=== PATIENT | female | born 1935 | race Caucasian/White ===

== ENCOUNTER 2016-09-14 10:39 | Emergency (ER) | payer MEDICARE ==
[~2016-09-14] VITALS: Ht 157.5 cm; Wt 66.6 kg
[~2016-09-14 10:39] MED LIST: BENZ1CAP90 PO; NITR0.4D5 TOP
[2016-09-14 10:53] VITALS: TEMP 36.5; Ht 157.5 cm; Wt 66.6 kg
[2016-09-14] MEDS ORDERED: VNTHFA/IN INH (11:32)
[2016-09-14] MEDS ORDERED: SYMIN160 INH (11:34)
[2016-09-14] MEDS ORDERED: ALBUT/IPRATROP 3MG/0.5MG NEB 3 ML VIAL INH STA (12:18)
[2016-09-14 12:27] LABS: BASO % 0.4 %; BASO ABS # 0.02 K/uL (0-0.2); COMPLETE YES; EOS % 5.9 %; IG% 0.2 %; LYMPH % 29.7 %; LYMPH ABS # 1.51 K/uL (1.2-3.4); MEAN CELL VOLUME 94.1 fL (80-100); MEAN CORPUSCULAR HEMOGLOBIN 31.5 pg (25-34); MEAN CORPUSCULAR HGB CONC 33.4 g/dl (32-36); MEAN PLATELET VOLUME 11.2 fL (7.4-10.4); MONO % 7.1 %; NEUT % 56.7 %; PLATELET COUNT 133 K/uL (130-400); RED BLOOD COUNT 3.72 M/uL (4.2-5.4); WHITE BLOOD COUNT 5.09 K/uL (4.8-10.8)
[2016-09-14 12:37] LABS: ALT/SGPT 31 U/L (12-78); AST/SGOT 37 U/L (15-37); BLOOD UREA NITROGEN 15 mg/dl (7-18); BUN/CREATININE RATIO 13.6 (10-20); CALCIUM 9.2 mg/dl (8.5-10.1); CARBON DIOXIDE 26 mmol/L (21-32); CHLORIDE 108 mmol/L (98-107); GLUCOSE 149 mg/dl (70-99); POTASSIUM 4.4 mmol/L (3.5-5.1); SODIUM 142 mmol/L (136-145)
[2016-09-14 12:42] LABS: ALB/GLOB RATIO 1.2 (0.9-2); ALKALINE PHOSPHATASE 83 U/L (45-117)
[2016-09-14 12:47] LABS: INR 1.1 (0.9-1.1); PARTIAL THROMBOPLASTIN RATIO 1.1; PROTHROMBIN TIME (PATIENT) 11.4 SECONDS (9.0-12.0)
[2016-09-14 12:49] VITALS: O2SAT 98
[2016-09-14] MEDS ORDERED: LOSA1TAB PO (13:16)
[2016-09-14] MEDS ORDERED: COLE1TAB PO (13:16)
[2016-09-14] MEDS ORDERED: NITR0.4S UT (13:21)
[2016-09-14] MEDS ORDERED: LORA-741 PO (13:21)
[2016-09-14] MEDS ORDERED: INSDGIPEN SC (13:21)
[2016-09-14] MEDS ORDERED: NIFE1TAB53 PO (13:21)
[2016-09-14] MEDS ORDERED: DICY20TA35 PO (13:21)
[2016-09-14] MEDS ORDERED: POTA1CAP2 PO (13:21)
[2016-09-14] MEDS ORDERED: TRAM37.52 PO (13:21)
[2016-09-14] MEDS ORDERED: FENO145T26 PO (13:21)
[2016-09-14] MEDS ORDERED: MAGNTAB17 PO (13:21)
[2016-09-14] MEDS ORDERED: PROBCAP PO (13:21)
[2016-09-14] MEDS ORDERED: LACT3000 PO (13:21)
[2016-09-14] MEDS ORDERED: NXM/40 PO (13:21)
--- NOTE | 2016-09-14 13:29 | DIAGNOSTIC IMAGING REPORT ---
CHEST 2 VIEWS ROUTINE CLINICAL HISTORY: Respiratory distress. Dyspnea. Shortness of breath. Cough. COMPARISON STUDY: Chest CT July 28, 2016 and chest radiograph August 13, 2016 per FINDINGS: Lung volumes are normal. There is no pneumothorax or pleural effusion. There is no consolidation to suggest pulmonary edema. Mild left basilar opacity suggests atelectasis. This is unchanged. Cardiomediastinal silhouette is stable. There is no evidence of pulmonary edema. Several right lung nodules are unchanged since prior CT. IMPRESSION: No acute cardiopulmonary findings. Electronically signed by: Jaydon Swanson M.D. 09/14/2016 1:27 PM Dictated Date/Time: 09/14/2016 1:24 PM
--- NOTE | 2016-09-14 13:37 | DIAGNOSTIC IMAGING REPORT ---
LIMITED ABDOMINAL ULTRASOUND FOR ASCITES EVALUATION CLINICAL HISTORY: Abdominal distention. Possible ascites COMPARISON STUDY: 10/16/2014 FINDINGS: A four-quadrant ultrasound survey was performed. No ascites was visualized. There is mild splenomegaly [(12.5 cm). IMPRESSION: 1. No evidence of ascites 2. Mild splenomegaly Electronically signed by: Miller Guillory M.D. 09/14/2016 1:35 PM Dictated Date/Time: 09/14/2016 1:34 PM
--- NOTE | 2016-09-14 14:08 | EMERGENCY ROOM VISIT NOTE ---
History Report prepared by Janes: Jayson Casey Under the Supervision of: Dr. Fabian Robert D.O. First contact with patient: 12:08 Chief Complaint: REFERRED BY DOCTOR Stated Complaint: REFERRED FOR POSSIBLE CONGESTIVE HEART FAILURE History of Present Illness The patient is an 81 year old female who presents to the Emergency Room with complaints of persistent swelling in her abdomen that started 3 days ago. The patient feels like there is water in her abdomen and describes it as a fluid buildup feeling like a "balloon." The patient also says that she can feel it moving when she changes position. She also notes that she weighed herself 3 days ago and was 142 lbs .Then when she weighed herself again yesterday her weight was 150 lbs gaining 8 lbs in 2 days. The patient notes she has been consuming her normal diet. She called Dr. Garza - PCP earlier today who recommended that she present to the ED for further evaluation since she has a history of gastroparesis. The patient notes that she has been having normal daily bowel movements. However, she does complain of cramping. She also complains of worsening shortness of breath, wheezing, and cold-like symptoms including productive cough and clear mucus. The patient has had the cold-like symptoms for the past month and cannot get them to go away even though she has been taking her medications regularly. The patient has been on antibiotics and prednisone in the past month neither of which have relieved her symptoms. She denies ankle swelling. Source of History: patient Onset: 3 days ago Position: abdomen Quality: other (fluid buildup) Timing: other (persistent) Associated Symptoms: + SOB, + cough (productive) Note: Other associated symptoms: weight gain, cramping, wheezing, cold-like symptoms, clear mucus production Denies: ankle swelling Review of Systems See HPI for pertinent positives & negatives. A total of 10 systems reviewed and were otherwise negative. 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 (14) Vertigo Surgical Problems: (1) H/O: hysterectomy (2) S/P cholecystectomy Family History FH: heart disease Hypertension Kidney disease or stones Social History Smoking Status: Never Smoker Alcohol Use: none Marital Status: Housing Status: lives with family Occupation Status: retired Current/Historical Medications Scheduled Albuterol Hfa (Ventolin Hfa), 2-4 PUFFS INH Q6H Budesonide/Formoterol Fumarate (Symbicort 160/4.5 Inhaler ), 2 PUFFS INH BID Colestipol Hcl (Colestid), 3 GM PO HS Dicyclomine Hcl (Bentyl), 20 MG PO BID Docusate Sodium (Colace), 100 MG PO DAILY Esomeprazole Magnesium (Nexium), 40 MG PO DAILY Fenofibrate (Tricor), 145 MG PO QPM Insulin Glargine (Lantus Solostar), 13 UNITS SC QPM Insulin Lispro (Human) (Humalog Kwikpen), SQ UD Lactase (Lactaid), 3,000 UNITS PO DAILY Levothyroxine Sodium (Synthroid), 125 MCG PO DAILY Losartan Potassium (Cozaar), 25 MG PO DAILY Magnesium Chloride-Calcium Car (Slow-Mag), 1 TABLET PO QID Nifedipine (Nifedipine Er), 30 MG PO DAILY Nitroglycerin (Minitran), 1 PATCH TOP UD Potassium Chloride (Potassium Chloride Er), 10 MEQ PO DAILY Probiotic Product ([employer]), 1 TAB PO DAILY Scheduled PRN Benzonatate (Tessalon Perles), 200 MG PO Q4H PRN for Cough Guaif/Pse/Codeine (Cheratussin DAC 30-10-100 mg/5Ml), 5 ML PO Q6 PRN for Cough Ipratropium-Albuterol (Duoneb), 1 TREATMENT INH Q4H PRN for SOB/Wheezing Lorazepam (Ativan), 0.5 MG PO HS PRN for Sleep Nitroglycerin (Nitrostat), 0.4 MG UT UD PRN for Chest Pain Tramadol-Acetaminophen (Ultracet), 1 TABLET PO DAILY PRN for Pain Allergies Coded Allergies: Statins (Unverified Allergy, Severe, ELEVATED HEPATIC ENZYMES, 09/14/16) Iodinated Contrast Media (Verified Allergy, Intermediate, RASH, 09/14/16) PT REPORTS ALLERGIC REACTION: 'MUSCLE SPASMS OF HEART' Erythromycin (Unverified Allergy, Unknown, unknown, 09/14/16) ONLY FOR THE EYES Penicillins (Verified Allergy, Unknown, 09/14/16) Repaglinide (Verified Allergy, Unknown, UNKN, 09/14/16) Sulfa Drugs (Verified Allergy, Unknown, 09/14/16) Timolol (Verified Allergy, Unknown, UNKN, 09/14/16) Enalapril (Verified Adverse Reaction, Intermediate, COUGH, 09/14/16) Physical Exam Vital Signs Date Time Temp Pulse Resp B/P Pulse Ox O2 Delivery O2 Flow Rate FiO2 09/14/16 14:50 73 20 139/57 92 Room Air 09/14/16 12:50 61 18 134/62 97 Room Air 09/14/16 12:49 98 Room Air 09/14/16 10:53 36.5 72 18 148/65 95 Room Air Physical Exam CONSTITUTIONAL/VITAL SIGNS: Reviewed / noted above. GENERAL: Non-toxic in appearance. INTEGUMENTARY: Warm, dry, and [place]. HEAD: Normocephalic. EYES: without scleral icterus or trauma. ENT/OROPHARYNX: clear and moist. LYMPHADENOPATHY/NECK: Is supple without lymphadenopathy or meningismus. RESPIRATORY: Mild and expiratory wheezing. CARDIOVASCULAR: Regular rate and rhythm. GI/ABDOMEN: Soft and nontender. No organomegaly or pulsatile mass. No rebound or guarding. Normal bowel sounds. EXTREMITIES: Warm and well perfused. BACK: No CVA tenderness. NEUROLOGICAL: Intact without focal deficits. PSYCHIATRIC: normal affect. MUSCULOSKELETAL: Normally developed with good muscle tone. Medical Decision & Procedures ER Provider Diagnostic Interpretation: X ray results and stated below per my interpretation and radiologist interpretation. Other radiology results and stated below per my review and radiologist interpretation: CHEST 2 VIEWS ROUTINE CLINICAL HISTORY: Respiratory distress. Dyspnea. Shortness of breath. Cough. COMPARISON STUDY: Chest CT July 28, 2016 and chest radiograph August 13, 2016 per FINDINGS: Lung volumes are normal. There is no pneumothorax or pleural effusion. There is no consolidation to suggest pulmonary edema. Mild left basilar opacity suggests atelectasis. This is unchanged. Cardiomediastinal silhouette is stable. There is no evidence of pulmonary edema. Several right lung nodules are unchanged since prior CT. IMPRESSION: No acute cardiopulmonary findings. Electronically signed by: Jaydon Swanson M.D. 09/14/2016 1:27 PM Dictated Date/Time: 09/14/2016 1:24 PM LIMITED ABDOMINAL ULTRASOUND FOR ASCITES EVALUATION CLINICAL HISTORY: Abdominal distention. Possible ascites COMPARISON STUDY: 10/16/2014 FINDINGS: A four-quadrant ultrasound survey was performed. No ascites was visualized. There is mild splenomegaly [(12.5 cm). IMPRESSION: 1. No evidence of ascites 2. Mild splenomegaly Electronically signed by: Miller Guillory M.D. 09/14/2016 1:35 PM Dictated Date/Time: 09/14/2016 1:34 PM Laboratory Results 09/14/16 11:20 Red Blood Count 3.72, Mean Corpuscular Volume 94.1, Mean Corpuscular Hemoglobin 31.5, Mean Corpuscular Hemoglobin Concent 33.4, Mean Platelet Volume 11.2, Neutrophils (%) (Auto) 56.7, Lymphocytes (%) (Auto) 29.7, Monocytes (%) (Auto) 7.1, Eosinophils (%) (Auto) 5.9, Basophils (%) (Auto) 0.4, Neutrophils # (Auto) 2.89, Lymphocytes # (Auto) 1.51, Monocytes # (Auto) 0.36, Eosinophils # (Auto) 0.30, Basophils # (Auto) 0.02 09/14/16 11:20 Test 09/14/16 11:20 White Blood Count 5.09 K/uL (4.8-10.8) Red Blood Count 3.72 M/uL (4.2-5.4) Hemoglobin 11.7 g/dL (12.0-16.0) Hematocrit 35.0 % (37-47) Mean Corpuscular Volume 94.1 fL (80-100) Mean Corpuscular Hemoglobin 31.5 pg (25-34) Mean Corpuscular Hemoglobin Concent 33.4 g/dl (32-36) Platelet Count 133 K/uL (130-400) Mean Platelet Volume 11.2 fL (7.4-10.4) Neutrophils (%) (Auto) 56.7 % Lymphocytes (%) (Auto) 29.7 % Monocytes (%) (Auto) 7.1 % Eosinophils (%) (Auto) 5.9 % Basophils (%) (Auto) 0.4 % Neutrophils # (Auto) 2.89 K/uL (1.4-6.5) Lymphocytes # (Auto) 1.51 K/uL (1.2-3.4) Monocytes # (Auto) 0.36 K/uL (0.11-0.59) Eosinophils # (Auto) 0.30 K/uL (0-0.5) Basophils # (Auto) 0.02 K/uL (0-0.2) RDW Standard Deviation 46.5 fL (36.4-46.3) RDW Coefficient of Variation 13.5 % (11.5-14.5) Immature Granulocyte % (Auto) 0.2 % Immature Granulocyte # (Auto) 0.01 K/uL (0.00-0.02) Prothrombin Time 11.4 SECONDS (9.0-12.0) Prothromb Time International Ratio 1.1 (0.9-1.1) Activated Partial Thromboplast Time 28.8 SECONDS (21.0-31.0) Partial Thromboplastin Ratio 1.1 Anion Gap 8.0 mmol/L (3-11) Est Creatinine Clear Calc Drug Dose 35.9 ml/min Estimated GFR () 54.5 Estimated GFR (Non- 47.0 BUN/Creatinine Ratio 13.6 (10-20) Calcium Level 9.2 mg/dl (8.5-10.1) Magnesium Level 1.9 mg/dl (1.8-2.4) Total Bilirubin 0.4 mg/dl (0.2-1) Aspartate Amino Transf (AST/SGOT) 37 U/L (15-37) Alanine Aminotransferase (ALT/SGPT) 31 U/L (12-78) Alkaline Phosphatase 83 U/L (45-117) Total Creatine Kinase 58 U/L (26-192) Creatine Kinase MB 0.6 ng/ml (0.5-3.6) Creatine Kinase MB Ratio 1.0 (0-3.0) Troponin I < 0.015 ng/ml (0-0.045) Pro-B-Type Natriuretic Peptide 460 pg/ml (0-1800) Total Protein 6.7 gm/dl (6.4-8.2) Albumin 3.6 gm/dl (3.4-5.0) Globulin 3.1 gm/dl (2.5-4.0) Albumin/Globulin Ratio 1.2 (0.9-2) Laboratory results as stated above per my review. Medications Administered Medications (Trade) Dose Ordered Sig/Massiel Route Start Time Stop Time Status Last Admin Dose Admin Albuterol/ Ipratropium (Duoneb) 3 ml NOW STAT INH 09/14/16 12:18 09/14/16 12:22 DC 09/14/16 12:52 3 ML ECG Indication: other Rate (beats per minute): 68 Rhythm: normal sinus Findings: no acute ischemic change, no ectopy ED Course 1210: Previous medical records were reviewed. The patient was evaluated in room B12. A complete history and physical examination was performed. 1218: Ordered Duoneb 3 ml INH. 1412: On reevaluation, the patient is resting comfortably. I discussed the results and findings with the patient. She verbalized agreement of the treatment plan. She was discharged home. Medical Decision the differential was considered includes acute myocardial infarction, acute coronary syndrome, myocarditis, pericarditis, pericardial effusions /tamponad, esophageal perforation, pulmonary embolism, pneumonia, pneumothorax, cardiomyopathy, congestive heart, anemia , COPD/asthma exacerbation. This is an 81-year-old female who presents to the ED with a chief complaint of increased weight gain and continued cough. The patient has had an upper respiratory infection associated with cough since June. She was seen here in late July. She has been on a couple of courses of antibiotics as well as steroids. She is also been prescribed Tessalon Perles and Hycodan and has seen her hepatology physician, Dr. Coleman. She has an appointment to see him this Wednesday in 4 days. The patient was concerned about some swelling around her abdomen. She felt like she was accumulating fluid. Her PCP was worried about ascites. The patient was concerned about congestive heart failure. The patient 's cough is mostly nonproductive but occasionally she produces some clear sputum. She has not had fevers. She denies any other significant symptoms such as chest pains or back pains. No swelling in her legs. Vital signs are stable. Physical exam was essentially normal aside from a cough and some mild expiratory wheezing. CBC was unremarkable. CMP was unremarkable. Troponin and BNP are normal. Chest x-ray did not show acute disease. Abdominal ultrasound did not show ascites. Reviewing the charts, the patient gained 1.1 kg between August 13 and today, September 14. She claims that she gained 7 pounds over the weekend but this does not appear accurate based on her weight and July and now, one month later. The patient was told the results of the test per she was given a DuoNeb treatment. She is felt to be stable for discharge and outpatient follow-up with her hepatology physician this Wednesday. She does have albuterol inhaler as well as steroid inhaler at home. She was given a prescription for Cheratussin. Impression Primary Impression: Bronchitis Scribe Attestation The scribe's documentation has been prepared under my direction and personally reviewed by me in its entirety. I confirm that the note above accurately reflects all work, treatment, procedures, and medical decision making performed by me. Departure Information Dispostion Home / Self-Care Prescriptions Guaif/Pse/Codeine (Cheratussin DAC 30-10-100 mg/5Ml) 5 Ml/Cup Soln 5 ML PO Q6 Y for Cough, #100 ML Prov: Fabian Robert D.O. 09/14/16 Referrals RV. Sanderson MD (PCP) Forms HOME CARE DOCUMENTATION FORM, IMPORTANT VISIT INFORMATION, WORK / SCHOOL INSTRUCTIONS Patient Instructions Bronchitis Acute, My [facility] [address] Additional Instructions Follow-up with your doctor for further care and evaluation in 1-4 days. Return to the emergency department for worsening or new symptoms or any concerns. You have been examined and treated today on an emergency basis only. This is not a substitute for, or an effort to provide, complete comprehensive medical care. It is impossible to recognize and treat all injuries or illnesses in a single emergency department visit. It is therefore important that you follow up closely with your doctor. Call as soon as possible for an appointment.
[2016-09-14 14:50] VITALS: BP 139/57; PULSE 73; O2SAT 92
[2016-09-14] MEDS ORDERED: IPRASOL4 INH (15:01)
[2016-09-14] MEDS ORDERED: RBTDAC5 PO (15:16)
--- NOTE | 2016-09-14 15:48 | Pharmacy Progress Note ---
ED Pharmacist Progress Note Date of Service: Sep 14, 2016. Pharmacist, Ileana, called from [facility] asking if Rx could be changed to Cheratussin AC (rather than DAC) because that is what was last filled for this patient. Dr Robert permits change to AC as this is what patient had been using and had actually requested refill of the same.
[2016-09-14] MEDS ORDERED: INSU100I2 SQ (20:32)
[2016-09-14] MEDS ORDERED: LEVO125T72 PO (20:39)
[2016-09-14] MEDS ORDERED: DOCU-94 PO (20:58)
== END 2016-09-14 15:05 | disposition home or self-care (01) ==
LOC: C.EDB 10:39
DX: J40 Bronchitis, not specified as acute or chronic (principal); E11.9 Type 2 diabetes mellitus without complications; K21.9 Gastro-esophageal reflux disease without esophagitis; K31.84 Gastroparesis; I51.9 Heart disease, unspecified; E78.5 Hyperlipidemia, unspecified; I10 Essential (primary) hypertension; E03.9 Hypothyroidism, unspecified; K58.9 Irritable bowel syndrome, unspecified; Z82.49 Family history of ischemic heart disease and other diseases of the circulatory system; Z79.4 Long term (current) use of insulin; Z79.899 Other long term (current) drug therapy

== ENCOUNTER → 2016-10-22 | Outpatient (CLI) | payer MEDICARE ==
[~2016-10-22] MED LIST changes: +COLE1TAB PO; +DICY20TA35 PO; +DOCU-94 PO; +FENO145T26 PO; +INSDGIPEN SC; +INSU100I2 SQ; +IPRASOL4 INH; +LACT3000 PO; +LEVO125T72 PO; +LORA-741 PO; +LOSA1TAB PO; +MAGNTAB17 PO; +NIFE1TAB53 PO; +NITR0.4S UT; +NXM/40 PO; +POTA1CAP2 PO; +PROBCAP PO; +RBTDAC5 PO; +SYMIN160 INH; +TRAM37.52 PO; +VNTHFA/IN INH
[2016-10-22 17:47] LABS: ALT/SGPT 36 U/L (12-78); AST/SGOT 42 U/L (15-37); BLOOD UREA NITROGEN 14 mg/dl (7-18); BUN/CREATININE RATIO 12.3 (10-20); CALCIUM 9.6 mg/dl (8.5-10.1); CARBON DIOXIDE 25 mmol/L (21-32); CHLORIDE 110 mmol/L (98-107); GLUCOSE 126 mg/dl (70-99); MAGNESIUM 1.7 mg/dl (1.8-2.4); POTASSIUM 4.4 mmol/L (3.5-5.1); SODIUM 144 mmol/L (136-145)
[2016-10-22 17:55] LABS: CHOLESTEROL/HDL RATIO 4.7
[2016-10-22 17:58] LABS: ALB/GLOB RATIO 1.1 (0.9-2); ALKALINE PHOSPHATASE 81 U/L (45-117)
[2016-10-22 18:06] LABS: RATIO 69.4 mcg/mg (0-30.0)
[2016-10-23 05:55] LABS: ESTIMATED AVERAGE GLUCOSE 157 mg/dl; HA1C FLAG Normal (Normal)
== END | disposition home or self-care (01) ==
LOC: C.LABBFT 12:31
PROVIDERS: ATTEND Internal Medicine Cardiovascular Disease
DX: E11.9 Type 2 diabetes mellitus without complications (principal); E78.5 Hyperlipidemia, unspecified; E03.9 Hypothyroidism, unspecified; E83.42 Hypomagnesemia; E87.6 Hypokalemia

== ENCOUNTER → 2017-01-06 | Outpatient (CLI) | payer MEDICARE ==
--- NOTE | 2017-01-07 13:07 | MAMMOGRAPHY REPORT ---
BILATERAL DIGITAL SCREENING MAMMOGRAM TOMOSYNTHESIS WITH CAD: 01/06/2017 CLINICAL HISTORY: Routine screening. Patient has no complaints. TECHNIQUE: Breast tomosynthesis in addition to standard 2D mammography was performed. Current study was also evaluated with a Computer Aided Detection (CAD) system. COMPARISON: Comparison is made to exams dated: 01/08/2016 ultrasound biopsy, 01/08/2016 mammogram, 12/26/2015 mammogram, 12/26/2015 ultrasound, 12/17/2015 mammogram, and 06/06/2015 ultrasound - [facility]. BREAST COMPOSITION: The tissue of both breasts is heterogeneously dense, which may obscure small ma sses. FINDINGS: No suspicious masses, calcifications, or areas of architectural distortion are noted in e ither breast. There has been no significant interval change compared to prior exams. Scattered bilat eral benign-appearing calcifications are not significantly changed. Lobulated circumscribed mass in the left 11 to 12:00 breast is stable compared to multiple prior exams. IMPRESSION: ACR BI-RADS CATEGORY 2: BENIGN There is no mammographic evidence of malignancy. A 1 year screening mammogram is recommended. The p atient will receive written notification of the results. Approximately 10% of breast cancers are not detected with mammography. A negative mammographic repor t should not delay biopsy if a clinically suggestive mass is present. Nohemi Rodriguez M.D. /:01/06/2017 16:31:36 Silk Screen Operator: Viviana Osorio, [facility] letter sent: Normal 1/2 BI-RADS Code: ACR BI-RADS Category 2: Benign
== END | disposition home or self-care (01) ==
LOC: C.MAMM 14:14
PROVIDERS: ATTEND Internal Medicine
DX: Z12.31 Encounter for screening mammogram for malignant neoplasm of breast (principal)

== ENCOUNTER → 2017-01-26 | Outpatient (CLI) | payer MEDICARE ==
[2017-01-26 12:46] LABS: RATIO 5.1 mcg/mg (0-30.0)
[2017-01-26 13:12] LABS: ESTIMATED AVERAGE GLUCOSE 157 mg/dl; HA1C FLAG Normal (Normal)
== END | disposition home or self-care (01) ==
LOC: C.LABBFT 10:11
PROVIDERS: ATTEND Nurse Practitioner Adult Health
DX: E11.9 Type 2 diabetes mellitus without complications (principal)

== ENCOUNTER → 2017-02-11 | Outpatient (CLI) | payer MEDICARE ==
[2017-02-11 18:15] LABS: BLOOD UREA NITROGEN 14 mg/dl (7-18); BUN/CREATININE RATIO 12.4 (10-20); CALCIUM 10.1 mg/dl (8.5-10.1); CARBON DIOXIDE 27 mmol/L (21-32); CHLORIDE 107 mmol/L (98-107); GLUCOSE 136 mg/dl (70-99); POTASSIUM 4.1 mmol/L (3.5-5.1); SODIUM 143 mmol/L (136-145)
== END | disposition home or self-care (01) ==
LOC: C.LABBFT 11:43
PROVIDERS: ATTEND Internal Medicine
DX: E11.9 Type 2 diabetes mellitus without complications (principal)

== ENCOUNTER → 2017-03-26 | Outpatient (CLI) | payer MEDICARE ==
[~2017-03-26] MED LIST changes: -BENZ1CAP90 PO
[2017-03-26 17:18] LABS: ALT/SGPT 30 U/L (12-78); BLOOD UREA NITROGEN 21 mg/dl (7-18); BUN/CREATININE RATIO 17.6 (10-20); CALCIUM 10.3 mg/dl (8.5-10.1); CARBON DIOXIDE 26 mmol/L (21-32); CHLORIDE 107 mmol/L (98-107); GLUCOSE 117 mg/dl (70-99); MAGNESIUM 1.9 mg/dl (1.8-2.4); POTASSIUM 4.5 mmol/L (3.5-5.1); SODIUM 139 mmol/L (136-145)
[2017-03-26 17:21] LABS: ALB/GLOB RATIO 1.1 (0.9-2); ALKALINE PHOSPHATASE 77 U/L (45-117); AST/SGOT 28 U/L (15-37)
== END | disposition home or self-care (01) ==
LOC: C.LAB1850 14:57
PROVIDERS: ATTEND Internal Medicine
DX: R07.89 Other chest pain (principal)

== ENCOUNTER → 2017-06-01 | Outpatient (CLI) | payer MEDICARE ==
[2017-06-01 17:59] LABS: BLOOD UREA NITROGEN 21 mg/dl (7-18); BUN/CREATININE RATIO 17.4 (10-20); CARBON DIOXIDE 26 mmol/L (21-32); CHLORIDE 107 mmol/L (98-107); GLUCOSE 148 mg/dl (70-99); POTASSIUM 4.1 mmol/L (3.5-5.1); SODIUM 140 mmol/L (136-145)
[2017-06-02 07:35] LABS: ESTIMATED AVERAGE GLUCOSE 169 mg/dl; HA1C FLAG Normal (Normal)
== END | disposition home or self-care (01) ==
LOC: C.LABBFT 13:59
PROVIDERS: ATTEND Nurse Practitioner Adult Health
DX: E11.9 Type 2 diabetes mellitus without complications (principal); E83.52 Hypercalcemia

== ENCOUNTER → 2017-08-24 | Outpatient (CLI) | payer MEDICARE ==
[~2017-08-24] MED LIST changes: +IPRA-64 INH; -IPRASOL4 INH; -NIFE1TAB53 PO; +NIFE30TA86 PO
--- NOTE | 2017-08-24 15:36 | DIAGNOSTIC IMAGING REPORT ---
CHEST 2 VIEWS ROUTINE CLINICAL HISTORY: Acute asthmatic bronchitis. COMPARISON STUDY: Chest CT July 28, 2016 and chest radiograph September 14, 2016. FINDINGS: A chondroid lesion projecting over the left humeral head is unchanged. No pneumothorax or pleural effusion is present. There is no consolidation to suggest pneumonia. Cardiomediastinal silhouette is stable. Patient is mildly rotated. IMPRESSION: No acute cardiopulmonary findings. Electronically signed by: Jaydon Swanson M.D. 08/24/2017 3:34 PM Dictated Date/Time: 08/24/2017 3:32 PM
== END | disposition home or self-care (01) ==
LOC: C.RAD1850 15:23
PROVIDERS: ATTEND Internal Medicine Pulmonary Disease
DX: J45.909 Unspecified asthma, uncomplicated (principal)

== ENCOUNTER → 2017-09-16 | Outpatient (CLI) | payer MEDICARE ==
[~2017-09-16] MED LIST changes: -IPRA-64 INH; +IPRASOL4 INH; +NIFE1TAB53 PO; -NIFE30TA86 PO
[2017-09-16 17:36] LABS: BLOOD UREA NITROGEN 16 mg/dl (7-18); CALCIUM 9.7 mg/dl (8.5-10.1); CARBON DIOXIDE 27 mmol/L (21-32); CREATININE 1.16 mg/dl (0.60-1.20); GLUCOSE 151 mg/dl (70-99); SODIUM 138 mmol/L (136-145)
== END | disposition home or self-care (01) ==
LOC: C.LABBFT 11:34
PROVIDERS: ATTEND Internal Medicine
DX: E87.6 Hypokalemia (principal); E83.42 Hypomagnesemia

== ENCOUNTER → 2017-09-30 | Outpatient (CLI) | payer MEDICARE ==
[2017-09-30 16:41] LABS: BASO % 0.4 %; BASO ABS # 0.03 K/uL (0-0.2); EOS % 5.5 %; HEMATOCRIT 38.4 % (37-47); HEMOGLOBIN 13.4 g/dL (12.0-16.0); IG# 0.03 K/uL (0.00-0.02); LYMPH % 14.9 %; LYMPH ABS # 1.08 K/uL (1.2-3.4); MEAN CELL VOLUME 91.6 fL (80-100); MEAN CORPUSCULAR HGB CONC 34.9 g/dl (32-36); MEAN PLATELET VOLUME 10.2 fL (7.4-10.4); MONO ABS # 0.65 K/uL (0.11-0.59); NEUT % 69.8 %; NEUT ABS # 5.07 K/uL (1.4-6.5); PLATELET COUNT 255 K/uL (130-400); RED CELL DISTRIBUTION WIDTH CV 12.8 % (11.5-14.5); RED CELL DISTRIBUTION WIDTH SD 42.9 fL (36.4-46.3); WHITE BLOOD COUNT 7.26 K/uL (4.8-10.8)
== END | disposition home or self-care (01) ==
LOC: C.LAB1850 15:29
PROVIDERS: ATTEND Internal Medicine
DX: R61 Generalized hyperhidrosis (principal)

== ENCOUNTER → 2017-10-07 | Outpatient (CLI) | payer MEDICARE | END | disposition home or self-care (01) | LOC: C.LABBFT 15:40 | PROVIDERS: ATTEND Internal Medicine | DX: N39.0 Urinary tract infection, site not specified (principal) ==

== ENCOUNTER → 2017-10-29 | Outpatient (CLI) | payer MEDICARE ==
[~2017-10-29] MED LIST changes: -NIFE1TAB53 PO; +NIFE30TA86 PO
--- NOTE | 2017-10-29 11:31 | DIAGNOSTIC IMAGING REPORT ---
HEAD WITHOUT CONTRAST (CT) CT DOSE: 638.56 mGycm HISTORY: Mental status change DIZZINESS,HEADACHES,EAR PAIN, NIGHT SWEATS TECHNIQUE: Multiaxial CT images of the head were performed without the use of intravenous contrast. A dose lowering technique was utilized adhering to the principles of ALARA. Comparison: 07/13/2016 Findings: The paranasal sinuses and mastoid air cells are clear. The calvarium and skull base are intact. The ventricles and sulci are within normal limits. There is no mass, hematoma, midline shift, or acute infarct. Impression: No acute intracranial abnormality. No change from the prior exam. The above report was generated using voice recognition software. It may contain grammatical, syntax or spelling errors. Electronically signed by: Khoa Perez M.D. 10/29/2017 11:30 AM Dictated Date/Time: 10/29/2017 11:28 AM
== END | disposition home or self-care (01) ==
LOC: C.CTS 11:10
PROVIDERS: ATTEND Internal Medicine
DX: H92.09 Otalgia, unspecified ear (principal); I10 Essential (primary) hypertension; J34.89 Other specified disorders of nose and nasal sinuses; R42 Dizziness and giddiness; R61 Generalized hyperhidrosis; R51 Headache

== ENCOUNTER → 2017-11-26 | Outpatient (CLI) | payer MEDICARE ==
[2017-11-26 17:39] LABS: BLOOD UREA NITROGEN 25 mg/dl (7-18); CALCIUM 9.3 mg/dl (8.5-10.1); CARBON DIOXIDE 21 mmol/L (21-32); CREATININE 1.24 mg/dl (0.60-1.20); GLUCOSE 268 mg/dl (70-99); POTASSIUM 4.5 mmol/L (3.5-5.1); SODIUM 136 mmol/L (136-145)
== END | disposition home or self-care (01) ==
LOC: C.LABBFT 14:37
PROVIDERS: ATTEND Physician Assistant
DX: E87.6 Hypokalemia (principal)

== ENCOUNTER → 2017-12-01 | Outpatient (CLI) | payer MEDICARE ==
[2017-12-01 16:59] LABS: BLOOD UREA NITROGEN 15 mg/dl (7-18); CALCIUM 9.4 mg/dl (8.5-10.1); CARBON DIOXIDE 26 mmol/L (21-32); CREATININE 1.28 mg/dl (0.60-1.20); GLUCOSE 231 mg/dl (70-99); POTASSIUM 4.9 mmol/L (3.5-5.1); SODIUM 137 mmol/L (136-145)
== END | disposition home or self-care (01) ==
LOC: C.LAB1850 14:59
PROVIDERS: ATTEND Physician Assistant
DX: I50.32 Chronic diastolic (congestive) heart failure (principal)

== ENCOUNTER → 2017-12-08 | Outpatient (CLI) | payer MEDICARE ==
[2017-12-08 16:44] LABS: ALBUMIN 3.7 gm/dl (3.4-5.0); ALT/SGPT 27 U/L (12-78); AST/SGOT 24 U/L (15-37); BLOOD UREA NITROGEN 17 mg/dl (7-18); CARBON DIOXIDE 29 mmol/L (21-32); CREATININE 1.28 mg/dl (0.60-1.20); GLUCOSE 149 mg/dl (70-99); POTASSIUM 4.2 mmol/L (3.5-5.1); SODIUM 137 mmol/L (136-145)
[2017-12-08 16:53] LABS: ALKALINE PHOSPHATASE 72 U/L (45-117); CHOLESTEROL 134 mg/dl (0-200); LDL CHOLESTEROL CALCULATED 66 mg/dl; TOTAL PROTEIN 7.2 gm/dl (6.4-8.2)
[2017-12-09 07:33] LABS: HEMOGLOBIN A1C 7.8 % (4.5-5.6)
== END | disposition home or self-care (01) ==
LOC: C.LABBFT 11:13
PROVIDERS: ATTEND Physician Assistant
DX: E11.65 Type 2 diabetes mellitus with hyperglycemia (principal); E03.9 Hypothyroidism, unspecified; E83.42 Hypomagnesemia; I50.32 Chronic diastolic (congestive) heart failure; I11.0 Hypertensive heart disease with heart failure

== ENCOUNTER → 2018-01-10 | Outpatient (CLI) | payer MEDICARE ==
--- NOTE | 2018-01-11 13:18 | MAMMOGRAPHY REPORT ---
BILATERAL DIGITAL SCREENING MAMMOGRAM TOMOSYNTHESIS WITH CAD: 01/10/2018 CLINICAL HISTORY: Routine screening. Patient has no complaints. TECHNIQUE: Breast tomosynthesis in addition to standard 2D mammography was performed. Current study was also evaluated with a Computer Aided Detection (CAD) system. COMPARISON: Comparison is made to exams dated: 01/06/2017 mammogram, 12/17/2015 mammogram, 12/05/2014 m ammogram, 12/04/2013 mammogram, 11/28/2012 mammogram, and 11/26/2011 mammogram - [facility]. BREAST COMPOSITION: The tissue of both breasts is heterogeneously dense, which may obscure small mas ses. FINDINGS: There is a stable ribbon-shaped biopsy marker clip in the upper outer quadrant of the left breast. Mild vascular calcification bilaterally. Scattered benign rim calcifications in each breast . A lobulated 2 cm mass in the 11:00 to 12:00 left breast is unchanged in size and appearance dating back to at least 2008, therefore considered benign. No new suspicious mass, architectural distortion or cluster of microcalcifications is seen. IMPRESSION: ACR BI-RADS CATEGORY 1: NEGATIVE There is no mammographic evidence of malignancy. A 1 year screening mammogram is recommended. The pa tient will receive written notification of the results. Approximately 10% of breast cancers are not detected with mammography. A negative mammographic report should not delay biopsy if a clinically suggestive mass is present. Tessa Mcgrath M.D. ay/:01/10/2018 16:36:51 Speech Language Pathologist: Dee BRYANT)(Lucita), [facility] letter sent: Normal 1/2 BI-RADS Code: ACR BI-RADS Category 1: Negative
== END | disposition home or self-care (01) ==
LOC: C.MAMM 11:24
PROVIDERS: ATTEND Internal Medicine
DX: Z12.31 Encounter for screening mammogram for malignant neoplasm of breast (principal)

== ENCOUNTER → 2018-03-24 | Outpatient (CLI) | payer MEDICARE ==
[~2018-03-24] MED LIST changes: +IPRA-64 INH; -IPRASOL4 INH
[2018-03-25 06:03] LABS: HEMOGLOBIN A1C 7.6 % (4.5-5.6)
== END | disposition home or self-care (01) ==
LOC: C.LABBFT 11:47
PROVIDERS: ATTEND Nurse Practitioner Adult Health
DX: E11.65 Type 2 diabetes mellitus with hyperglycemia (principal); E03.9 Hypothyroidism, unspecified

== ENCOUNTER 2020-11-28 18:04 | Inpatient (IN) ==
[2020-11-28 19:48] LABS: Basophils # (auto) 0.01 K/uL (0-0.2); Basophils % (auto) 0.2 %; Eosinophils # (auto) 0.19 K/uL (0-0.5); Eosinophils % (auto) 3.3 %; Hematocrit (blood only) 37.5 % (37-47); Hemoglobin 12.8 g/dL (12.0-16.0); Immature Granulocytes # (auto) 0.01 K/uL (0.00-0.02); Immature Granulocytes % (auto) 0.2 %; Lymphocytes # (auto) 0.67 K/uL (1.2-3.4); Lymphocytes % (auto) 11.6 %; Mean Corpuscular Hemoglobin 31.8 pg (25-34); Mean Corpuscular Hgb Conc 34.1 g/dL (32-36); Mean Corpuscular Volume 93.3 fL (80-100); Mean Platelet Volume 11.2 fL (7.4-10.4); Monocytes # (auto) 0.35 K/uL (0.11-0.59); Monocytes % (auto) 6.1 %; Neutrophils # (auto) 4.54 K/uL (1.4-6.5); Neutrophils % (auto) 78.6 %; Platelet Count 124 K/uL (130-400); RDW Coefficient of Variation 14.3 % (11.5-14.5); RDW Standard Deviation 48.6 fL (36.4-46.3); Red Blood Count 4.02 M/uL (4.2-5.4); White Blood Count 5.77 K/uL (4.8-10.8)
[2020-11-28 19:48] LABS: Appearance Urine Clear (Clear); Bilirubin Urine Negative (Negative); Blood Urine Negative (Negative); Color Urine Yellow; Glucose Urine UA Negative (Negative); Ketones Urine Negative (Negative); Leukocyte Esterase Urine Negative (Negative); Nitrite Urine Negative (Negative); Protein Urine Negative (Negative); Specific Gravity Urine 1.012 (1.000-1.030); Urobilinogen Urine Negative (Negative)
[2020-11-28 20:08] LABS: Alanine Aminotransferase 23 U/L (12-78); Albumin Globulin Ratio 0.8 (0.9-2); Albumin Level 3.8 gm/dl (3.4-5.0); Alkaline Phosphatase 142 U/L (45-117); Aspartate Aminotransferase 35 U/L (15-37); BUN Creatinine Ratio 18.7 (10-20); Bilirubin,Total 0.5 mg/dl (0.2-1); Blood Urea Nitrogen 25 mg/dl (7-18); Calcium 9.4 mg/dl (8.5-10.1); Carbon Dioxide 24 mmol/L (21-32); Chloride 106 mmol/L (98-107); Est GFR (African American) 42.5; Est GFR (Non-African American) 36.7; Globulin 4.6 gm/dl (2.5-4.0); Glucose 199 mg/dl (70-99); Lipase 349 U/L (73-393); Sodium 137 mmol/L (136-145); Total Protein 8.4 gm/dl (6.4-8.2)
--- NOTE | 2020-11-28 20:18 | XRay Report ---
XR chest 1V portable CLINICAL HISTORY: Pain radiating to the abdomen COMPARISON STUDY: March 03, 2021 FINDINGS: The cardiac and mediastinal contours remain stable. There is no free intraperitoneal air. T here is stable mild interstitial thickening with a basilar predominance. Is a 5 mm left midlung zone opacity, likely postinflammatory or representing a vascular summation[. There is a left proximal leydi ral calcification likely chondroid in etiology. IMPRESSION: 1. Stable interstitial thickening with a basilar predominance 2. No significant change from the prior study ACT 112: Negative or not required by law. Electronically signed by: Miller Guillory M.D. 11/28/2020 8:16 PM
--- NOTE | 2020-11-28 20:33 | Emergency Department Note ---
Impression & Plan Ascites, Abdominal pain, Acute GI bleeding ED Provider Note NAME: FELI GREEN AGE: 85 SEX: F : 1935 ARRIVES VIA: Walk-In INFORMANT: Patient, ED PROVIDER(S): Reza Han DO CHIEF COMPLAINT: Abdominal pain HPI: The patient is an 85-year-old female who presented to the emergency department for an evaluation of abdominal pain and rectal bleeding. The patient has a history of nonalcoholic cirrhosis. She called her family doctor and was seen initially but then sent to the emergency department for further evaluation because of her rectal bleeding and her past medical history. She is noticed very significant distention in her abdomen. She denies having any chest pain or difficulty breathing but does have some exertional dyspnea because of the abdominal distention. The patient denies having any lower extremity swelling. She denies any dizziness or recent trauma. She states her symptoms are moderate at this time. She is never had rectal bleeding similar to this in the past. ROS: See above HPI for pertinent positives & negatives. A total of 10 systems reviewed and were otherwise negative. PAST MEDICAL HISTORY: See Below PAST SURGICAL HISTORY: See Below FAMILY HISTORY: See Below SOCIAL HISTORY: See Below HOME MEDICATIONS: See Below ALLERGIES: See Below VITALS: See Below PHYSICAL EXAMINATION: GENERAL: Patient is awake alert in no acute distress patient is resting comfo rtably and showing no signs of anxiety EYES: The conjunctivae are pale. The pupils are round and reactive. EARS, NOSE, MOUTH AND THROAT: The nose is without any evidence of any deformity. Mucous membranes are moist. Tongue is midline. NECK: The neck is nontender and supple. RESPIRATORY: Normal respiratory effort is noted there is no evidence of wheezing rhonchi or rales CARDIOVASCULAR: Regular rate and rhythm noted there no murmurs rubs or gallops normal S1 normal S2. GASTROINTESTINAL: The abdomen is soft and moderately distended. There is diffuse tenderness to palpation but no guarding rigidity. Rectal exam revealed grossly bloody stool. MUSCULOSKELETAL/EXTREMITIES: There is no evidence of gross deformity full range of motion is noted in the hips and shoulders. SKIN: Skin is cool and dry. There is trace pedal edema bilaterally. NEUROLOGIC: Patient is awake alert and oriented x3. MEDICAL DECISION MAKING: The patient is an 85-year-old female who presented to the emergency department for an evaluation of abdominal pain. The patient has a history of nonalcoholic cirrhosis. She was seen by her primary care physician today and sent to the emergency department for further evaluation. The patient was found to have gross blood per rectum. I discussed the patient's laboratory and radiographic studies with her. Because of her symptoms I also discussed her case with the on-call [facility] group. They have agreed to evaluate the patient in the emergency department for further management and disposition. Triage Nursing notes reviewed. Prior medical records reviewed Vital Signs: reviewed and remarkable for no significant abnormalities Differential diagnosis: Etiologies such as appendicitis, diverticulitis, obstruction, inflammatory bowel disease, renal colic, PUD, biliary pathology, pancreatitis, mesenteric ischemia, aortic pathology, infections, genitourinary, UTI, perforated viscus, as well as others were entertained. ER treatment provided: See below Diagnostics interpreted by me: Laboratory studies: As stated above and show below. Imaging studies: See below Consultation(s): I discussed this case with Dr. Ramos who is on-call for the [facility] group. She will evaluate the patient in the emergency department. Past Med/Surg History Medical History Bronchitis Chronic bronchitis Coronary artery spasm reason for Nitro Patch q12h follows with Dr. Samson Depression hx Diabetes mellitus, type 2 iddm Encounter for drug screening Gastroparesis GERD (gastroesophageal reflux disease) Grief reaction Heart disease History of melanoma Hyperlipidemia Hypertension Hypothyroidism Interstitial lung disease Multiple lung nodules on CT Nonalcoholic fatty liver disease Obstructive sleep apnea syndrome Pneumonia hx Sleep apnea CPAP Vertigo Vertigo Surgical History History of appendectomy History of cardiac catheterization X3 (1994, 1999, 2006) History of cataract surgery bilateral History of colonoscopy History of dacryocystorhinostomy done monthly History of dilatation and curettage History of ERCP with stone removal History of laparoscopic cholecystectomy History of repair of rotator cuff right History of tonsillectomy S/P cholecystectomy S/P STEVE-BSO Status post biopsy of skin removal of melanoma Family History Mother Cardiac disorder Hypertension Heart disease Myocardial infarction Father Cardiac disorder Hypertension Heart disease Other Diabetes Ischemic heart disease Prostate cancer Denies family history of Ovarian cancer Breast cancer Colorectal cancer Social History Smoking Status: Never smoker Second Hand Exposure: No (); Hx Alcohol Use: No Hx Substance Use: No Preferred Language: Tajik Communication Ability: Effective Visual Impairment: No Limitations Hearing Ability: Normal Phototypesetting Equipment Monitor Required: No Beliefs That Will Affect Care: None marital status: / Current Living Situation: Alone current occupational status: retired Feels Safe at Home: Yes Childhood Exposure to Second-Hand Smoke: No Dental Care, Regularly: Yes Physical Activity Frequency: Daily Seatbelt Use: always Sunscreen Use: No Assistive Devices: CPAP and Glasses Allergies Allergies Allergy/AdvReac Type Severity Reaction Status Date / Time erythromycin base Allergy Severe eye Verified 11/28/20 17:09 ointment only - red and infected Iodinated Contrast Media Allergy Severe heart Verified 11/28/20 17:09 muscles tightened/heart spasms Penicillins Allergy Intermediate "wore out Verified 11/28/20 17:09 on me" and hives repaglinide Allergy Intermediate Hives Verified 11/28/20 17:09 Sulfa (Sulfonamide Allergy Unknown Hives Verified 11/28/20 17:09 Antibiotics) timolol Allergy Unknown eye drops Verified 11/28/20 17:09 - eye redness clonazepam AdvReac Severe increased Verified 11/28/20 17:09 anxiety Quxvemy-Uuh-Xlf Reductase AdvReac Severe ELEVATED Verified 11/28/20 17:09 Inhibitor HEPATIC ENZYMES enalapril AdvReac Intermediate COUGH Verified 11/28/20 17:09 Home Meds Home Medications Medication Instructions Recorded Confirmed Lactobacillus 1 cap PO 1200 cap 03/16/19 11/28/20 acidophilus-Bifidobac.animalis 31 billion cell capsule blood-glucose meter #1 ea 03/16/19 11/28/20 cholecalciferol (vitamin D3) 50 2,000 units PO DAILY cap 03/16/19 11/28/20 mcg (2,000 unit) capsule colestipol 1 gram tablet 2 gm PO HS tab 03/16/19 11/28/20 docusate sodium 100 mg capsule 100 mg PO HS cap 03/16/19 11/28/20 esomeprazole magnesium 20 mg 20 mg PO 1200 cap 03/16/19 11/28/20 capsule,delayed release magnesium chloride 71.5 mg 71.5 mg PO TID tab 03/16/19 11/28/20 (magnesium chloride) tablet,delayed release meclizine 25 mg tablet 25 mg PO DAILY PRN #21 tab 03/16/19 11/28/20 ketotifen fumarate [Alaway] 1 drp OPHTHALMIC (EYE) Q12H 05/16/19 11/28/20 sodium chloride [Saline Nasal] 1 spray INTRANASAL BID PRN 05/16/19 11/28/20 Previous Rx's Medication Instructions Recorded famotidine 20 mg tablet 20 mg PO DAILY #90 tab 07/28/19 Humalog KwikPen Insulin 100 See Rx Instructions SQ UD #15 ml NS 11/30/19 unit/mL subcutaneous nitroglycerin 0.4 mg/hr 1 patch TD DAILY #90 ea 01/22/20 transdermal 24 hour patch insulin glargine 100 unit/mL (3 23 units SQ HS #30 ml 03/13/20 mL) subcutaneous pen nifedipine 30 mg tablet,extended 30 mg PO QAM #90 tab 04/09/20 release nitroglycerin 0.4 mg sublingual 0.4 mg SL Q5M PRN #25 tab 07/23/20 tablet CPAP Machine #1 ea 08/29/20 albuterol sulfate 90 mcg/actuation 2 puff INHALATION Q4H PRN #18 gm 08/29/20 aerosol inhaler budesonide-formoterol HFA 160 2 puff INHALATION BID #10.2 g 08/29/20 mcg-4.5 mcg/actuation aerosol inhaler ipratropium 0.5 mg-albuterol 3 mg 3 ml INH Q8H PRN #180 ml 08/29/20 (2.5 mg base)/3 mL nebulization soln lorazepam 0.5 mg tablet 0.5 mg PO HS PRN #45 tab 08/29/20 miscellaneous medical supply #1 ea 08/29/20 tramadol 37.5 mg-acetaminophen 325 1 tab PO DAILY PRN #30 tab 08/29/20 mg tablet bumetanide 2 mg tablet 2 mg PO DAILY #30 tab 10/02/20 spironolactone 25 mg tablet 25 mg PO DAILY #30 tab 10/02/20 valsartan 40 mg tablet 40 mg PO DAILY #90 tab 10/10/20 potassium chloride 10 mEq 20 meq PO DAILY #180 tab 10/21/20 tablet,extended release levothyroxine 150 mcg tablet 150 mcg PO DAILY #30 tab 11/07/20 pen needle, diabetic 32 gauge x #400 ea 11/07/20" Results & Data (ED) Vital Signs Vital Signs - 24 hr 11/28/20 18:09 11/28/20 19:33 11/28/20 20:42 Temperature 36.4 C L 36.7 C Temperature Source Temporal Artery Scan Temporal Artery Scan Pulse Rate 80 Pulse Rate [Right Finger] 112 H Pulse Rate from SpO2 Sensor Pulse Rhythm Regular Pulse Rhythm [Right Finger] Respiratory Rate 18 16 Respiratory Effort / Characteristics Non-Labored Spontaneous Respiratory Depth Normal Respiratory Pattern Blood Pressure 144/64 H Blood Pressure [Right Arm] 155/74 H Blood Pressure Mean 90 Blood Pressure Mean [Right Arm] 101 Blood Pressure Position [Right Arm] Pulse Oximetry 96 98 98 Oxygen Delivery Method Room Air Room Air Room Air Sepsis Recent Fever Within 48 Hours No Sepsis New/Unexplained Change in Mental Status No Sepsis Action Taken by Nursing No Action Required 11/28/20 20:56 11/28/20 21:00 11/28/20 21:30 Temperature Temperature Source Pulse Rate 86 83 Pulse Rate [Right Finger] 78 Pulse Rate from SpO2 Sensor 86 83 Pulse Rhythm Pulse Rhythm [Right Finger] Regular Respiratory Rate 24 27 H 21 Respiratory Effort / Characteristics Spontaneous Labored Respiratory Depth Normal Respiratory Pattern Regular Blood Pressure 131/59 L 134/56 L Blood Pressure [Right Arm] 148/82 H Blood Pressure Mean 83 82 Blood Pressure Mean [Right Arm] 104 Blood Pressure Position [Right Arm] Lying Pulse Oximetry 94 99 97 Oxygen Delivery Method Room Air Sepsis Recent Fever Within 48 Hours Sepsis New/Unexplained Change in Mental Status Sepsis Action Taken by Nursing 11/28/20 22:30 11/28/20 23:00 Temperature Temperature Source Pulse Rate 81 83 Pulse Rate [Right Finger] Pulse Rate from SpO2 Sensor 81 82 Pulse Rhythm Pulse Rhythm [Right Finger] Respiratory Rate 26 H 24 Respiratory Effort / Characteristics Respiratory Depth Respiratory Pattern Blood Pressure 147/69 H 128/60 Blood Pressure [Right Arm] Blood Pressure Mean 95 82 Blood Pressure Mean [Right Arm] Blood Pressure Position [Right Arm] Pulse Oximetry 96 97 Oxygen Delivery Method Sepsis Recent Fever Within 48 Hours Sepsis New/Unexplained Change in Mental Status Sepsis Action Taken by [facility] Medications Current Medication List: was personally reviewed by me Laboratory Data Attestation: I reviewed the patient's lab results. Result diagrams: 11/28/20 19:36 11/28/20 19:36 Lab Results 11/28/20 11/28/20 11/28/20 Range/Units 19:36 19:36 19:36 WBC 5.77 (4.8-10.8) K/uL RBC 4.02 L (4.2-5.4) M/uL Hgb 12.8 (12.0-16.0) g/dL Hct 37.5 (37-47) % MCV 93.3 (80-100) fL MCH 31.8 (25-34) pg MCHC 34.1 (32-36) g/dL RDW Std Deviation 48.6 H (36.4-46.3) fL RDW Coeff of [place] 14.3 (11.5-14.5) % Plt Count 124 L (130-400) K/uL MPV 11.2 H (7.4-10.4) fL Immature Gran % (Auto) 0.2 % Neut % (Auto) 78.6 % Lymph % (Auto) 11.6 % [place] % (Auto) 6.1 % Eos % (Auto) 3.3 % Baso % (Auto) 0.2 % Neut # (Auto) 4.54 (1.4-6.5) K/uL Lymph # (Auto) 0.67 L (1.2-3.4) K/uL [place] # (Auto) 0.35 (0.11-0.59) K/uL Eos # (Auto) 0.19 (0-0.5) K/uL Baso # (Auto) 0.01 (0-0.2) K/uL Immature Gran # (Auto) 0.01 (0.00-0.02) K/uL PT (9.0-12.0) Seconds INR (0.9-1.1) APTT (21.0-31.0) Seconds PTT Ratio Sodium 137 (136-145) mmol/L Potassium 4.0 (3.5-5.1) mmol/L Chloride 106 (98-107) mmol/L Carbon Dioxide 24 (21-32) mmol/L Anion Gap 7.0 (3-11) BUN 25 H (7-18) mg/dl Creatinine 1.32 H (0.6-1.2) mg/dl Est Cr Clr Drug Dosing Not Reportable Est GFR ( Amer) 42.5 Est GFR (Non-Af Amer) 36.7 BUN/Creatinine Ratio 18.7 (10-20) Glucose 199 H (70-99) mg/dl Calcium 9.4 (8.5-10.1) mg/dl Total Bilirubin 0.5 (0.2-1) mg/dl Direct Bilirubin (0-0.2) mg/dl AST 35 (15-37) U/L ALT 23 (12-78) U/L Alkaline Phosphatase 142 H (45-117) U/L Troponin I < 0.015 Cancelled (0-0.045) ng/ml Total Protein 8.4 H (6.4-8.2) gm/dl Albumin 3.8 (3.4-5.0) gm/dl Globulin 4.6 H (2.5-4.0) gm/dl Albumin/Globulin Ratio 0.8 L (0.9-2) Lipase 349 (73-393) U/L Specimen Hemolysis Urine Color Urine Appearance (Clear) Urine pH (4.5-7.5) Ur Specific [place] (1.000-1.030) Urine Protein (Negative) Urine Glucose (UA) (Negative) Urine Ketones (Negative) Urine Blood (Negative) Urine Nitrite (Negative) Urine Bilirubin (Negative) Urine Urobilinogen (Negative) Ur Leukocyte Esterase (Negative) COVID-19 Eval Order SARS-CoV-2 (PCR) (Negative) Influenza Type A (PCR) (Neg) Influenza Type B (PCR) (Neg) RSV (RT-PCR) (Neg) 11/28/20 11/28/20 11/28/20 Range/Units 19:43 20:15 20:18 WBC (4.8-10.8) K/uL RBC (4.2-5.4) M/uL Hgb (12.0-16.0) g/dL Hct (37-47) % MCV (80-100) fL MCH (25-34) pg MCHC (32-36) g/dL RDW Std Deviation (36.4-46.3) fL RDW Coeff of [place] (11.5-14.5) % Plt Count (130-400) K/uL MPV (7.4-10.4) fL Immature Gran % (Auto) % Neut % (Auto) % Lymph % (Auto) % [place] % (Auto) % Eos % (Auto) % Baso % (Auto) % Neut # (Auto) (1.4-6.5) K/uL Lymph # (Auto) (1.2-3.4) K/uL [place] # (Auto) (0.11-0.59) K/uL Eos # (Auto) (0-0.5) K/uL Baso # (Auto) (0-0.2) K/uL Immature Gran # (Auto) (0.00-0.02) K/uL PT 11.9 (9.0-12.0) Seconds INR 1.2 H (0.9-1.1) APTT 31.9 H (21.0-31.0) Seconds PTT Ratio 1.2 Sodium (136-145) mmol/L Potassium (3.5-5.1) mmol/L Chloride (98-107) mmol/L Carbon Dioxide (21-32) mmol/L Anion Gap (3-11) BUN (7-18) mg/dl Creatinine (0.6-1.2) mg/dl Est Cr Clr Drug Dosing Est GFR ( Amer) Est GFR (Non-Af Amer) BUN/Creatinine Ratio (10-20) Glucose (70-99) mg/dl Calcium (8.5-10.1) mg/dl Total Bilirubin (0.2-1) mg/dl Direct Bilirubin 0.2 (0-0.2) mg/dl AST (15-37) U/L ALT (12-78) U/L Alkaline Phosphatase (45-117) U/L Troponin I (0-0.045) ng/ml Total Protein (6.4-8.2) gm/dl Albumin (3.4-5.0) gm/dl Globulin (2.5-4.0) gm/dl Albumin/Globulin Ratio (0.9-2) Lipase (73-393) U/L Specimen Hemolysis Urine Color Yellow Urine Appearance Clear (Clear) Urine pH 5.0 (4.5-7.5) Ur Specific [place] 1.012 (1.000-1.030) Urine Protein Negative (Negative) Urine Glucose (UA) Negative (Negative) Urine Ketones Negative (Negative) Urine Blood Negative (Negative) Urine Nitrite Negative (Negative) Urine Bilirubin Negative (Negative) Urine Urobilinogen Negative (Negative) Ur Leukocyte Esterase Negative (Negative) COVID-19 Eval Order SARS-CoV-2 (PCR) (Negative) Influenza Type A (PCR) (Neg) Influenza Type B (PCR) (Neg) RSV (RT-PCR) (Neg) 11/28/20 11/28/20 Range/Units 22:07 22:07 WBC (4.8-10.8) K/uL RBC (4.2-5.4) M/uL Hgb (12.0-16.0) g/dL Hct (37-47) % MCV (80-100) fL MCH (25-34) pg MCHC (32-36) g/dL RDW Std Deviation (36.4-46.3) fL RDW Coeff of [place] (11.5-14.5) % Plt Count (130-400) K/uL MPV (7.4-10.4) fL Immature Gran % (Auto) % Neut % (Auto) % Lymph % (Auto) % [place] % (Auto) % Eos % (Auto) % Baso % (Auto) % Neut # (Auto) (1.4-6.5) K/uL Lymph # (Auto) (1.2-3.4) K/uL [place] # (Auto) (0.11-0.59) K/uL Eos # (Auto) (0-0.5) K/uL Baso # (Auto) (0-0.2) K/uL Immature Gran # (Auto) (0.00-0.02) K/uL PT (9.0-12.0) Seconds INR (0.9-1.1) APTT (21.0-31.0) Seconds PTT Ratio Sodium (136-145) mmol/L Potassium (3.5-5.1) mmol/L Chloride (98-107) mmol/L Carbon Dioxide (21-32) mmol/L Anion Gap (3-11) BUN (7-18) mg/dl Creatinine (0.6-1.2) mg/dl Est Cr Clr Drug Dosing Est GFR ( Amer) Est GFR (Non-Af Amer) BUN/Creatinine Ratio (10-20) Glucose (70-99) mg/dl Calcium (8.5-10.1) mg/dl Total Bilirubin (0.2-1) mg/dl Direct Bilirubin (0-0.2) mg/dl AST (15-37) U/L ALT (12-78) U/L Alkaline Phosphatase (45-117) U/L Troponin I (0-0.045) ng/ml Total Protein (6.4-8.2) gm/dl Albumin (3.4-5.0) gm/dl Globulin (2.5-4.0) gm/dl Albumin/Globulin Ratio (0.9-2) Lipase (73-393) U/L Specimen Hemolysis Urine Color Urine Appearance (Clear) Urine pH (4.5-7.5) Ur Specific [place] (1.000-1.030) Urine Protein (Negative) Urine Glucose (UA) (Negative) Urine Ketones (Negative) Urine Blood (Negative) Urine Nitrite (Negative) Urine Bilirubin (Negative) Urine Urobilinogen (Negative) Ur Leukocyte Esterase (Negative) COVID-19 Eval Order CovFluRsv at [facility] SARS-CoV-2 (PCR) NEGATIVE (Negative) Influenza Type A (PCR) Negative (Neg) Influenza Type B (PCR) Negative (Neg) RSV (RT-PCR) Negative (Neg) Imaging Data Radiologist's Impression: Abdomen/Pelvis CT 11/28/20 19:50 CT SCAN OF THE ABDOMEN AND PELVIS WITHOUT CONTRAST CLINICAL HISTORY: Abdominal pain and distention COMPARISON STUDY: CT scan performed April 2016, ultrasound performed September 2020 TECHNIQUE: CT scan of the abdomen and pelvis was performed from the lung bases to the proximal femurs. Images are reviewed in the axial, sagittal, and coronal planes. IV contrast was not administered for this examination. A dose lowering technique was utilized adhering to the principles of ALARA. CT DOSE: 690.59 mGy.cm FINDINGS: Lower chest: There are bibasilar atelectatic changes. There is a partially solid and cystic 1 cm right middle lobe nodule. 3 month follow-up CT scan recommended. Liver: The liver has a cirrhotic morphology. There is pneumobilia. No hepatic masses are visualized on this noncontrast study. Gallbladder: Surgically absent Spleen: The spleen is enlarged measuring 15 cm Pancreas: Unremarkable. Adrenal glands: Unremarkable. Kidneys: No renal, ureteral, or bladder calculi are visualized. Bowel: There are no transition zones indicate bowel obstruction. There is no quan dence of acute diverticulitis. The appendix appears normal. Peritoneum: There is low volume ascites. Vasculature: The abdominal aorta is normal in course and caliber. Adenopathy: None. Pelvic viscera: The uterus appears surgically absent Skeletal structures: No destructive osseous lesions are seen. IMPRESSION: 1. Hepatic cirrhosis and splenomegaly 2. Low volume ascites 3. No evidence of bowel obstruction. No evidence of free air 4. No renal, ureteral, or bladder calculi identified 5. Partially solid and cystic 1 cm right middle lobe pulmonary nodule. A 3 month follow-up CT scan is recommended 6. 16mm left breast nodule. This has been described on prior mammography and is felt to be benign ACT 112: Negative or not required by law. Electronically signed by: Milelr Guillory M.D. 11/28/2020 8:38 PM Chest X-Ray 11/28/20 19:51 XR chest 1V portable CLINICAL HISTORY: Pain radiating to the abdomen COMPARISON STUDY: March 03, 2021 FINDINGS: The cardiac and mediastinal contours remain stable. There is no free intraperitoneal air. There is stable mild interstitial thickening with a basilar predominance. Is a 5 mm left midlung zone opacity, likely postinflammatory or representing a vascular summation[. There is a left proximal humeral calcification likely chondroid in etiology. IMPRESSION: 1. Stable interstitial thickening with a basilar predominance 2. No significant change from the prior study ACT 112: Negative or not required by law. Electronically signed by: Miller Guillory M.D. 11/28/2020 8:16 PM Discharge Plan Visit Data Chief Complaint: Abdominal Pain Stated Complaint: ABD SWELLING/PAIN ED Provider: Reza Han Discharge Problem: Ascites, Abdominal pain, Acute GI bleeding Patient Disposition: Being Evaluated by Hospitalist Condition: Good Forms Stand Alone Forms: My [employer] Prescriptions Prescriptions: No Action famotidine 20 mg tablet 20 mg PO DAILY Qty: 90 RF: 3 insulin lispro [Humalog KwikPen Insulin] 100 unit/mL insulin pen See Rx Instructions SQ UD Qty: 15 RF: 5 Lantus Solostar U-100 Insulin 100 unit/mL (3 mL) insulin pen 23 units SQ HS Qty: 30 RF: 3 nifedipine 30 mg tablet extended release 30 mg PO QAM Qty: 90 RF: 3 budesonide-formoterol [Symbicort] 160-4.5 mcg/actuation HFA aerosol inhaler 2 puff inhalation BID Qty: 10.2 RF: 5 lorazepam 0.5 mg tablet 0.5 mg PO HS PRN (Reason: sleep) Qty: 45 RF: 1 valsartan 40 mg tablet 40 mg PO DAILY Qty: 90 RF: 3 levothyroxine 150 mcg tablet 150 mcg PO DAILY Qty: 30 RF: 1 (DME) pen needle, diabetic [BD Martha 2nd Gen Pen Needle] 32 gauge x 5/32" needle See Rx Instructions .ROUTE .MEDSUPPLY Qty: 400 RF: 3 nitroglycerin 0.4 mg/hr patch 24 hour 1 patch TD DAILY Qty: 90 RF: 3 spironolactone 25 mg tablet 25 mg PO DAILY Qty: 30 RF: 2 bumetanide 2 mg tablet 2 mg PO DAILY Qty: 30 RF: 2 potassium chloride 10 mEq tablet extended release 20 meq PO DAILY Qty: 180 RF: 3 tramadol-acetaminophen 37.5-325 mg tablet 1 tab PO DAILY PRN (Reason: pain) Qty: 30 RF: 0 Lacto.acidophilus-Bif.animalis 31 billion cell capsule 1 cap PO 1200 RF: 0 colestipol 1 gram tablet 2 gm PO HS RF: 0 (DME) blood-glucose meter [ReliOn All-In-One Meter] kit See Dose Instructions .ROUTE .MEDSUPPLY Qty: 1 RF: 0 Slow-Mag 71.5 mg tablet,delayed release (DR/EC) 71.5 mg PO TID RF: 0 cholecalciferol (vitamin D3) 2,000 unit capsule 2,000 units PO DAILY RF: 0 docusate sodium 100 mg capsule 100 mg PO HS RF: 0 esomeprazole magnesium 20 mg capsule,delayed release(DR/EC) 20 mg PO 1200 RF: 0 meclizine 25 mg tablet 25 mg PO DAILY PRN (Reason: Vertigo) Qty: 21 RF: 0 nitroglycerin 0.4 mg tablet, sublingual 0.4 mg SL Q5M PRN (Reason: Chest Pain) Qty: 25 RF: 2 (DME) CPAP Machine Misc See Rx Instructions .MEDSUPPLY Qty: 1 RF: 0 (DME) CPAP Supplies Misc See Rx Instructions .MEDSUPPLY Qty: 1 RF: 0 albuterol sulfate 90 mcg/actuation HFA aerosol inhaler 2 puff inhalation Q4H PRN (Reason: sob) Qty: 18 RF: 5 ipratropium-albuterol 0.5 mg-3 mg(2.5 mg base)/3 mL solution for nebulization 3 ml INH Q8H PRN (Reason: SOB) Qty: 180 RF: 5 ketotifen fumarate [Alaway] 0.025 % (0.035 %) Drops 1 drp OPHTHALMIC (EYE) Q12H RF: 0 sodium chloride [Saline Nasal] 0.65 % Aerosol,[place] 1 spray INTRANASAL BID PRN (Reason: Congestion) RF: 0 Referrals Referrals: Lana Bender MD [Primary Care Provider] -
[2020-11-28 20:39] LABS: Troponin I < 0.015 ng/ml (0-0.045)
--- NOTE | 2020-11-28 20:40 | CT Scan Report ---
CT SCAN OF THE ABDOMEN AND PELVIS WITHOUT CONTRAST CLINICAL HISTORY: Abdominal pain and distention COMPARISON STUDY: CT scan performed April 2016, ultrasound performed September 2020 TECHNIQUE: CT scan of the abdomen and pelvis was performed from the lung bases to the proximal femurs . Images are reviewed in the axial, sagittal, and coronal planes. IV contrast was not administered fo r this examination. A dose lowering technique was utilized adhering to the principles of ALARA. CT DOSE: 690.59 mGy.cm FINDINGS: Lower chest: There are bibasilar atelectatic changes. There is a partially solid and cystic 1 cm righ t middle lobe nodule. 3 month follow-up CT scan recommended. Liver: The liver has a cirrhotic morphology. There is pneumobilia. No hepatic masses are visualized o n this noncontrast study. Gallbladder: Surgically absent Spleen: The spleen is enlarged measuring 15 cm Pancreas: Unremarkable. Adrenal glands: Unremarkable. Kidneys: No renal, ureteral, or bladder calculi are visualized. Bowel: There are no transition zones indicate bowel obstruction. There is no evidence of acute divert iculitis. The appendix appears normal. Peritoneum: There is low volume ascites. Vasculature: The abdominal aorta is normal in course and caliber. Adenopathy: None. Pelvic viscera: The uterus appears surgically absent Skeletal structures: No destructive osseous lesions are seen. IMPRESSION: 1. Hepatic cirrhosis and splenomegaly 2. Low volume ascites 3. No evidence of bowel obstruction. No evidence of free air 4. No renal, ureteral, or bladder calculi identified 5. Partially solid and cystic 1 cm right middle lobe pulmonary nodule. A 3 month follow-up CT scan is recommended 6. 16mm left breast nodule. This has been described on prior mammography and is felt to be benign ACT 112: Negative or not required by law. Electronically signed by: Miller Guillory M.D. 11/28/2020 8:38 PM
[2020-11-28 20:44] LABS: INR 1.2 (0.9-1.1); Partial Thromboplastin Ratio 1.2; Partial Thromboplastin Time 31.9 Seconds (21.0-31.0); Prothrombin Time 11.9 Seconds (9.0-12.0)
[2020-11-28 23:00] LABS: Influenza A virus by PCR Negative (Neg); Influenza B virus by PCR Negative (Neg); RSV by PCR Negative (Neg); SARS CoV2 RNA(COVID-19) InHosp NEGATIVE (Negative)
[2020-11-28] MEDS ORDERED: MAGNESIUM CHLORIDE 64MG DELAYED REL TAB PO STA (23:24)
[2020-11-28] MEDS ORDERED: LORazepam 0.5 MG TAB PO STA (23:24)
[2020-11-28] MEDS ORDERED: DOCUSATE SODIUM 100 MG CAP PO ONE (23:24)
--- NOTE | 2020-11-28 23:24 | History & Physical Report ---
Date of Service November 28, 2020 Assessment & Plan (1) Acute GI bleeding: Uncertain etiology - patient reports passage of bright red blood with clots. ?Hemorrhoidal vs diverticular bleed. No nausea/hematemesis or upper abdominal pain at present -GI consultation appreciated -Trend CBC - transfuse for ongoing blood loss, symptomatic anemia or Hgb < 7 Present on Admission?: Yes (2) Chronic diastolic congestive heart failure: Patient with history of stress-induced cardiomyopathy, "broken heart syndrome". She follows with Dr. Samson of Cardiology. Last echocardiogram performed on 10/17/20 with normal LV size, EF of 60-65%, no regional WMA. SHe had mild LA dilation, sclerotic aortic valve, mild MR. [facility] with [facility]. Last seen 10/21/20. Patient with complaint of ongoing abdominal bloating -Bumex 1mg IV BID -Continue Spironolactone -Continue Valsartan -Check BNP Present on Admission?: Yes (3) Restrictive lung disease: Patient with interstitial lung disease. She has been seen by Pulmonary in the past PFTs 01/09/2020: Mild restrictive lung disease with mild decrease in DLCO which corrects for VA, no obstructive lung dysfunction, insignificant bronchodilator response FVC 1.69 L, 72%, FEV1 1.4 L, 84%, FEV1/FVC 83%, RV 75%, TLC 73%, RV/TLC 104%, DLCO 62%, DLCO/VA 97% -Albuterol PRN -Symbicort -Pulmonary followup as instructed Present on Admission?: Yes (4) Multiple lung nodules on CT: Incidentally discovered on imaging May 2014. She has been seen by Pulmonary. -Patient should have 3 month followup imaging -Pulmonary followup as arranged Present on Admission?: Yes (5) Dyslipidemia: Chronic. Patient not on statin therapy - lipid panel acceptable, concern for medication side effects and liver effects -Routine followup Present on Admission?: Yes (6) Obstructive sleep apnea syndrome: Chronic. Patient is very compliant -per report 11/27/20 - 94.4% -Continue CPAP at 7cm H2O qHS and with naps Present on Admission?: Yes (7) Hepatic cirrhosis: History of NAFLD. She follows with Dr. Arroyo. Mention of chronic abdominal distention upon review of prior notes. Low volume ascites noted on imaging today as well as prior imaging. Patient does not appear to be having acute decompensation of cirrhosis. No encephalopathy. KV=109, INR=1.2, Iiz=088 -Continue Bumex and Spironolactone -Low Na diet -GI Consultation appreciated Present on Admission?: Yes (8) Controlled type 2 diabetes mellitus, with long-term current use of insulin: Elevated blood sugar today at 199. Last [id number] on 08/29/20. Patient has seen Diabetes education in the past -Lantus 23u qHS, ISS -Goal blood sugar 100 - 140 -CC diet as tolerated Present on Admission?: Yes (9) GERD without esophagitis: Chronic -Continue Pepcid Present on Admission?: Yes (10) Hypertension: Blood pressure stable, currently 130/56. Patient developed a cough with AMINA-inhibitors -Continue Valsartan 40mg daily -Continue Nifedine 30mg daily Present on Admission?: Yes (11) Hypothyroidism: Chronic. Patient with elevated TSH on 10/30/20 at 6.18 -Continue Synthroid 150mcg F/E/N - Bumex 1mg IV BID, monitor electrolytes and replete as needed, NPO for now Ppx - SCDs Code - Full per discussion with patient Dispo - Admit to medical with telemetry Present on Admission?: Yes History of Present Illness Chief Complaint: rectal bleeding Primary Care Provider: Lana Bender MD Ilana Mackay is a pleasant 85yo female with history of cirrhosis secondary to NAFLD, DM, HTN, HLP presenting with rectal bleeding. Patient reports that she had had thyroid medication changed on 11/21/20 from 100mcg to 150mcg after which she developed diarrhea - bloody with clots. She saw her PCP regarding this issue - no workup pursued at that time, however, she was instructed to return to care if she had any further bleeding. On 11/26/20 PM patient had a bowel movement and passed a very large amount of bright red blood. She reports passage of large clots as well. She reports some dizziness and lightheadedness as well as JOSHI, fatigue and weakness. She denies abdominal pain, rectal pain, tenesmus, nausea or recent vomiting. She denies fever, chills, CP, SOB. She does have some upper abdominal pain and some abdominal spasms around her navel. She has history of CHF - recently gained quite a bit of weight. Patient has a dry weight of 146# and a trigger weight of 149#. She was recently taken off Lasix and started on Bumex and Spironolactone. Reports weighing 145# yesterday. Does report significant abdominal bloating. Allergies Allergy/AdvReac Type Severity Reaction Status Date / Time erythromycin base Allergy Severe eye Verified 11/28/20 17:09 ointment only - red and infected Iodinated Contrast Media Allergy Severe heart Verified 11/28/20 17:09 muscles tightened/heart spasms Penicillins Allergy Intermediate "wore out Verified 11/28/20 17:09 on me" and hives repaglinide Allergy Intermediate Hives Verified 11/28/20 17:09 Sulfa (Sulfonamide Allergy Unknown Hives Verified 11/28/20 17:09 Antibiotics) timolol Allergy Unknown eye drops Verified 11/28/20 17:09 - eye redness clonazepam AdvReac Severe increased Verified 11/28/20 17:09 anxiety Mckhseh-Nki-Iaw Reductase AdvReac Severe ELEVATED Verified 11/28/20 17:09 Inhibitor HEPATIC ENZYMES enalapril AdvReac Intermediate COUGH Verified 11/28/20 17:09 Home Medications Medication Instructions Recorded Confirmed Type Lactobacillus 1 cap PO 1200 cap 03/16/19 11/28/20 History acidophilus-Bifidobac.animalis 31 billion cell capsule blood-glucose meter #1 ea 03/16/19 11/28/20 History cholecalciferol (vitamin D3) 50 2,000 units PO DAILY cap 03/16/19 11/28/20 History mcg (2,000 unit) capsule colestipol 1 gram tablet 2 gm PO HS tab 03/16/19 11/28/20 History docusate sodium 100 mg capsule 100 mg PO HS cap 03/16/19 11/28/20 History esomeprazole magnesium 20 mg 20 mg PO 1200 cap 03/16/19 11/28/20 History capsule,delayed release magnesium chloride 71.5 mg 71.5 mg PO TID tab 03/16/19 11/28/20 History (magnesium chloride) tablet,delayed release meclizine 25 mg tablet 25 mg PO DAILY PRN #21 tab 03/16/19 11/28/20 History ketotifen fumarate [[place]] 1 drp OPHTHALMIC (EYE) Q12H 05/16/19 11/28/20 History sodium chloride [Saline Nasal] 1 spray INTRANASAL BID PRN 05/16/19 11/28/20 History famotidine 20 mg tablet 20 mg PO DAILY #90 tab 07/28/19 11/28/20 Rx Humalog KwikPen Insulin 100 See Rx Instructions SQ UD #15 ml NS 11/30/19 11/28/20 Rx unit/mL subcutaneous nitroglycerin 0.4 mg/hr 1 patch TD DAILY #90 ea 01/22/20 11/28/20 Rx transdermal 24 hour patch insulin glargine 100 unit/mL (3 23 units SQ HS #30 ml 03/13/20 11/28/20 Rx mL) subcutaneous pen nifedipine 30 mg tablet,extended 30 mg PO QAM #90 tab 04/09/20 11/28/20 Rx release nitroglycerin 0.4 mg sublingual 0.4 mg SL Q5M PRN #25 tab 07/23/20 11/28/20 Rx tablet CPAP Machine #1 ea 08/29/20 11/28/20 Rx albuterol sulfate 90 mcg/actuation 2 puff INHALATION Q4H PRN #18 gm 08/29/20 11/28/20 Rx aerosol inhaler budesonide-formoterol HFA 160 2 puff INHALATION BID #10.2 g 08/29/20 11/28/20 Rx mcg-4.5 mcg/actuation aerosol inhaler ipratropium 0.5 mg-albuterol 3 mg 3 ml INH Q8H PRN #180 ml 08/29/20 11/28/20 Rx (2.5 mg base)/3 mL nebulization soln lorazepam 0.5 mg tablet 0.5 mg PO HS PRN #45 tab 08/29/20 11/28/20 Rx miscellaneous medical supply #1 ea 08/29/20 11/28/20 Rx tramadol 37.5 mg-acetaminophen 325 1 tab PO DAILY PRN #30 tab 08/29/20 11/28/20 Rx mg tablet bumetanide 2 mg tablet 2 mg PO DAILY #30 tab 10/02/20 11/28/20 Rx spironolactone 25 mg tablet 25 mg PO DAILY #30 tab 10/02/20 11/28/20 Rx valsartan 40 mg tablet 40 mg PO DAILY #90 tab 10/10/20 11/28/20 Rx potassium chloride 10 mEq 20 meq PO DAILY #180 tab 10/21/20 11/28/20 Rx tablet,extended release levothyroxine 150 mcg tablet 150 mcg PO DAILY #30 tab 11/07/20 11/28/20 Rx pen needle, diabetic 32 gauge x #400 ea 11/07/20 11/28/20 Rx 5/32" Past Med/Surg History Medical History Bronchitis Chronic bronchitis Coronary artery spasm reason for Nitro Patch q12h follows with Dr. Samson Depression hx Diabetes mellitus, type 2 iddm Encounter for drug screening Gastroparesis GERD (gastroesophageal reflux disease) Grief reaction Heart disease History of melanoma Hyperlipidemia Hypertension Hypothyroidism Interstitial lung disease Multiple lung nodules on CT Nonalcoholic fatty liver disease Obstructive sleep apnea syndrome Pneumonia hx Sleep apnea CPAP Vertigo Vertigo Surgical History History of appendectomy History of cardiac catheterization X3 (1994, 1999, 2006) History of cataract surgery bilateral History of colonoscopy History of dacryocystorhinostomy done monthly History of dilatation and curettage History of ERCP with stone removal History of laparoscopic cholecystectomy History of repair of rotator cuff right History of tonsillectomy S/P cholecystectomy S/P STEVE-BSO Status post biopsy of skin removal of melanoma Family History Mother Cardiac disorder Hypertension Heart disease Myocardial infarction Father Cardiac disorder Hypertension Heart disease Other Diabetes Ischemic heart disease Prostate cancer Denies family history of Ovarian cancer Breast cancer Colorectal cancer Social History Smoking Status: Never smoker Second Hand Exposure: No (); Hx Alcohol Use: No Hx Substance Use: No Preferred Language: Bruneian Communication Ability: Effective Visual Impairment: No Limitations Hearing Ability: Normal Sports Management Professor Required: No Beliefs That Will Affect Care: None marital status: / Current Living Situation: Alone current occupational status: retired Feels Safe at Home: Yes Childhood Exposure to Second-Hand Smoke: No Dental Care, Regularly: Yes Physical Activity Frequency: Daily Seatbelt Use: always Sunscreen Use: No Assistive Devices: CPAP and Glasses Review of Systems Review of Systems: All systems reviewed & are unremarkable except as noted in HPI & below Physical Exam Physical Exam: General: patient resting comfortably, NAD, non-toxic in appearance, AA&O x 4 Skin: warm, dry, intact, no rashes or lesions HEENT: NC/AT, PERRL, EOMI, anicteric sclera, conjunctiva without injection, external ear normal to inspection and nontender, nares patent, moist mucus membranes, dentition intact, no oropharyngeal lesions, neck supple, trachea midline, no LAD, no thyromegaly, no JVD Heart: +S1/S2, regular, no m/r/g Lungs: equal air entry bilaterally, no rales/rhonchi/wheezes Abd: +BS, soft, distended, tympanic, tenderness in lower abdomen with palpation, voluntary guarding, no masses/organomegaly, minimal ascites appreciated Ext: warm, 2+ pulses in UE/LE bilaterally, no clubbing/cyanosis or edema Neuro: nonfocal, patient AA&O x 4, speech intact, no facial droop, moving all extremities on command with equal strength 5/5 Results & Data Results & Data ([facility]) Vital Signs (Past 12 Hours) Vital Signs Temp Pulse Pulse Resp BP BP Pulse Ox 11/28/20 23:00 83 24 128/60 97 11/28/20 22:30 81 26 H 147/69 H 96 11/28/20 21:30 83 21 134/56 L 97 11/28/20 21:00 86 27 H 131/59 L 99 11/28/20 20:56 78 24 148/82 H 94 11/28/20 20:42 98 11/28/20 19:33 36.7 C 112 H 16 155/74 H 98 11/28/20 18:09 36.4 C L 80 18 144/64 H 96 Laboratory Results Lab Results 11/28/20 11/28/20 11/28/20 Range/Units 19:36 19:36 19:36 WBC 5.77 (4.8-10.8) K/uL RBC 4.02 L (4.2-5.4) M/uL Hgb 12.8 (12.0-16.0) g/dL Hct 37.5 (37-47) % MCV 93.3 (80-100) fL MCH 31.8 (25-34) pg MCHC 34.1 (32-36) g/dL RDW Std Deviation 48.6 H (36.4-46.3) fL RDW Coeff of [place] 14.3 (11.5-14.5) % Plt Count 124 L (130-400) K/uL MPV 11.2 H (7.4-10.4) fL Immature Gran % (Auto) 0.2 % Neut % (Auto) 78.6 % Lymph % (Auto) 11.6 % [place] % (Auto) 6.1 % Eos % (Auto) 3.3 % Baso % (Auto) 0.2 % Neut # (Auto) 4.54 (1.4-6.5) K/uL Lymph # (Auto) 0.67 L (1.2-3.4) K/uL [place] # (Auto) 0.35 (0.11-0.59) K/uL Eos # (Auto) 0.19 (0-0.5) K/uL Baso # (Auto) 0.01 (0-0.2) K/uL Immature Gran # (Auto) 0.01 (0.00-0.02) K/uL PT (9.0-12.0) Seconds INR (0.9-1.1) APTT (21.0-31.0) Seconds PTT Ratio Sodium 137 (136-145) mmol/L Potassium 4.0 (3.5-5.1) mmol/L Chloride 106 (98-107) mmol/L Carbon Dioxide 24 (21-32) mmol/L Anion Gap 7.0 (3-11) BUN 25 H (7-18) mg/dl Creatinine 1.32 H (0.6-1.2) mg/dl Est Cr Clr Drug Dosing Not Reportable Est GFR ( Amer) 42.5 Est GFR (Non-Af Amer) 36.7 BUN/Creatinine Ratio 18.7 (10-20) Glucose 199 H (70-99) mg/dl Calcium 9.4 (8.5-10.1) mg/dl Total Bilirubin 0.5 (0.2-1) mg/dl Direct Bilirubin (0-0.2) mg/dl AST 35 (15-37) U/L ALT 23 (12-78) U/L Alkaline Phosphatase 142 H (45-117) U/L Troponin I < 0.015 Cancelled (0-0.045) ng/ml Total Protein 8.4 H (6.4-8.2) gm/dl Albumin 3.8 (3.4-5.0) gm/dl Globulin 4.6 H (2.5-4.0) gm/dl Albumin/Globulin Ratio 0.8 L (0.9-2) Lipase 349 (73-393) U/L Specimen Hemolysis Urine Color Urine Appearance (Clear) Urine pH (4.5-7.5) Ur Specific [place] (1.000-1.030) Urine Protein (Negative) Urine Glucose (UA) (Negative) Urine Ketones (Negative) Urine Blood (Negative) Urine Nitrite (Negative) Urine Bilirubin (Negative) Urine Urobilinogen (Negative) Ur Leukocyte Esterase (Negative) COVID-19 Eval Order SARS-CoV-2 (PCR) (Negative) Influenza Type A (PCR) (Neg) Influenza Type B (PCR) (Neg) RSV (RT-PCR) (Neg) 11/28/20 11/28/20 11/28/20 Range/Units 19:43 20:15 20:18 WBC (4.8-10.8) K/uL RBC (4.2-5.4) M/uL Hgb (12.0-16.0) g/dL Hct (37-47) % MCV (80-100) fL MCH (25-34) pg MCHC (32-36) g/dL RDW Std Deviation (36.4-46.3) fL RDW Coeff of [place] (11.5-14.5) % Plt Count (130-400) K/uL MPV (7.4-10.4) fL Immature Gran % (Auto) % Neut % (Auto) % Lymph % (Auto) % [place] % (Auto) % Eos % (Auto) % Baso % (Auto) % Neut # (Auto) (1.4-6.5) K/uL Lymph # (Auto) (1.2-3.4) K/uL [place] # (Auto) (0.11-0.59) K/uL Eos # (Auto) (0-0.5) K/uL Baso # (Auto) (0-0.2) K/uL Immature Gran # (Auto) (0.00-0.02) K/uL PT 11.9 (9.0-12.0) Seconds INR 1.2 H (0.9-1.1) APTT 31.9 H (21.0-31.0) Seconds PTT Ratio 1.2 Sodium (136-145) mmol/L Potassium (3.5-5.1) mmol/L Chloride (98-107) mmol/L Carbon Dioxide (21-32) mmol/L Anion Gap (3-11) BUN (7-18) mg/dl Creatinine (0.6-1.2) mg/dl Est Cr Clr Drug Dosing Est GFR ( Amer) Est GFR (Non-Af Amer) BUN/Creatinine Ratio (10-20) Glucose (70-99) mg/dl Calcium (8.5-10.1) mg/dl Total Bilirubin (0.2-1) mg/dl Direct Bilirubin 0.2 (0-0.2) mg/dl AST (15-37) U/L ALT (12-78) U/L Alkaline Phosphatase (45-117) U/L Troponin I (0-0.045) ng/ml Total Protein (6.4-8.2) gm/dl Albumin (3.4-5.0) gm/dl Globulin (2.5-4.0) gm/dl Albumin/Globulin Ratio (0.9-2) Lipase (73-393) U/L Specimen Hemolysis Urine Color Yellow Urine Appearance Clear (Clear) Urine pH 5.0 (4.5-7.5) Ur Specific [place] 1.012 (1.000-1.030) Urine Protein Negative (Negative) Urine Glucose (UA) Negative (Negative) Urine Ketones Negative (Negative) Urine Blood Negative (Negative) Urine Nitrite Negative (Negative) Urine Bilirubin Negative (Negative) Urine Urobilinogen Negative (Negative) Ur Leukocyte Esterase Negative (Negative) COVID-19 Eval Order SARS-CoV-2 (PCR) (Negative) Influenza Type A (PCR) (Neg) Influenza Type B (PCR) (Neg) RSV (RT-PCR) (Neg) 11/28/20 11/28/20 Range/Units 22:07 22:07 WBC (4.8-10.8) K/uL RBC (4.2-5.4) M/uL Hgb (12.0-16.0) g/dL Hct (37-47) % MCV (80-100) fL MCH (25-34) pg MCHC (32-36) g/dL RDW Std Deviation (36.4-46.3) fL RDW Coeff of [place] (11.5-14.5) % Plt Count (130-400) K/uL MPV (7.4-10.4) fL Immature Gran % (Auto) % Neut % (Auto) % Lymph % (Auto) % [place] % (Auto) % Eos % (Auto) % Baso % (Auto) % Neut # (Auto) (1.4-6.5) K/uL Lymph # (Auto) (1.2-3.4) K/uL [place] # (Auto) (0.11-0.59) K/uL Eos # (Auto) (0-0.5) K/uL Baso # (Auto) (0-0.2) K/uL Immature Gran # (Auto) (0.00-0.02) K/uL PT (9.0-12.0) Seconds INR (0.9-1.1) APTT (21.0-31.0) Seconds PTT Ratio Sodium (136-145) mmol/L Potassium (3.5-5.1) mmol/L Chloride (98-107) mmol/L Carbon Dioxide (21-32) mmol/L Anion Gap (3-11) BUN (7-18) mg/dl Creatinine (0.6-1.2) mg/dl Est Cr Clr Drug Dosing Est GFR ( Amer) Est GFR (Non-Af Amer) BUN/Creatinine Ratio (10-20) Glucose (70-99) mg/dl Calcium (8.5-10.1) mg/dl Total Bilirubin (0.2-1) mg/dl Direct Bilirubin (0-0.2) mg/dl AST (15-37) U/L ALT (12-78) U/L Alkaline Phosphatase (45-117) U/L Troponin I (0-0.045) ng/ml Total Protein (6.4-8.2) gm/dl Albumin (3.4-5.0) gm/dl Globulin (2.5-4.0) gm/dl Albumin/Globulin Ratio (0.9-2) Lipase (73-393) U/L Specimen Hemolysis Urine Color Urine Appearance (Clear) Urine pH (4.5-7.5) Ur Specific [place] (1.000-1.030) Urine Protein (Negative) Urine Glucose (UA) (Negative) Urine Ketones (Negative) Urine Blood (Negative) Urine Nitrite (Negative) Urine Bilirubin (Negative) Urine Urobilinogen (Negative) Ur Leukocyte Esterase (Negative) COVID-19 Eval Order [facility]Rsv at [facility] SARS-CoV-2 (PCR) NEGATIVE (Negative) Influenza Type A (PCR) Negative (Neg) Influenza Type B (PCR) Negative (Neg) RSV (RT-PCR) Negative (Neg) Diagnostic Findings XR chest 1V portable CLINICAL HISTORY: Pain radiating to the abdomen COMPARISON STUDY: March 03, 2021 FINDINGS: The cardiac and mediastinal contours remain stable. There is no free intraperitoneal air. There is stable mild interstitial thickening with a basilar predominance. Is a 5 mm left midlung zone opacity, likely postinflammatory or representing a vascular summation[. There is a left proximal humeral calcification likely chondroid in etiology. IMPRESSION: 1. Stable interstitial thickening with a basilar predominance 2. No significant change from the prior study ACT 112: Negative or not required by law. Electronically signed by: Miller Guillory M.D. 11/28/2020 8:16 PM Dictated: 11/28/202014Transcribed: 11/28/202014 CT SCAN OF THE ABDOMEN AND PELVIS WITHOUT CONTRAST CLINICAL HISTORY: Abdominal pain and distention COMPARISON STUDY: CT scan performed April 2016, ultrasound performed September 2020 TECHNIQUE: CT scan of the abdomen and pelvis was performed from the lung bases to the proximal femurs. Images are reviewed in the axial, sagittal, and coronal planes. IV contrast was not administered for this examination. A dose lowering technique was utilized adhering to the principles of ALARA. CT DOSE: 690.59 mGy.cm FINDINGS: Lower chest: There are bibasilar atelectatic changes. There is a partially solid and cystic 1 cm right middle lobe nodule. 3 month follow-up CT scan recommended. Liver: The liver has a cirrhotic morphology. There is pneumobilia. No hepatic masses are visualized on this noncontrast study. Gallbladder: Surgically absent Spleen: The spleen is enlarged measuring 15 cm Pancreas: Unremarkable. Adrenal glands: Unremarkable. Kidneys: No renal, ureteral, or bladder calculi are visualized. Bowel: There are no transition zones indicate bowel obstruction. There is no evidence of acute diverticulitis. The appendix appears normal. Peritoneum: There is low volume ascites. Vasculature: The abdominal aorta is normal in course and caliber. Adenopathy: None. Pelvic viscera: The uterus appears surgically absent Skeletal structures: No destructive osseous lesions are seen. IMPRESSION: 1. Hepatic cirrhosis and splenomegaly 2. Low volume ascites 3. No evidence of bowel obstruction. No evidence of free air 4. No renal, ureteral, or bladder calculi identified 5. Partially solid and cystic 1 cm right middle lobe pulmonary nodule. A 3 month follow-up CT scan is recommended 6. 16mm left breast nodule. This has been described on prior mammography and is felt to be benign ACT 112: Negative or not required by law. Electronically signed by: Miller Guillory M.D. 11/28/2020 8:38 PM Dictated: 11/28/202030Transcribed: 11/28/202030 Code Status & VTE Plan Code Status Full code VTE Prophylaxis Plan VTE Prophylaxis will be ordered: Yes PG Care Time/CCT Total # of Minutes Spent Total Time Spent with Patient: Total time spent is greater than 50% in coordination of care (as documented) at patient's floor/unit and/or counseling patient: Coding Level of Care Code 28923 Initial Inpt Care Lvl 3 Diagnoses Acute GI bleeding K92.2 Chronic diastolic congestive heart failure I50.32 Restrictive lung disease J98.[address] nodules on CT R91.8 Dyslipidemia E78.5 Obstructive sleep apnea syndrome G47.33 Hepatic cirrhosis K74.60; R18.8 Hepatic cirrhosis type: unspecified hepatic cirrhosis Ascites presence: with ascites Controlled type 2 diabetes mellitus, with long-term current use of insulin E11.9; Z79.4 Diabetes mellitus complication status: without complication GERD without esophagitis K21.9 Hypertension I10 Hypertension type: essential hypertension Hypothyroidism E03.9 Hypothyroidism type: unspecified (1) Hypothyroidism Hypothyroidism type: unspecified Qualified Code(s): E03.9 - Hypothyroidism, unspecified (2) Hepatic cirrhosis Hepatic cirrhosis type: unspecified hepatic cirrhosis Ascites presence: with ascites Qualified Code(s): K74.60 - Unspecified cirrhosis of liver; R18.8 - Other ascites (3) Controlled type 2 diabetes mellitus, with long-term current use of insulin Diabetes mellitus complication status: without complication Qualified Code(s): E11.9 - Type 2 diabetes mellitus without complications; Z79.4 - technician terminal and repeater (current) use of insulin (4) Hypertension Hypertension type: essential hypertension Qualified Code(s): I10 - Essential (primary) hypertension
[2020-11-29] MEDS ORDERED: FAMOTIDINE 20 MG TAB PO ONE (00:22)
[2020-11-29] MEDS ORDERED: FAMOTIDINE 20 MG TAB ONE (00:23)
[2020-11-29] MEDS ORDERED: LORazepam 0.5 MG TAB PO PRN (05:09)
[2020-11-29] MEDS ORDERED: GLUCOSE 40% GEL 15 GM TUBE PO PRN (05:09)
[2020-11-29] MEDS ORDERED: ONDANSETRON INJ 2 MG/ML 2 ML VIAL IV PRN (05:09)
[2020-11-29] MEDS ORDERED: GLUCAGON FOR INJ 1 MG VIAL SQ PRN (05:09)
[2020-11-29] MEDS ORDERED: ALBUT/IPRATROP 3MG/0.5MG NEB 3 ML VIAL INH PRN (05:09)
[2020-11-29] MEDS ORDERED: CARBOHYDRATES FOR HYPOGLYCEMIA PO PRN (05:09)
[2020-11-29] MEDS ORDERED: ALBUTEROL HFA 8 GM INHALER INH PRN (05:09)
[2020-11-29] MEDS ORDERED: GLUCOSE 10 TABS/TUBE PO PRN (05:09)
[2020-11-29] MEDS ORDERED: DEXTROSE 50% 50 ML SYRINGE IV PRN (05:09)
[2020-11-29] MEDS ORDERED: ACETAMINOPHEN 325 MG TAB PO PRN ×2 (05:09→05:39)
[2020-11-29] MEDS ORDERED: traMADol HCL 50 MG TABLET PO PRN (05:35)
[2020-11-29 06:01] LABS: Hematocrit (blood only) 30.6 % (37-47); Hemoglobin 10.5 g/dL (12.0-16.0); Mean Corpuscular Hemoglobin 31.6 pg (25-34); Mean Corpuscular Hgb Conc 34.3 g/dL (32-36); Mean Corpuscular Volume 92.2 fL (80-100); RDW Coefficient of Variation 14.2 % (11.5-14.5); RDW Standard Deviation 48.1 fL (36.4-46.3); Red Blood Count 3.32 M/uL (4.2-5.4); White Blood Count 3.26 K/uL (4.8-10.8)
[2020-11-29] MEDS: LEVOTHYROXINE SODIUM 150 MCG TABLET PO SCH (06:06)
[2020-11-29 06:35] LABS: Magnesium 1.7 mg/dl (1.8-2.4); Phosphorus 3.4 mg/dl (2.5-4.9)
[2020-11-29 06:37] LABS: Basophils # (auto) 0.01 K/uL (0-0.2); Basophils % (auto) 0.3 %; Eosinophils # (auto) 0.17 K/uL (0-0.5); Eosinophils % (auto) 5.2 %; Lymphocytes # (auto) 0.77 K/uL (1.2-3.4); Lymphocytes % (auto) 23.6 %; Mean Platelet Volume 10.9 fL (7.4-10.4); Monocytes % (auto) 9.2 %; Neutrophils # (auto) 2.01 K/uL (1.4-6.5); Neutrophils % (auto) 61.7 %; Platelet Count 87 K/uL (130-400); Platelet Estimate Decreased (Normal)
[2020-11-29] MEDS ORDERED: INSULIN ASPART 100 UNITS/ML 3 ML PEN SC SCH ×2 (07:30→12:00)
[2020-11-29] MEDS: BUMETANIDE 1 MG in SYRINGE 0 ML IV SCH ×2 (08:06→20:14)
[2020-11-29] MEDS: FLUTICASONE/VILANTEROL 100/25MCG 14 PUFFS/INHALER INH SCH (08:06)
[2020-11-29] MEDS: NITROGLYCERIN 0.4 MG/HR PATCH TD SCH (08:07)
[2020-11-29] MEDS: SPIRONOLACTONE 25 MG TAB PO SCH (08:19)
[2020-11-29] MEDS: VALSARTAN 80 MG TAB PO SCH (08:19)
[2020-11-29] MEDS: POTASSIUM CHLORIDE CRTAB 20 MEQ TABCR PO SCH (08:19)
[2020-11-29] MEDS: NIFEdipine EXTENDED REL 30 MG TABCR PO SCH (08:20)
[2020-11-29] MEDS: MAGNESIUM CHLORIDE 64MG DELAYED REL TAB PO SCH ×3 (08:20→20:20)
[2020-11-29] MEDS ORDERED: FAMOTIDINE 20 MG TAB PO SCH (09:00)
[2020-11-29] MEDS ORDERED: Nursing to Pharmacy Communication SCH ×2 (09:15→14:45)
--- NOTE | 2020-11-29 12:07 | Gastrointestinal Consultation ---
Date of Consultation November 29, 2020 Assessment & Plan (1) Cirrhosis: (2) NAFLD (nonalcoholic fatty liver disease): (3) Abdominal pain: (4) Acute GI bleeding: (5) Ascites: Pt is a 85 y/o female w hx of NAFLD cirrhosis, MELD 11, seen for rectal bleeding. She started having diarrhea 10 days ago upon increase of Levothyroxine dose, then had 2 episodes of painless BRPBR w clots (last episode 3 days ago). Blood ct did drop 2 points from baseline. Stool normal consistency and color now, on exam today abd distended w ascites but no signs of rectal bleeding. Suspect possible hemorrhoidal vs diverticular bleeding. - Discussed endoscopic eval, at least EGD while she is admitted to r/o UGI bleeding such as from GAVE, PUD, varice (cirrhotic). However pt refused to have this done - Monitor blood ct and transfuse prn - Monitor for s/s of GI bleeding - US paracentesis w cell ct and fluid analysis - Continue current diuretics - 2g Na - If diarrhea returns, recommend stools studies to r/o infections and if no infections, may consider increasing Colestipol dose for possible bile acid diarrhea s/p cholecystectomy - Continue f/u w Dr. Arroyo (usual GI provider) upon DC for continued cirrhosis management Supervising Physician Co-Signing Physician Notes I performed a history and physical examination of the patient today, including specifically on physical exam - soft abdomen. I have discussed the patient's management with the advanced practitioner. Please refer to the nurse practitioner's note for the documented findings and plan of care. Declined endoscopic work up. No clear SBP on her tap. Recall Gi if needed., Follow up as OP. History of Present Illness Reason for Consultation: Rectal bleeding Requesting Physician: Dr. Sourav Swan Attending Physician: Sourav Swan History of Present Illness Pt is a 85 y/o female w hx of NAFLD cirrhosis w portal HTN and ascites who presented w c/o diarrhea and rectal bleeding. She noticed diarrhea started after increased of her Levothyroid dose 10 days ago. When diarrhea started she had large amt of BRBPR w/o pain. She again had BRBPR w clots 3 days ago and none since. Last BM this AM w brown stools. She denies fever, chills, abd pain, n/v. She does have abdominal distension w CT scan showing signs of low volume ascites w/o other acute findings such as bowel obstruction or inflammatory processes. Hgb is decreased from baseline 12 ->10. Plt 87, INR 1.2. She denies taking NSAIDs, nor on blood thinners. No ETOH, tobacco products. Last EGD in 2006 - erythematous gastric area Last Colonoscopy 2013 - diverticulosis, colon polyp, hemorrhoids Allergies Allergy/AdvReac Type Severity Reaction Status Date / Time erythromycin base Allergy Severe eye Verified 11/28/20 17:09 ointment only - red and infected Iodinated Contrast Media Allergy Severe heart Verified 11/28/20 17:09 muscles tightened/heart spasms Penicillins Allergy Intermediate "wore out Verified 11/28/20 17:09 on me" and hives repaglinide Allergy Intermediate Hives Verified 11/28/20 17:09 Sulfa (Sulfonamide Allergy Unknown Hives Verified 11/28/20 17:09 Antibiotics) timolol Allergy Unknown eye drops Verified 11/28/20 17:09 - eye redness clonazepam AdvReac Severe increased Verified 11/28/20 17:09 anxiety Przyfhz-Aws-Lzi Reductase AdvReac Severe ELEVATED Verified 11/28/20 17:09 Inhibitor HEPATIC ENZYMES enalapril AdvReac Intermediate COUGH Verified 11/28/20 17:09 Home Medications Medication Instructions Recorded Confirmed Type Lactobacillus 1 cap PO 1200 cap 03/16/19 11/28/20 History acidophilus-Bifidobac.animalis 31 billion cell capsule blood-glucose meter #1 ea 03/16/19 11/28/20 History cholecalciferol (vitamin D3) 50 2,000 units PO DAILY cap 03/16/19 11/28/20 History mcg (2,000 unit) capsule colestipol 1 gram tablet 2 gm PO HS tab 03/16/19 11/28/20 History docusate sodium 100 mg capsule 100 mg PO HS cap 03/16/19 11/28/20 History esomeprazole magnesium 20 mg 20 mg PO 1200 cap 03/16/19 11/28/20 History capsule,delayed release magnesium chloride 71.5 mg 71.5 mg PO TID tab 03/16/19 11/28/20 History (magnesium chloride) tablet,delayed release meclizine 25 mg tablet 25 mg PO DAILY PRN #21 tab 03/16/19 11/28/20 History ketotifen fumarate [Alaway] 1 drp OPHTHALMIC (EYE) Q12H 05/16/19 11/28/20 History sodium chloride [Saline Nasal] 1 spray INTRANASAL BID PRN 05/16/19 11/28/20 History famotidine 20 mg tablet 20 mg PO DAILY #90 tab 07/28/19 11/28/20 Rx Humalog KwikPen Insulin 100 See Rx Instructions SQ UD #15 ml NS 11/30/19 11/28/20 Rx unit/mL subcutaneous nitroglycerin 0.4 mg/hr 1 patch TD DAILY #90 ea 01/22/20 11/28/20 Rx transdermal 24 hour patch insulin glargine 100 unit/mL (3 23 units SQ HS #30 ml 03/13/20 11/28/20 Rx mL) subcutaneous pen nifedipine 30 mg tablet,extended 30 mg PO QAM #90 tab 04/09/20 11/28/20 Rx release nitroglycerin 0.4 mg sublingual 0.4 mg SL Q5M PRN #25 tab 07/23/20 11/28/20 Rx tablet CPAP Machine #1 ea 08/29/20 11/28/20 Rx albuterol sulfate 90 mcg/actuation 2 puff INHALATION Q4H PRN #18 gm 08/29/20 11/28/20 Rx aerosol inhaler budesonide-formoterol HFA 160 2 puff INHALATION BID #10.2 g 08/29/20 11/28/20 Rx mcg-4.5 mcg/actuation aerosol inhaler ipratropium 0.5 mg-albuterol 3 mg 3 ml INH Q8H PRN #180 ml 08/29/20 11/28/20 Rx (2.5 mg base)/3 mL nebulization soln lorazepam 0.5 mg tablet 0.5 mg PO HS PRN #45 tab 08/29/20 11/28/20 Rx miscellaneous medical supply #1 ea 08/29/20 11/28/20 Rx tramadol 37.5 mg-acetaminophen 325 1 tab PO DAILY PRN #30 tab 08/29/20 11/28/20 Rx mg tablet bumetanide 2 mg tablet 2 mg PO DAILY #30 tab 10/02/20 11/28/20 Rx spironolactone 25 mg tablet 25 mg PO DAILY #30 tab 10/02/20 11/28/20 Rx valsartan 40 mg tablet 40 mg PO DAILY #90 tab 10/10/20 11/28/20 Rx potassium chloride 10 mEq 20 meq PO DAILY #180 tab 10/21/20 11/28/20 Rx tablet,extended release levothyroxine 150 mcg tablet 150 mcg PO DAILY #30 tab 11/07/20 11/28/20 Rx pen needle, diabetic 32 gauge x #400 ea 11/07/20 11/28/20 Rx 5/32" Patient History Medical History Bronchitis Chronic bronchitis Coronary artery spasm reason for Nitro Patch q12h follows with Dr. Samson Depression hx Diabetes mellitus, type 2 iddm Encounter for drug screening Gastroparesis GERD (gastroesophageal reflux disease) Grief reaction Heart disease History of melanoma Hyperlipidemia Hypertension Hypothyroidism Interstitial lung disease Multiple lung nodules on CT Nonalcoholic fatty liver disease Obstructive sleep apnea syndrome Pneumonia hx Sleep apnea CPAP Vertigo Vertigo Surgical History History of appendectomy History of cardiac catheterization X3 (1994, 1999, 2006) History of cataract surgery bilateral History of colonoscopy History of dacryocystorhinostomy done monthly History of dilatation and curettage History of ERCP with stone removal History of laparoscopic cholecystectomy History of repair of rotator cuff right History of tonsillectomy S/P cholecystectomy S/P STEVE-BSO Status post biopsy of skin removal of melanoma Family History Mother Cardiac disorder Hypertension Heart disease Myocardial infarction Father Cardiac disorder Hypertension Heart disease Other Diabetes Ischemic heart disease Prostate cancer Denies family history of Ovarian cancer Breast cancer Colorectal cancer Social History Smoking Status: Never smoker Second Hand Exposure: No (); Hx Alcohol Use: No Hx Substance Use: No Preferred Language: Nigerian Communication Ability: Effective Visual Impairment: No Limitations Hearing Ability: Normal Nurse Midwife/Clinical Instructor Required: No Beliefs That Will Affect Care: None marital status: / Current Living Situation: Alone Current Living Situation Comment: lives in [facility] current occupational status: retired Feels Safe at Home: Yes Childhood Exposure to Second-Hand Smoke: No Dental Care, Regularly: Yes Physical Activity Frequency: Daily Seatbelt Use: always Sunscreen Use: No Assistive Devices: Oxygen - at Night Review of Systems Review of Systems: All systems reviewed & are unremarkable except as noted in HPI & below Physical Exam Constitutional: WD/WN, vitals as above well groomed, cooperative and comfortable Eyes: PERRL, conjunctivae normal, anicteric sclerae ENMT: external ear and nose normal, oropharynx normal Respiratory: normal respiratory effort, lungs clear to auscultation Cardiovascular: RRR, no murmur, no edema Gastrointestinal (Abdomen): Inspection/Auscultation: + abdomen distended and + hypoactive bowel sounds Percussion/Palpation: abdomen nontender Rectal exam: external hemorrhoids and internal hemorrhoids felt. Brown stool on rectal vault, no blood noted. No fissure. Skin: no rashes, warm and dry no jaundice Neurologic: Motor/Sensory: no asterixis Psychiatric: A+Ox3, euthymic affect Lymphatic: no lymphedema Results & Data ([facility]) Vital Signs (Past 12 Hours) Vital Signs Temp Pulse Pulse Resp BP Pulse Ox 11/29/20 11:37 36.6 C 73 18 123/63 98 11/29/20 08:03 36.8 C 90 18 132/63 98 11/29/20 08:00 68 11/29/20 05:28 70 11/29/20 05:13 37.1 C 72 18 117/57 L 100 11/29/20 03:30 72 23 98 11/29/20 03:00 81 24 99 11/29/20 02:30 71 22 98 11/29/20 02:00 89 25 H 100 11/29/20 01:30 69 21 98 11/29/20 01:00 84 25 H 98 (1) Ascites Ascites type: other type Qualified Code(s): R18.8 - Other ascites (2) Abdominal pain Abdominal location: generalized Qualified Code(s): R10.84 - Generalized abdominal pain
[2020-11-29 13:36] LABS: Hematocrit (blood only) 31.9 % (37-47); Hemoglobin 10.9 g/dL (12.0-16.0); Mean Corpuscular Hemoglobin 31.6 pg (25-34); Mean Corpuscular Hgb Conc 34.2 g/dL (32-36); Mean Corpuscular Volume 92.5 fL (80-100); RDW Coefficient of Variation 14.1 % (11.5-14.5); RDW Standard Deviation 47.8 fL (36.4-46.3); Red Blood Count 3.45 M/uL (4.2-5.4); White Blood Count 3.27 K/uL (4.8-10.8)
[2020-11-29 13:42] LABS: Mean Platelet Volume 11.4 fL (7.4-10.4); Platelet Count 89 K/uL (130-400)
[2020-11-29 14:07] LABS: Basophils # (auto) 0.01 K/uL (0-0.2); Basophils % (auto) 0.3 %; Eosinophils # (auto) 0.16 K/uL (0-0.5); Eosinophils % (auto) 4.9 %; Lymphocytes # (auto) 0.81 K/uL (1.2-3.4); Lymphocytes % (auto) 24.8 %; Monocytes # (auto) 0.32 K/uL (0.11-0.59); Monocytes % (auto) 9.8 %; Neutrophils # (auto) 1.97 K/uL (1.4-6.5); Neutrophils % (auto) 60.2 %
--- NOTE | 2020-11-29 16:05 | Ultrasound Report ---
PARACENTESIS UNDER ULTRASOUND GUIDANCE CLINICAL HISTORY: Abdominal ascites. COMPARISON STUDY: Abdominal CT dated 11/28/2020. PROCEDURE: The risks, benefits, and alternatives to the procedure were discussed with the patient who voiced understanding. Written informed consent was obtained. Following real-time ultrasound localiza tion of a suitable pocket of fluid in the right lower quadrant, the abdomen was prepped and draped in the usual sterile fashion. The skin and soft tissues were anesthetized with 1% lidocaine. The sheath ed paracentesis needle was inserted and approximately 1.5 liters of dark ascitic fluid was removed by vacuum suction. A sample was sent for laboratory analysis. The procedure was well tolerated and with out immediate complication. The patient left the department in satisfactory condition. IMPRESSION: Successful ultrasound-guided paracentesis with removal of approximately 1.5 liters of asc itic fluid. ACT 112: Negative or not required by law. Electronically signed by: Parag Adrian M.D. 11/29/2020 4:03 PM
[2020-11-29 16:33] LABS: Appearance Peritoneal Fluid CLEAR; Color Peritoneal Fluid YELLOW; RBC Peritoneal Fluid (A) < 3000 /uL; WBC Peritoneal Fluid (A) 906 /ul (0-300)
[2020-11-29 16:44] LABS: Basophils, Fluid 0 %; Eosinophils, Fluid 0 %; Lymphocytes, Fluid 44 %; Mono,Macrophage,Mesothelial 47 %; Neutrophils, Fluid 9 %
[2020-11-29] MEDS: INSULIN ASPART 100 UNITS/ML 3 ML PEN SC SCH ×2 (17:41→20:19)
[2020-11-29 19:49] LABS: Hematocrit (blood only) 31.5 % (37-47); Hemoglobin 10.6 g/dL (12.0-16.0); Mean Corpuscular Hemoglobin 31.5 pg (25-34); Mean Corpuscular Hgb Conc 33.7 g/dL (32-36); Mean Corpuscular Volume 93.5 fL (80-100); RDW Coefficient of Variation 14.1 % (11.5-14.5); RDW Standard Deviation 48.6 fL (36.4-46.3); Red Blood Count 3.37 M/uL (4.2-5.4)
[2020-11-29 19:57] LABS: Mean Platelet Volume 11.2 fL (7.4-10.4); Platelet Count 88 K/uL (130-400)
[2020-11-29] MEDS: DOCUSATE SODIUM 100 MG CAP PO SCH (20:17)
[2020-11-29 20:18] LABS: Basophils # (auto) 0.01 K/uL (0-0.2); Basophils % (auto) 0.3 %; Eosinophils # (auto) 0.16 K/uL (0-0.5); Eosinophils % (auto) 5.3 %; Giant Platelets 1+; Lymphocytes # (auto) 0.68 K/uL (1.2-3.4); Lymphocytes % (auto) 22.7 %; Monocytes # (auto) 0.29 K/uL (0.11-0.59); Monocytes % (auto) 9.7 %; Neutrophils # (auto) 1.86 K/uL (1.4-6.5)
[2020-11-29] MEDS: COLESTIPOL HCL 1 GM TAB PO SCH (20:18)
[2020-11-29] MEDS: INSULIN GLARGINE SOLOSTAR 100 UNITS/ML 3 ML PEN SQ SCH (20:19)
[2020-11-29] MEDS: FAMOTIDINE 20 MG TAB PO SCH (20:20)
--- NOTE | 2020-11-29 22:07 | Hospitalist Progress Note ---
Date of Service November 29, 2020 Assessment & Plan (1) Acute GI bleeding: Uncertain etiology - patient reports passage of bright red blood with clots. ?Hemorrhoidal vs diverticular bleed. No nausea/hematemesis or upper abdominal pain at present -GI consultation appreciated -Trend CBC - transfuse for ongoing blood loss, symptomatic anemia or Hgb < 7 hemoglobin is stable. will likely discharge in AM if continues to do well (2) Chronic diastolic congestive heart failure: Patient with history of stress-induced cardiomyopathy, "broken heart syndrome". She follows with Dr. Samson of Cardiology. Last echocardiogram performed on 10/17/20 with normal LV size, EF of 60-65%, no regional WMA. SHe had mild LA dilation, sclerotic aortic valve, mild MR. She [facility] with [facility]. Last seen 10/21/20. Patient with complaint of ongoing abdominal bloating -Bumex 1mg IV BID -Continue Spironolactone -Continue Valsartan -Check BNP (3) Restrictive lung disease: Patient with interstitial lung disease. She has been seen by Pulmonary in the past PFTs 01/09/2020: Mild restrictive lung disease with mild decrease in DLCO which corrects for VA, no obstructive lung dysfunction, insignificant bronchodilator response FVC 1.69 L, 72%, FEV1 1.4 L, 84%, FEV1/FVC 83%, RV 75%, TLC 73%, RV/TLC 104%, DLCO 62%, DLCO/VA 97% -Albuterol PRN -Symbicort -Pulmonary followup as instructed (4) Multiple lung nodules on CT: Incidentally discovered on imaging May 2014. She has been seen by Pulmonary. -Patient should have 3 month followup imaging -Pulmonary followup as arranged (5) Dyslipidemia: Chronic. Patient not on statin therapy - lipid panel acceptable, concern for medication side effects and liver effects -Routine followup (6) Obstructive sleep apnea syndrome: Chronic. Patient is very compliant -per report 11/27/20 - 94.4% -Continue CPAP at 7cm H2O qHS and with naps (7) Hepatic cirrhosis: History of NAFLD. She follows with Dr. Arroyo. Mention of chronic abdominal distention upon review of prior notes. Low volume ascites noted on imaging today as well as prior imaging. Patient does not appear to be having acute decompensation of cirrhosis. No encephalopathy. LZ=986, INR=1.2, Oef=059 -Continue Bumex and Spironolactone -Low Na diet -GI Consultation appreciated (8) Controlled type 2 diabetes mellitus, with long-term current use of insulin: Elevated blood sugar today at 199. Last [id number] on 08/29/20. Patient has seen Diabetes education in the past -Lantus 23u qHS, ISS -Goal blood sugar 100 - 140 -CC diet as tolerated (9) GERD without esophagitis: Chronic -Continue Pepcid (10) Hypertension: Blood pressure stable, currently 130/56. Patient developed a cough with AMINA-inhibitors -Continue Valsartan 40mg daily -Continue Nifedine 30mg daily (11) Hypothyroidism: Chronic. Patient with elevated TSH on 10/30/20 at 6.18 -Continue Synthroid 150mcg F/E/N - Bumex 1mg IV BID, monitor electrolytes and replete as needed, NPO for now Ppx - SCDs Code - Full per discussion with patient Admission and Anticipated Discharge Date Admission Date: November 28, 2020 Subjective 85 yo female reports feeling well. She has no new complaints at this time. Review of Systems Review of Systems: All systems reviewed & are unremarkable except as noted in HPI & below Physical Exam Physical Exam: General: patient resting comfortably, NAD, non-toxic in appearance, AA&O x 4 Skin: warm, dry, intact, no rashes or lesions HEENT: NC/AT, PERRL, EOMI, anicteric sclera, conjunctiva without injection, external ear normal to inspection and nontender, nares patent, moist mucus membranes, dentition intact, no oropharyngeal lesions, neck supple, trachea midline, no LAD, no thyromegaly, no JVD Heart: +S1/S2, regular, no m/r/g Lungs: equal air entry bilaterally, no rales/rhonchi/wheezes Abd: +BS, soft, distended, tympanic, tenderness in lower abdomen with palpation, voluntary guarding, no masses/organomegaly, minimal ascites appreciated Ext: warm, 2+ pulses in UE/LE bilaterally, no clubbing/cyanosis or edema Neuro: nonfocal, patient AA&O x 4, speech intact, no facial droop, moving all extremities on command with equal strength 5/5 Results & Data Results & Data ([facility]) Vital Signs (Past 12 Hours) Vital Signs Temp Pulse Resp BP Pulse Ox 11/29/20 19:38 37.1 C 57 L 18 134/57 L 94 11/29/20 11:37 36.6 C 73 18 123/63 98 PG Care Time/CCT Total # of Minutes Spent Total Time Spent with Patient: Total time spent is greater than 50% in coordination of care (as documented) at patient's floor/unit and/or counseling patient: Coding Level of Care Code 16519 Subseq Hosp Care Lvl 3 Diagnoses Acute GI bleeding K92.2 Chronic diastolic congestive heart failure I50.32 Restrictive lung disease J98.[address] on [address] R91.8 Dyslipidemia E78.5 Obstructive sleep apnea syndrome G47.33 Hepatic cirrhosis K74.60; R18.8 Ascites presence: with ascites Hepatic cirrhosis type: unspecified hepatic cirrhosis Controlled type 2 diabetes mellitus, with long-term current use of insulin E11.9; Z79.4 Diabetes mellitus complication status: without complication GERD without esophagitis K21.9 Hypertension I10 Hypertension type: essential hypertension Hypothyroidism E03.9 Hypothyroidism type: unspecified Time Spent (min) 35 (1) Hypothyroidism Hypothyroidism type: unspecified Qualified Code(s): E03.9 - Hypothyroidism, unspecified (2) Hepatic cirrhosis Ascites presence: with ascites Hepatic cirrhosis type: unspecified hepatic cirrhosis Qualified Code(s): K74.60 - Unspecified cirrhosis of liver; R18.8 - Other ascites (3) Controlled type 2 diabetes mellitus, with long-term current use of insulin Diabetes mellitus complication status: without complication Qualified Code(s): E11.9 - Type 2 diabetes mellitus without complications; Z79.4 - superintendent container terminal (current) use of insulin (4) Hypertension Hypertension type: essential hypertension Qualified Code(s): I10 - Essential (primary) hypertension
[2020-11-30 05:36] LABS: Hematocrit (blood only) 32.7 % (37-47); Mean Corpuscular Hemoglobin 31.2 pg (25-34); Mean Corpuscular Hgb Conc 33.6 g/dL (32-36); Mean Corpuscular Volume 92.6 fL (80-100); RDW Coefficient of Variation 14.1 % (11.5-14.5); RDW Standard Deviation 47.6 fL (36.4-46.3); Red Blood Count 3.53 M/uL (4.2-5.4); White Blood Count 2.99 K/uL (4.8-10.8)
[2020-11-30] MEDS: LEVOTHYROXINE SODIUM 150 MCG TABLET PO SCH (05:37)
[2020-11-30 05:43] LABS: Mean Platelet Volume 11.3 fL (7.4-10.4); Platelet Count 84 K/uL (130-400)
[2020-11-30 06:10] LABS: Albumin Globulin Ratio 0.8 (0.9-2); BUN Creatinine Ratio 20.5 (10-20); Bilirubin,Total 0.7 mg/dl (0.2-1); Calcium 8.7 mg/dl (8.5-10.1); Creatinine Clr Calc Pharmacy 34.4 ml/min; Est GFR (African American) 55.4; Est GFR (Non-African American) 47.8; Globulin 3.7 gm/dl (2.5-4.0); Potassium 3.4 mmol/L (3.5-5.1); Total Protein 6.7 gm/dl (6.4-8.2)
[2020-11-30] MEDS: VALSARTAN 80 MG TAB PO SCH (08:06)
[2020-11-30] MEDS: INSULIN ASPART 100 UNITS/ML 3 ML PEN SC SCH ×4 (08:06→20:36)
[2020-11-30] MEDS: SPIRONOLACTONE 25 MG TAB PO SCH (08:06)
[2020-11-30] MEDS: NIFEdipine EXTENDED REL 30 MG TABCR PO SCH (08:06)
[2020-11-30] MEDS: MAGNESIUM CHLORIDE 64MG DELAYED REL TAB PO SCH ×3 (08:07→20:38)
[2020-11-30] MEDS: POTASSIUM CHLORIDE CRTAB 20 MEQ TABCR PO SCH ×4 (08:07→20:36)
[2020-11-30] MEDS: BUMETANIDE 1 MG in SYRINGE 0 ML IV SCH (08:07)
[2020-11-30] MEDS: FLUTICASONE/VILANTEROL 100/25MCG 14 PUFFS/INHALER INH SCH (08:07)
[2020-11-30] MEDS: NITROGLYCERIN 0.4 MG/HR PATCH TD SCH (08:08)
--- NOTE | 2020-11-30 10:31 | Electrocardiogram Report ---
Test Reason : Blood Pressure : / mmHG Vent. Rate : 075 BPM Atrial Rate : 075 BPM P-R Int : 174 ms QRS Dur : 078 ms QT Int : 420 ms P-R-T Axes : 050 001 112 degrees QTc Int : 469 ms Sinus rhythm with frequent Premature ventricular complexes Low voltage QRS Nonspecific T wave abnormality Abnormal ECG When compared with ECG of 14-SEP-2016 12:37, Premature ventricular complexes are now Present Nonspecific T wave abnormality now evident in Anterolateral leads QT has lengthened Confirmed by Shukri Walsh ([id number]) on 11/30/2020 10:31:33 AM Referred By: Lana Magana Confirmed By:Shukri Walsh
[2020-11-30] MEDS ORDERED: SPIRONOLACTONE 25 MG TAB PO ONE (16:57)
[2020-11-30] MEDS: DOCUSATE SODIUM 100 MG CAP PO SCH (20:34)
[2020-11-30] MEDS: COLESTIPOL HCL 1 GM TAB PO SCH (20:35)
[2020-11-30] MEDS: INSULIN GLARGINE SOLOSTAR 100 UNITS/ML 3 ML PEN SQ SCH (20:37)
[2020-11-30] MEDS: FAMOTIDINE 20 MG TAB PO SCH (20:37)
--- NOTE | 2020-11-30 22:27 | Hospitalist Progress Note ---
Date of Service November 30, 2020 Assessment & Plan (1) Acute GI bleeding: Uncertain etiology - patient reports passage of bright red blood with clots. ?Hemorrhoidal vs diverticular bleed. No nausea/hematemesis or upper abdominal pain at present -GI consultation appreciated -Trend CBC - transfuse for ongoing blood loss, symptomatic anemia or Hgb < 7 hemoglobin is stable. will continue to monitor (2) Chronic diastolic congestive heart failure: Acute on chronic diastolic (congestive) heart failure Patient with history of stress-induced cardiomyopathy, "broken heart syndrome". She follows with Dr. Samson of Cardiology. Last echocardiogram performed on 10/17/20 with normal LV size, EF of 60-65%, no regional WMA. SHe had mild LA dilation, sclerotic aortic valve, mild MR. She follows with [facility]. Last seen 10/21/20. Patient with complaint of ongoing abdominal bloating -Bumex 1mg IV BID -Continue Spironolactone: increase to 50 mg -Continue Valsartan -Check BNP (3) Restrictive lung disease: Patient with interstitial lung disease. She has been seen by Pulmonary in the past PFTs 01/09/2020: Mild restrictive lung disease with mild decrease in DLCO which corrects for VA, no obstructive lung dysfunction, insignificant bronchodilator response FVC 1.69 L, 72%, FEV1 1.4 L, 84%, FEV1/FVC 83%, RV 75%, TLC 73%, RV/TLC 104%, DLCO 62%, DLCO/VA 97% -Albuterol PRN -Symbicort -Pulmonary followup as instructed (4) Multiple lung nodules on CT: Incidentally discovered on imaging May 2014. She has been seen by Pulmonary. -Patient should have 3 month followup imaging -Pulmonary followup as arranged (5) Dyslipidemia: Chronic. Patient not on statin therapy - lipid panel acceptable, concern for medication side effects and liver effects -Routine followup (6) Obstructive sleep apnea syndrome: Chronic. Patient is very compliant -per report 11/27/20 - 94.4% -Continue CPAP at 7cm H2O qHS and with naps (7) Hepatic cirrhosis: History of NAFLD. She follows with Dr. Arroyo. Mention of chronic abdominal distention upon review of prior notes. Low volume ascites noted on imaging today as well as prior imaging. Patient does not appear to be having acute decompensation of cirrhosis. No encephalopathy. TD=817, INR=1.2, Vzk=832 -Continue Bumex and Spironolactone -Low Na diet -GI Consultation appreciated (8) Controlled type 2 diabetes mellitus, with long-term current use of insulin: Elevated blood sugar today at 199. Last [id number] on 08/29/20. Patient has seen Diabetes education in the past -Lantus 23u qHS, ISS -Goal blood sugar 100 - 140 -CC diet as tolerated (9) GERD without esophagitis: Chronic -Continue Pepcid (10) Hypertension: Blood pressure stable, currently 130/56. Patient developed a cough with AMINA-inhibitors -Continue Valsartan 40mg daily -Continue Nifedine 30mg daily (11) Hypothyroidism: Chronic. Patient with elevated TSH on 10/30/20 at 6.18 -Continue Synthroid 150mcg F/E/N - Bumex 1mg IV BID, monitor electrolytes and replete as needed, NPO for now Ppx - SCDs Admission and Anticipated Discharge Date Admission Date: November 28, 2020 Subjective Patient feels weak, and not ready for discharge. Review of Systems Review of Systems: All systems reviewed & are unremarkable except as noted in HPI & below Physical Exam Physical Exam: General: patient resting comfortably, NAD, non-toxic in appearance, AA&O x 4 Skin: warm, dry, intact, no rashes or lesions HEENT: NC/AT, PERRL, EOMI, anicteric sclera, conjunctiva without injection, external ear normal to inspection and nontender, nares patent, moist mucus membranes, dentition intact, no oropharyngeal lesions, neck supple, trachea midline, no LAD, no thyromegaly, no JVD Heart: +S1/S2, regular, no m/r/g Lungs: equal air entry bilaterally, no rales/rhonchi/wheezes Abd: +BS, soft, distended, tympanic, tenderness in lower abdomen with palpation, voluntary guarding, no masses/organomegaly, minimal ascites appreciated Ext: warm, 2+ pulses in UE/LE bilaterally, no clubbing/cyanosis or edema Neuro: nonfocal, patient AA&O x 4, speech intact, no facial droop, moving all extremities on command with equal strength 5/5 Results & Data Results & Data ([place]) Vital Signs (Past 12 Hours) Vital Signs Temp Pulse Pulse Resp BP Pulse Ox 11/30/20 18:15 36.6 C 71 20 104/55 L 99 11/30/20 15:47 74 11/30/20 15:22 36.7 C 66 18 128/68 94 11/30/20 11:13 36.7 C 65 18 102/43 L 92 PG Care Time/CCT Total # of Minutes Spent Total Time Spent with Patient: Total time spent is greater than 50% in coordination of care (as documented) at patient's floor/unit and/or counseling patient: Coding Level of Care Code 54137 Subseq Hosp Care Lvl 2 Diagnoses Acute GI bleeding K92.2 Chronic diastolic congestive heart failure I50.32 Restrictive lung disease J98.[address] R91.8 Dyslipidemia E78.5 Obstructive sleep apnea syndrome G47.33 Hepatic cirrhosis K74.60; R18.8 Ascites presence: with ascites Hepatic cirrhosis type: unspecified hepatic cirrhosis Controlled type 2 diabetes mellitus, with long-term current use of insulin E11.9; Z79.4 Diabetes mellitus complication status: without complication GERD without esophagitis K21.9 Hypertension I10 Hypertension type: essential hypertension Hypothyroidism E03.9 Hypothyroidism type: unspecified Time Spent (min) 25 (1) Hypothyroidism Hypothyroidism type: unspecified Qualified Code(s): E03.9 - Hypothyroidism, unspecified (2) Hepatic cirrhosis Ascites presence: with ascites Hepatic cirrhosis type: unspecified hepatic cirrhosis Qualified Code(s): K74.60 - Unspecified cirrhosis of liver; R18.8 - Other ascites (3) Controlled type 2 diabetes mellitus, with long-term current use of insulin Diabetes mellitus complication status: without complication Qualified Code(s): E11.9 - Type 2 diabetes mellitus without complications; Z79.4 - ad terminal makeup operator (current) use of insulin (4) Hypertension Hypertension type: essential hypertension Qualified Code(s): I10 - Essential (primary) hypertension
[2020-12-01] MEDS: LEVOTHYROXINE SODIUM 150 MCG TABLET PO SCH (05:41)
[2020-12-01] MEDS: INSULIN ASPART 100 UNITS/ML 3 ML PEN SC SCH ×3 (08:15→17:09)
[2020-12-01] MEDS: NITROGLYCERIN 0.4 MG/HR PATCH TD SCH (08:16)
[2020-12-01] MEDS: VALSARTAN 80 MG TAB PO SCH (08:16)
[2020-12-01] MEDS: MAGNESIUM CHLORIDE 64MG DELAYED REL TAB PO SCH ×2 (08:16→14:19)
[2020-12-01] MEDS: POTASSIUM CHLORIDE CRTAB 20 MEQ TABCR PO SCH ×3 (08:17→14:19)
[2020-12-01] MEDS: FLUTICASONE/VILANTEROL 100/25MCG 14 PUFFS/INHALER INH SCH (08:17)
[2020-12-01] MEDS: NIFEdipine EXTENDED REL 30 MG TABCR PO SCH (08:17)
[2020-12-01] MEDS ORDERED: SPIRONOLACTONE 25 MG TAB PO SCH (09:00)
[2020-12-01 14:55] LABS: Hematocrit (blood only) 33.8 % (37-47); Hemoglobin 11.3 g/dL (12.0-16.0); Mean Corpuscular Hemoglobin 31.5 pg (25-34); Mean Corpuscular Hgb Conc 33.4 g/dL (32-36); Mean Corpuscular Volume 94.2 fL (80-100); RDW Coefficient of Variation 14.5 % (11.5-14.5); RDW Standard Deviation 49.9 fL (36.4-46.3); Red Blood Count 3.59 M/uL (4.2-5.4); White Blood Count 3.71 K/uL (4.8-10.8)
[2020-12-01 15:06] LABS: Mean Platelet Volume 11.3 fL (7.4-10.4); Platelet Count 96 K/uL (130-400)
[2020-12-01 15:28] LABS: BUN Creatinine Ratio 19.3 (10-20); Calcium 9.1 mg/dl (8.5-10.1); Creatinine Clr Calc Pharmacy 33.5 ml/min; Est GFR (African American) 53.6; Est GFR (Non-African American) 46.3
--- NOTE | 2020-12-01 17:43 | CT Scan Report ---
CT OF THE CHEST WITHOUT IV CONTRAST CLINICAL HISTORY: NODULE: 1 YEAR FOLLOWUP/ CHF COMPARISON STUDY: Chest radiograph November 28, 2020. Chest CT January 08, 2020 and May 18, 2014. CT DOSE: 284.90 mGy.cm TECHNIQUE: Axial images of the chest were obtained without IV contrast. Images were reviewed in the axial, sagittal, and coronal planes. IV contrast was not administered for this examination. Automat ed exposure control was utilized for the study. A dose lowering technique was utilized adhering to t he principles of ALARA. FINDINGS: No enlarged axillary, mediastinal or hilar lymph nodes are present. Mild cardiomegaly is n oted. No pericardial effusion. A 1.8 cm nodule within the upper inner quadrant of the left breast is unchanged from earlier exams. This is benign given stability. There is no pneumothorax or pleural eff usion. Subpleural reticulation within the lungs is noted. This is similar to CT of January 08, 2020. Ther e is no consolidation to suggest superimposed pneumonia. An 8 mm lobulated solid right lower lobe nod ule on image 107 of [address] of January 08, 2020. This has slightly increased in size si nce CT of May 18, 2014. A 1.1 cm solid and cystic right middle lobe nodule is also similar to C T of January 08, 2020. This contains calcifications. There are no new nodules. Visualized portions of the upper abdomen demonstrate cirrhosis with pneumobilia. Splenomegaly is noted with ascites. IMPRESSION: 1. No acute process within the chest. 2. 8 mm right lower lobe solid pulmonary nodule which is similar to CT of January 08, 2020. This has slig htly increased in size since CT of May 18, 2014. This remains indeterminate and a follow-up [facility] CT in 6 months is recommended. 3. No significant change in the indeterminate 1.1 cm solid and cystic right middle lobe nodule which should be assessed on follow-up CT. 4. Cirrhosis with splenomegaly and ascites within the upper abdomen. ACT 112: Negative or not required by law. Electronically signed by: Jaydon Swanson M.D. 12/01/2020 5:41 PM
--- NOTE | 2020-12-06 10:45 | Discharge Summary ---
Date of Service December 01, 2020 Admission HPI Per Admitting Provider Ilana Mackay is a pleasant 85yo female with history of cirrhosis secondary to NAFLD, DM, HTN, HLP presenting with rectal bleeding. Patient reports that she had had thyroid medication changed on 11/21/20 from 100mcg to 150mcg after which she developed diarrhea - bloody with clots. She saw her PCP regarding this issue - no workup pursued at that time, however, she was instructed to return to care if she had any further bleeding. On 11/26/20 PM patient had a bowel movement and passed a very large amount of bright red blood. She reports passage of large clots as well. She reports some dizziness and lightheadedness as well as JOSHI, fatigue and weakness. She denies abdominal pain, rectal pain, tenesmus, nausea or recent vomiting. She denies fever, chills, CP, SOB. She does have some upper abdominal pain and some abdominal spasms around her navel. She has history of CHF - recently gained quite a bit of weight. Patient has a dry weight of 146# and a trigger weight of 149#. She was recently taken off [place] six and started on Bumex and Spironolactone. Reports weighing 145# yesterday. Does report significant abdominal bloating. Principal Diagnosis acute GI bleeding Discharge Exam General: patient resting comfortably, NAD, non-toxic in appearance, AA&O x 4 Skin: warm, dry, intact, no rashes or lesions HEENT: NC/AT, PERRL, EOMI, anicteric sclera, conjunctiva without injection, external ear normal to inspection and nontender, nares patent, moist mucus membranes, dentition intact, no oropharyngeal lesions, neck supple, trachea midline, no LAD, no thyromegaly, no JVD Heart: +S1/S2, regular, no m/r/g Lungs: equal air entry bilaterally, no rales/rhonchi/wheezes Abd: +BS, soft, distended, tympanic, tenderness in lower abdomen with palpation, voluntary guarding, no masses/organomegaly, minimal ascites appreciated Ext: warm, 2+ pulses in UE/LE bilaterally, no clubbing/cyanosis or edema Neuro: nonfocal, patient AA&O x 4, speech intact, no facial droop, moving all extremities on command with equal strength 5/5 Discharge Data Allergies Allergy/AdvReac Type Severity Reaction Status Date / Time erythromycin base Allergy Severe eye Verified 11/28/20 17:09 ointment only - red and infected Iodinated Contrast Media Allergy Severe heart Verified 11/28/20 17:09 muscles tightened/heart spasms Penicillins Allergy Intermediate "wore out Verified 11/28/20 17:09 on me" and hives repaglinide Allergy Intermediate Hives Verified 11/28/20 17:09 Sulfa (Sulfonamide Allergy Unknown Hives Verified 11/28/20 17:09 Antibiotics) timolol Allergy Unknown eye drops Verified 11/28/20 17:09 - eye redness clonazepam AdvReac Severe increased Verified 11/28/20 17:09 anxiety Fvvjofw-Ins-Vtt Reductase AdvReac Severe ELEVATED Verified 11/28/20 17:09 Inhibitor HEPATIC ENZYMES enalapril AdvReac Intermediate COUGH Verified 11/28/20 17:09 Consultations 11/28/20 22:33 ED Decision to Admit Stat 11/29/20 05:09 Consult Gastroenterology Routine Ordered Studies 11/28/20 19:50 CT abd pelvis wo con Stat 11/29/20 15:00 US paracentesis abd w/image Routine 12/01/20 16:37 CT chest diagnostic wo con Urgent Hospital Course (1) Acute GI bleeding: Uncertain etiology - patient reports passage of bright red blood with clots. ?Hemorrhoidal vs diverticular bleed. No nausea/hematemesis or upper abdominal pain at present -GI consultation appreciated -Trend CBC - transfuse for ongoing blood loss, symptomatic anemia or Hgb < 7 hemoglobin is stable. will discharge (2) Chronic diastolic congestive heart failure: Acute on chronic diastolic (congestive) heart failure Patient with history of stress-induced cardiomyopathy, "broken heart syndrome". She follows with Dr. Samson of Cardiology. Last echocardiogram performed on 10/17/20 with normal LV size, EF of 60-65%, no regional WMA. SHe had mild LA dilation, sclerotic aortic valve, mild MR. She [facility] with [facility]. Last seen 10/21/20. Patient with complaint of ongoing abdominal bloating -Bumex 1mg IV BID -Continue Spironolactone: increased to 50 mg -Continue Valsartan -Patient is doing well, will likely need spirinolactone titrated further as an outpatient. (3) Restrictive lung disease: Patient with interstitial lung disease. She has been seen by Pulmonary in the past PFTs 01/09/2020: Mild restrictive lung disease with mild decrease in DLCO which corrects for VA, no obstructive lung dysfunction, insignificant bronchodilator response FVC 1.69 L, 72%, FEV1 1.4 L, 84%, FEV1/FVC 83%, RV 75%, TLC 73%, RV/TLC 104%, DLCO 62%, DLCO/VA 97% -Albuterol PRN -Symbicort -Pulmonary followup as instructed (4) Multiple lung nodules on CT: Incidentally discovered on imaging May 2014. She has been seen by Pulmonary. -Patient should have 3 month followup imaging -Pulmonary followup as arranged (5) Dyslipidemia: Chronic. Patient not on statin therapy - lipid panel acceptable, concern for medication side effects and liver effects -Routine followup (6) Obstructive sleep apnea syndrome: Chronic. Patient is very compliant -per report 11/27/20 - 94.4% -Continue CPAP at 7cm H2O qHS and with naps (7) Hepatic cirrhosis: History of NAFLD. She follows with Dr. Arroyo. Mention of chronic abdominal distention upon review of prior notes. Low volume ascites noted on imaging today as well as prior imaging. Patient does not appear to be having acute decompensation of cirrhosis. No encephalopathy. QG=080, INR=1.2, Tux=177 -Continue Bumex and Spironolactone -Low Na diet -GI Consultation appreciated -Patient refused upper endoscopy. (8) Controlled type 2 diabetes mellitus, with long-term current use of insulin: Elevated blood sugar today at 199. Last [id number] on 08/29/20. Patient has seen Diabetes education in the past -Lantus 23u qHS, ISS -Goal blood sugar 100 - 140 -CC diet as tolerated (9) GERD without esophagitis: Chronic -Continue Pepcid (10) Hypertension: Blood pressure stable, currently 130/56. Patient developed a cough with AMINA-inhibitors -Continue Valsartan 40mg daily -Continue Nifedine 30mg daily (11) Hypothyroidism: Chronic. Patient with elevated TSH on 10/30/20 at 6.18 -Continue Synthroid 150mcg F/E/N - Bumex 1mg IV BID, monitor electrolytes and replete as needed, NPO for now Ppx - SCDs Total Time Total Time Spent Total Time Spent (In Minutes): 32 Total Time Includes: Examination of the Patient, Discharge Planning and Medication Reconciliation Discharge Plan Discharge Items Patient Disposition: Home - Self-Care Reason For Visit: RECTAL BLEEDING Discharge Diagnosis: rectal bleeding Condition on Discharge: Good Activity: Resume your previous activity Non-emergency contact: Primary Care Provider Call non-emergency contact if: you have any medication questions Follow-up/Referrals: Lana Bender MD [Primary Care Provider] - Diet: Heart Healthy Addtl Attending Provider Instructions: Call 911 and go to the Emergency Room if: * You have tightness or pain in your chest that does not go away with rest or Nitroglycerin * You are very short of breath even with rest Call your doctor if any of the following symptoms or problems start or get worse: * Shortness of breath or difficulty breathing * Wake up at night short of breath * Chest pain * Cough * Swelling of your hands, fee, or legs * More fatigued or tired with your normal activity * Palpitations - sudden fast heart beats WEIGHT * Weigh yourself every morning after using the bathroom. * Use the same scale. * Wear the same amount of clothing. * Write your weight down on your chart. * Call your doctor if you gain more than 2-3 pounds in 1-2 days. MEDICATIONS * Use this discharge instruction sheet for instructions. * Take your medications at the time your doctor ordered. * Do not skip a dose of your medicines. * If you miss a dose of medicine, take as soon as possible, but DO NOT DOUBLE A DOSE. * Read your medicine information when you get home. * Know all of the side effects of your medicine. * Call your doctor's office if you have any side effects. * Be sure all of your doctors know what medicine and herbs you take (including cold, flu, and herbal medicine). * Pain Medicine: If you do not get relief from your pain, please call your doctor for help. Take the following with you to your follow-up doctor appointments: * Weight Chart * Medication List * List of questions Do not drink excessive alcohol, beer or wine. Pending Studies at Discharge: No Stand-Alone Forms: My [employer], Smoking Cessation Medications and DC Order Prescriptions: New spironolactone 25 mg Tablet 50 mg PO QAM Qty: 60 RF: 0 Continued famotidine 20 mg tablet 20 mg PO DAILY Qty: 90 RF: 3 insulin lispro [Humalog KwikPen Insulin] 100 unit/mL insulin pen See Rx Instructions SQ UD Qty: 15 RF: 5 Lantus Solostar U-100 Insulin 100 unit/mL (3 mL) insulin pen 23 units SQ HS Qty: 30 RF: 3 nifedipine 30 mg tablet extended release 30 mg PO QAM Qty: 90 RF: 3 budesonide-formoterol [Symbicort] 160-4.5 mcg/actuation HFA aerosol inhaler 2 puff inhalation BID Qty: 10.2 RF: 5 lorazepam 0.5 mg tablet 0.5 mg PO HS PRN (Reason: sleep) Qty: 45 RF: 1 valsartan 40 mg tablet 40 mg PO DAILY Qty: 90 RF: 3 levothyroxine 150 mcg tablet 150 mcg PO DAILY Qty: 30 RF: 1 (DME) pen needle, diabetic [BD Martha 2nd Gen Pen Needle] 32 gauge x 5/32" needle See Rx Instructions .ROUTE .MEDSUPPLY Qty: 400 RF: 3 nitroglycerin 0.4 mg/hr patch 24 hour 1 patch TD DAILY Qty: 90 RF: 3 bumetanide 2 mg tablet 2 mg PO DAILY Qty: 30 RF: 2 tramadol-acetaminophen 37.5-325 mg tablet 1 tab PO DAILY PRN (Reason: pain) Qty: 30 RF: 0 Lacto.acidophilus-Bif.animalis 31 billion cell capsule 1 cap PO 1200 RF: 0 colestipol 1 gram tablet 2 gm PO HS RF: 0 (DME) blood-glucose meter [ReliOn All-In-One Meter] kit See Dose Instructions .ROUTE .MEDSUPPLY Qty: 1 RF: 0 Slow-Mag 71.5 mg tablet,delayed release (DR/EC) 71.5 mg PO TID RF: 0 cholecalciferol (vitamin D3) 2,000 unit capsule 2,000 units PO DAILY RF: 0 docusate sodium 100 mg capsule 100 mg PO HS RF: 0 esomeprazole magnesium 20 mg capsule,delayed release(DR/EC) 20 mg PO 1200 RF: 0 meclizine 25 mg tablet 25 mg PO DAILY PRN (Reason: Vertigo) Qty: 21 RF: 0 nitroglycerin 0.4 mg tablet, sublingual 0.4 mg SL Q5M PRN (Reason: Chest Pain) Qty: 25 RF: 2 (DME) CPAP Machine Misc See Rx Instructions .MEDSUPPLY Qty: 1 RF: 0 (DME) CPAP Supplies Misc See Rx Instructions .MEDSUPPLY Qty: 1 RF: 0 albuterol sulfate 90 mcg/actuation HFA aerosol inhaler 2 puff inhalation Q4H PRN (Reason: sob) Qty: 18 RF: 5 ipratropium-albuterol 0.5 mg-3 mg(2.5 mg base)/3 mL solution for nebulization 3 ml INH Q8H PRN (Reason: SOB) Qty: 180 RF: 5 ketotifen fumarate [[place]] 0.025 % (0.035 %) Drops 1 drp OPHTHALMIC (EYE) Q12H RF: 0 sodium chloride [Saline Nasal] 0.65 % Aerosol,[place] 1 spray INTRANASAL BID PRN (Reason: Congestion) RF: 0 Discontinued spironolactone 25 mg tablet 25 mg PO DAILY Qty: 30 RF: 2 No Action potassium chloride 10 mEq tablet extended release 20 meq PO DAILY Qty: 180 RF: 3 Discharge Orders: Discharge Order (Routine); Ordered 12/01/20 Ordered By: Sourav Swan Admission Data Admit Date/Time: 11/28/20 23:23 Attending Provider: Sourav Swan Admit Provider: Elizabeth Ramos Primary Care Provider: Lana Bender V. Other Providers: Elizabeth Ramos ; Chris Arroyo Other Interventions: Discharge Summary Assessment (RN) Last Done: 12/01/20 17:16 Coding Level of Care Code D/C Day Management >30 mins Diagnoses Acute GI bleeding K92.2 Chronic diastolic congestive heart failure I50.32 Restrictive lung disease J98.[address] nodules on CT R91.8 Dyslipidemia E78.5 Obstructive sleep apnea syndrome G47.33 Hepatic cirrhosis K74.60; R18.8 Hepatic cirrhosis type: unspecified hepatic cirrhosis Ascites presence: with ascites Controlled type 2 diabetes mellitus, with long-term current use of insulin E11.9; Z79.4 Diabetes mellitus complication status: without complication GERD without esophagitis K21.9 Hypertension I10 Hypertension type: essential hypertension Hypothyroidism E03.9 Hypothyroidism type: unspecified
--- NOTE | 2020-12-15 15:08 | Coding Query ---
PRESENT ON ADMISSION QUERY To promote full compliance with coding requirements relating to pateint care, physician participation is requested in all cases of evp operations uncertainty. Please assist us with the question(s) below: Please place an X within the parenthesis (x). The following diagnosis listed in this patient's medical record require physician assistance to determine if they were present on admission (POA) or not. Please advise for each diagnosis whether it was present on admission, not present on admission, or if it was clinically undetermined. 1. ACUTE DIASTOLIC CONGESTIVE HEART FAILURE (documentation of the Acute Diastolic CHF begins on the 11/30/20 Progress Note) (x ) Present On Admission ( ) Not Present On Admission ( ) Clinically Undetermined Thank you Shala Cohen *Definition of the present on admission (POA)-Present on admission is defined as present at the time the order for inpatient admission occurs. Conditions that develop during an outpatient encounter prior to a written order for inpatient admission (including emergency department, observation, or outpatient surgery) are considered present on admission. MTDD
== END 2020-12-01 18:20 | disposition home or self-care (01) | DRG 377 ==
LOC: ED 18:04 → 2N 23:23 → SUATTDRO 23:23 → 2N 11-29 04:18

== ENCOUNTER 2021-04-16 17:14 | Inpatient (IN) ==
[2021-04-16 18:18] LABS: Basophils # (auto) 0.02 K/uL (0-0.2); Basophils % (auto) 0.3 %; Eosinophils # (auto) 0.31 K/uL (0-0.5); Hematocrit (blood only) 36.6 % (37-47); Hemoglobin 12.5 g/dL (12.0-16.0); Immature Granulocytes # (auto) 0.01 K/uL (0.00-0.02); Immature Granulocytes % (auto) 0.1 %; Lymphocytes % (auto) 16.7 %; Mean Corpuscular Hemoglobin 32.1 pg (25-34); Mean Corpuscular Hgb Conc 34.2 g/dL (32-36); Mean Corpuscular Volume 93.8 fL (80-100); Mean Platelet Volume 11.7 fL (7.4-10.4); Monocytes # (auto) 0.93 K/uL (0.11-0.59); Monocytes % (auto) 11.9 %; Neutrophils # (auto) 5.22 K/uL (1.4-6.5); Platelet Count 124 K/uL (130-400); RDW Coefficient of Variation 13.5 % (11.5-14.5); RDW Standard Deviation 46.1 fL (36.4-46.3); White Blood Count 7.79 K/uL (4.8-10.8)
[2021-04-16 19:04] LABS: INR 1.1 (0.9-1.1); Partial Thromboplastin Ratio 1.2; Partial Thromboplastin Time 31.3 Seconds (21.0-31.0); Prothrombin Time 11.3 Seconds (9.0-12.0)
[2021-04-16 19:05] LABS: Troponin I < 0.015 ng/ml (0-0.045)
[2021-04-16 19:08] LABS: Alanine Aminotransferase 40 U/L (12-78); Albumin Globulin Ratio 0.8 (0.9-2); Albumin Level 3.8 gm/dl (3.4-5.0); Alkaline Phosphatase 145 U/L (45-117); BUN Creatinine Ratio 26.1 (10-20); Bilirubin,Total 0.6 mg/dl (0.2-1); Blood Urea Nitrogen 40 mg/dl (7-18); Calcium 9.8 mg/dl (8.5-10.1); Carbon Dioxide 25 mmol/L (21-32); Chloride 103 mmol/L (98-107); Est GFR (African American) 35.3 ml/min; Est GFR (Non-African American) 30.5 ml/min; Globulin 4.5 gm/dl (2.5-4.0); Glucose 103 mg/dl (70-99); NT Pro B Type Natriuretic Pept 645 pg/ml (0-1800); Sodium 138 mmol/L (136-145); Total Protein 8.3 gm/dl (6.4-8.2)
[2021-04-16 19:12] LABS: D Dimer 630 ug/L FEU (0-500)
--- NOTE | 2021-04-16 19:12 | XRay Report ---
XR chest 1V portable HISTORY: 86 years-old Female SOB acute shortness of breath COMPARISON: Chest radiograph 01/22/2021, chest CT 12/01/2020. TECHNIQUE: Portable AP view of the chest FINDINGS: Cardiomediastinal and hilar silhouettes are unchanged. Calcified plaque the thoracic aorta. No pneumo thorax, pleural effusion, airspace consolidation or overt pulmonary edema. Mild chronic interstitial coarsening of the lung bases. The previously noted nodule of the right lung base is not identified. D egenerative changes of the shoulders and spine. Unchanged benign-appearing sclerotic focus of the lef t proximal humerus. IMPRESSION: No acute process. ACT 112: Negative or not required by law. The above report was generated using voice recognition software. It may contain grammatical, syntax o r spelling errors. Electronically signed by: Sigifredo Garcia M.D. 04/16/2021 7:10 PM
[2021-04-16 19:41] LABS: Lipase 364 U/L (73-393)
[2021-04-16 19:51] LABS: Magnesium 2.1 mg/dl (1.8-2.4)
[2021-04-16] MEDS ORDERED: METOPROLOL TARTRATE 1 MG/ML VIAL IV STA ×2 (19:55→20:41)
[2021-04-16 21:03] LABS: Appearance Urine Clear (Clear); Bilirubin Urine Negative (Negative); Blood Urine Negative (Negative); Color Urine Yellow; Glucose Urine UA Negative (Negative); Ketones Urine Negative (Negative); Leukocyte Esterase Urine Negative (Negative); Nitrite Urine Negative (Negative); Protein Urine Negative (Negative); Specific Gravity Urine 1.006 (1.000-1.030); Urobilinogen Urine Negative (Negative); pH Urine 6.5 (4.5-7.5)
--- NOTE | 2021-04-16 22:03 | History & Physical Report ---
Date of Service April 16, 2021 Assessment & Plan (1) Idioventricular rhythm: Plan: 86-year-old female with multiple medical problems presenting with dyspnea on exertion and orthopnea. Patient found to be in new idioventricular rhythm possibly contributing to her symptoms. She was given metoprolol 2.5 mg IV in the ER x1. Admit to medical with telemetry Check 2D echo Cardiology consultation appreciated -Patient presently doing well after receiving metoprolol. If needed, will administer amiodarone (2) JOSHI (dyspnea on exertion): Plan: Possibly secondary to #1 as well as worsening ascites. Patient took 2 additional spironolactone tablets as well as 1 additional Bumex prior to arrival and reports good response with increased urine output. Symptoms of dyspnea and orthopnea somewhat improved during my interview in the ER. Continue diuresis Supplemental oxygen as needed (3) NAFLD (nonalcoholic fatty liver disease): Plan: With cirrhosis. Patient with ascites. Had large volume paracentesis performed in November. She reports reaccumulation of fluid with some abdominal discomfort. She did take additional diuretic today. Monitor renal function closely after increased diuretic use Repeat chemistry in the morning Consider paracentesis if patient's symptoms persist or worsen Continue Bumex 2 mg p.o. daily Continue spironolactone 50 mg p.o. every morning (4) Interstitial lung disease: Plan: Chronic. Stable. No wheeze on exam Continue Breo Continue DuoNeb every 8 hours as needed Continue albuterol as needed (5) Dyslipidemia: Plan: Chronic. Continue Col[place] ball 2 g p.o. nightly (6) Obstructive sleep apnea syndrome: Plan: Chronic. Patient reports compliance with CPAP CPAP 7 cm H2O nightly (7) GERD without esophagitis: Plan: Chronic. Stable. Continue Pepcid 20 mg p.o. nightly Protonix 40 mg p.o. daily while inpatient (as well as omeprazole at home) (8) Hypertension: Plan: Blood pressure stable. Continue valsartan 40 mg p.o. daily Continue nifedipine Continue to monitor (9) Controlled type 2 diabetes mellitus, with long-term current use of insulin: Plan: Patient fairly well controlled. Last hemoglobin A1c on 08/29/2020 = 7 Continue Lantus 21 units nightly Insulin sliding scale Plan: FENdiuresis with oral Bumex and spironolactone as above, monitor electrolytes and replete as needed, consistent carb/heart healthy diet as tolerated ProphylaxisSCDs to bilateral lower extremities Codefull Dispositionadmit to medical with telemetry History of Present Illness Chief Complaint: SOB Primary Care Provider: Lana Bender MD Ilana Mackay is a pleasant 86-year-old female with history of diabetes, GERD, hypertension, hyperlipidemia, hypothyroidism, nonalcoholic fatty liver disease presenting at the request of Dr. Arroyo for shortness of breath and tachypnea. Patient reports dyspnea on exertion, orthopnea, palpitations and i ncreased abdominal swelling ongoing for the last several days. She also states that she has been feeling more anxious than usual. She was instructed by GI to take additional diuretic today for medical management of ascites. She took 2 spironolactone and 1 Bumex prior to arrival and has had significant urine output since then. She reports that her shortness of breath is also slowly improving. EKG in the ER demonstrated idioventricular rhythm. Case was discussed with Dr. Aquino again and the patient was administered IV metoprolol. Patient with no additional complaints at this time. She specifically denies fevers, chills, nausea, vomiting, diarrhea, dysuria. She does admit to increased abdominal distention and ascites as well as some discomfort. ER course: Metoprolol 2.5 mg IV x1 Allergies Allergy/AdvReac Type Severity Reaction Status Date / Time erythromycin base Allergy Severe eye Verified 04/16/21 22:44 ointment only - red and infected Iodinated Contrast Media Allergy Severe heart Verified 04/16/21 22:44 muscles tightened/heart spasms Penicillins Allergy Intermediate "wore out Verified 04/16/21 22:44 on me" and hives repaglinide Allergy Intermediate Hives Verified 04/16/21 22:44 Sulfa (Sulfonamide Allergy Unknown Hives Verified 04/16/21 22:44 Antibiotics) timolol Allergy Unknown eye drops Verified 04/16/21 22:44 - eye redness clonazepam AdvReac Severe increased Verified 04/16/21 22:44 anxiety Jdxdoth-Ejn-Xed Reductase AdvReac Severe ELEVATED Verified 04/16/21 22:44 Inhibitor HEPATIC ENZYMES enalapril AdvReac Intermediate COUGH Verified 04/16/21 22:44 Home Medications Medication Instructions Recorded Confirmed Type cholecalciferol (vitamin D3) 50 2,000 units PO DAILY cap 03/16/19 04/16/21 History mcg (2,000 unit) capsule colestipol 1 gram tablet 2 gm PO HS tab 03/16/19 04/16/21 History docusate sodium 100 mg capsule 100 mg PO HS cap 03/16/19 04/16/21 History esomeprazole magnesium 20 mg 20 mg PO QAM cap 03/16/19 04/16/21 History capsule,delayed release magnesium chloride 71.5 mg 71.5 mg PO TID tab 03/16/19 04/16/21 History (magnesium chloride) tablet,delayed release (Slow-Mag) meclizine 25 mg tablet 25 mg PO DAILY PRN #21 tab 03/16/19 04/16/21 History ketotifen fumarate 0.025 % (0.035 1 drp OPB Q12H PRN 05/16/19 04/16/21 History %) eye drops ([place]) sodium chloride 0.65 % nasal spray 1 spray INTRANASAL BID PRN 05/16/19 04/16/21 History aerosol (Saline Nasal) ipratropium 0.5 mg-albuterol 3 mg 3 ml INH Q8H PRN #180 ml 08/29/20 04/16/21 Rx (2.5 mg base)/3 mL nebulization soln albuterol sulfate 90 mcg/actuation 2 puff INHALATION Q4H PRN #18 gm 12/24/20 04/16/21 Rx aerosol inhaler fluticasone furoate 100 1 inh INHALATION DAILY #60 ea 12/24/20 04/16/21 Rx mcg-vilanterol 25 mcg/dose inhalation powder (Breo Ellipta) bumetanide 2 mg tablet 2 mg PO DAILY #90 tab 01/03/21 04/16/21 Rx insulin lispro 100 unit/mL 0 - 35 unit SQ BID ml MDD 35UNITS 01/22/21 04/16/21 History subcutaneous pen (Humalog KwikPen (U-100) Insulin) spironolactone 25 mg tablet 50 mg PO QAM tab 01/22/21 04/16/21 History levothyroxine 150 mcg tablet 150 mcg PO DAILY #90 tab 01/31/21 04/16/21 Rx lorazepam 0.5 mg tablet 0.5 mg PO HS PRN #45 tab 04/02/21 04/16/21 Rx nifedipine 30 mg tablet,extended 30 mg PO QAM #90 tab 04/02/21 04/16/21 Rx release nitroglycerin 0.4 mg sublingual 0.4 mg SL Q5M PRN #25 tab 04/02/21 04/16/21 Rx tablet tramadol 37.5 mg-acetaminophen 325 1 tab PO DAILY PRN #30 tab 04/02/21 04/16/21 Rx mg tablet valsartan 40 mg tablet 40 mg PO DAILY #90 tab 04/02/21 04/16/21 Rx nitroglycerin 0.4 mg/hr 1 patch TD DAILY #90 ea 04/11/21 04/16/21 Rx transdermal 24 hour patch Lactobacills gasseri-Bifidobac 1 cap PO DAILY 04/16/21 04/16/21 History bifidum,longum 1.5 billion cell capsule (Traffio) famotidine 20 mg tablet 20 mg PO HS 04/16/21 04/16/21 History insulin glargine 100 unit/mL (3 21 unit SQ HS 04/16/21 04/16/21 History mL) subcutaneous pen (Lantus Solostar U-100 Insulin) Past Med/Surg History Medical History Bronchitis Chronic bronchitis Coronary artery spasm reason for Nitro Patch q12h follows with Dr. Samson Depression hx Diabetes mellitus, type 2 iddm Encounter for drug screening Gastroparesis GERD (gastroesophageal reflux disease) Grief reaction Heart disease History of melanoma Hyperlipidemia Hypertension Hypothyroidism Interstitial lung disease Multiple lung nodules on CT Nonalcoholic fatty liver disease Obstructive sleep apnea syndrome Pneumonia hx Sleep apnea CPAP Vertigo Vertigo Surgical History History of appendectomy History of cardiac catheterization X3 (1994, 1999, 2006) History of cataract surgery bilateral History of colonoscopy History of dacryocystorhinostomy done monthly History of dilatation and curettage History of ERCP with stone removal History of laparoscopic cholecystectomy History of repair of rotator cuff right History of tonsillectomy S/P cholecystectomy S/P STEVE-BSO Status post biopsy of skin removal of melanoma Family History Mother Cardiac disorder Hypertension Heart disease Myocardial infarction Father Cardiac disorder Hypertension Heart disease Other Diabetes Ischemic heart disease Prostate cancer Denies family history of Ovarian cancer Breast cancer Colorectal cancer Social History Smoking Status: Never smoker Second Hand Exposure: No (); Hx Alcohol Use: No Hx Substance Use: No Preferred Language: Hebrew Communication Ability: Effective Visual Impairment: No Limitations Hearing Ability: Normal Powder Loader Required: No Beliefs That Will Affect Care: None marital status: / Current Living Situation: Alone Current Living Situation Comment: lives in [facility] current occupational status: retired Other Information That Helps Us Care for You: No Feels Safe at Home: Yes Safety Concerns: Feels Safe At This Time Childhood Exposure to Second-Hand Smoke: No Dental Care, Regularly: Yes Physical Activity Frequency: Daily Seatbelt Use: always Sunscreen Use: No Assistive Devices: Cane Review of Systems Review of Systems: All systems reviewed & are unremarkable except as noted in HPI & below Physical Exam Physical Exam: General: patient resting comfortably, NAD, non-toxic in appearance, AA&O x 4, patient is dyspneic after ambulation back to her bed Skin: warm, dry, intact, scattered ecchymotic lesions noticed on forearms HEENT: NC/AT, PERRL, EOMI, anicteric sclera, conjunctiva without injection, external ear normal to inspection and nontender, nares patent, moist mucus membranes, dentition intact, no oropharyngeal lesions, neck supple, trachea midline, no LAD, no thyromegaly, no JVD Heart: +S1/S2, regular, no m/r/g Lungs: equal air entry bilaterally, + crackles in bilateral bases Abd: +BS, soft, NT/ND, no masses/organomegaly, lower abdominal fullness with bulging flanks, abdomen mildly tender to palpation without rebound/guarding/peritoneal signs Ext: warm, 2+ pulses in UE/LE bilaterally, no clubbing/cyanosis, 2+ pitting edema bilateral lower extremities to knees Neuro: nonfocal, patient AA&O x 4, speech intact, no facial droop, moving all extremities on command with equal strength 5/5 Results & Data Results & Data ([facility]) Vital Signs (Past 12 Hours) Vital Signs Temp Pulse Resp BP Pulse Ox 04/16/21 21:00 84 21 128/83 99 04/16/21 20:32 76 43 H 125/62 100 04/16/21 20:20 91 H 27 H 150/61 H 97 04/16/21 19:08 98 04/16/21 19:02 84 22 134/87 96 04/16/21 17:25 36.7 C 94 H 18 125/54 L 95 Laboratory Results Laboratory Results WBC 7.79 K/uL (4.8-10.8) 04/16/21 18:09 RBC 3.90 M/uL (4.2-5.4) L 04/16/21 18:09 Hgb 12.5 g/dL (12.0-16.0) 04/16/21 18:09 Hct 36.6 % (37-47) L 04/16/21 18:09 MCV 93.8 fL (80-100) 04/16/21 18:09 MCH 32.1 pg (25-34) 04/16/21 18:09 MCHC 34.2 g/dL (32-36) 04/16/21 18:09 RDW Std Deviation 46.1 fL (36.4-46.3) 04/16/21 18:09 RDW Coeff of [place] 13.5 % (11.5-14.5) 04/16/21 18:09 Plt Count 124 K/uL (130-400) L 04/16/21 18:09 MPV 11.7 fL (7.4-10.4) H 04/16/21 18:09 Immature Gran % (Auto) 0.1 % 04/16/21 18:09 Neut % (Auto) 67.0 % 04/16/21 18:09 Lymph % (Auto) 16.7 % 04/16/21 18:09 [place] % (Auto) 11.9 % 04/16/21 18:09 Eos % (Auto) 4.0 % 04/16/21 18:09 Baso % (Auto) 0.3 % 04/16/21 18:09 Neut # (Auto) 5.22 K/uL (1.4-6.5) 04/16/21 18:09 Lymph # (Auto) 1.30 K/uL (1.2-3.4) 04/16/21 18:09 [place] # (Auto) 0.93 K/uL (0.11-0.59) H 04/16/21 18:09 Eos # (Auto) 0.31 K/uL (0-0.5) 04/16/21 18:09 Baso # (Auto) 0.02 K/uL (0-0.2) 04/16/21 18:09 Immature Gran # (Auto) 0.01 K/uL (0.00-0.02) 04/16/21 18:09 PT 11.3 Seconds (9.0-12.0) 04/16/21 18:40 INR 1.1 (0.9-1.1) 04/16/21 18:40 APTT 31.3 Seconds (21.0-31.0) H 04/16/21 18:40 PTT Ratio 1.2 04/16/21 18:40 D-Dimer 630 ug/L FEU (0-500) H* 04/16/21 18:40 Sodium 138 mmol/L (136-145) 04/16/21 18:09 Potassium 4.0 mmol/L (3.5-5.1) 04/16/21 19:23 Chloride 103 mmol/L (98-107) 04/16/21 18:09 Carbon Dioxide 25 mmol/L (21-32) 04/16/21 18:09 Anion Gap 10.0 (3-11) 04/16/21 18:09 BUN 40 mg/dl (7-18) H 04/16/21 18:09 Creatinine 1.53 mg/dl (0.6-1.2) H 04/16/21 18:09 Est Cr Clr Drug Dosing Not Reportable 04/16/21 18:09 Est GFR ( Amer) 35.3 ml/min 04/16/21 18:09 Est GFR (Non-Af Amer) 30.5 ml/min 04/16/21 18:09 BUN/Creatinine Ratio 26.1 (10-20) H 04/16/21 18:09 Glucose 103 mg/dl (70-99) H 04/16/21 18:09 Calcium 9.8 mg/dl (8.5-10.1) 04/16/21 18:09 Magnesium 2.1 mg/dl (1.8-2.4) 04/16/21 19:23 Total Bilirubin 0.6 mg/dl (0.2-1) 04/16/21 18:09 AST 39 U/L (15-37) H 04/16/21 19:23 ALT 40 U/L (12-78) 04/16/21 18:09 Alkaline Phosphatase 145 U/L (45-117) H 04/16/21 18:09 Troponin I < 0.015 ng/ml (0-0.045) 04/16/21 18:09 NT-Pro-B Natriuret Pep 645 pg/ml (0-1800) 04/16/21 18:09 Total Protein 8.3 gm/dl (6.4-8.2) H 04/16/21 18:09 Albumin 3.8 gm/dl (3.4-5.0) 04/16/21 18:09 Globulin 4.5 gm/dl (2.5-4.0) H 04/16/21 18:09 Albumin/Globulin Ratio 0.8 (0.9-2) L 04/16/21 18:09 Lipase 364 U/L (73-393) 04/16/21 18:09 TSH 0.287 uIu/ml (0.300-4.500) L 04/16/21 19:23 Free T4 1.84 ng/dl (0.8-1.6) H 04/16/21 19:23 Specimen Hemolysis 04/16/21 19:23 Urine Color Yellow 04/16/21 17:27 Urine Appearance Clear (Clear) 04/16/21 17:27 Urine pH 6.5 (4.5-7.5) 04/16/21 17:27 Ur Specific [place] 1.006 (1.000-1.030) 04/16/21 17:27 Urine Protein Negative (Negative) 04/16/21 17:27 Urine Glucose (UA) Negative (Negative) 04/16/21 17: Urine Ketones Negative (Negative) 04/16/21 17: Urine Blood Negative (Negative) 04/16/21 17: Urine Nitrite Negative (Negative) 04/16/21 17:27 Urine Bilirubin Negative (Negative) 04/16/21 17:27 Urine Urobilinogen Negative (Negative) 04/16/21 17:27 Ur Leukocyte Esterase Negative (Negative) 04/16/21 17:27 COVID-19 Eval Order Covid19 at [facility] 04/16/21 20:56 SARS-CoV-2 (PCR) NEGATIVE (Negative) 04/16/21 20:56 Impressions Chest X-Ray 04/16/21 17:30 XR chest 1V portable HISTORY: 86 years-old Female SOB acute shortness of breath COMPARISON: Chest radiograph 01/22/2021, chest CT 12/01/2020. TECHNIQUE: Portable AP view of the chest FINDINGS: Cardiomediastinal and hilar silhouettes are unchanged. Calcified plaque the thoracic aorta. No pneumothorax, pleural effusion, airspace consolidation or overt pulmonary edema. Mild chronic interstitial coarsening of the lung bases. The previously noted nodule of the right lung base is not identified. Degenerative changes of the shoulders and spine. Unchanged benign-appearing sclerotic focus of the left proximal humerus. IMPRESSION: No acute process. ACT 112: Negative or not required by law. The above report was generated using voice recognition software. It may contain grammatical, syntax or spelling errors. Electronically signed by: Sigifredo Garcia M.D. 04/16/2021 7:10 PM ECG Additional Comments: EKG with wide-complex rhythm at 80 bpm, regular, no PE wave appreciated, QRS = 146, QTc = 500, right bundle branch block morphology Code Status & VTE Plan VTE Prophylaxis Plan VTE Prophylaxis will be ordered: Yes PG Care Time/CCT Total # of Minutes Spent Total Time Spent with Patient: Total time spent is greater than 50% in coordination of care (as documented) at patient's floor/unit and/or counseling patient: Coding Level of Care Code 87247 Initial Inpt Care Lvl 3 Diagnoses Idioventricular rhythm I44.2 JOSHI (dyspnea on exertion) R06.00 NAFLD (nonalcoholic fatty liver disease) K76.0 Interstitial lung disease J84.9 Dyslipidemia E78.5 Obstructive sleep apnea syndrome G47.33 GERD without esophagitis K21.9 Hypertension I10 Hypertension type: essential hypertension Controlled type 2 diabetes mellitus, with long-term current use of insulin E11.9; Z79.4 Diabetes mellitus complication status: without complication (1) Hypertension Hypertension type: essential hypertension Qualified Code(s): I10 - Essential (primary) hypertension (2) Controlled type 2 diabetes mellitus, with long-term current use of insulin Diabetes mellitus complication status: without complication Qualified Code(s): E11.9 - Type 2 diabetes mellitus without complications; Z79.4 - FDC (current) use of insulin
--- NOTE | 2021-04-16 22:53 | Emergency Department Note ---
Impression & Plan Idioventricular rhythm, Ascites, NAFLD (nonalcoholic fatty liver disease), JOHSI (dyspnea on exertion) ED Provider Note INFORMANT: Patient ED PROVIDER(S): Bar Grant MD CHIEF COMPLAINT: Shortness of breath PLAN: Disposition: Admitted Condition: Good Outpatient prescription management: none Referral: None MEDICAL DECISION MAKING: Patient presented to the emergency department because of shortness of breath and she was directed here by her GI specialist, Dr. Arroyo. I did discuss the patient's history with him. She was evaluated. Vital signs were stable however her ECG was concerning for an idioventricular rhythm. The patient prior ECG did reveal frequent PVCs in the same morphology but unfortunately today she is not exhibiting any sinus component. She is dyspneic with slight exertion. The patient also has some moderate ascites on physical examination. She is afebrile. A work-up was initiated. Her CBC and chemistry panel were unremarkable. Patient's magnesium and potassium were within normal limits. Troponin is negative. The patient was given dose of IV metoprolol after consultation with . He recommended admission and monitoring. If the p atient's heart rate becomes an issue IV amiodarone was recommended. Consultation was placed with Dr. Ramos of the hospitalist service. Patient was evaluated in the ER and admitted for further management. Triage Nursing notes reviewed and agree them. Vital Signs: reviewed and remarkable for no significant abnormalities Differential diagnosis: Dysrhythmia, reactive airway disease, pneumonia, pneumothorax, COPD, CHF, infections, cardiac ischemia, pulmonary embolism, musculoskeletal, gastrointestinal, as well as other pathologies. Diagnostics interpreted by me: ECG: Twelve-lead ECG reveals a wide QRS rhythm. There is T wave inversions inferiorly. Right bundle branch block present. Compared to prior the wide QRS rhythm has replaced sinus rhythm. Cardiac Monitoring: Cardiac monitoring ordered by me: The patient was placed on continuous cardiac monitoring and observed. It revealed since wide QRS rhythm without evidence of tachycardia. Imaging studies: Imaging studies: Chest x-ray. Findings: A chest x-ray was performed and revealed no pneumothorax, effusion, infiltrate, pulmonary edema, free air under the diaphragm, or wide mediastinum. Mild chronic interstitial appearance. I refer you to the EMR for further details. HPI: The patient is a 86 year old female who presents to the Emergency Room with complaints of shortness of breath. This started over the last week or so and is increasing. The patient also notes the following associated symptoms, increased swelling in her abdomen, generalized weakness. The patient has a history of nonalcoholic cirrhosis. She has had a paracentesis done about 4 months ago. She notes her abdomen is getting to that point again. She was seen today by her GI specialist, Dr. Arroyo and was noted to be dyspneic with minimal exertion and her heart rate would increase with the slightest ambulation. She was not hypoxic. She was not hypotensive. He directed her to the ER for further management. The patient has found no relieving factors. Current pain is rated as 0/10. Pt denies LOC, headache, fevers, chills, diaphoresis, visual changes, neck pain, chest pain, nausea, vomiting, abdominal pain, back pain, melena, hematochezia, urinary symptoms, numbness, lymphadenopathy, rash, or other complaints. ROS: See above HPI for pertinent positives & negatives. A total of 10 systems reviewed and were otherwise negative. PAST MEDICAL HISTORY:See Below , hypertension, ascites PAST SURGICAL HISTORY:See Below, paracentesis FAMILY HISTORY:See Below SOCIAL HISTORY:See Below, no alcohol HOME MEDICATIONS:See Below ALLERGIES:See Below VITALS:See Below PHYSICAL EXAMINATION: GENERAL: Awake, alert, dyspneic-appearing, in no distress HENT: Normocephalic, atraumatic. Oropharynx unremarkable. EYES: Normal conjunctiva. Sclera non-icteric. NECK: Inspection normal. Non-tender. Supple. No nuchal rigidity. FROM. No masses. RESPIRATORY: Clear to auscultation. No wheezes. No rales. Normal respiratory effort. CARDIAC: Normal rate. Normal rhythm. No murmurs. No rubs. Extremities warm and well perfused. Pulses equal. No JVD. GI: Soft, +fluid wave, +distended. No tenderness to palpation. No rebound or guarding. No masses. RECTAL: Deferred. MUSCULOSKELETAL: Atraumatic. Chest examination reveals no tenderness. The back is symmetrical on inspection without obvious abnormality. There is no CVA tenderness to palpation. No joint edema. LOWER EXTREMITIES: Calves are equal size bilaterally and non-tender. No edema. No discoloration. NEURO: Normal sensorium. No sensory or motor deficits noted. SKIN: No rash or jaundice noted. Bar Grant MD Past Med/Surg History Medical History Bronchitis Chronic bronchitis Coronary artery spasm reason for Nitro Patch q12h follows with Dr. Samson Depression hx Diabetes mellitus, type 2 iddm Encounter for drug screening Gastroparesis GERD (gastroesophageal reflux disease) Grief reaction Heart disease History of melanoma Hyperlipidemia Hypertension Hypothyroidism Interstitial lung disease Multiple lung nodules on CT Nonalcoholic fatty liver disease Obstructive sleep apnea syndrome Pneumonia hx Sleep apnea CPAP Vertigo Vertigo Surgical History History of appendectomy History of cardiac catheterization X3 (1994, 1999, 2006) History of cataract surgery bilateral History of colonoscopy History of dacryocystorhinostomy done monthly History of dilatation and curettage History of ERCP with stone removal History of laparoscopic cholecystectomy History of repair of rotator cuff right History of tonsillectomy S/P cholecystectomy S/P STEVE-BSO Status post biopsy of skin removal of melanoma Family History Mother Cardiac disorder Hypertension Heart disease Myocardial infarction Father Cardiac disorder Hypertension Heart disease Other Diabetes Ischemic heart disease Prostate cancer Denies family history of Ovarian cancer Breast cancer Colorectal cancer Social History Smoking Status: Never smoker Second Hand Exposure: No (); Hx Alcohol Use: No Hx Substance Use: No Preferred Language: Maori Communication Ability: Effective Visual Impairment: No Limitations Hearing Ability: Normal Hand Coremaker Required: No Beliefs That Will Affect Care: None marital status: / Current Living Situation: Alone Current Living Situation Comment: lives in [facility] current occupational status: retired Feels Safe at Home: Yes Childhood Exposure to Second-Hand Smoke: No Dental Care, Regularly: Yes Physical Activity Frequency: Daily Seatbelt Use: always Sunscreen Use: No Assistive Devices: None Allergies Allergies Allergy/AdvReac Type Severity Reaction Status Date / Time erythromycin base Allergy Severe eye Verified 04/16/21 22:44 ointment only - red and infected Iodinated Contrast Media Allergy Severe heart Verified 04/16/21 22:44 muscles tightened/heart spasms Penicillins Allergy Intermediate "wore out Verified 04/16/21 22:44 on me" and hives repaglinide Allergy Intermediate Hives Verified 04/16/21 22:44 Sulfa (Sulfonamide Allergy Unknown Hives Verified 04/16/21 22:44 Antibiotics) timolol Allergy Unknown eye drops Verified 04/16/21 22:44 - eye redness clonazepam AdvReac Severe increased Verified 04/16/21 22:44 anxiety Zsnxvir-Fxx-Lyg Reductase AdvReac Severe ELEVATED Verified 04/16/21 22:44 Inhibitor HEPATIC ENZYMES enalapril AdvReac Intermediate COUGH Verified 04/16/21 22:44 Home Meds Home Medications Medication Instructions Recorded Confirmed cholecalciferol (vitamin D3) 50 2,000 units PO DAILY cap 03/16/19 04/16/21 mcg (2,000 unit) capsule colestipol 1 gram tablet 2 gm PO HS tab 03/16/19 04/16/21 docusate sodium 100 mg capsule 100 mg PO HS cap 03/16/19 04/16/21 esomeprazole magnesium 20 mg 20 mg PO QAM cap 03/16/19 04/16/21 capsule,delayed release magnesium chloride 71.5 mg 71.5 mg PO TID tab 03/16/19 04/16/21 (magnesium chloride) tablet,delayed release (Slow-Mag) meclizine 25 mg tablet 25 mg PO DAILY PRN #21 tab 03/16/19 04/16/21 ketotifen fumarate 0.025 % (0.035 1 drp OPB Q12H PRN 05/16/19 04/16/21 %) eye drops (Alaway) sodium chloride 0.65 % nasal spray 1 spray INTRANASAL BID PRN 05/16/19 04/16/21 aerosol (Saline Nasal) insulin lispro 100 unit/mL 0 - 35 unit SQ BID ml MDD 35UNITS 01/22/21 04/16/21 subcutaneous pen (Humalog KwikPen (U-100) Insulin) spironolactone 25 mg tablet 50 mg PO QAM tab 01/22/21 04/16/21 Lactobacills gasseri-Bifidobac 1 cap PO DAILY 04/16/21 04/16/21 bifidum,longum 1.5 billion cell capsule ([employer]) famotidine 20 mg tablet 20 mg PO HS 04/16/21 04/16/21 insulin glargine 100 unit/mL (3 21 unit SQ HS 04/16/21 04/16/21 mL) subcutaneous pen (Lantus Solostar U-100 Insulin) Previous Rx's Medication Instructions Recorded ipratropium 0.5 mg-albuterol 3 mg 3 ml INH Q8H PRN #180 ml 08/29/20 (2.5 mg base)/3 mL nebulization soln albuterol sulfate 90 mcg/actuation 2 puff INHALATION Q4H PRN #18 gm 12/24/20 aerosol inhaler fluticasone furoate 100 1 inh INHALATION DAILY #60 ea 12/24/20 mcg-vilanterol 25 mcg/dose inhalation powder (Breo Ellipta) bumetanide 2 mg tablet 2 mg PO DAILY #90 tab 01/03/21 levothyroxine 150 mcg tablet 150 mcg PO DAILY #90 tab 01/31/21 lorazepam 0.5 mg tablet 0.5 mg PO HS PRN #45 tab 04/02/21 nifedipine 30 mg tablet,extended 30 mg PO QAM #90 tab 04/02/21 release nitroglycerin 0.4 mg sublingual 0.4 mg SL Q5M PRN #25 tab 04/02/21 tablet tramadol 37.5 mg-acetaminophen 325 1 tab PO DAILY PRN #30 tab 04/02/21 mg tablet valsartan 40 mg tablet 40 mg PO DAILY #90 tab 04/02/21 nitroglycerin 0.4 mg/hr 1 patch TD DAILY #90 ea 04/11/21 transdermal 24 hour patch Results & Data (ED) Vital Signs Vital Signs - 24 hr 04/16/21 17:25 04/16/21 19:02 04/16/21 19:08 Temperature 36.7 C Temperature Source Temporal Artery Scan Pulse Rate 94 H 84 Pulse Rate from SpO2 Sensor 85 Respiratory Rate 18 22 Respiratory Effort / Characteristics Non-Labored Respiratory Depth Normal Blood Pressure 125/54 L 134/87 Blood Pressure Mean 77 102 Pulse Oximetry 95 96 98 Oxygen Delivery Method Room Air Room Air Oxygen Flow Rate 0 Sepsis Recent Fever Within 48 Hours No Sepsis New/Unexplained Change in Mental Status No Sepsis Action Taken by Nursing No Action Required 04/16/21 20:20 04/16/21 20:32 04/16/21 21:00 Temperature Temperature Source Pulse Rate 91 H 76 84 Pulse Rate from SpO2 Sensor 92 H 77 84 Respiratory Rate 27 H 43 H 21 Respiratory Effort / Characteristics Respiratory Depth Blood Pressure 150/61 H 125/62 128/83 Blood Pressure Mean 90 83 98 Pulse Oximetry 97 100 99 Oxygen Delivery Method Oxygen Flow Rate Sepsis Recent Fever Within 48 Hours Sepsis New/Unexplained Change in Mental Status Sepsis Action Taken by Nursing 04/16/21 21:30 04/16/21 22:01 04/16/21 22:30 Temperature Temperature Source Pulse Rate 80 85 84 Pulse Rate from SpO2 Sensor 81 87 Respiratory Rate 31 H 15 20 Respiratory Effort / Characteristics Respiratory Depth Blood Pressure 120/74 141/84 H 108/69 Blood Pressure Mean 89 103 82 Pulse Oximetry 100 99 96 Oxygen Delivery Method Oxygen Flow Rate Sepsis Recent Fever Within 48 Hours Sepsis New/Unexplained Change in Mental Status Sepsis Action Taken by Nursing Laboratory Data Result diagrams: 04/16/21 18:09 04/16/21 19:23 Lab Results 04/16/21 04/16/21 04/16/21 Range/Units 17:27 18:09 18:09 WBC 7.79 (4.8-10.8) K/uL RBC 3.90 L (4.2-5.4) M/uL Hgb 12.5 (12.0-16.0) g/dL Hct 36.6 L (37-47) % MCV 93.8 (80-100) fL MCH 32.1 (25-34) pg MCHC 34.2 (32-36) g/dL RDW Std Deviation 46.1 (36.4-46.3) fL RDW Coeff of [place] 13.5 (11.5-14.5) % Plt Count 124 L (130-400) K/uL MPV 11.7 H (7.4-10.4) fL Immature Gran % (Auto) 0.1 % Neut % (Auto) 67.0 % Lymph % (Auto) 16.7 % Tift % (Auto) 11.9 % Eos % (Auto) 4.0 % Baso % (Auto) 0.3 % Neut # (Auto) 5.22 (1.4-6.5) K/uL Lymph # (Auto) 1.30 (1.2-3.4) K/uL Tift # (Auto) 0.93 H (0.11-0.59) K/uL Eos # (Auto) 0.31 (0-0.5) K/uL Baso # (Auto) 0.02 (0-0.2) K/uL Immature Gran # (Auto) 0.01 (0.00-0.02) K/uL PT (9.0-12.0) Seconds INR (0.9-1.1) APTT (21.0-31.0) Seconds PTT Ratio D-Dimer (0-500) ug/L FEU Sodium 138 (136-145) mmol/L Potassium (3.5-5.1) mmol/L Chloride 103 (98-107) mmol/L Carbon Dioxide 25 (21-32) mmol/L Anion Gap 10.0 (3-11) BUN 40 H (7-18) mg/dl Creatinine 1.53 H (0.6-1.2) mg/dl Est Cr Clr Drug Dosing Not Reportable Est GFR ( Amer) 35.3 ml/min Est GFR (Non-Af Amer) 30.5 ml/min BUN/Creatinine Ratio 26.1 H (10-20) Glucose 103 H (70-99) mg/dl Calcium 9.8 (8.5-10.1) mg/dl Magnesium (1.8-2.4) mg/dl Total Bilirubin 0.6 (0.2-1) mg/dl AST (15-37) U/L ALT 40 (12-78) U/L Alkaline Phosphatase 145 H (45-117) U/L Troponin I < 0.015 (0-0.045) ng/ml NT-Pro-B Natriuret Pep 645 (0-1800) pg/ml Total Protein 8.3 H (6.4-8.2) gm/dl Albumin 3.8 (3.4-5.0) gm/dl Globulin 4.5 H (2.5-4.0) gm/dl Albumin/Globulin Ratio 0.8 L (0.9-2) Lipase 364 (73-393) U/L Specimen Hemolysis Urine Color Yellow Urine Appearance Clear (Clear) Urine pH 6.5 (4.5-7.5) Ur Specific [place] 1.006 (1.000-1.030) Urine Protein Negative (Negative) Urine Glucose (UA) Negative (Negative) Urine Ketones Negative (Negative) Urine Blood Negative (Negative) Urine Nitrite Negative (Negative) Urine Bilirubin Negative (Negative) Urine Urobilinogen Negative (Negative) Ur Leukocyte Esterase Negative (Negative) COVID-19 Eval Order SARS-CoV-2 (PCR) (Negative) 04/16/21 04/16/21 04/16/21 Range/Units 18:40 19:23 20:56 WBC (4.8-10.8) K/uL RBC (4.2-5.4) M/uL Hgb (12.0-16.0) g/dL Hct (37-47) % MCV (80-100) fL MCH (25-34) pg MCHC (32-36) g/dL RDW Std Deviation (36.4-46.3) fL RDW Coeff of Aurora (11.5-14.5) % Plt Count (130-400) K/uL MPV (7.4-10.4) fL Immature Gran % (Auto) % Neut % (Auto) % Lymph % (Auto) % Tift % (Auto) % Eos % (Auto) % Baso % (Auto) % Neut # (Auto) (1.4-6.5) K/uL Lymph # (Auto) (1.2-3.4) K/uL Tift # (Auto) (0.11-0.59) K/uL Eos # (Auto) (0-0.5) K/uL Baso # (Auto) (0-0.2) K/uL Immature Gran # (Auto) (0.00-0.02) K/uL PT 11.3 (9.0-12.0) Seconds INR 1.1 (0.9-1.1) APTT 31.3 H (21.0-31.0) Seconds PTT Ratio 1.2 D-Dimer 630 H* (0-500) ug/L FEU Sodium (136-145) mmol/L Potassium 4.0 (3.5-5.1) mmol/L Chloride (98-107) mmol/L Carbon Dioxide (21-32) mmol/L Anion Gap (3-11) BUN (7-18) mg/dl Creatinine (0.6-1.2) mg/dl Est Cr Clr Drug Dosing Est GFR ( Amer) ml/min Est GFR (Non-Af Amer) ml/min BUN/Creatinine Ratio (10-20) Glucose (70-99) mg/dl Calcium (8.5-10.1) mg/dl Magnesium 2.1 (1.8-2.4) mg/dl Total Bilirubin (0.2-1) mg/dl AST 39 H (15-37) U/L ALT (12-78) U/L Alkaline Phosphatase (45-117) U/L Troponin I (0-0.045) ng/ml NT-Pro-B Natriuret Pep (0-1800) pg/ml Total Protein (6.4-8.2) gm/dl Albumin (3.4-5.0) gm/dl Globulin (2.5-4.0) gm/dl Albumin/Globulin Ratio (0.9-2) Lipase (73-393) U/L Specimen Hemolysis Urine Color Urine Appearance (Clear) Urine pH (4.5-7.5) Ur Specific Novi (1.000-1.030) Urine Protein (Negative) Urine Glucose (UA) (Negative) Urine Ketones (Negative) Urine Blood (Negative) Urine Nitrite (Negative) Urine Bilirubin (Negative) Urine Urobilinogen (Negative) Ur Leukocyte Esterase (Negative) COVID-19 Eval Order Covid19 at [facility] SARS-CoV-2 (PCR) (Negative) 04/16/21 Range/Units 20:56 WBC (4.8-10.8) K/uL RBC (4.2-5.4) M/uL Hgb (12.0-16.0) g/dL Hct (37-47) % MCV (80-100) fL MCH (25-34) pg MCHC (32-36) g/dL RDW Std Deviation (36.4-46.3) fL RDW Coeff of [place] (11.5-14.5) % Plt Count (130-400) K/uL MPV (7.4-10.4) fL Immature Gran % (Auto) % Neut % (Auto) % Lymph % (Auto) % Tift % (Auto) % Eos % (Auto) % Baso % (Auto) % Neut # (Auto) (1.4-6.5) K/uL Lymph # (Auto) (1.2-3.4) K/uL Tift # (Auto) (0.11-0.59) K/uL Eos # (Auto) (0-0.5) K/uL Baso # (Auto) (0-0.2) K/uL Immature Gran # (Auto) (0.00-0.02) K/uL PT (9.0-12.0) Seconds INR (0.9-1.1) APTT (21.0-31.0) Seconds PTT Ratio D-Dimer (0-500) ug/L FEU Sodium (136-145) mmol/L Potassium (3.5-5.1) mmol/L Chloride (98-107) mmol/L Carbon Dioxide (21-32) mmol/L Anion Gap (3-11) BUN (7-18) mg/dl Creatinine (0.6-1.2) mg/dl Est Cr Clr Drug Dosing Est GFR ( Amer) ml/min Est GFR (Non-Af Amer) ml/min BUN/Creatinine Ratio (10-20) Glucose (70-99) mg/dl Calcium (8.5-10.1) mg/dl Magnesium (1.8-2.4) mg/dl Total Bilirubin (0.2-1) mg/dl AST (15-37) U/L ALT (12-78) U/L Alkaline Phosphatase (45-117) U/L Troponin I (0-0.045) ng/ml NT-Pro-B Natriuret Pep (0-1800) pg/ml Total Protein (6.4-8.2) gm/dl Albumin (3.4-5.0) gm/dl Globulin (2.5-4.0) gm/dl Albumin/Globulin Ratio (0.9-2) Lipase (73-393) U/L Specimen Hemolysis Urine Color Urine Appearance (Clear) Urine pH (4.5-7.5) Ur Specific [place] (1.000-1.030) Urine Protein (Negative) Urine Glucose (UA) (Negative) Urine Ketones (Negative) Urine Blood (Negative) Urine Nitrite (Negative) Urine Bilirubin (Negative) Urine Urobilinogen (Negative) Ur Leukocyte Esterase (Negative) COVID-19 Eval Order SARS-CoV-2 (PCR) NEGATIVE (Negative) Administered Medications Discontinued Medications Metoprolol Tartrate (Metoprolol Tartrate 1 Mg/Ml Vial) 2.5 mg IV NOW STA Stop: 04/16/21 19:56 Last Admin: 04/16/21 20:20 Dose: 2.5 mg Documented by: [id number] Imaging Data Radiologist's Impression: Chest X-Ray 04/16/21 17:30 XR chest 1V portable HISTORY: 86 years-old Female SOB acute shortness of breath COMPARISON: Chest radiograph 01/22/2021, chest CT 12/01/2020. TECHNIQUE: Portable AP view of the chest FINDINGS: Cardiomediastinal and hilar silhouettes are unchanged. Calcified plaque the thoracic aorta. No pneumothorax, pleural effusion, airspace consolidation or overt pulmonary edema. Mild chronic interstitial coarsening of the lung bases. The previously noted nodule of the right lung base is not identified. Degenerative changes of the shoulders and spine. Unchanged benign-appearing sclerotic focus of the left proximal humerus. IMPRESSION: No acute process. ACT 112: Negative or not required by law. The above report was generated using voice recognition software. It may contain grammatical, syntax or spelling errors. Electronically signed by: Sigifredo Garcia M.D. 04/16/2021 7:10 PM Discharge Plan Visit Data Chief Complaint: Shortness of Breath/Dyspnea Stated Complaint: SHORTNESS OF BREATH ED Provider: Bar Grant Discharge Problem: Idioventricular rhythm, Ascites, NAFLD (nonalcoholic fatty liver disease), JOSHI (dyspnea on exertion) Patient Disposition: Admitted As Inpatient Discharge Instructions Interventions: ED Discharge Assessment Last Done: 04/16/21 22:58 Forms Stand Alone Forms: [employer] Prescriptions Prescriptions: No Action bumetanide 2 mg tablet 2 mg PO DAILY Qty: 90 RF: 3 levothyroxine 150 mcg tablet 150 mcg PO DAILY Qty: 90 RF: 1 nitroglycerin 0.4 mg/hr patch 24 hour 1 patch TD DAILY Qty: 90 RF: 3 Breo Ellipta 100-25 mcg/dose blister with device 1 inh inhalation DAILY Qty: 60 RF: 5 albuterol sulfate 90 mcg/actuation HFA aerosol inhaler 2 puff inhalation Q4H PRN (Reason: sob) Qty: 18 RF: 3 valsartan 40 mg tablet 40 mg PO DAILY Qty: 90 RF: 3 nitroglycerin 0.4 mg tablet, sublingual 0.4 mg SL Q5M PRN (Reason: Chest Pain) Qty: 25 RF: 2 nifedipine 30 mg tablet extended release 30 mg PO QAM Qty: 90 RF: 3 lorazepam 0.5 mg tablet 0.5 mg PO HS PRN (Reason: sleep) Qty: 45 RF: 1 tramadol-acetaminophen 37.5-325 mg tablet 1 tab PO DAILY PRN (Reason: pain) Qty: 30 RF: 0 colestipol 1 gram tablet 2 gm PO HS RF: 0 Slow-Mag 71.5 mg tablet,delayed release (DR/EC) 71.5 mg PO TID RF: 0 cholecalciferol (vitamin D3) 2,000 unit capsule 2,000 units PO DAILY RF: 0 docusate sodium 100 mg capsule 100 mg PO HS RF: 0 esomeprazole magnesium 20 mg capsule,delayed release(DR/EC) 20 mg PO QAM RF: 0 meclizine 25 mg tablet 25 mg PO DAILY PRN (Reason: Vertigo) Qty: 21 RF: 0 ipratropium-albuterol 0.5 mg-3 mg(2.5 mg base)/3 mL solution for nebulization 3 ml INH Q8H PRN (Reason: SOB) Qty: 180 RF: 5 spironolactone 25 mg tablet 50 mg PO QAM RF: 0 ketotifen fumarate [Alaway] 0.025 % (0.035 %) Drops 1 drp OPB Q12H PRN (Reason: Eye Irritation) RF: 0 sodium chloride [Saline Nasal] 0.65 % Aerosol,Marana 1 spray INTRANASAL BID PRN (Reason: Congestion) RF: 0 insulin lispro [Humalog KwikPen Insulin] 100 unit/mL insulin pen 0 - 35 unit SQ BID MDD 35UNITS RF: 0 famotidine 20 mg tablet 20 mg PO HS RF: 0 Lantus Solostar U-100 Insulin 100 unit/mL (3 mL) insulin pen 21 unit SQ HS RF: 0 [employer] 1.5 billion cell Capsule 1 cap PO DAILY RF: 0 Referrals Referrals: Lana Bender MD [Primary Care Provider] -
[2021-04-17] MEDS ORDERED: ALBUTEROL HFA 8 GM INHALER INH PRN (00:16)
[2021-04-17] MEDS ORDERED: ACETAMINOPHEN 325 MG TAB PO PRN (00:16)
[2021-04-17] MEDS ORDERED: GLUCOSE 40% GEL 15 GM TUBE PO PRN (00:16)
[2021-04-17] MEDS ORDERED: DEXTROSE 50% 50 ML SYRINGE IV PRN (00:16)
[2021-04-17] MEDS ORDERED: GLUCAGON FOR INJ 1 MG VIAL SQ PRN (00:16)
[2021-04-17] MEDS ORDERED: CARBOHYDRATES FOR HYPOGLYCEMIA PO PRN (00:16)
[2021-04-17] MEDS ORDERED: GLUCOSE 10 TABS/TUBE PO PRN (00:16)
[2021-04-17] MEDS ORDERED: ALBUT/IPRATROP 3MG/0.5MG NEB 3 ML VIAL INH PRN (00:16)
[2021-04-17 00:42] LABS: Thyroid Stimulating Hormone 0.287 uIu/ml (0.300-4.500)
[2021-04-17] MEDS ORDERED: traMADol HCL 50 MG TABLET PO PRN (00:54)
[2021-04-17 01:02] LABS: T4 Free Thyroxine 1.84 ng/dl (0.8-1.6)
[2021-04-17] MEDS: LEVOTHYROXINE SODIUM 150 MCG TABLET PO SCH (06:14)
[2021-04-17 08:31] LABS: Hematocrit (blood only) 36.7 % (37-47); Hemoglobin 12.3 g/dL (12.0-16.0); Mean Corpuscular Hgb Conc 33.5 g/dL (32-36); Mean Corpuscular Volume 95.6 fL (80-100); RDW Coefficient of Variation 13.7 % (11.5-14.5); RDW Standard Deviation 47.6 fL (36.4-46.3); Red Blood Count 3.84 M/uL (4.2-5.4); White Blood Count 4.41 K/uL (4.8-10.8)
[2021-04-17] MEDS: FLUTICASONE/VILANTEROL 100/25MCG 14 PUFFS/INHALER INH SCH (08:59)
[2021-04-17] MEDS: NIFEdipine EXTENDED REL 30 MG TABCR PO SCH (09:00)
[2021-04-17] MEDS: MAGNESIUM CHLORIDE 64MG DELAYED REL TAB PO SCH ×3 (09:01→20:11)
[2021-04-17] MEDS: VALSARTAN 80 MG TAB PO SCH ×3 (09:01→12:28)
[2021-04-17] MEDS: BUMETANIDE 1 MG TAB PO SCH (09:02)
[2021-04-17] MEDS: SPIRONOLACTONE 25 MG TAB PO SCH (09:02)
[2021-04-17] MEDS: PANTOprazole 40 MG TAB PO SCH (09:02)
[2021-04-17] MEDS: INSULIN ASPART 100 UNITS/ML 3 ML PEN SC SCH ×4 (09:03→20:25)
[2021-04-17 09:08] LABS: Albumin Level 3.3 gm/dl (3.4-5.0); Bilirubin Direct 0.2 mg/dl (0-0.2); Calcium 9.6 mg/dl (8.5-10.1); Creatinine Clr Calc Pharmacy 23.1 ml/min; Est GFR (Non-African American) 34.5 ml/min; Potassium 4.3 mmol/L (3.5-5.1)
[2021-04-17 09:10] LABS: Bilirubin,Total 0.7 mg/dl (0.2-1); Total Protein 7.5 gm/dl (6.4-8.2)
[2021-04-17 10:27] LABS: Basophils # (auto) 0.01 K/uL (0-0.2); Basophils % (auto) 0.2 %; Eosinophils # (auto) 0.14 K/uL (0-0.5); Eosinophils % (auto) 3.2 %; Lymphocytes # (auto) 1.09 K/uL (1.2-3.4); Lymphocytes % (auto) 24.7 %; Mean Platelet Volume 11.3 fL (7.4-10.4); Monocytes # (auto) 0.46 K/uL (0.11-0.59); Monocytes % (auto) 10.4 %; Neutrophils # (auto) 2.71 K/uL (1.4-6.5); Neutrophils % (auto) 61.5 %; Platelet Count 98 K/uL (130-400); Platelet Estimate Decreased (Normal)
--- NOTE | 2021-04-17 15:07 | Ultrasound Report ---
US abdomen ltd ascites CLINICAL HISTORY: ascites COMPARISON STUDY: Abdomen and pelvis CT 11/28/2020. FINDINGS: Transabdominal scanning of the abdomen and pelvis shows no significant ascites. Therefore, the paracentesis was not performed. IMPRESSION: No ascites identified. ACT 112: Negative or not required by law. Electronically signed by: Aaron Clark M.D. 04/17/2021 3:06 PM
--- NOTE | 2021-04-17 15:48 | XCELERA ---
[id number]
--- NOTE | 2021-04-17 16:11 | Cardiology Consultation ---
Date of Consultation April 17, 2021 Assessment & Plan (1) Idioventricular rhythm: 1. Idioventricular rhythm: This appears to be an accelerated fascicular rhythm, it appears that there is retrograde atrial activity so it is probably somewhat hemodynamically compromising even though the rate is not fast. It does seem to be associated with her symptoms on presentation to the emergency room and later in the afternoon today. It probably would be a good idea to suppress it if we can even though it is not dangerous. I am going to try beta-blockade. We could also try antiarrhythmic therapy. History of Present Illness Reason for Consultation: Shortness of breath, wide-complex rhythm Attending Physician: Sourav Swan History of Present Illness This is a 86-year-old woman who has a history of chronic diastolic congestive heart failure which is in part due to fluid retention from cirrhosis, she also has a history of hypertension and a stress-induced cardiomyopathy which resolved. On echocardiography October 17, 2020 her left ventricle was normal in size with an ejection fraction of 65%. She presented on April 16, 2021 with shortness of breath, especially with exertion, increased abdominal swelling and was noted to have a wide QRS rhythm at a rate of 88 bpm. Atrial activity appeared to be present following the QRS complex. A repeat echocardiogram today shows normal left ventricular systolic function. Potassium, magnesium and troponins were all normal. Allergies Allergy/AdvReac Type Severity Reaction Status Date / Time erythromycin base Allergy Severe eye Verified 04/16/21 22:44 ointment only - red and infected Iodinated Contrast Media Allergy Severe heart Verified 04/16/21 22:44 muscles tightened/heart spasms Penicillins Allergy Intermediate "wore out Verified 04/16/21 22:44 on me" and hives repaglinide Allergy Intermediate Hives Verified 04/16/21 22:44 Sulfa (Sulfonamide Allergy Unknown Hives Verified 04/16/21 22:44 Antibiotics) timolol Allergy Unknown eye drops Verified 04/16/21 22:44 - eye redness clonazepam AdvReac Severe increased Verified 04/16/21 22:44 anxiety Ahpnnkb-Cwf-Ldl Reductase AdvReac Severe ELEVATED Verified 04/16/21 22:44 Inhibitor HEPATIC ENZYMES enalapril AdvReac Intermediate COUGH Verified 04/16/21 22:44 Home Medications Medication Instructions Recorded Confirmed Type cholecalciferol (vitamin D3) 50 2,000 units PO DAILY cap 03/16/19 04/16/21 History mcg (2,000 unit) capsule colestipol 1 gram tablet 2 gm PO HS tab 03/16/19 04/16/21 History docusate sodium 100 mg capsule 100 mg PO HS cap 03/16/19 04/16/21 History esomeprazole magnesium 20 mg 20 mg PO QAM cap 03/16/19 04/16/21 History capsule,delayed release magnesium chloride 71.5 mg 71.5 mg PO TID tab 03/16/19 04/16/21 History (magnesium chloride) tablet,delayed release (Slow-Mag) meclizine 25 mg tablet 25 mg PO DAILY PRN #21 tab 03/16/19 04/16/21 History ketotifen fumarate 0.025 % (0.035 1 drp OPB Q12H PRN 05/16/19 04/16/21 History %) eye drops ([place]) sodium chloride 0.65 % nasal spray 1 spray INTRANASAL BID PRN 05/16/19 04/16/21 History aerosol (Saline Nasal) ipratropium 0.5 mg-albuterol 3 mg 3 ml INH Q8H PRN #180 ml 08/29/20 04/16/21 Rx (2.5 mg base)/3 mL nebulization soln albuterol sulfate 90 mcg/actuation 2 puff INHALATION Q4H PRN #18 gm 12/24/20 04/16/21 Rx aerosol inhaler fluticasone furoate 100 1 inh INHALATION DAILY #60 ea 12/24/20 04/16/21 Rx mcg-vilanterol 25 mcg/dose inhalation powder (Breo Ellipta) bumetanide 2 mg tablet 2 mg PO DAILY #90 tab 01/03/21 04/16/21 Rx insulin lispro 100 unit/mL 0 - 35 unit SQ BID ml MDD 35UNITS 01/22/21 04/16/21 History subcutaneous pen (Humalog KwikPen (U-100) Insulin) spironolactone 25 mg tablet 50 mg PO QAM tab 01/22/21 04/16/21 History levothyroxine 150 mcg tablet 150 mcg PO DAILY #90 tab 01/31/21 04/16/21 Rx lorazepam 0.5 mg tablet 0.5 mg PO HS PRN #45 tab 04/02/21 04/16/21 Rx nifedipine 30 mg tablet,extended 30 mg PO QAM #90 tab 04/02/21 04/16/21 Rx release nitroglycerin 0.4 mg sublingual 0.4 mg SL Q5M PRN #25 tab 04/02/21 04/16/21 Rx tablet tramadol 37.5 mg-acetaminophen 325 1 tab PO DAILY PRN #30 tab 04/02/21 04/16/21 Rx mg tablet valsartan 40 mg tablet 40 mg PO DAILY #90 tab 04/02/21 04/16/21 Rx nitroglycerin 0.4 mg/hr 1 patch TD DAILY #90 ea 04/11/21 04/16/21 Rx transdermal 24 hour patch Lactobacills gasseri-Bifidobac 1 cap PO DAILY 04/16/21 04/16/21 History bifidum,longum 1.5 billion cell capsule ([employer]) famotidine 20 mg tablet 20 mg PO HS 04/16/21 04/16/21 History insulin glargine 100 unit/mL (3 21 unit SQ HS 04/16/21 04/16/21 History mL) subcutaneous pen (Lantus Solostar U-100 Insulin) Patient History Medical History Bronchitis Chronic bronchitis Coronary artery spasm reason for Nitro Patch q12h follows with Dr. Samson Depression hx Diabetes mellitus, type 2 iddm Encounter for drug screening Gastroparesis GERD (gastroesophageal reflux disease) Grief reaction Heart disease History of melanoma Hyperlipidemia Hypertension Hypothyroidism Interstitial lung disease Multiple lung nodules on CT Nonalcoholic fatty liver disease Obstructive sleep apnea syndrome Pneumonia hx Sleep apnea CPAP Vertigo Vertigo Surgical History History of appendectomy History of cardiac catheterization X3 (1994, 1999, 2006) History of cataract surgery bilateral History of colonoscopy History of dacryocystorhinostomy done monthly History of dilatation and curettage History of ERCP with stone removal History of laparoscopic cholecystectomy History of repair of rotator cuff right History of tonsillectomy S/P cholecystectomy S/P STEVE-BSO Status post biopsy of skin removal of melanoma Family History Mother Cardiac disorder Hypertension Heart disease Myocardial infarction Father Cardiac disorder Hypertension Heart disease Other Diabetes Ischemic heart disease Prostate cancer Denies family history of Ovarian cancer Breast cancer Colorectal cancer Social History Smoking Status: Never smoker Second Hand Exposure: No (); Hx Alcohol Use: No Hx Substance Use: No Preferred Language: Irish Communication Ability: Effective Visual Impairment: No Limitations Hearing Ability: Normal Associate Veterinarian Required: No Beliefs That Will Affect Care: None marital status: / Current Living Situation: Alone Current Living Situation Comment: lives in [facility] current occupational status: retired Other Information That Helps Us Care for You: No Feels Safe at Home: Yes Safety Concerns: Feels Safe At This Time Childhood Exposure to Second-Hand Smoke: No Dental Care, Regularly: Yes Physical Activity Frequency: Daily Seatbelt Use: always Sunscreen Use: No Assistive Devices: Cane Results & Data ([facility]) Vital Signs (Past 12 Hours) Vital Signs Temp Pulse Pulse Pulse Resp BP BP 04/17/21 14:54 36.5 C 65 20 125/85 04/17/21 12:12 36.5 C 70 20 139/45 L 04/17/21 09:02 104/55 L 04/17/21 08:00 61 04/17/21 07:27 36.6 C 64 16 98/40 L Pulse Ox 04/17/21 14:54 100 04/17/21 12:12 97 04/17/21 09:02 04/17/21 08:00 04/17/21 07:27 100 PG Care Time/CCT Total # of Minutes Spent Total Time Spent with Patient: Total time spent is greater than 50% in coordination of care (as documented) at patient's floor/unit and/or counseling patient: Coding Diagnoses Idioventricular rhythm I44.2
[2021-04-17] MEDS: METOPROLOL TARTRATE 50 MG TAB PO SCH (18:12)
[2021-04-17] MEDS: DOCUSATE SODIUM 100 MG CAP PO SCH (20:10)
[2021-04-17] MEDS: FAMOTIDINE 20 MG TAB PO SCH (20:10)
[2021-04-17] MEDS: COLESTIPOL HCL 1 GM TAB PO SCH (20:11)
[2021-04-17] MEDS: INSULIN GLARGINE SOLOSTAR 100 UNITS/ML 3 ML PEN SQ SCH (20:25)
[2021-04-17] MEDS: SUCRALFATE 1 GM/10 ML UDC PO SCH (20:26)
--- NOTE | 2021-04-17 22:05 | Hospitalist Progress Note ---
Date of Service April 17, 2021 Assessment & Plan (1) Idioventricular rhythm: Plan: 86-year-old female with multiple medical problems presenting with dyspnea on exertion and orthopnea. Patient found to be in new idioventricular rhythm possibly contributing to her symptoms. She was given metoprolol 2.5 mg IV in the ER x1. Admit to medical with telemetry Check 2D echo Cardiology consultation appreciated -Patient presently doing well after receiving metoprolol. If needed, will administer amiodarone (2) JOSHI (dyspnea on exertion): Plan: Possibly secondary to #1 as well as worsening ascites. Patient took 2 additional spironolactone tablets as well as 1 additional Bumex prior to arrival and reports good response with increased urine output. Symptoms of dyspnea and orthopnea somewhat improved during my interview in the ER. Continue diuresis Supplemental oxygen as needed Patient feels that her abdominal distention is causing her to be SOB. will order CT scan of abd pelvis with PO contrast. Patient cannot take iV contrast due to previous reaction. Patient had a negative ultrasound for ascities. (3) NAFLD (nonalcoholic fatty liver disease): Plan: With cirrhosis. Patient with ascites. Had large volume paracentesis performed in November. She reports reaccumulation of fluid with some abdominal discomfort. She did take additional diuretic today. Monitor renal function closely after increased diuretic use Repeat chemistry in the morning Consider paracentesis if patient's symptoms persist or worsen Continue Bumex 2 mg p.o. daily Continue spironolactone 50 mg p.o. every morning (4) Interstitial lung disease: Plan: Chronic. Stable. No wheeze on exam Continue Breo Continue DuoNeb every 8 hours as needed Continue albuterol as needed (5) Dyslipidemia: Plan: Chronic. Continue Colestid ball 2 g p.o. nightly (6) Obstructive sleep apnea syndrome: Plan: Chronic. Patient reports compliance with CPAP CPAP 7 cm H2O nightly (7) GERD without esophagitis: Plan: Chronic. Stable. Continue Pepcid 20 mg p.o. nightly Protonix 40 mg p.o. daily while inpatient (as well as omeprazole at home) added sucralfate. (8) Hypertension: Plan: Blood pressure stable. Continue valsartan 40 mg p.o. daily Continue nifedipine Continue to monitor (9) Controlled type 2 diabetes mellitus, with long-term current use of insulin: Plan: Patient fairly well controlled. Last hemoglobin A1c on 08/29/2020 = 7 Continue Lantus 21 units nightly Insulin sliding scale Plan: FENdiuresis with oral Bumex and spironolactone as above, monitor electrolytes and replete as needed, consistent carb/heart healthy diet as tolerated ProphylaxisSCDs to bilateral lower extremities Codefull Dispositionadmit to medical with telemetry Admission and Anticipated Discharge Date Admission Date: April 16, 2021 Subjective Patient reports feeling nausea, and abdominal distention. Review of Systems Review of Systems: All systems reviewed & are unremarkable except as noted in HPI & below Physical Exam Physical Exam: General: patient resting comfortably, NAD, non-toxic in appearance, AA&O x 4, patient is dyspneic after ambulation back to her bed Skin: warm, dry, intact, scattered ecchymotic lesions noticed on forearms HEENT: NC/AT, PERRL, EOMI, anicteric sclera, conjunctiva without injection, external ear normal to inspection and nontender, nares patent, moist mucus membranes, dentition intact, no oropharyngeal lesions, neck supple, trachea midline, no LAD, no thyromegaly, no JVD Heart: +S1/S2, regular, no m/r/g Lungs: equal air entry bilaterally, + crackles in bilateral bases Abd: +BS, soft, NT/ND, no masses/organomegaly, lower abdominal fullness with bulging flanks, abdomen mildly tender to palpation without rebound/guarding/peritoneal signs Ext: warm, 2+ pulses in UE/LE bilaterally, no clubbing/cyanosis, 2+ pitting edema bilateral lower extremities to knees Neuro: nonfocal, patient AA&O x 4, speech intact, no facial droop, moving all extremities on command with equal strength 5/5 Results & Data Results & Data ([facility]) Vital Signs (Past 12 Hours) Vital Signs Temp Pulse Resp BP BP Pulse Ox 04/17/21 19:00 36.5 C 73 20 126/55 L 99 04/17/21 14:54 36.5 C 65 20 125/85 100 04/17/21 12:12 36.5 C 70 20 139/45 L 97 PG Care Time/CCT Total # of Minutes Spent Total Time Spent with Patient: Total time spent is greater than 50% in coordination of care (as documented) at patient's floor/unit and/or counseling patient: Coding Level of Care Code 35770 Subseq Hosp Care Lvl 3 Diagnoses Idioventricular rhythm I44.2 JOSHI (dyspnea on exertion) R06.00 NAFLD (nonalcoholic fatty liver disease) K76.0 Interstitial lung disease J84.9 Dyslipidemia E78.5 Obstructive sleep apnea syndrome G47.33 GERD without esophagitis K21.9 Hypertension I10 Hypertension type: essential hypertension Controlled type 2 diabetes mellitus, with long-term current use of insulin E11.9; Z79.4 Diabetes mellitus complication status: without complication Time Spent (min) 35 (1) Controlled type 2 diabetes mellitus, with long-term current use of insulin Diabetes mellitus complication status: without complication Qualified Code(s): E11.9 - Type 2 diabetes mellitus without complications; Z79.4 - long-term (current) use of insulin (2) Hypertension Hypertension type: essential hypertension Qualified Code(s): I10 - Essential (primary) hypertension
[2021-04-17] MEDS: LORazepam 0.5 MG TAB PO PRN (23:39)
[2021-04-18] MEDS ORDERED: FLUTICASONE PROPIONATE NA SPR 16 GM BTL PRN (01:05)
[2021-04-18] MEDS ORDERED: diphenhydrAMINE 50 MG/ML VIAL IV ONE (01:06)
[2021-04-18] MEDS: LEVOTHYROXINE SODIUM 150 MCG TABLET PO SCH (06:21)
--- NOTE | 2021-04-18 07:34 | CT Scan Report ---
CT abd pelvis oral con only CLINICAL HISTORY: Abdominal distention. COMPARISON STUDY: CT of the abdomen and pelvis November 28, 2020. TECHNIQUE: Axial images of the abdomen and pelvis were obtained without IV contrast. Oral contrast wa s administered. Automated exposure control was utilized for the study. A dose lowering technique was utilized adhering to the principles of ALARA. FINDINGS: The previously described mixed solid and cystic partially calcified focus within the right middle lobe measures approximately 1.1 cm. This is similar to CT of November 28, 2020. This has slightly increased since CT of May 22, 2016. A left breast nodule is unchanged from earlier mammograms. This is likely benign. Evaluation of the abdomen and pelvis is suboptimal on this unenhanced examinat ion. No pneumatosis, free air or portal venous gas is noted. Pneumobilia is again noted. There is kurtis pected reflux of contrast into the distal common bile duct. Mild biliary ductal dilatation is unchang ed status post cholecystectomy. The liver is cirrhotic. Sensitivity for detection of hepatic lesions is diminished on this unenhanced exam but none are identified. Splenomegaly is again noted. There is no significant ascites. Multiple duodenal diverticula are noted. No peripancreatic infiltration is no gisella. Subtle mesenteric infiltration may be related to portal hypertension. There is no evidence for a bowel obstruction. Stomach is mildly distended. Colonic diverticulosis without evidence for acute diverticulitis. The appendix is normal. No lymphade nopathy is present. There is no fluid collection to suggest an abscess. There is no hydronephrosis. N o acute fracture or suspicious lesion is identified within visualized skeletal structures. IMPRESSION: 1. Cirrhosis. Splenomegaly indicative of portal hypertension. 2. Mildly distended stomach. No bowel obstruction. 3. No significant change in a 1.1 cm mixed solid and cystic partially calcified focus within the righ t middle lobe since prior CT. This is probably benign. A follow-up chest CT in one year is recommende d to ensure stability. ACT 112: Negative or not required by law. Electronically signed by: Jaydon Swanson M.D. 04/18/2021 7:33 AM
[2021-04-18] MEDS: BUMETANIDE 1 MG TAB PO SCH (09:19)
[2021-04-18] MEDS: PANTOprazole 40 MG TAB PO SCH (09:19)
[2021-04-18] MEDS: NIFEdipine EXTENDED REL 30 MG TABCR PO SCH (09:19)
[2021-04-18] MEDS: SPIRONOLACTONE 25 MG TAB PO SCH (09:20)
[2021-04-18] MEDS: METOPROLOL TARTRATE 50 MG TAB PO SCH (09:20)
[2021-04-18] MEDS: FLUTICASONE/VILANTEROL 100/25MCG 14 PUFFS/INHALER INH SCH (09:21)
[2021-04-18] MEDS: INSULIN ASPART 100 UNITS/ML 3 ML PEN SC SCH ×4 (09:21→21:55)
[2021-04-18] MEDS: SUCRALFATE 1 GM/10 ML UDC PO SCH ×4 (09:21→21:56)
[2021-04-18] MEDS: MAGNESIUM CHLORIDE 64MG DELAYED REL TAB PO SCH ×3 (09:59→21:54)
[2021-04-18] MEDS: VALSARTAN 80 MG TAB PO SCH (12:53)
[2021-04-18] MEDS ORDERED: METOPROLOL TARTRATE 25 MG TAB PO STA (15:37)
--- NOTE | 2021-04-18 16:55 | Electrocardiogram Report ---
Test Reason : Blood Pressure : / mmHG Vent. Rate : 088 BPM Atrial Rate : 088 BPM P-R Int : 000 ms QRS Dur : 146 ms QT Int : 414 ms P-R-T Axes : 000 150 -13 degrees QTc Int : 500 ms Poor data quality, interpretation may be adversely affected Wide QRS rhythm Right bundle branch block Probably accelerated ventricular rhythm Abnormal ECG When compared with ECG of 10-JAN-2021 10:47, Wide QRS rhythm has replaced Sinus rhythm Confirmed by Andrae Chen ([id number]) on 04/18/2021 4:54:51 PM Referred By: Chris Arroyo Confirmed By:Andrae Chen
[2021-04-18] MEDS ORDERED: COUGH DROP (SUGAR FREE) LOZ 24 LOZ/1 BOX BUCCAL ONE (18:20)
[2021-04-18] MEDS: LORazepam 0.5 MG TAB PO PRN (21:12)
[2021-04-18] MEDS: FAMOTIDINE 20 MG TAB PO SCH (21:54)
[2021-04-18] MEDS: guaiFENesin 600 MG TABCR PO SCH (21:54)
[2021-04-18] MEDS: COLESTIPOL HCL 1 GM TAB PO SCH (21:55)
[2021-04-18] MEDS: INSULIN GLARGINE SOLOSTAR 100 UNITS/ML 3 ML PEN SQ SCH (21:56)
[2021-04-18] MEDS: DOCUSATE SODIUM 100 MG CAP PO SCH (22:07)
[2021-04-18] MEDS: METOPROLOL TARTRATE 25 MG TAB PO SCH (22:10)
--- NOTE | 2021-04-18 23:13 | Hospitalist Progress Note ---
Date of Service April 18, 2021 Assessment & Plan (1) Idioventricular rhythm: Plan: 86-year-old female with multiple medical problems presenting with dyspnea on exertion and orthopnea. Patient found to be in new idioventricular rhythm possibly contributing to her symptoms. She was given metoprolol 2.5 mg IV in the ER x1. Admit to medical with telemetry Check 2D echo Cardiology consultation appreciated -Patient presently doing well after receiving metoprolol. Increased metoprolol to 75 mg PO BID. If needed, will administer amiodarone (2) JOSHI (dyspnea on exertion): Plan: Possibly secondary to #1 as well as worsening ascites. Patient took 2 additional spironolactone tablets as well as 1 additional Bumex prior to arrival and reports good response with increased urine output. Symptoms of dyspnea and orthopnea somewhat improved during my interview in the ER. Continue diuresis Supplemental oxygen as needed Patient feels that her abdominal distention is causing her to be SOB. will order CT scan of abd pelvis with PO contrast: NEGATIVE FOR ASCITIES. Patient does have organomegaly. Patient cannot take iV contrast due to previous reaction. Patient had a negative ultrasound for ascities. (3) NAFLD (nonalcoholic fatty liver disease): Plan: With cirrhosis. Patient with ascites. Had large volume paracentesis performed in November. She reports reaccumulation of fluid with some abdominal discomfort. She did take additional diuretic today. Monitor renal function closely after increased diuretic use Repeat chemistry in the morning Consider paracentesis if patient's symptoms persist or worsen Continue Bumex 2 mg p.o. daily Continue spironolactone 50 mg p.o. every morning (4) Interstitial lung disease: Plan: Chronic. Stable. No wheeze on exam Continue Breo Continue DuoNeb every 8 hours as needed Continue albuterol as needed (5) Dyslipidemia: Plan: Chronic. Continue Colestid ball 2 g p.o. nightly (6) Obstructive sleep apnea syndrome: Plan: Chronic. Patient reports compliance with CPAP CPAP 7 cm H2O nightly (7) GERD without esophagitis: Plan: Chronic. Stable. Continue Pepcid 20 mg p.o. nightly Protonix 40 mg p.o. daily while inpatient (as well as omeprazole at home) added sucralfate. (8) Hypertension: Plan: Blood pressure stable. Continue valsartan 40 mg p.o. daily Continue nifedipine Continue to monitor (9) Controlled type 2 diabetes mellitus, with long-term current use of insulin: Plan: Patient fairly well controlled. Last hemoglobin A1c on 08/29/2020 = 7 Continue Lantus 21 units nightly Insulin sliding scale Plan: FENdiuresis with oral Bumex and spironolactone as above, monitor electrolytes and replete as needed, consistent carb/heart healthy diet as tolerated ProphylaxisSCDs to bilateral lower extremities Codefull Dispositionadmit to medical with telemetry Admission and Anticipated Discharge Date Admission Date: April 16, 2021 Subjective Patient reports feeling better today. No new symptoms. Her chest pain has improved. She was concerned about receiving more ativan. Discussed side effects at home. Review of Systems Review of Systems: All systems reviewed & are unremarkable except as noted in HPI & below Physical Exam Physical Exam: General: patient resting comfortably, NAD, non-toxic in appearance, AA&O x 4, patient is dyspneic after ambulation back to her bed Skin: warm, dry, intact, scattered ecchymotic lesions noticed on forearms HEENT: NC/AT, PERRL, EOMI, anicteric sclera, conjunctiva without injection, external ear normal to inspection and nontender, nares patent, moist mucus membranes, dentition intact, no oropharyngeal lesions, neck supple, trachea midline, no LAD, no thyromegaly, no JVD Heart: +S1/S2, regular, no m/r/g Lungs: equal air entry bilaterally, + crackles in bilateral bases Abd: +BS, soft, NT/ND, no masses/organomegaly, lower abdominal fullness with bulging flanks, abdomen mildly tender to palpation without rebound/guarding/peritoneal signs Ext: warm, 2+ pulses in UE/LE bilaterally, no clubbing/cyanosis, 2+ pitting edema bilateral lower extremities to knees Neuro: nonfocal, patient AA&O x 4, speech intact, no facial droop, moving all extremities on command with equal strength 5/5 Results & Data Results & Data ([facility]) Vital Signs (Past 12 Hours) Vital Signs Temp Pulse Pulse Resp BP BP Pulse Ox 04/18/21 22:00 53 L 112/65 04/18/21 19:42 36.5 C 53 L 20 96/49 L 98 04/18/21 16:00 36.7 C 68 68 18 117/57 L 98 04/18/21 11:51 36.7 C 53 L 18 94/53 L 98 PG Care Time/CCT Total # of Minutes Spent Total Time Spent with Patient: Total time spent is greater than 50% in coordination of care (as documented) at patient's floor/unit and/or counseling patient: Coding Level of Care Code 79854 Subseq Hosp Care Lvl 2 Diagnoses Idioventricular rhythm I44.2 JOSHI (dyspnea on exertion) R06.00 NAFLD (nonalcoholic fatty liver disease) K76.0 Interstitial lung disease J84.9 Dyslipidemia E78.5 Obstructive sleep apnea syndrome G47.33 GERD without esophagitis K21.9 Hypertension I10 Hypertension type: essential hypertension Controlled type 2 diabetes mellitus, with long-term current use of insulin E11.9; Z79.4 Diabetes mellitus complication status: without complication Time Spent (min) 25 (1) Controlled type 2 diabetes mellitus, with long-term current use of insulin Diabetes mellitus complication status: without complication Qualified Code(s): E11.9 - Type 2 diabetes mellitus without complications; Z79.4 - assisted (current) use of insulin (2) Hypertension Hypertension type: essential hypertension Qualified Code(s): I10 - Essential (primary) hypertension
[2021-04-19] MEDS ORDERED: LORazepam 1 MG TAB PO STA (01:32)
[2021-04-19] MEDS: LEVOTHYROXINE SODIUM 150 MCG TABLET PO SCH (05:43)
--- NOTE | 2021-04-19 07:44 | Electrocardiogram Report ---
Test Reason : Blood Pressure : / mmHG Vent. Rate : 072 BPM Atrial Rate : 062 BPM P-R Int : 000 ms QRS Dur : 154 ms QT Int : 462 ms P-R-T Axes : 000 176 006 degrees QTc Int : 505 ms Sinus rhythm with periods of accelerated ventricular rhythm Right bundle branch block Abnormal ECG When compared with ECG of 16-APR-2021 17:52, (unconfirmed) No significant change Confirmed by Andrae Chen ([id number]) on 04/19/2021 7:44:43 AM Referred By: Chris Arroyo Confirmed By:Andrae Chen
[2021-04-19] MEDS: PANTOprazole 40 MG TAB PO SCH (08:37)
[2021-04-19] MEDS: VALSARTAN 80 MG TAB PO SCH (08:37)
[2021-04-19] MEDS: guaiFENesin 600 MG TABCR PO SCH (08:39)
[2021-04-19] MEDS: MAGNESIUM CHLORIDE 64MG DELAYED REL TAB PO SCH ×2 (08:39→13:42)
[2021-04-19] MEDS: NIFEdipine EXTENDED REL 30 MG TABCR PO SCH (08:39)
[2021-04-19] MEDS: BUMETANIDE 1 MG TAB PO SCH (08:39)
[2021-04-19] MEDS: SPIRONOLACTONE 25 MG TAB PO SCH (08:40)
[2021-04-19] MEDS: METOPROLOL TARTRATE 25 MG TAB PO SCH (08:40)
[2021-04-19] MEDS: INSULIN ASPART 100 UNITS/ML 3 ML PEN SC SCH ×3 (08:40→17:41)
[2021-04-19] MEDS: SUCRALFATE 1 GM/10 ML UDC PO SCH ×3 (08:40→16:42)
[2021-04-19] MEDS: FLUTICASONE/VILANTEROL 100/25MCG 14 PUFFS/INHALER INH SCH (08:40)
[2021-04-19 08:48] VITALS: O2SAT 99
[2021-04-19] MEDS ORDERED: COUGH DROP (SUGAR FREE) LOZ 24 LOZ/1 BOX BUCCAL ONE (09:00)
[2021-04-19 16:11] VITALS: TEMP 97.9
[2021-04-19] MEDS ORDERED: MICONAZOLE NITRATE POWDER 43 GM EXT PRN (16:43)
[2021-04-19 18:01] VITALS: BP 111/63; PULSE 64
--- NOTE | 2021-04-20 07:47 | Discharge Summary ---
Date of Service April 19, 2021 Admission HPI Per Admitting Provider Ilana Mackay is a pleasant 86-year-old female with history of diabetes, GERD, hypertension, hyperlipidemia, hypothyroidism, nonalcoholic fatty liver disease presenting at the request of Dr. Arroyo for shortness of breath and tachypnea. Patient reports dyspnea on exertion, orthopnea, palpitations and increased abdominal swelling ongoing for the last several days. She also states that she has been feeling more anxious than usual. She was instructed by GI to take additional diuretic today for medical management of ascites. She took 2 spironolactone and 1 Bumex prior to arrival and has had significant urine output since then. She reports that her shortness of breath is also slowly improving. EKG in the ER demonstrated idioventricular rhythm. Case was discussed with Dr. Aquino again and the patient was administered IV metoprolol. Patient with no additional complaints at this time. She specifically denies fevers, chills, nausea, vomiting, diarrhea, dysuria. She does admit to increased abdominal distention and ascites as well as some discomfort. ER course: Metoprolol 2.5 mg IV x1 Principal Diagnosis dypsnea on exertion Discharge Exam General: patient resting comfortably, NAD, non-toxic in appearance, AA&O x 4 Skin: warm, dry, intact, scattered ecchymotic lesions noticed on forearms HEENT: NC/AT, PERRL, EOMI, anicteric sclera, conjunctiva without injection, external ear normal to inspection and nontender, nares patent, moist mucus membranes, dentition intact, no oropharyngeal lesions, neck supple, trachea midline, no LAD, no thyromegaly, no JVD Heart: +S1/S2, regular, no m/r/g Lungs: equal air entry bilaterally, + crackles in bilateral bases Abd: +BS, soft, NT/ND, no masses/organomegaly, lower abdominal fullness with bulging flanks, abdomen mildly tender to palpation without rebound/guarding/peritoneal signs Ext: warm, 2+ pulses in UE/LE bilaterally, no clubbing/cyanosis, 2+ pitting edema bilateral lower extremities to knees Neuro: nonfocal, patient AA&O x 4, speech intact, no facial droop, moving all extremities on command with equal strength 5/5 Discharge Data Allergies Allergy/AdvReac Type Severity Reaction Status Date / Time erythromycin base Allergy Severe eye Verified 04/16/21 22:44 ointment only - red and infected Iodinated Contrast Media Allergy Severe heart Verified 04/16/21 22:44 muscles tightened/heart spasms Penicillins Allergy Intermediate "wore out Verified 04/16/21 22:44 on me" and hives repaglinide Allergy Intermediate Hives Verified 04/16/21 22:44 Sulfa (Sulfonamide Allergy Unknown Hives Verified 04/16/21 22:44 Antibiotics) timolol Allergy Unknown eye drops Verified 04/16/21 22:44 - eye redness clonazepam AdvReac Severe increased Verified 04/16/21 22:44 anxiety Hqeidty-Dgl-Ymh Reductase AdvReac Severe ELEVATED Verified 04/16/21 22:44 Inhibitor HEPATIC ENZYMES enalapril AdvReac Intermediate COUGH Verified 04/16/21 22:44 Consultations 04/16/21 20:42 ED Decision to Admit Stat 04/17/21 00:16 Consult Cardiology Routine Ordered Studies 04/17/21 14:00 US abdomen ltd ascites Routine 04/17/21 18:00 CT abd pelvis oral con only Routine Hospital Course (1) Idioventricular rhythm: 86-year-old female with multiple medical problems presenting with dyspnea on exertion and orthopnea. Patient found to be in new idioventricular rhythm possibly contributing to her symptoms. She was given metoprolol 2.5 mg IV in the ER x1. Admit to medical with telemetry Check 2D echo Cardiology consultation appreciated -Patient presently doing well after receiving metoprolol. will discharge on metoprolol 50 mg PO BID. Will discontinue nifedipine, due to low BP. (2) JOSHI (dyspnea on exertion): Possibly secondary to #1 as well as worsening ascites. Patient took 2 additional spironolactone tablets as well as 1 additional Bumex prior to arrival and reports good response with increased urine output. Symptoms of dyspnea and orthopnea somewhat improved during my interview in the ER. Continue diuresis Supplemental oxygen as needed Improved with beta sage, likely due to problem 1 CT scan of abd pelvis with PO contrast: NEGATIVE FOR ASCITIES. Patient does have organomegaly. Patient cannot take iV contrast due to previous reaction. Patient had a negative ultrasound for ascities. (3) NAFLD (nonalcoholic fatty liver disease): With cirrhosis. Patient with ascites. Had large volume paracentesis performed in November. She reports reaccumulation of fluid with some abdominal discomfort. She did take additional diuretic today. Monitor renal function closely after increased diuretic use Repeat chemistry in the morning Consider paracentesis if patient's symptoms persist or worsen Continue Bumex 2 mg p.o. daily Continue spironolactone 50 mg p.o. every morning (4) Interstitial lung disease: Chronic. Stable. No wheeze on exam Continue Breo Continue DuoNeb every 8 hours as needed Continue albuterol as needed (5) Dyslipidemia: Chronic. Continue Colestid ball 2 g p.o. nightly (6) Obstructive sleep apnea syndrome: Chronic. Patient reports compliance with CPAP CPAP 7 cm H2O nightly (7) GERD without esophagitis: Chronic. Stable. Continue Pepcid 20 mg p.o. nightly Protonix 40 mg p.o. daily while inpatient (as well as omeprazole at home) added sucralfate. (8) Hypertension: Blood pressure stable. Continue valsartan 40 mg p.o. daily Continue nifedipine Continue to monitor (9) Controlled type 2 diabetes mellitus, with long-term current use of insulin: Patient fairly well controlled. Last hemoglobin A1c on 08/29/2020 = 7 Continue Lantus 21 units nightly Insulin sliding scale FENdiuresis with oral Bumex and spironolactone as above, monitor electrolytes and replete as needed, consistent carb/heart healthy diet as tolerated ProphylaxisSCDs to bilateral lower extremities Codefull Total Time Total Time Spent Total Time Spent (In Minutes): 32 Discharge Plan Discharge Items Patient Disposition: Home - Self-Care Reason For Visit: ARRHYTHMIA Discharge Diagnosis: arrythmia Activity: Resume your previous activity Non-emergency contact: Primary Care Provider Call non-emergency contact if: you have any medication questions Follow-up/Referrals: Andrae Chen MD [Physician] - (Please call wednesday morning to schedule a cardiology appointment. The office number is [phone].) Lana Bender MD [Primary Care Provider] - 04/22/21 1:30 pm (Your appointment is with the physician inventory control assistant, Darshana Gautam. If you have any questions or need to change this appointment, please call [phone].) Diet: Regular, Carb Consistent or DM2 and Heart Healthy Addtl Attending Provider Instructions: You were found to have a heart rhythm that MAY HAVE PLAYED A ROLE WITH causing you to get short of breath. You improved with adding metoprolol. YOU WILL STOP taking NIFEDIPINE. Will recommend followup with Dr. Chen within in 1 week. Pending Studies at Discharge: No Stand-Alone Forms: My [facility], Smoking Cessation Medications and DC Order Prescriptions: New metoprolol succinate 50 mg tablet extended release 24 hr 50 mg PO BID Qty: 60 RF: 0 Continued bumetanide 2 mg tablet 2 mg PO DAILY Qty: 90 RF: 3 levothyroxine 150 mcg tablet 150 mcg PO DAILY Qty: 90 RF: 1 nitroglycerin 0.4 mg/hr patch 24 hour 1 patch TD DAILY Qty: 90 RF: 3 Breo Ellipta 100-25 mcg/dose blister with device 1 inh inhalation DAILY Qty: 60 RF: 5 albuterol sulfate 90 mcg/actuation HFA aerosol inhaler 2 puff inhalation Q4H PRN (Reason: sob) Qty: 18 RF: 3 valsartan 40 mg tablet 40 mg PO DAILY Qty: 90 RF: 3 nitroglycerin 0.4 mg tablet, sublingual 0.4 mg SL Q5M PRN (Reason: Chest Pain) Qty: 25 RF: 2 lorazepam 0.5 mg tablet 0.5 mg PO HS PRN (Reason: sleep) Qty: 45 RF: 1 tramadol-acetaminophen 37.5-325 mg tablet 1 tab PO DAILY PRN (Reason: pain) Qty: 30 RF: 0 colestipol 1 gram tablet 2 gm PO HS RF: 0 Slow-Mag 71.5 mg tablet,delayed release (DR/EC) 71.5 mg PO TID RF: 0 cholecalciferol (vitamin D3) 2,000 unit capsule 2,000 units PO DAILY RF: 0 docusate sodium 100 mg capsule 100 mg PO HS RF: 0 esomeprazole magnesium 20 mg capsule,delayed release(DR/EC) 20 mg PO QAM RF: 0 meclizine 25 mg tablet 25 mg PO DAILY PRN (Reason: Vertigo) Qty: 21 RF: 0 ipratropium-albuterol 0.5 mg-3 mg(2.5 mg base)/3 mL solution for nebulization 3 ml INH Q8H PRN (Reason: SOB) Qty: 180 RF: 5 spironolactone 25 mg tablet 50 mg PO QAM RF: 0 ketotifen fumarate [Alaway] 0.025 % (0.035 %) Drops 1 drp OPB Q12H PRN (Reason: Eye Irritation) RF: 0 sodium chloride [Saline Nasal] 0.65 % Aerosol,Angwin 1 spray INTRANASAL BID PRN (Reason: Congestion) RF: 0 insulin lispro [Humalog KwikPen Insulin] 100 unit/mL insulin pen 0 - 35 unit SQ BID MDD 35UNITS RF: 0 famotidine 20 mg tablet 20 mg PO HS RF: 0 Lantus Solostar U-100 Insulin 100 unit/mL (3 mL) insulin pen 21 unit SQ HS RF: 0 AirPlug 1.5 billion cell Capsule 1 cap PO DAILY RF: 0 Discontinued nifedipine 30 mg tablet extended release 30 mg PO QAM Qty: 90 RF: 3 Discharge Orders: Discharge Order (Routine); Ordered 04/19/21 Ordered By: Sourav Swan Admission Data Admit Date/Time: 04/16/21 22:02 Attending Provider: Sourav Swan Admit Provider: Elizabeth Ramos Primary Care Provider: Lana Bender V. Other Providers: Elizabeth Ramos ; Andrae Chen Other Interventions: Discharge Summary Assessment (RN) Last Done: 04/19/21 18:00 Coding Level of Care Code D/C DAY MANAGEMENT >30 MINS Diagnoses Idioventricular rhythm I44.2 JOSHI (dyspnea on exertion) R06.00 NAFLD (nonalcoholic fatty liver disease) K76.0 Interstitial lung disease J84.9 Dyslipidemia E78.5 Obstructive sleep apnea syndrome G47.33 GERD without esophagitis K21.9 Hypertension I10 Hypertension type: essential hypertension Controlled type 2 diabetes mellitus, with long-term current use of insulin E11.9; Z79.4 Diabetes mellitus complication status: without complication Time Spent (min) 32
== END 2021-04-19 19:21 | disposition home or self-care (01) | DRG 309 ==
LOC: ED 17:14 → SUATTDRO 22:02 → 2W 22:02
DX: Z91.041 Radiographic dye allergy status; Z88.2 Allergy status to sulfonamides; J84.9 Interstitial pulmonary disease, unspecified; E03.9 Hypothyroidism, unspecified; E78.5 Hyperlipidemia, unspecified; E11.9 Type 2 diabetes mellitus without complications; Z88.0 Allergy status to penicillin; I11.0 Hypertensive heart disease with heart failure; K21.9 Gastro-esophageal reflux disease without esophagitis; I25.10 Atherosclerotic heart disease of native coronary artery without angina pectoris; Z79.4 Long term (current) use of insulin; I50.32 Chronic diastolic (congestive) heart failure; I44.2 Atrioventricular block, complete; K76.0 Fatty (change of) liver, not elsewhere classified; G47.33 Obstructive sleep apnea (adult) (pediatric)

== ENCOUNTER 2023-02-07 05:55 | Inpatient (IN) ==
[2023-02-07 06:47] LABS: Appearance Urine Clear (Clear); Bacteria Urine Automated 4+ (Negative); Bilirubin Urine Negative (Negative); Blood Urine Negative (Negative); Color Urine Yellow; Glucose Urine UA Negative (Negative); Ketones Urine Trace (Negative); Leukocyte Esterase Urine Trace (Negative); Nitrite Urine Negative (Negative); Protein Urine 1+ (Negative); RBC Urine Automated 0-4 /hpf (0-4); Specific Gravity Urine 1.017 (1.000-1.030); Urobilinogen Urine Negative (Negative); pH Urine 5.5 (4.5-7.5)
[2023-02-07 06:52] LABS: Alanine Aminotransferase 21 U/L (7-52); Albumin Level 3.9 gm/dl (3.4-5.0); Alkaline Phosphatase 124 U/L (34-104); Anion Gap 10 (3-11); Aspartate Aminotransferase 31 U/L (13-39); BUN Creatinine Ratio 21.2 (10-20); Basophils # (auto) 0.03 K/uL (0-0.2); Basophils % (auto) 0.3 %; Bilirubin Direct 0.7 mg/dl (0-0.2); Bilirubin,Total 1.9 mg/dl (0.2-1.0); Blood Urea Nitrogen 46 mg/dl (6-23); Calcium 10.8 mg/dl (8.6-10.3); Carbon Dioxide 24 mmol/L (21-32); Chloride 98 mmol/L (98-107); Eosinophils # (auto) 0.19 K/uL (0-0.50); Est GFR (Non-African American) 19.8 ml/min; Glucose 166 mg/dl (70-99(Fasting)); Hematocrit (blood only) 34.2 % (37.0-47.0); Hemoglobin 11.8 g/dl (12.0-16.0); Immature Granulocytes # (auto) 0.04 K/uL (0.01-0.20); Immature Granulocytes % (auto) 0.4 %; Lymphocytes # (auto) 0.81 K/uL (1.2-3.4); Lymphocytes % (auto) 8.5 %; Magnesium 2.3 mg/dl (1.7-2.4); Mean Corpuscular Hemoglobin 30.5 pg (25.0-34.0); Mean Corpuscular Hgb Conc 34.5 g/dL (32.0-36.0); Mean Corpuscular Volume 88.4 fL (80.0-100.0); Mean Platelet Volume 11.2 fL (9.4-12.4); Monocytes # (auto) 0.81 K/uL (0.11-0.59); Monocytes % (auto) 8.5 %; Neutrophils # (auto) 7.66 K/uL (1.40-6.50); Neutrophils % (auto) 80.3 %; Platelet Count 101 K/uL (130-400); Potassium 5.1 mmol/L (3.5-5.1); RDW Coefficient of Variation 16.1 % (11.5-14.5); RDW Standard Deviation 51.4 fL (36.4-46.3); Red Blood Count 3.87 M/uL (4.20-5.40); Sodium 132 mmol/L (136-145); Total Protein 7.8 gm/dl (6.0-8.3); White Blood Count 9.54 K/ul (4.8-10.8)
--- NOTE | 2023-02-07 06:55 | CT Scan Report ---
CT SCAN OF THE BRAIN WITHOUT IV CONTRAST CLINICAL HISTORY: Change in mental status. COMPARISON STUDY: CT of the brain dated 3 03/31/2018. TECHNIQUE: Unenhanced axial CT scan of the brain is performed from the vertex to the skull base. A do se lowering technique was utilized adhering to the principles of ALARA. CT DOSE: 625.80 mGy.cm FINDINGS: Brain parenchyma: There is age-related involutional change noting mild subcortical and periventricula r microangiopathic disease. There is no hemorrhage, mass effect, or evidence of acute territorial isc hemia by CT criteria. Corona-white matter differentiation is preserved. No extra-axial fluid collection is seen. Ventricles, sulci, cisterns: Prominent secondary to involutional change. Intracranial vasculature: There is atherosclerotic calcification of the cavernous carotid arteries. Calvarium: Unremarkable. Sinuses and mastoids: The paranasal sinuses are clear. The mastoid air cells are well pneumatized. Orbits: The bony orbits are grossly intact. There are bilateral ocular lens implants. IMPRESSION: There is no hemorrhage, mass effect, or evidence of acute territorial ischemia by CT eli bruce. ACT 112: Negative or not required by law. Electronically signed by: Parag Adrian M.D. 02/07/2023 6:53 AM
--- NOTE | 2023-02-07 06:59 | XRay Report ---
SINGLE VIEW CHEST CLINICAL HISTORY: Sepsis. FINDINGS: An AP, portable, semierect chest radiograph is compared to study dated 04/16/2021 and correl ated with chest CT dated 12/01/2020. The heart is top normal for projection noting atherosclerotic christian cification of the thoracic aorta. Chronic interstitial thickening is similar to previous. There are l eft basilar opacities. Scarring/atelectasis is noted at the right lung base. No large pleural effusio n or pneumothorax is seen. The skeletal structures are osteopenic. The bony thorax is grossly intact. 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 IMPRESSION: Left basilar opacities could represent scarring/atelectasis versus pneumonia/aspiration p neumonitis. Clinical correlation will be required and radiographic follow-up to resolution is recomme nded. ACT 112: Negative or not required by law. Electronically signed by: Parag Adrian M.D. 02/07/2023 6:57 AM
[2023-02-07] MEDS ORDERED: SODIUM CHLORIDE 0.9% 1000ML 500 ML IV ONE (07:00)
[2023-02-07] MEDS ORDERED: cefTRIAXone SODIUM 1,000 MG in DEXTROSE 5% AD-VAN 50 ML IV STA (07:11)
[2023-02-07] MEDS ORDERED: SODIUM CHLORIDE 0.9% 500 ML IV ONE (07:23)
[2023-02-07 07:37] LABS: Troponin I High Sensitivity 54.2 pg/ml (0-14)
[2023-02-07] MEDS ORDERED: ASPIRIN 300 MG SUPP PR ONE (07:48)
[2023-02-07] MEDS ORDERED: SODIUM CHLORIDE 0.9% 1000ML 700 ML IV ONE (07:56)
--- NOTE | 2023-02-07 08:54 | History & Physical Report ---
Date of Service February 07, 2023 Assessment & Plan (1) Hepatic encephalopathy: Plan: The patient is currently unresponsive from the combined effects of Ativan given prior to ED arrival and hyperammonemia. Supportive care. IV fluids. N.p.o. for now. (2) Acute kidney injury: Plan: IV fluids. Hold all diuretics. Monitor intake and output. Serial lab (3) Chronic diastolic congestive heart failure: Plan: No overt CHF on admission. Monitor intake and output. Serial chest x-ray as needed (4) Hypertension: Plan: Usual oral medications are on hold due to n.p.o. status. (5) Controlled type 2 diabetes mellitus, with long-term current use of insulin: Plan: Currently n.p.o. Sliding scale coverage at this time (6) Hypothyroidism: Plan: Continue thyroid replacement therapy when no longer n.p.o. Plan Eventual return to [facility] but it will be in several days History of Present Illness Chief Complaint: Encephalopathy Primary Care Provider: [facility] 87-year-old female from [facility] with Ramos cirrhosis. She developed encephalopathy with delirium this morning and was sent to the ED for evaluation. Apparently she was given Ativan before she arrived in the ED. She has now unresponsive. She is obviously volume depleted. Ammonia level is 183. She appears to be suffering from hepatic encephalopathy. IV fluids have been ordered along with a lactulose enema to be given in the ED. Armstrong catheter will be placed and she will be admitted but kept n.p.o. due to her mental status. Head CT scan is negative. Creatinine is elevated to 2.1 consistent with acute kidney injury from volume depletion Allergies Allergy/AdvReac Type Severity Reaction Status Date / Time erythromycin base Allergy Severe eye Verified 05/06/21 14:33 ointment only - red and infected Iodinated Contrast Media Allergy Severe heart Verified 05/06/21 14:33 muscles tightened/heart spasms Penicillins Allergy Intermediate "wore out Verified 05/06/21 14:33 on me" and hives repaglinide Allergy Intermediate Hives Verified 05/06/21 14:33 Sulfa (Sulfonamide Allergy Unknown Hives Verified 05/06/21 14:33 Antibiotics) timolol Allergy Unknown eye drops Verified 05/06/21 14:33 - eye redness clonazepam AdvReac Severe increased Verified 05/06/21 14:33 anxiety Gwjapcc-XUH-VpE Reductase AdvReac Severe ELEVATED Verified 05/06/21 14:33 Inhibitor HEPATIC [Ogjndtz-Tvs-Val Reductase ENZYMES Inhibitor] enalapril AdvReac Intermediate COUGH Verified 05/06/21 14:33 Home Medications Medication Instructions Recorded Confirmed Type cholecalciferol (vitamin D3) 50 2,000 units PO DAILY 03/16/19 01/20/23 History mcg (2,000 unit) capsule colestipol 1 gram tablet 2 gm PO HS 03/16/19 01/20/23 History docusate sodium 100 mg capsule 100 mg PO HS 03/16/19 01/20/23 History esomeprazole magnesium 20 mg 20 mg PO QAM 03/16/19 01/20/23 History capsule,delayed release magnesium chloride 71.5 mg 71.5 mg PO TID 03/16/19 01/20/23 History (magnesium chloride) tablet,delayed release (Slow-Mag) meclizine 25 mg tablet 25 mg PO DAILY PRN Vertigo #21 tabs 03/16/19 01/20/23 History ketotifen fumarate 0.025 % (0.035 1 drp OPB Q12H PRN Eye Irritation 05/16/19 01/20/23 History %) eye drops (Alaway) sodium chloride 0.65 % nasal spray 1 spray intranasal BID PRN 05/16/19 01/20/23 History aerosol (Saline Nasal) Congestion ipratropium 0.5 mg-albuterol 3 mg 3 ml inhalation Q8H PRN SOB #180 mL 08/29/20 01/20/23 Rx (2.5 mg base)/3 mL nebulization soln albuterol sulfate 90 mcg/actuation 2 puff inhalation Q4H PRN sob #18 12/24/20 01/20/23 Rx aerosol inhaler grams fluticasone furoate 100 1 inh inhalation DAILY #60 ea 12/24/20 01/20/23 Rx mcg-vilanterol 25 mcg/dose inhalation powder (Breo Ellipta) levothyroxine 150 mcg tablet 150 mcg PO DAILY #90 tabs 01/31/21 01/20/23 Rx lorazepam 0.5 mg tablet 0.5 mg PO HS PRN sleep #45 tabs 04/02/21 01/20/23 Rx nitroglycerin 0.4 mg sublingual 0.4 mg sublingual Q5M PRN Chest 04/02/21 01/20/23 Rx tablet Pain #25 tabs tramadol 37.5 mg-acetaminophen 325 1 tab PO DAILY PRN pain #30 tabs 04/02/21 01/20/23 Rx mg tablet valsartan 40 mg tablet 40 mg PO DAILY #90 tabs 04/02/21 01/20/23 Rx Lactobacills gasseri-Bifidobac 1 cap PO DAILY 04/16/21 01/20/23 History bifidum,longum 1.5 billion cell capsule (WrapMail) famotidine 20 mg tablet 20 mg PO HS 04/16/21 01/20/23 History sucralfate 1 gram tablet (Carafate) 1 g PO DAILY #30 tabs 04/21/21 01/20/23 Rx metoprolol succinate 50 mg 50 mg PO BID 05/06/21 01/20/23 History tablet,extended release 24 hr spironolactone 25 mg tablet 50 mg PO QAM #60 tabs 10/28/21 01/20/23 Rx bumetanide 2 mg tablet 2 mg PO DAILY #90 tabs 01/26/22 01/20/23 Rx insulin glargine 100 unit/mL (3 21 unit (0.21 mL) subcut HS #15 mL 01/30/22 01/20/23 Rx mL) subcutaneous pen (Lantus Solostar U-100 Insulin) insulin lispro 100 unit/mL See Rx Instructions .Route 03/25/22 01/20/23 Rx subcutaneous pen (Humalog KwikPen .COMPLEX #15 mL (U-100) Insulin) nitroglycerin 0.4 mg/hr 1 patch transdermal DAILY HEART 05/04/22 01/20/23 Rx transdermal 24 hour patch MUSCLE SPASMS #30 ea Past Med/Surg History Medical History Bronchitis Chronic bronchitis Coronary artery spasm reason for Nitro Patch q12h follows with Dr. Samson Depression hx Diabetes mellitus, type 2 iddm Encounter for drug screening Gastroparesis GERD (gastroesophageal reflux disease) Grief reaction Heart disease History of melanoma Hyperlipidemia Hypertension Hypothyroidism Interstitial lung disease Multiple lung nodules on CT Nonalcoholic fatty liver disease Obstructive sleep apnea syndrome Pneumonia hx Sleep apnea CPAP Vertigo Vertigo Surgical History History of appendectomy History of cardiac catheterization X3 (1994, 1999, 2006) History of cataract surgery bilateral History of colonoscopy History of dacryocystorhinostomy done monthly History of dilatation and curettage History of ERCP with stone removal History of laparoscopic cholecystectomy History of repair of rotator cuff right History of tonsillectomy S/P cholecystectomy S/P STEVE-BSO Status post biopsy of skin removal of melanoma Family History Mother Cardiac disorder Hypertension Heart disease Myocardial infarction Father Cardiac disorder Hypertension Heart disease Other Diabetes Ischemic heart disease Prostate cancer Denies family history of Ovarian cancer Breast cancer Colorectal cancer Social History Smoking Status: Unknown if ever smoked Second Hand Exposure: No (); Do You Dip or Chew Tobacco: No; Hx Alcohol Use: No Hx Substance Use: No Preferred Language: Serbian Communication Ability: Effective Visual Impairment: No Limitations Hearing Ability: Normal Sports Book Writer Required: No Beliefs That Will Affect Care: None marital status: / Current Living Situation: Personal Care Facility Current Living Situation Comment: lives [facility] current occupational status: retired Feels Safe at Home: Yes Childhood Exposure to Second-Hand Smoke: No Dental Care, Regularly: Yes Physical Activity Frequency: Daily Seatbelt Use: always Sunscreen Use: No Assistive Devices: None Review of Systems Review of Systems: The patient is unresponsive at the time of my examination Physical Exam Physical Exam: General-unresponsive. Obviously dehydrated. Vital signs are stable however HEENT-head atraumatic and normocephalic, pupils equal and reactive to light Neck-no lymphadenopathy or thyromegaly, trachea midline Chest-clear to auscultation percussion. No rales, wheezing or rhonchi Cardiac-slightly tachycardic regular rhythm. Abdomen-normal bowel sounds, no hepatosplenomegaly Extremities-no cyanosis, clubbing, or edema Neuro-the patient is unresponsive. Cannot assess Psych-the patient is unresponsive. Cannot assess Results & Data Results & Data Vital Signs (Past 12 Hours) Vital Signs Temp Pulse Pulse Resp BP BP Pulse Ox 02/07/23 07:15 77 16 143/66 H 92 02/07/23 07:07 90 15 118/56 L 93 02/07/23 06:30 95 H 18 191/71 H 93 02/07/23 06:24 93 02/07/23 06:07 113 H 02/07/23 06:36 92 H 20 185/64 H 92 02/07/23 06:31 97 H 20 191/71 H 93 02/07/23 06:26 37.4 C 109 H 20 94 O2 Del Method 02/07/23 07:15 Room Air 02/07/23 07:07 Room Air 02/07/23 06:30 Room Air 02/07/23 06:24 Room Air 02/07/23 06:07 02/07/23 06:36 Room Air 02/07/23 06:31 Room Air 02/07/23 06:26 Room Air Laboratory Results 02/07/23 06:10 02/07/23 06:10 PG Care Time/CCT Total # of Minutes Spent Total Time Spent with Patient: Total time spent is greater than 50% in coordination of care (as documented) at patient's floor/unit and/or counseling patient: Coding Level of Care Code 65435 INT INP/OBS CARE 375MIN Diagnoses Hepatic encephalopathy K76.82 Acute kidney injury N17.9 Chronic diastolic congestive heart failure I50.32 Hypertension I10 Hypertension type: essential hypertension Controlled type 2 diabetes mellitus, with long-term current use of insulin E11.9; Z79.4 Diabetes mellitus complication status: without complication Hypothyroidism E03.9 Hypothyroidism type: unspecified (4) Hypertension Hypertension type: essential hypertension Qualified Code(s): I10 - Essential (primary) hypertension (5) Controlled type 2 diabetes mellitus, with long-term current use of insulin Diabetes mellitus complication status: without complication Qualified Code(s): E11.9 - Type 2 diabetes mellitus without complications; Z79.4 - halfway (current) use of insulin (6) Hypothyroidism Hypothyroidism type: unspecified Qualified Code(s): E03.9 - Hypothyroidism, unspecified
[2023-02-07] MEDS: LACTULOSE 200GM/700ML WTR ENEMA PR SCH ×4 (09:24→23:58)
[2023-02-07] MEDS: SODIUM CHLORIDE 0.9% 1000ML 1,000 ML IV SCH ×2 (11:12→21:33)
[2023-02-07] MEDS ORDERED: Nursing to Pharmacy Communication SCH (12:30)
[2023-02-07] MEDS ORDERED: HALOPERIDOL DECANOATE INJ 50 MG/ML VIAL IM ONE (12:44)
[2023-02-07] MEDS ORDERED: HALOPERIDOL LACTATE 5 MG/ML 1 ML VIAL IM STA (13:19)
--- NOTE | 2023-02-07 14:14 | Electrocardiogram Report ---
Test Reason : Blood Pressure : / mmHG Vent. Rate : 102 BPM Atrial Rate : 102 BPM P-R Int : 172 ms QRS Dur : 086 ms QT Int : 326 ms P-R-T Axes : 060 -13 072 degrees QTc Int : 424 ms Sinus tachycardia with Premature atrial complexes Poor R wave progression, consider anterior AL vs. lead placement vs. LVH Abnormal ECG When compared with ECG of 18-APR-2021 14:13, Premature atrial complexes are now Present Right bundle branch block is no longer Present Confirmed by Reza Samson ([id number]) on 02/07/2023 2:13:44 PM Referred By: Confirmed By:Reza Samson
--- NOTE | 2023-02-07 14:28 | Emergency Department Note ---
Impression & Plan Hyperammonemia, MARIKA (acute kidney injury), Dehydration, Encephalopathy, Elevated troponin level ED Provider Note CHIEF COMPLAINT: Altered mental status HISTORY OF PRESENT ILLNESS: This 87-year-old female patient with past medical history of cirrhosis of liver, hepatic encephalopathy, interstitial lung disease,, CAD, dyslipidemia, LVH, type 2 diabetes on insulin, cardiomyopathy presents to the emergency department from [facility] with worsening mental status. Patient has apparently become nonverbal over the last several days. Patient does have a history of atrial fibrillation and has had several falls lately. Per medication records it does not appear that she is an ticoagulated. Patient is not able to give any history. Much of the report was obtained through nursing/EMS. REVIEW OF SYSTEMS: A review of systems was performed with positives and pertinent negatives listed in the history of present illness. 10 systems were reviewed and are otherwise negative. ALLERGIES: see below MEDICATIONS: see below PMH: see below SOCIAL HISTORY: see below DDx: Dehydration, metabolic abnormality, hypo/hyperglycemia, electrolyte disturbance, anemia, hypoxia, cardiac sources, intracerebral event, toxicologic, neurologic, as well as other pathologies. PHYSICAL EXAM: Vital signs reviewed. General: Chronically ill-appearing 87-year-old female, somnolent but arousable to painful stimuli HEENT: No scleral icterus, PERRLA, neck supple. Atraumatic. Dry mucous membranes Cardiovascular: Tachycardic but regular, no extra sounds Pulmonary: Clear to auscultation bilaterally, normal work of breathing. Abdomen: Soft, nontender, nondistended, positive bowel sounds. Musculoskeletal: Atraumatic, no peripheral edema. Neurologic: Patient somnolent, responds to painful stimuli Skin: Warm, dry, no rash EMERGENCY DEPARTMENT COURSE/MDM: This patient was evaluated and appeared to be chronically ill. CT imaging of the head was performed and reveals no evidence of acute intracranial abnormality. IV access was obtained and laboratory work was drawn. Patient's vital signs are stable however her mental status is quite diminished. She was hydrated with normal saline solution, 500 mL boluses x2 with an additional 700 mL bolus. UA is negative for infection. Patient ammonia level is 183. Patient was also noted to have an MARIKA and an elevated troponin. Lactulose enema was ordered but was somewhat unsuccessful due to the patient's inability to cooperate. An NG tube was attempted by nursing staff but also unsuccessful. Further care was deferred to the inpatient team. MONITORING: An order for cardiac monitoring was placed and the patient is noted to be in a normal sinus rhythm at 95 at beats per minute. RADIOLOGY: Chest x-ray to my interpretation reveals possible left basilar atelectasis versus infiltrate. Otherwise defer to radiology. CT imaging of the head to my review reveals no evidence of acute intracranial abnormality. Otherwise defer to radiology EKG: To my interpretation reveals a sinus tachycardia with PACs at 102 bpm. Poor R wave progression. QTc is 424. When compared to previous dated April 18, 2021, PACs are new, right bundle branch block is no longer present DISPOSITION: Admit I have personally spent 35 minutes of critical care time in the direct management of this patient. This was a life/limb threatening event. This 35 minutes is in excess of all separately billable procedures. Past Med/Surg History Medical History Bronchitis Chronic bronchitis Coronary artery spasm reason for Nitro Patch q12h follows with Dr. Samson Depression hx Diabetes mellitus, type 2 iddm Encounter for drug screening Gastroparesis GERD (gastroesophageal reflux disease) Grief reaction Heart disease History of melanoma Hyperlipidemia Hypertension Hypothyroidism Interstitial lung disease Multiple lung nodules on CT Nonalcoholic fatty liver disease Obstructive sleep apnea syndrome Pneumonia hx Sleep apnea CPAP Vertigo Vertigo Surgical History History of appendectomy History of cardiac catheterization X3 (1994, 1999, 2006) History of cataract surgery bilateral History of colonoscopy History of dacryocystorhinostomy done monthly History of dilatation and curettage History of ERCP with stone removal History of laparoscopic cholecystectomy History of repair of rotator cuff right History of tonsillectomy S/P cholecystectomy S/P STEVE-BSO Status post biopsy of skin removal of melanoma Family History Mother Cardiac disorder Hypertension Heart disease Myocardial infarction Father Cardiac disorder Hypertension Heart disease Other Diabetes Ischemic heart disease Prostate cancer Denies family history of Ovarian cancer Breast cancer Colorectal cancer Social History Smoking Status: Never smoker Second Hand Exposure: No (); Do You Dip or Chew Tobacco: No; Hx Alcohol Use: No Hx Substance Use: No Preferred Language: Brazilian Communication Ability: Unable Visual Impairment: No Limitations Hearing Ability: Normal Heel Cover Splitter Required: No Beliefs That Will Affect Care: Spiritual marital status: / Current Living Situation: Personal Care Facility Current Living Situation Comment: lives in [facility] current occupational status: retired Feels Safe at Home: Yes Childhood Exposure to Second-Hand Smoke: No Dental Care, Regularly: Yes Physical Activity Frequency: Daily Seatbelt Use: always Sunscreen Use: No Assistive Devices: Walker Allergies Allergies Allergy/AdvReac Type Severity Reaction Status Date / Time erythromycin base Allergy Severe eye Verified 02/07/23 12:24 ointment only - red and infected Iodinated Contrast Media Allergy Severe heart Verified 05/06/21 14:33 muscles tightened/heart spasms Penicillins Allergy Intermediate "wore out Verified 02/07/23 12:24 on me" and hives repaglinide Allergy Intermediate Hives Verified 02/07/23 12:24 Sulfa (Sulfonamide Allergy Unknown Hives Verified 05/06/21 14:33 Antibiotics) timolol Allergy Unknown eye drops Verified 02/07/23 12:24 - eye redness clonazepam AdvReac Severe increased Verified 05/06/21 14:33 anxiety Bvvupcn-XFY-MaA Reductase AdvReac Severe ELEVATED Verified 05/06/21 14:33 Inhibitor HEPATIC [Qjtqyeg-Djv-Wdc Reductase ENZYMES Inhibitor] enalapril AdvReac Intermediate COUGH Verified 02/07/23 12:24 Home Meds Home Medications Medication Instructions Recorded Confirmed ketotifen fumarate 0.025 % (0.035 1 drp ophthalmic (eye) TID PRN Eye 05/16/19 02/07/23 %) eye drops ([place]) Irritation famotidine 20 mg tablet 20 mg PO HS 04/16/21 02/07/23 acetaminophen 325 mg tablet 650 mg PO Q6H PRN Fever 02/07/23 02/07/23 bisacodyl 10 mg rectal suppository 10 mg GA DAILY PRN Constipation 02/07/2301/21 (Dulcolax (bisacodyl)) cetylpyridinium chloride 1 tara mucous membrane DAILY PRN 02/07/23 02/07/23 Sore Throat colestipol 5 gram oral packet 5 g PO BID diarrhea 02/07/23 02/07/23 insulin glargine 100 unit/mL 10 unit subcut HS 02/07/23 02/07/23 subcutaneous solution (Lantus U-100 Insulin) levothyroxine 125 mcg tablet 125 mcg PO DAILY 02/07/23 02/07/23 lorazepam 1 mg tablet 1 mg PO HS 02/07/23 02/07/23 magnesium chloride 71.5 mg 143 mg PO DAILY 02/07/23 02/07/23 (magnesium chloride) tablet,delayed release (Slow-Mag) magnesium hydroxide 400 mg/5 mL 30 ml PO DAILY PRN Constipation 02/07/23 02/07/23 oral suspension (Milk of Magnesia) meclizine 12.5 mg tablet 12.5 mg PO Q8H PRN Vertigo 02/07/23 02/07/23 pantoprazole 40 mg tablet,delayed 40 mg PO DAILY 02/07/23 02/07/23 release sodium phosphates 19 gram-7 118 ml GA DAILY PRN Constipation 02/07/23 02/07/23 gram/118 mL enema (Fleet Enema) spironolactone 50 mg tablet 50 mg PO BID 02/07/23 02/07/23 tramadol 37.5 mg-acetaminophen 325 1 tab PO HS 02/07/23 02/07/23 mg tablet tramadol 50 mg tablet 50 mg PO Q6H PRN Pain 02/07/23 02/07/23 Previous Rx's Medication Instructions Recorded fluticasone furoate 100 1 inh inhalation DAILY #60 ea 12/24/20 mcg-vilanterol 25 mcg/dose inhalation powder (Breo Ellipta) bumetanide 2 mg tablet 2 mg PO DAILY #90 tabs 01/26/22 nitroglycerin 0.4 mg/hr 1 patch transdermal DAILY HEART 05/04/22 transdermal 24 hour patch MUSCLE SPASMS #30 ea Results & Data (ED) Vital Signs Vital Signs - 24 hr 02/07/23 06:26 02/07/23 06:31 02/07/23 06:36 Temperature 37.4 C Temperature Source Rectal Pulse Rate 109 H Pulse Rate [Finger] 97 H 92 H Pulse Rhythm [Finger] Regular Pulse Strength Normal Respiratory Rate 20 20 20 Respiratory Effort / Characteristics Non-Labored Spontaneous Non-Labored Spontaneous Non-Labored Spontaneous Respiratory Depth Normal Normal Normal Respiratory Pattern Regular Regular Blood Pressure Blood Pressure [Right Arm] 191/71 H 185/64 H Blood Pressure Mean Blood Pressure Mean [Right Arm] 111 104 Blood Pressure Position [Right Arm] Lying Lying Pulse Oximetry 94 93 92 Oxygen Delivery Method Room Air Room Air Room Air Sepsis Recent Fever Within 48 Hours No Sepsis New/Unexplained Change in Mental Status Yes Sepsis Action Taken by Nursing Physician Notified 02/07/23 06:07 02/07/23 06:24 02/07/23 06:30 Temperature Temperature Source Pulse Rate 113 H 95 H Pulse Rate [Finger] Pulse Rhythm [Finger] Pulse Strength Respiratory Rate 18 Respiratory Effort / Characteristics Respiratory Depth Respiratory Pattern Blood Pressure 191/71 H Blood Pressure [Right Arm] Blood Pressure Mean 111 Blood Pressure Mean [Right Arm] Blood Pressure Position [Right Arm] Pulse Oximetry 93 93 Oxygen Delivery Method Room Air Room Air Sepsis Recent Fever Within 48 Hours Sepsis New/Unexplained Change in Mental Status Sepsis Action Taken by Nursing 02/07/23 07:07 02/07/23 07:15 02/07/23 07:30 Temperature Temperature Source Pulse Rate 90 77 75 Pulse Rate [Finger] Pulse Rhythm [Finger] Pulse Strength Respiratory Rate 15 16 15 Respiratory Effort / Characteristics Respiratory Depth Respiratory Pattern Blood Pressure 118/56 L 143/66 H 107/61 Blood Pressure [Right Arm] Blood Pressure Mean 76 91 76 Blood Pressure Mean [Right Arm] Blood Pressure Position [Right Arm] Pulse Oximetry 93 92 94 Oxygen Delivery Method Room Air Room Air Room Air Sepsis Recent Fever Within 48 Hours Sepsis New/Unexplained Change in Mental Status Sepsis Action Taken by Nursing 02/07/23 07:45 02/07/23 08:15 Temperature Temperature Source Pulse Rate 71 75 Pulse Rate [Finger] Pulse Rhythm [Finger] Pulse Strength Respiratory Rate 17 15 Respiratory Effort / Characteristics Respiratory Depth Respiratory Pattern Blood Pressure 124/46 L 127/49 L Blood Pressure [Right Arm] Blood Pressure Mean 72 75 Blood Pressure Mean [Right Arm] Blood Pressure Position [Right Arm] Pulse Oximetry 94 96 Oxygen Delivery Method Room Air Room Air Sepsis Recent Fever Within 48 Hours Sepsis New/Unexplained Change in Mental Status Sepsis Action Taken by Fdc Medications Current Medication List: was personally reviewed by me Laboratory Data Attestation: I reviewed the patient's lab results. 02/07/23 06:10 02/07/23 06:10 Lab Results 02/07/23 02/07/23 02/07/23 Range/Units 06:10 06:10 06:10 WBC 9.54 (4.8-10.8) K/ul RBC 3.87 L (4.20-5.40) M/uL Hgb 11.8 L (12.0-16.0) g/dl Hct 34.2 L (37.0-47.0) % MCV 88.4 (80.0-100.0) fL MCH 30.5 (25.0-34.0) pg MCHC 34.5 (32.0-36.0) g/dL RDW Std Deviation 51.4 H (36.4-46.3) fL RDW Coeff of [place] 16.1 H (11.5-14.5) % Plt Count 101 L (130-400) K/uL MPV 11.2 (9.4-12.4) fL Immature Gran % (Auto) 0.4 % Neut % (Auto) 80.3 % Lymph % (Auto) 8.5 % [place] % (Auto) 8.5 % Eos % (Auto) 2.0 % Baso % (Auto) 0.3 % Neut # (Auto) 7.66 H (1.40-6.50) K/uL Lymph # (Auto) 0.81 L (1.2-3.4) K/uL [place] # (Auto) 0.81 H (0.11-0.59) K/uL Eos # (Auto) 0.19 (0-0.50) K/uL Baso # (Auto) 0.03 (0-0.2) K/uL Immature Gran # (Auto) 0.04 (0.01-0.20) K/uL Sodium 132 L (136-145) mmol/L Potassium 5.1 (3.5-5.1) mmol/L Chloride 98 (98-107) mmol/L Carbon Dioxide 24 (21-32) mmol/L Anion Gap 10 (3-11) BUN 46 H (6-23) mg/dl Creatinine 2.17 H (0.6-1.2) mg/dl Est Cr Clr Drug Dosing Not Reportable Est GFR ( Amer) 23.0 ml/min Est GFR (Non-Af Amer) 19.8 ml/min BUN/Creatinine Ratio 21.2 H (10-20) Glucose 166 H (70-99(Fasting)) mg/dl Lactate (0.4-2.0) mmol/L Calcium 10.8 H (8.6-10.3) mg/dl Magnesium 2.3 (1.7-2.4) mg/dl Total Bilirubin 1.9 H (0.2-1.0) mg/dl Direct Bilirubin 0.7 H (0-0.2) mg/dl AST 31 (13-39) U/L ALT 21 (7-52) U/L Alkaline Phosphatase 124 H (34-104) U/L Ammonia (18-72) umol/L Troponin I High Sens 54.2 H* (0-14) pg/ml Total Protein 7.8 (6.0-8.3) gm/dl Albumin 3.9 (3.4-5.0) gm/dl Procalcitonin 0.14 (0-0.5) ng/ml Urine Color Urine Appearance (Clear) Urine pH (4.5-7.5) Ur Specific Mars (1.000-1.030) Urine Protein (Negative) Urine Glucose (UA) (Negative) Urine Ketones (Negative) Urine Blood (Negative) Urine Nitrite (Negative) Urine Bilirubin (Negative) Urine Urobilinogen (Negative) Ur Leukocyte Esterase (Negative) Urine WBC (Auto) (0-5) /hpf Urine RBC (Auto) (0-4) /hpf U Hyaline Cast (Auto) (0-5) /lpf U Epithel Cells (Auto) (0-5) /lpf Urine Bacteria (Auto) (Negative) Ethyl Alcohol mg/dL (<10.0) mg/dl SARS-CoV-2, RNA, NAAT (NEGATIVE) 02/07/23 02/07/23 02/07/23 Range/Units 06:15 06:30 06:30 WBC (4.8-10.8) K/ul RBC (4.20-5.40) M/uL Hgb (12.0-16.0) g/dl Hct (37.0-47.0) % MCV (80.0-100.0) fL MCH (25.0-34.0) pg MCHC (32.0-36.0) g/dL RDW Std Deviation (36.4-46.3) fL RDW Coeff of [place] (11.5-14.5) % Plt Count (130-400) K/uL MPV (9.4-12.4) fL Immature Gran % (Auto) % Neut % (Auto) % Lymph % (Auto) % [place] % (Auto) % Eos % (Auto) % Baso % (Auto) % Neut # (Auto) (1.40-6.50) K/uL Lymph # (Auto) (1.2-3.4) K/uL [place] # (Auto) (0.11-0.59) K/uL Eos # (Auto) (0-0.50) K/uL Baso # (Auto) (0-0.2) K/uL Immature Gran # (Auto) (0.01-0.20) K/uL Sodium (136-145) mmol/L Potassium (3.5-5.1) mmol/L Chloride (98-107) mmol/L Carbon Dioxide (21-32) mmol/L Anion Gap (3-11) BUN (6-23) mg/dl Creatinine (0.6-1.2) mg/dl Est Cr Clr Drug Dosing Est GFR ( Amer) ml/min Est GFR (Non-Af Amer) ml/min BUN/Creatinine Ratio (10-20) Glucose (70-99(Fasting)) mg/dl Lactate 2.9 H* (0.4-2.0) mmol/L Calcium (8.6-10.3) mg/dl Magnesium (1.7-2.4) mg/dl Total Bilirubin (0.2-1.0) mg/dl Direct Bilirubin (0-0.2) mg/dl AST (13-39) U/L ALT (7-52) U/L Alkaline Phosphatase (34-104) U/L Ammonia 183.0 H (18-72) umol/L Troponin I High Sens (0-14) pg/ml Total Protein (6.0-8.3) gm/dl Albumin (3.4-5.0) gm/dl Procalcitonin (0-0.5) ng/ml Urine Color Yellow Urine Appearance Clear (Clear) Urine pH 5.5 (4.5-7.5) Ur Specific Mars 1.017 (1.000-1.030) Urine Protein 1+ H (Negative) Urine Glucose (UA) Negative (Negative) Urine Ketones Trace H (Negative) Urine Blood Negative (Negative) Urine Nitrite Negative (Negative) Urine Bilirubin Negative (Negative) Urine Urobilinogen Negative (Negative) Ur Leukocyte Esterase Trace H (Negative) Urine WBC (Auto) 1-5 (0-5) /hpf Urine RBC (Auto) 0-4 (0-4) /hpf U Hyaline Cast (Auto) 1-5 (0-5) /lpf U Epithel Cells (Auto) 5-10 H (0-5) /lpf Urine Bacteria (Auto) 4+ H (Negative) Ethyl Alcohol mg/dL (<10.0) mg/dl SARS-CoV-2, RNA, NAAT (NEGATIVE) 02/07/23 02/07/23 Range/Units 08:02 08:09 WBC (4.8-10.8) K/ul RBC (4.20-5.40) M/uL Hgb (12.0-16.0) g/dl Hct (37.0-47.0) % MCV (80.0-100.0) fL MCH (25.0-34.0) pg MCHC (32.0-36.0) g/dL RDW Std Deviation (36.4-46.3) fL RDW Coeff of [place] (11.5-14.5) % Plt Count (130-400) K/uL MPV (9.4-12.4) fL Immature Gran % (Auto) % Neut % (Auto) % Lymph % (Auto) % [place] % (Auto) % Eos % (Auto) % Baso % (Auto) % Neut # (Auto) (1.40-6.50) K/uL Lymph # (Auto) (1.2-3.4) K/uL [place] # (Auto) (0.11-0.59) K/uL Eos # (Auto) (0-0.50) K/uL Baso # (Auto) (0-0.2) K/uL Immature Gran # (Auto) (0.01-0.20) K/uL Sodium (136-145) mmol/L Potassium (3.5-5.1) mmol/L Chloride (98-107) mmol/L Carbon Dioxide (21-32) mmol/L Anion Gap (3-11) BUN (6-23) mg/dl Creatinine (0.6-1.2) mg/dl Est Cr Clr Drug Dosing Est GFR ( Amer) ml/min Est GFR (Non-Af Amer) ml/min BUN/Creatinine Ratio (10-20) Glucose (70-99(Fasting)) mg/dl Lactate (0.4-2.0) mmol/L Calcium (8.6-10.3) mg/dl Magnesium (1.7-2.4) mg/dl Total Bilirubin (0.2-1.0) mg/dl Direct Bilirubin (0-0.2) mg/dl AST (13-39) U/L ALT (7-52) U/L Alkaline Phosphatase (34-104) U/L Ammonia (18-72) umol/L Troponin I High Sens (0-14) pg/ml Total Protein (6.0-8.3) gm/dl Albumin (3.4-5.0) gm/dl Procalcitonin (0-0.5) ng/ml Urine Color Urine Appearance (Clear) Urine pH (4.5-7.5) Ur Specific [place] (1.000-1.030) Urine Protein (Negative) Urine Glucose (UA) (Negative) Urine Ketones (Negative) Urine Blood (Negative) Urine Nitrite (Negative) Urine Bilirubin (Negative) Urine Urobilinogen (Negative) Ur Leukocyte Esterase (Negative) Urine WBC (Auto) (0-5) /hpf Urine RBC (Auto) (0-4) /hpf U Hyaline Cast (Auto) (0-5) /lpf U Epithel Cells (Auto) (0-5) /lpf Urine Bacteria (Auto) (Negative) Ethyl Alcohol mg/dL < 10.0 (<10.0) mg/dl SARS-CoV-2, RNA, NAAT NEGATIVE (NEGATIVE) Administered Medications Sodium Chloride (Nss 1000ml) 1,000 mls @ 100 mls/hr IV .Q10H IVY Stop: 03/09/23 09:59 Last Admin: 02/07/23 11:12 Dose: 100 mls/hr Documented By: ODESSA Lactulose (Lactulose 200gm/700ml Wtr Enema) 200 gm GA Q8H IVY Stop: 03/09/23 07:29 Last Admin: 02/07/23 09:50 Dose: Not Given Documented By: MMZ Discontinued Medications Aspirin (Aspirin 300 Mg Supp) 300 mg GA ONE ONE Stop: 02/07/23 07:49 Last Admin: 02/07/23 08:13 Dose: 300 mg Documented By: LOIS Haloperidol Decanoate (Haloperidol Decanoate Inj 50 Mg/Ml Vial) 5 mg IM ONE ONE Stop: 02/07/23 12:45 Last Admin: 02/07/23 13:57 Dose: Not Given Documented By: ODESSA Haloperidol Lactate (Haloperidol Lactate 5 Mg/Ml 1 Ml Vial) 5 mg IM NOW STA Stop: 02/07/23 13:20 Last Admin: 02/07/23 13:50 Dose: 5 mg Documented By: ODESSA Sodium Chloride (Nss 1000ml) 500 mls @ 999 mls/hr IV .Q31M ONE Stop: 02/07/23 07:30 Last Infusion: 02/07/23 08:02 Dose: 0 mls/hr Documented By: Admin: 02/07/23 07:29 Dose: 999 mls/hr Documented By: LOIS Ceftriaxone Sodium 1,000 mg/ (Dextrose) 50 mls @ 100 mls/hr IV NOW STA Stop: 02/07/23 07:40 Last Infusion: 02/07/23 09:05 Dose: 0 mls/hr Documented By: Admin: 02/07/23 08:13 Dose: 100 mls/hr Documented By: LOIS Sodium Chloride (Nss) 500 mls @ 999 mls/hr IV .Q31M ONE Stop: 02/07/23 07:53 Last Infusion: 02/07/23 09:58 Dose: 0 mls/hr Documented By: Admin: 02/07/23 09:05 Dose: 999 mls/hr Documented By: LOIS Sodium Chloride (Nss 1000ml) 700 mls @ 999 mls/hr IV .Q43M ONE Stop: 02/07/23 08:38 Last Infusion: 02/07/23 09:05 Dose: 0 mls/hr Documented By: Admin: 02/07/23 08:06 Dose: 999 mls/hr Documented By: LOIS Miscellaneous Information (Nursing To Pharmacy Communication) 1 each N/A TODAY IVY Stop: 03/09/23 12:29 Last Admin: 02/07/23 13:03 Dose: Not Given Documented By: ODESSA Imaging Data Radiologist's Impression: Chest X-Ray 02/07/23 06:21 SINGLE VIEW CHEST CLINICAL HISTORY: Sepsis. FINDINGS: An AP, portable, semierect chest radiograph is compared to study dated 04/16/2021 and correlated with chest CT dated 12/01/2020. The heart is top normal for projection noting atherosclerotic calcification of the thoracic aorta. Chronic interstitial thickening is similar to previous. There are left basilar opacities. Scarring/atelectasis is noted at the right lung base. No large pleural effusion or pneumothorax is seen. The skeletal structures are osteopenic. The bony thorax is grossly intact. 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 IMPRESSION: Left basilar opacities could represent scarring/atelectasis versus pneumonia/aspiration pneumonitis. Clinical correlation will be required and radiographic follow-up to resolution is recommended. ACT 112: Negative or not required by law. Electronically signed by: Parag Adrian M.D. 02/07/2023 6:[address] 02/07/23 06:22 CT SCAN OF THE BRAIN WITHOUT IV CONTRAST CLINICAL HISTORY: Change in mental status. COMPARISON STUDY: CT of the brain dated 3 03/31/2018. TECHNIQUE: Unenhanced axial CT scan of the brain is performed from the vertex to the skull base. A dose lowering technique was utilized adhering to the principles of ALARA. CT DOSE: 625.80 mGy.cm FINDINGS: Brain parenchyma: There is age-related involutional change noting mild subcortical and periventricular microangiopathic disease. There is no hemorrhage, mass effect, or evidence of acute territorial ischemia by CT criteria. Corona-white matter differentiation is preserved. No extra-axial fluid collection is seen. Ventricles, sulci, cisterns: Prominent secondary to involutional change. Intracranial vasculature: There is atherosclerotic calcification of the cavernous carotid arteries. Calvarium: Unremarkable. Sinuses and mastoids: The paranasal sinuses are clear. The mastoid air cells are well pneumatized. Orbits: The bony orbits are grossly intact. There are bilateral ocular lens implants. IMPRESSION: There is no hemorrhage, mass effect, or evidence of acute territorial ischemia by CT criteria. ACT 112: Negative or not required by law. Electronically signed by: Parag Adrian M.D. 02/07/2023 6:53 AM Discharge Plan Visit Data Chief Complaint: Altered Mental Status ED Provider: Lindsey Davis Discharge Problem: Hyperammonemia, MARIKA (acute kidney injury), Dehydration, Encephalopathy, Elevated troponin level Patient Disposition: Admitted As Inpatient Discharge Instructions Interventions: ED Discharge Assessment Last Done: 02/07/23 10:27
[2023-02-07] MEDS ORDERED: PHARMACY GLYCEMIC MGMT CONSULT PRN (19:24)
[2023-02-07] MEDS ORDERED: GLUCAGON FOR INJ 1 MG VIAL IM PRN (20:00)
[2023-02-07] MEDS ORDERED: GLUCOSE 10 TAB/TUBE PO PRN (20:00)
[2023-02-07] MEDS ORDERED: GLUCOSE 40% GEL 15 GM TUBE PO PRN (20:00)
[2023-02-07] MEDS ORDERED: DEXTROSE 50% 50 ML SYRINGE IV PRN (20:00)
[2023-02-07] MEDS ORDERED: CARBOHYDRATES FOR HYPOGLYCEMIA PO PRN (20:00)
[2023-02-07] MEDS ORDERED: LANTUS PER UNIT CHARGE SC SCH (21:00)
[2023-02-07] MEDS: HEPARIN SOD 5,000 UNIT/0.5 ML VIAL SQ SCH (22:31)
[2023-02-08] MEDS: INSULIN ASPART PER UNIT CHARGE SC SCH ×5 (01:20→22:22)
[2023-02-08] MEDS: SODIUM CHLORIDE 0.9% 1000ML 1,000 ML IV SCH ×2 (08:00→22:39)
[2023-02-08 08:10] LABS: Basophils # (auto) 0.01 K/uL (0-0.2); Basophils % (auto) 0.1 %; Eosinophils # (auto) 0.08 K/uL (0-0.50); Eosinophils % (auto) 0.8 %; Hemoglobin 11.6 g/dl (12.0-16.0); Immature Granulocytes # (auto) 0.03 K/uL (0.01-0.20); Immature Granulocytes % (auto) 0.3 %; Lymphocytes % (auto) 7.4 %; Mean Corpuscular Hemoglobin 30.7 pg (25.0-34.0); Mean Corpuscular Hgb Conc 34.1 g/dL (32.0-36.0); Mean Corpuscular Volume 89.9 fL (80.0-100.0); Monocytes # (auto) 0.81 K/uL (0.11-0.59); Monocytes % (auto) 8.6 %; Neutrophils # (auto) 7.84 K/uL (1.40-6.50); Neutrophils % (auto) 82.8 %; Platelet Count 81 K/uL (130-400); RDW Coefficient of Variation 16.8 % (11.5-14.5); RDW Standard Deviation 53.7 fL (36.4-46.3); Red Blood Count 3.78 M/uL (4.20-5.40); White Blood Count 9.47 K/ul (4.8-10.8)
[2023-02-08 08:27] LABS: BUN Creatinine Ratio 23.8 (10-20); Calcium 10.2 mg/dl (8.6-10.3); Creatinine Clr Calc Pharmacy 24.5 ml/min; Est GFR (African American) 46.1 ml/min; Est GFR (Non-African American) 39.8 ml/min; Potassium 4.2 mmol/L (3.5-5.1)
[2023-02-08] MEDS: HEPARIN SOD 5,000 UNIT/0.5 ML VIAL SQ SCH ×2 (08:31→22:21)
[2023-02-08] MEDS: LACTULOSE 200GM/700ML WTR ENEMA PR SCH (11:24)
--- NOTE | 2023-02-08 12:06 | Pharmacy Report ---
Pharmacy Glycemic Short Note 2 - Date of Service February 08, 2023 - Glycemic Short BSG Results (Last 24 hours): 02/07/23 02/07/23 02/08/23 17:46 22:29 00:47 Glucose POC Glucose 149 H 118 H 149 H 02/08/23 02/08/23 02/08/23 06:05 07:57 11:29 Glucose 140 H POC Glucose 129 H 179 H OUTPATIENT ANTIDIABETIC REGIMEN: * Lantus 10 units HS * HbA1C = 6.8 (12/08/22) ASSESSMENT: * Ms Mackay is an 87 y/o F with a PMH of T2DM who presents with hepatic encephalopathy. Patient takes basal insulin at home. * Patient received her home dose of 10 units last night. Fasting today is 129 mg/dL. Continue this dose. * Patient transitioned from NPO to T2DM. * Novolog weight-based stress of 3. Loosen as appropriate. PLAN FOR INPATIENT GLYCEMIC CONTROL: * Basal insulin * Lantus 10 units SQ HS * Bolus insulin * NovoLog per scale ACHS or Q6hrs while NPO * Goal Range: Low 110 mg/dL - High 140 mg/dL * Correction Factor: 30 mg/dL/unit * Nutritional / Prandial insulin per carb ratio of 1 unit per 10 grams CHO consumed
--- NOTE | 2023-02-08 14:58 | Hospitalist Progress Note ---
Date of Service February 08, 2023 Assessment & Plan (1) Hepatic encephalopathy: Plan: Ammonia markedly improved down to 32. Mental status has also improved considerably. She is no longer unresponsive but remains confused. IV fluids taper down. Diet has been ordered. Continue daily labs (2) Acute kidney injury: Plan: Resolved with IV fluids. Holding all diuretics. Monitor intake and output. Se rial lab (3) Chronic diastolic congestive heart failure: Plan: No overt CHF on admission. Monitor intake and output. Serial chest x-ray as needed (4) Hypertension: Plan: Usual medications resumed now that she is taking p.o. (5) Controlled type 2 diabetes mellitus, with long-term current use of insulin: Plan: Usual medications resumed. Sliding scale coverage. ADA diet (6) Hypothyroidism: Plan: Continue thyroid replacement therapy Plan Eventual return to [facility], hopefully this week Admission and Anticipated Discharge Date Admission Date: February 07, 2023 Subjective The patient is now awake and alert but remains confused. Ammonia level has dropped dramatically down to a normal range, 32. Speech therapy evaluation noted. IV fluids taper down and diet has been started. OT and PT assessments requested. Creatinine has improved from 2.1 down to 1.2. Review of Systems Review of Systems: The patient is confused and cannot reliably answer any questions regarding review of systems Physical Exam Physical Exam: General-alert but disoriented. No fever HEENT-head atraumatic and normocephalic, pupils equal and reactive to light Neck-no lymphadenopathy or thyromegaly, trachea midline Chest-clear to auscultation percussion. No rales, wheezing or rhonchi Cardiac-regular rhythm. Normal rate. Normal S1 and S2 . Abdomen-normal bowel sounds, no hepatosplenomegaly. No tenderness Extremities-no cyanosis, clubbing, or edema Neuro-no apparent focal deficits. Psych-alert. Smiling. Cooperative. Results & Data Results & Data Vital Signs (Past 12 Hours) Vital Signs Temp Pulse Resp BP BP Pulse Ox O2 Del Method 02/08/23 11:28 36.1 C L 107 H 20 177/66 H 98 Room Air 02/08/23 08:07 154/58 H 165/48 H 02/08/23 07:50 36.1 C L 117 H 20 194/72 H 95 Room Air 02/08/23 03:22 36.2 C L 110 H 16 95/79 L 98 Room Air Laboratory Results 02/08/23 07:57 02/08/23 07:57 PG Care Time/CCT Total # of Minutes Spent Total Time Spent with Patient: Total time spent is greater than 50% in coordination of care (as documented) at patient's floor/unit and/or counseling patient: Coding Level of Care Code 54850 SUB INP/OBS CARE 3/50MIN Diagnoses Hepatic encephalopathy K76.82 Acute kidney injury N17.9 Chronic diastolic congestive heart failure I50.32 Hypertension I10 Hypertension type: essential hypertension Controlled type 2 diabetes mellitus, with long-term current use of insulin E11.9; Z79.4 Diabetes mellitus complication status: without complication Hypothyroidism E03.9 Hypothyroidism type: unspecified (4) Hypertension Hypertension type: essential hypertension Qualified Code(s): I10 - Essential (primary) hypertension (5) Controlled type 2 diabetes mellitus, with long-term current use of insulin Diabetes mellitus complication status: without complication Qualified Code(s): E11.9 - Type 2 diabetes mellitus without complications; Z79.4 - termite control service representative (current) use of insulin (6) Hypothyroidism Hypothyroidism type: unspecified Qualified Code(s): E03.9 - Hypothyroidism, unspecified
[2023-02-08] MEDS ORDERED: LANTUS PER UNIT CHARGE SC SCH (15:03)
[2023-02-08] MEDS: NITROGLYCERIN 0.4 MG/HR PATCH TD SCH (16:36)
[2023-02-08] MEDS: PANTOprazole 40 MG TAB PO SCH (16:37)
[2023-02-08] MEDS: LACTULOSE SYRUP 20 GM/30 ML UDC PO SCH (22:21)
[2023-02-08] MEDS: MAGNESIUM CHLORIDE W/CALCIUM 64MG DELAYED REL TAB PO SCH (22:21)
[2023-02-08] MEDS: LANTUS PER UNIT CHARGE SC SCH (22:27)
[2023-02-09] MEDS: LEVOTHYROXINE SODIUM 125 MCG TABLET PO SCH (06:37)
[2023-02-09 08:50] LABS: Basophils # (auto) 0.02 K/uL (0-0.2); Basophils % (auto) 0.3 %; Eosinophils # (auto) 0.15 K/uL (0-0.50); Hemoglobin 10.8 g/dl (12.0-16.0); Immature Granulocytes # (auto) 0.02 K/uL (0.01-0.20); Immature Granulocytes % (auto) 0.3 %; Lymphocytes % (auto) 10.5 %; Mean Corpuscular Hemoglobin 30.4 pg (25.0-34.0); Mean Corpuscular Hgb Conc 33.8 g/dL (32.0-36.0); Mean Corpuscular Volume 90.1 fL (80.0-100.0); Mean Platelet Volume 10.8 fL (9.4-12.4); Monocytes # (auto) 0.64 K/uL (0.11-0.59); Monocytes % (auto) 8.4 %; Neutrophils # (auto) 5.98 K/uL (1.40-6.50); Neutrophils % (auto) 78.5 %; Platelet Count 84 K/uL (130-400); RDW Standard Deviation 55.2 fL (36.4-46.3); Red Blood Count 3.55 M/uL (4.20-5.40); White Blood Count 7.61 K/ul (4.8-10.8)
[2023-02-09 09:08] LABS: BUN Creatinine Ratio 19.4 (10-20); Calcium 9.9 mg/dl (8.6-10.3); Creatinine Clr Calc Pharmacy 30.5 ml/min; Est GFR (African American) 60.1 ml/min; Est GFR (Non-African American) 51.9 ml/min
[2023-02-09] MEDS: INSULIN ASPART PER UNIT CHARGE SC SCH ×4 (09:21→22:13)
[2023-02-09] MEDS: LACTULOSE SYRUP 20 GM/30 ML UDC PO SCH ×3 (09:21→21:38)
[2023-02-09] MEDS: HEPARIN SOD 5,000 UNIT/0.5 ML VIAL SQ SCH ×2 (09:22→21:37)
[2023-02-09] MEDS: PANTOprazole 40 MG TAB PO SCH (09:22)
[2023-02-09] MEDS: NITROGLYCERIN 0.4 MG/HR PATCH TD SCH (09:22)
[2023-02-09] MEDS: MAGNESIUM CHLORIDE W/CALCIUM 64MG DELAYED REL TAB PO SCH ×2 (09:24→21:39)
--- NOTE | 2023-02-09 11:07 | XRay Report ---
XR chest 1V portable CLINICAL HISTORY: ?pneumonia on previous cxr? COMPARISON STUDY: Chest CT December 01, 2020. Chest radiograph February 07, 2023. FINDINGS: There is no pneumothorax or pleural effusion. Cardiomediastinal silhouette is stable. Mild left basilar opacity persists. There is no consolidation within the right lung. There is no evidence for overt pulmonary edema. Chondroid lesion within the proximal left humerus is likely benign. IMPRESSION: Persistent left basilar opacity. This could reflect pneumonia or atelectasis. Radiographi c follow-up to ensure resolution is recommended. ACT 112: Negative or not required by law. Electronically signed by: Jaydon Swanson M.D. 02/09/2023 11:05 AM
[2023-02-09] MEDS: LANTUS PER UNIT CHARGE SC SCH ×2 (14:02→22:13)
[2023-02-09] MEDS: SODIUM CHLORIDE 0.9% 1000ML 1,000 ML IV SCH (14:03)
[2023-02-09] MEDS: cefTRIAXone SODIUM 1,000 MG in DEXTROSE 5% AD-VAN 50 ML IV SCH (14:06)
--- NOTE | 2023-02-09 19:27 | Hospitalist Progress Note ---
Date of Service February 09, 2023 Assessment & Plan (1) Hepatic encephalopathy: Plan: Ammonia level trending down, and clinically improving - much more awake, alert. Uncertain of baseline MS given her known dementia. Acute HE likely due to UTI +/- pneumonia. Cont lactulose but increase to TID dosing - shoot for 2-3 BMs/day at minimum. If she cannot tolerate lactulose then add rifaximin. (2) Acute kidney injury: Plan: Peak 2.1, now 0.9 today. Lower fluid rate, and plan to d/c fluids entirely tomorrow if PO intake is improved. (3) Chronic diastolic congestive heart failure: Plan: Compensated at this time. Resume diuretics - perhaps tomorrow. (4) Hypertension: Plan: Likely to resume bumex + aldactone tomorrow. BPs high at times but not unacceptable. Trend. (5) Controlled type 2 diabetes mellitus, with long-term current use of insulin: Plan: a1c 6.8% in 11/2022. Pharmacy glycemic team is managing - appreciate their assistance. cont lantus cont novolog (6) Hypothyroidism: Plan: TSH 1.5 in November 2022 Cont synthroid (7) DVT prophylaxis: Plan: heparin 5000 BID (8) GERD (gastroesophageal reflux disease): Plan: cont PPI (9) UTI (urinary tract infection): Plan: 2nd klebsiella start rocephin 1gm daily; this should cover #10 as well (10) Pneumonia: Plan: LLL - as seen on serial cxr but are lung findings and crackles on exam due to ILD? (ILD listed as dx on her problem list) either way will be on rocephin for #9 and this should cover lungs to some extent (11) Coronary artery spasm: Plan: nitropatch daily (12) Hepatic cirrhosis: Plan: 2nd LEE? now with #1 lactulose for #1 add back diuretics - perhaps tomorrow depending on clinical status (13) Thrombocytopenia: Plan: 2nd to #12 serial CBC for stability Admission and Anticipated Discharge Date Admission Date: February 07, 2023 Subjective tele overnight wnl patient was stating "help, help" when I entered the room, stating she felt she needed to use the bathroom multiple BMs today per nursing flowsheets oral intake poor denies pain in any location unable to provide any other meaningful history Review of Systems Review of Systems: cv - no chest pain pulm - states she is short of breath but was comfortable laying in bed Physical Exam Physical Exam: gen - NAD, laying in bed comfortably mouth - MM dry neck - no JVD heart - RRR, s1 s2 lungs - crackles b/l bases, worse on left; no wheeze abd - soft, mildly distended, BS+, NT ext - no edema, pulses 2+ b/l psych - awake, alert, but disoriented neuro - no obvious asterixis skin - scattered bruises on skin (arms, etc) Results & Data Results & Data Vital Signs (Past 12 Hours) Vital Signs Temp Pulse Pulse Resp BP Pulse Ox O2 Del Method 02/09/23 14:55 37.7 C H 105 H 20 134/70 97 Room Air 02/09/23 10:58 36.4 C L 102 H 18 165/69 H 96 Room Air 02/09/23 08:00 101 H 02/09/23 08:25 36.9 C 104 H 20 165/55 H 95 Room Air Laboratory Results Laboratory Results - last 48 hr 02/08/23 02/08/23 02/08/23 06:18 07:57 07:57 WBC 9.47 RBC 3.78 L Hgb 11.6 L Hct 34.0 L MCV 89.9 MCH 30.7 MCHC 34.1 RDW Std Deviation 53.7 H RDW Coeff of [place] 16.8 H Plt Count 81 L MPV 11.0 Immature Gran % (Auto) 0.3 Neut % (Auto) 82.8 Lymph % (Auto) 7.4 [place] % (Auto) 8.6 Eos % (Auto) 0.8 Baso % (Auto) 0.1 Neut # (Auto) 7.84 H Lymph # (Auto) 0.70 L [place] # (Auto) 0.81 H Eos # (Auto) 0.08 Baso # (Auto) 0.01 Immature Gran # (Auto) 0.03 Sodium 140 Potassium 4.2 Chloride 109 H Carbon Dioxide 22 Anion Gap 9 BUN 29 H Creatinine 1.22 H D Est Cr Clr Drug Dosing 24.5 Est GFR ( Amer) 46.1 Est GFR (Non-Af Amer) 39.8 BUN/Creatinine Ratio 23.8 H Glucose 140 H POC Glucose Calcium 10.2 Ammonia Nasal Screen MRSA (PCR) Negative 02/08/23 02/08/23 02/08/23 07:57 11:29 16:19 WBC RBC Hgb Hct MCV MCH MCHC RDW Std Deviation RDW Coeff of [place] Plt Count MPV Immature Gran % (Auto) Neut % (Auto) Lymph % (Auto) [place] % (Auto) Eos % (Auto) Baso % (Auto) Neut # (Auto) Lymph # (Auto) [place] # (Auto) Eos # (Auto) Baso # (Auto) Immature Gran # (Auto) Sodium Potassium Chloride Carbon Dioxide Anion Gap BUN Creatinine Est Cr Clr Drug Dosing Est GFR ( Amer) Est GFR (Non-Af Amer) BUN/Creatinine Ratio Glucose POC Glucose 179 H 153 H Calcium Ammonia 32.0 Nasal Screen MRSA (PCR) 02/08/23 02/09/23 02/09/23 20:08 07:46 08:21 WBC 7.61 RBC 3.55 L Hgb 10.8 L Hct 32.0 L MCV 90.1 MCH 30.4 MCHC 33.8 RDW Std Deviation 55.2 H RDW Coeff of [place] 17.0 H Plt Count 84 L MPV 10.8 Immature Gran % (Auto) 0.3 Neut % (Auto) 78.5 Lymph % (Auto) 10.5 [place] % (Auto) 8.4 Eos % (Auto) 2.0 Baso % (Auto) 0.3 Neut # (Auto) 5.98 Lymph # (Auto) 0.80 L [place] # (Auto) 0.64 H Eos # (Auto) 0.15 Baso # (Auto) 0.02 Immature Gran # (Auto) 0.02 Sodium Potassium Chloride Carbon Dioxide Anion Gap BUN Creatinine Est Cr Clr Drug Dosing Est GFR ( Amer) Est GFR (Non-Af Amer) BUN/Creatinine Ratio Glucose POC Glucose 124 H 130 H Calcium Ammonia Nasal Screen MRSA (PCR) 02/09/23 02/09/23 02/09/23 08:21 08:21 11:21 WBC RBC Hgb Hct MCV MCH MCHC RDW Std Deviation RDW Coeff of [place] Plt Count MPV Immature Gran % (Auto) Neut % (Auto) Lymph % (Auto) [place] % (Auto) Eos % (Auto) Baso % (Auto) Neut # (Auto) Lymph # (Auto) [place] # (Auto) Eos # (Auto) Baso # (Auto) Immature Gran # (Auto) Sodium 138 Potassium 4.0 Chloride 110 H Carbon Dioxide 20 L Anion Gap 8 BUN 19 Creatinine 0.98 Est Cr Clr Drug Dosing 30.5 Est GFR ( Amer) 60.1 Est GFR (Non-Af Amer) 51.9 BUN/Creatinine Ratio 19.4 Glucose 181 H POC Glucose 199 H Calcium 9.9 Ammonia 81.0 H Nasal Screen MRSA (PCR) 02/09/23 16:41 WBC RBC Hgb Hct MCV MCH MCHC RDW Std Deviation RDW Coeff of [place] Plt Count MPV Immature Gran % (Auto) Neut % (Auto) Lymph % (Auto) [place] % (Auto) Eos % (Auto) Baso % (Auto) Neut # (Auto) Lymph # (Auto) [place] # (Auto) Eos # (Auto) Baso # (Auto) Immature Gran # (Auto) Sodium Potassium Chloride Carbon Dioxide Anion Gap BUN Creatinine Est Cr Clr Drug Dosing Est GFR ( Amer) Est GFR (Non-Af Amer) BUN/Creatinine Ratio Glucose POC Glucose 136 H Calcium Ammonia Nasal Screen MRSA (PCR) Diagnostic Findings Chest X-Ray 02/09/23 09:33 XR chest 1V portable CLINICAL HISTORY: ?pneumonia on previous cxr? COMPARISON STUDY: Chest CT December 01, 2020. Chest radiograph February 07, 2023. FINDINGS: There is no pneumothorax or pleural effusion. Cardiomediastinal silhouette is stable. Mild left basilar opacity persists. There is no cons olidation within the right lung. There is no evidence for overt pulmonary edema. Chondroid lesion within the proximal left humerus is likely benign. IMPRESSION: Persistent left basilar opacity. This could reflect pneumonia or atelectasis. Radiographic follow-up to ensure resolution is recommended. ACT 112: Negative or not required by law. Electronically signed by: Jaydon Swanson M.D. 02/09/2023 11:05 AM Urine cx - klebsiella pneumoniae - pansens PG Care Time/CCT Total # of Minutes Spent Total Time Spent with Patient: Total time spent is greater than 50% in coordination of care (as documented) at patient's floor/unit and/or counseling patient: Coding Level of Care Code 37655 SUB INP/OBS CARE 3/50MIN Diagnoses Hepatic encephalopathy K76.82 Acute kidney injury N17.9 Chronic diastolic congestive heart failure I50.32 Hypertension I10 Hypertension type: essential hypertension Controlled type 2 diabetes mellitus, with long-term current use of insulin E11.9; Z79.4 Diabetes mellitus complication status: without complication Hypothyroidism E03.9 Hypothyroidism type: unspecified DVT prophylaxis Z29.9 GERD (gastroesophageal reflux disease) K21.9 UTI (urinary tract infection) N39.0 Pneumonia J18.9 Coronary artery spasm I20.1 Hepatic cirrhosis K74.60; R18.8 Hepatic cirrhosis type: unspecified hepatic cirrhosis Ascites presence: with ascites Thrombocytopenia D69.6 (4) Hypertension Hypertension type: essential hypertension Qualified Code(s): I10 - Essential (primary) hypertension (5) Controlled type 2 diabetes mellitus, with long-term current use of insulin Diabetes mellitus complication status: without complication Qualified Code(s): E11.9 - Type 2 diabetes mellitus without complications; Z79.4 - terminal operations supervisor (current) use of insulin (6) Hypothyroidism Hypothyroidism type: unspecified Qualified Code(s): E03.9 - Hypothyroidism, unspecified (12) Hepatic cirrhosis Hepatic cirrhosis type: unspecified hepatic cirrhosis Ascites presence: with ascites Qualified Code(s): K74.60 - Unspecified cirrhosis of liver; R18.8 - Other ascites
[2023-02-10] MEDS: LEVOTHYROXINE SODIUM 125 MCG TABLET PO SCH (05:35)
[2023-02-10 07:55] LABS: Basophils # (auto) 0.01 K/uL (0-0.2); Basophils % (auto) 0.2 %; Eosinophils # (auto) 0.21 K/uL (0-0.50); Eosinophils % (auto) 4.3 %; Hematocrit (blood only) 27.7 % (37.0-47.0); Hemoglobin 9.4 g/dl (12.0-16.0); Immature Granulocytes # (auto) 0.01 K/uL (0.01-0.20); Immature Granulocytes % (auto) 0.2 %; Lymphocytes # (auto) 0.61 K/uL (1.2-3.4); Lymphocytes % (auto) 12.6 %; Mean Corpuscular Hemoglobin 31.1 pg (25.0-34.0); Mean Corpuscular Hgb Conc 33.9 g/dL (32.0-36.0); Mean Corpuscular Volume 91.7 fL (80.0-100.0); Mean Platelet Volume 11.5 fL (9.4-12.4); Monocytes # (auto) 0.47 K/uL (0.11-0.59); Monocytes % (auto) 9.7 %; Neutrophils # (auto) 3.53 K/uL (1.40-6.50); Platelet Count 69 K/uL (130-400); RDW Coefficient of Variation 17.3 % (11.5-14.5); RDW Standard Deviation 57.5 fL (36.4-46.3); Red Blood Count 3.02 M/uL (4.20-5.40); White Blood Count 4.84 K/ul (4.8-10.8)
[2023-02-10 08:07] LABS: BUN Creatinine Ratio 20.4 (10-20); Calcium 9.5 mg/dl (8.6-10.3); Creatinine Clr Calc Pharmacy 27.7 ml/min; Est GFR (African American) 53.5 ml/min; Est GFR (Non-African American) 46.1 ml/min; Potassium 3.8 mmol/L (3.5-5.1)
[2023-02-10] MEDS: INSULIN ASPART PER UNIT CHARGE SC SCH ×4 (09:19→21:08)
[2023-02-10] MEDS: SODIUM CHLORIDE 0.9% 1000ML 1,000 ML IV SCH (09:19)
[2023-02-10] MEDS: LANTUS PER UNIT CHARGE SC SCH ×2 (09:20→21:08)
[2023-02-10] MEDS: PANTOprazole 40 MG TAB PO SCH (09:20)
[2023-02-10] MEDS: HEPARIN SOD 5,000 UNIT/0.5 ML VIAL SQ SCH ×2 (09:20→21:05)
[2023-02-10] MEDS: NITROGLYCERIN 0.4 MG/HR PATCH TD SCH (09:20)
[2023-02-10] MEDS: LACTULOSE SYRUP 20 GM/30 ML UDC PO SCH ×3 (09:21→21:06)
[2023-02-10] MEDS: MAGNESIUM CHLORIDE W/CALCIUM 64MG DELAYED REL TAB PO SCH ×2 (09:21→21:07)
[2023-02-10] MEDS: cefTRIAXone SODIUM 1,000 MG in DEXTROSE 5% AD-VAN 50 ML IV SCH (11:17)
--- NOTE | 2023-02-10 15:17 | Fluoroscopy Report ---
MODIFIED BARIUM SWALLOW CLINICAL HISTORY: r/o aspiration COMPARISON STUDY: None. FLUOROSCOPY TIME: 2.14 minutes. Ka, r: 6.21 mGy. TECHNIQUE: A modified barium swallow was performed in conjunction with Speech Pathology. The patient ingested varying consistencies of barium containing material. Video fluoroscopy was performed. FINDINGS: Note was made of penetration with swallows of thin liquids by cup. Trace tracheal aspiratio n was noted with sequential thin liquids by straw. No aspiration was identified with the remainder of the consistencies. Moderate residuals were noted within the vallecula with several consistencies. Ep iglottic inversion was normal. Laryngeal elevation was normal. There is suspected mild to moderate es ophageal dysmotility, suboptimally assessed on this exam. IMPRESSION: 1. Trace tracheal aspiration with sequential thin liquids by straw. Penetration with swallows of thin liquids. No aspiration with remainder of the consistencies. 2. Mild residuals within the vallecula with several consistencies. 3. Mild to moderate esophageal dysmotility, suboptimally assessed on this exam. 4. Full recommendations by Speech pathology to follow. ACT 112: Negative or not required by law. Electronically signed by: Jaydon Swanson M.D. 02/10/2023 3:15 PM
[2023-02-10] MEDS ORDERED: BUMETANIDE 1 MG TAB PO ONE (16:33)
[2023-02-10] MEDS: NYSTATIN SUSP 500,000 U/5 ML UDC PO SCH ×2 (17:54→21:10)
--- NOTE | 2023-02-10 20:12 | Hospitalist Progress Note ---
Date of Service February 10, 2023 Assessment & Plan (1) Hepatic encephalopathy: Plan: much improved clinically and biochemically. Acute HE likely due to UTI +/- pneumonia. Cont lactulose but reduce to BID dosing (or even once daily); target 2-3 BMs/day at minimum. If she cannot tolerate lactulose then add (or substitute) rifaximin. (2) Acute kidney injury: Plan: Peak 2.1, now 0.9 today. d/c fluids. resume bumex today. (3) Chronic diastolic congestive heart failure: Plan: Compensated at this time. Resume bumex today, aldactone tomorrow. (4) Hypertension: Plan: resume bumex today (5) Controlled type 2 diabetes mellitus, with long-term current use of insulin: Plan: a1c 6.8% in 11/2022. cont lantus as is cont novolog but adjust CF and carb ratio (6) Hypothyroidism: Plan: TSH 1.5 in November 2022 Cont synthroid (7) DVT prophylaxis: Plan: heparin 5000 BID but caution with low platelets and mildly elevated INR from cirrhosis recheck platelets and INR tomorrow (8) GERD (gastroesophageal reflux disease): Plan: cont PPI (9) UTI (urinary tract infection): Plan: 2nd klebsiella cont rocephin 1gm daily; this should cover #10 as well convert to PO abx once doing a little better overall - hopefully tomorrow (10) Pneumonia: Plan: LLL - as seen on serial cxr but are lung findings and crackles on exam due to ILD? (ILD listed as dx on her problem list) either way she remains on rocephin (11) Coronary artery spasm: Plan: nitropatch daily (12) Hepatic cirrhosis: Plan: 2nd LEE? now with #1 lactulose for #1 resume bumex today resume aldactone tomorrow (13) Thrombocytopenia: Plan: 2nd to #12 serial CBC for stability (14) Pancytopenia: Plan: likely 2nd to LEE cirrhosis check B12/folate/Fe studies to be complete recheck INR am (15) Irritation of oral cavity: Plan: thrush? other? start nystatin solution 5cc qid swish/swallow (16) Esophageal dysmotility: Plan: appreciate speech therapy eval video swallow completed today results noted including dysmotility, trace aspiration w/ thins, etc moist diet could consider increasing nitropatch aspiration precautions PPI etc discussed swallow eval results with pt & grand-daughter today Plan PT, OT dispo - ultimately back to [facility] Admission and Anticipated Discharge Date Admission Date: February 07, 2023 Subjective tele - NSR overnight patient much more awake/alert/oriented today she recalled some of our visit from yesterday grand-daughter was at bedside during the visit grand-daughter states that patient was living in [place] over the last 2 years with her son was brought back to the [facility] in early November since coming back to [facility] she has been residing at [facility] was having falls prior to going into [facility] patient having copious stools from the lactulose mild tremor remains - this is acute for her, NOT chronic eating remains poor; fair at best mouth is sore, and she has discomfort/difficulty with swallowing Review of Systems Review of Systems: gen - no fevers cv - no cp, no orthopnea pulm - no dyspnea GI - no abd pain Physical Exam Physical Exam: gen - NAD, laying in bed comfortably mouth - MMM but oral mucosa is irritated & erythematous; no obvious thrush plaques neck - no JVD heart - RRR, s1 s2 lungs - minimal crackles b/l bases, worse on left; no wheeze abd - soft, mildly distended (ascites), BS+, NT ext - no edema, pulses 2+ b/l psych - awake, alert, more oriented today neuro - no obvious asterixis but mild tremor noted skin - scattered bruises on skin (arms, back, etc) Results & Data Results & Data Vital Signs (Past 12 Hours) Vital Signs Temp Pulse Resp BP BP Pulse Ox O2 Del Method 02/10/23 19:44 36.6 C 91 H 20 126/56 L 95 Room Air 02/10/23 14:58 36.8 C 105 H 18 145/74 H 95 Room Air 02/10/23 11:32 36.6 C 90 20 148/73 H 97 Room Air Laboratory Results Laboratory Results - last 24 hr 02/10/23 02/10/23 02/10/23 07:30 07:30 07:30 WBC 4.84 RBC 3.02 L Hgb 9.4 L Hct 27.7 L MCV 91.7 MCH 31.1 MCHC 33.9 RDW Std Deviation 57.5 H RDW Coeff of [place] 17.3 H Plt Count 69 L MPV 11.5 Immature Gran % (Auto) 0.2 Neut % (Auto) 73.0 Lymph % (Auto) 12.6 [place] % (Auto) 9.7 Eos % (Auto) 4.3 Baso % (Auto) 0.2 Neut # (Auto) 3.53 Lymph # (Auto) 0.61 L [place] # (Auto) 0.47 Eos # (Auto) 0.21 Baso # (Auto) 0.01 Immature Gran # (Auto) 0.01 Sodium 139 Potassium 3.8 Chloride 112 H Carbon Dioxide 21 Anion Gap 6 BUN 22 Creatinine 1.08 Est Cr Clr Drug Dosing 27.7 Est GFR ( Amer) 53.5 Est GFR (Non-Af Amer) 46.1 BUN/Creatinine Ratio 20.4 H Glucose 134 H POC Glucose Calcium 9.5 Ammonia 49.0 02/10/23 02/10/23 02/10/23 07:30 11:20 16:23 WBC RBC Hgb Hct MCV MCH MCHC RDW Std Deviation RDW Coeff of [place] Plt Count MPV Immature Gran % (Auto) Neut % (Auto) Lymph % (Auto) [place] % (Auto) Eos % (Auto) Baso % (Auto) Neut # (Auto) Lymph # (Auto) [place] # (Auto) Eos # (Auto) Baso # (Auto) Immature Gran # (Auto) Sodium Potassium Chloride Carbon Dioxide Anion Gap BUN Creatinine Est Cr Clr Drug Dosing Est GFR ( Amer) Est GFR (Non-Af Amer) BUN/Creatinine Ratio Glucose POC Glucose 137 H 215 H 133 H Calcium Ammonia 02/10/23 20:18 WBC RBC Hgb Hct MCV MCH MCHC RDW Std Deviation RDW Coeff of [place] Plt Count MPV Immature Gran % (Auto) Neut % (Auto) Lymph % (Auto) [place] % (Auto) Eos % (Auto) Baso % (Auto) Neut # (Auto) Lymph # (Auto) [place] # (Auto) Eos # (Auto) Baso # (Auto) Immature Gran # (Auto) Sodium Potassium Chloride Carbon Dioxide Anion Gap BUN Creatinine Est Cr Clr Drug Dosing Est GFR ( Amer) Est GFR (Non-Af Amer) BUN/Creatinine Ratio Glucose POC Glucose 199 H Calcium Ammonia PG Care Time/CCT Total # of Minutes Spent Total Time Spent with Patient: Total time spent is greater than 50% in coordination of care (as documented) at patient's floor/unit and/or counseling patient: Coding Level of Care Code 42127 SUB INP/OBS CARE 3/50MIN Diagnoses Hepatic encephalopathy K76.82 Acute kidney injury N17.9 Chronic diastolic congestive heart failure I50.32 Hypertension I10 Hypertension type: essential hypertension Controlled type 2 diabetes mellitus, with long-term current use of insulin E11.9; Z79.4 Diabetes mellitus complication status: without complication Hypothyroidism E03.9 Hypothyroidism type: unspecified DVT prophylaxis Z29.9 GERD (gastroesophageal reflux disease) K21.9 UTI (urinary tract infection) N39.0 Pneumonia J18.9 Coronary artery spasm I20.1 Hepatic cirrhosis K74.60; R18.8 Ascites presence: with ascites Hepatic cirrhosis type: unspecified hepatic cirrhosis Thrombocytopenia D69.6 Pancytopenia D61.818 Irritation of oral cavity K13.6 Esophageal dysmotility K22.4 (4) Hypertension Hypertension type: essential hypertension Qualified Code(s): I10 - Essential (primary) hypertension (5) Controlled type 2 diabetes mellitus, with long-term current use of insulin Diabetes mellitus complication status: without complication Qualified Code(s): E11.9 - Type 2 diabetes mellitus without complications; Z79.4 - detention (current) use of insulin (6) Hypothyroidism Hypothyroidism type: unspecified Qualified Code(s): E03.9 - Hypothyroidism, unspecified (12) Hepatic cirrhosis Ascites presence: with ascites Hepatic cirrhosis type: unspecified hepatic cirrhosis Qualified Code(s): K74.60 - Unspecified cirrhosis of liver; R18.8 - Other ascites
[2023-02-11] MEDS: LEVOTHYROXINE SODIUM 125 MCG TABLET PO SCH (05:40)
[2023-02-11 07:12] LABS: Hematocrit (blood only) 29.4 % (37.0-47.0); Hemoglobin 9.9 g/dl (12.0-16.0); Mean Corpuscular Hemoglobin 31.1 pg (25.0-34.0); Mean Corpuscular Hgb Conc 33.7 g/dL (32.0-36.0); Mean Corpuscular Volume 92.5 fL (80.0-100.0); Mean Platelet Volume 11.2 fL (9.4-12.4); Platelet Count 79 K/uL (130-400); RDW Coefficient of Variation 17.2 % (11.5-14.5); RDW Standard Deviation 57.9 fL (36.4-46.3); Red Blood Count 3.18 M/uL (4.20-5.40); White Blood Count 5.48 K/ul (4.8-10.8)
[2023-02-11 07:30] LABS: BUN Creatinine Ratio 20.4 (10-20); Calcium 9.7 mg/dl (8.6-10.3); Creatinine Clr Calc Pharmacy 21.1 ml/min; Est GFR (African American) 38.4 ml/min; Est GFR (Non-African American) 33.1 ml/min; Potassium 3.8 mmol/L (3.5-5.1)
[2023-02-11 07:35] LABS: INR 1.3 (0.9-1.1); Prothrombin Time 13.6 Seconds (9.0-12.0)
[2023-02-11 07:51] LABS: Ferritin 27.8 ng/ml (8-388)
[2023-02-11] MEDS: INSULIN ASPART PER UNIT CHARGE SC SCH ×4 (08:40→20:48)
[2023-02-11] MEDS: HEPARIN SOD 5,000 UNIT/0.5 ML VIAL SQ SCH (08:40)
[2023-02-11] MEDS: LACTULOSE SYRUP 20 GM/30 ML UDC PO SCH ×2 (08:41→21:15)
[2023-02-11] MEDS: NITROGLYCERIN 0.4 MG/HR PATCH TD SCH (08:41)
[2023-02-11] MEDS: PANTOprazole 40 MG TAB PO SCH (08:41)
[2023-02-11] MEDS: NYSTATIN SUSP 500,000 U/5 ML UDC PO SCH ×4 (08:41→21:16)
[2023-02-11] MEDS: cefTRIAXone SODIUM 1,000 MG in DEXTROSE 5% AD-VAN 50 ML IV SCH (08:42)
[2023-02-11] MEDS: LANTUS PER UNIT CHARGE SC SCH ×2 (08:49→21:20)
[2023-02-11] MEDS: MAGNESIUM CHLORIDE W/CALCIUM 64MG DELAYED REL TAB PO SCH ×2 (08:49→21:16)
--- NOTE | 2023-02-11 14:15 | Gastrointestinal Consultation ---
Date of Consultation February 11, 2023 Assessment & Plan (1) Dysphagia: Pt is a 87 yo female w hx of LEE cirrhosis, admitted w AMS (resolved) 2/2 hepatic encephalopathy, seen for pharyngeal dysphagia symptoms. - Protonix 40mg daily - Lactulose (titrate for goal 3-5 BMs daily) - EGD eval tomorrow. Pls keep NPO after MN - Diet per Speech Therapy recs - Aspiration & GERD precautions - Pt has OP GI appt scheduled on 07/05/[address] Chris Arroyo - US abd obtained for HCC screening Supervising Physician Co-Signing Physician Notes We are consulted for pt with cirrhosis, admit for HE thought to be secondary to UTI /Benzo use now resolved, Also MARIKA related to dehydration now resolved, for dysphagia. She has long h/o dysphagia; son reports coughing with PO intake and need to stand while eating. She now reports dysphagai localized to neck occurring with solids/liquids. Speech eval noted evidence of OP dysphagia, with slow clearance of bolus from vallecula, delayed swallow, delayed hyolaryngeal elevation. On exam, she is lucid, conversant. She is frail, with bi temp wasting and marked sarcopenia. Tolerating her secretions. Mouth without thrush; no oral ulceration. Decreased gag. Her abd is mildly distended. Upon exam, she coughs immediately with small amt of water; with pudding, her voice becomes phlegmy and hoarse. A/P: She has oropharyngeal dysphagia. It does not seem likely that esophageal obstruction or gastroparesis are contributing to these symptoms. I spoke to son about permissive aspiration vs feeding tube; will defer feeding tube given age and comorbids. I discussed yield of EGD with pt, will d/w anesthesia service and plan for tomorrow. HE appears resolved, will plan to continue lactulose as above. Will plan for addition of xifaxan. Diuretics on hold, please cont to hold given poor PO intake. Son is requesting uls for HCC screen, will order this. Consider palliative care consult to assist with end of life planning. History of Present Illness Reason for Consultation: Dysphagia Requesting Physician: Dr. Saleem Marti Attending Physician: Dr. Chris Becker History of Present Illness Pt is a 87 yo female w hx of LEE cirrhosis, admitted w AMS secondary to hepatic encephalopathy. AMS has resolved now. HE suspected to be related to UTI and possibly pneumonia GI consulted to see pt as she is having trouble swallowing her foods. Informed her hospitalist yesterday that she feels mouth is sore, and though no oral thrush was noted exam, she was empirically treated w Nystatin. She underwent video swallow w Speech Therapy evaluation which showed trace tracheal aspiration w thin liquids. + mild residuals within vallecula w several consistencies. There is also mild to moderate esophageal dysmotility. Pt w GERD, and had EGD/EUS in 2008 w bilious gastric suggestive of gastroparesis. She had been living in [facility] senior care since she moved back from [place]. Son (Nathan) notices that pt has had trouble swallowing foods for a while and may cough some, also stands up when she tries to swallow her food. Allergies Allergy/AdvReac Type Severity Reaction Status Date / Time erythromycin base Allergy Severe eye Verified 02/07/23 12:24 ointment only - red and infected Iodinated Contrast Media Allergy Severe heart Verified 05/06/21 14:33 muscles tightened/heart spasms Penicillins Allergy Intermediate "wore out Verified 02/07/23 12:24 on me" and hives repaglinide Allergy Intermediate Hives Verified 02/07/23 12:24 Sulfa (Sulfonamide Allergy Unknown Hives Verified 05/06/21 14:33 Antibiotics) timolol Allergy Unknown eye drops Verified 02/07/23 12:24 - eye redness clonazepam AdvReac Severe increased Verified 05/06/21 14:33 anxiety Pftvqfv-RTV-IeC Reductase AdvReac Severe ELEVATED Verified 05/06/21 14:33 Inhibitor HEPATIC [Wpqahkp-Rsc-Fzw Reductase ENZYMES Inhibitor] enalapril AdvReac Intermediate COUGH Verified 02/07/23 12:24 Home Medications Medication Instructions Recorded Confirmed Type ketotifen fumarate 0.025 % (0.035 1 drp ophthalmic (eye) TID PRN Eye 05/16/19 02/07/23 History %) eye drops (Alaway) Irritation fluticasone furoate 100 1 inh inhalation DAILY #60 ea 12/24/20 02/07/23 Rx mcg-vilanterol 25 mcg/dose inhalation powder (Breo Ellipta) famotidine 20 mg tablet 20 mg PO HS 04/16/21 02/07/23 History bumetanide 2 mg tablet 2 mg PO DAILY #90 tabs 01/26/22 02/07/23 Rx nitroglycerin 0.4 mg/hr 1 patch transdermal DAILY HEART 05/04/22 02/07/23 Rx transdermal 24 hour patch MUSCLE SPASMS #30 ea acetaminophen 325 mg tablet 650 mg PO Q6H PRN Fever 02/07/23 02/07/23 History bisacodyl 10 mg rectal suppository 10 mg GA DAILY PRN Constipation 02/07/23 02/07/23 History (Dulcolax (bisacodyl)) cetylpyridinium chloride 1 tara mucous membrane DAILY PRN 02/07/23 02/07/23 History Sore Throat colestipol 5 gram oral packet 5 g PO BID diarrhea 02/07/23 02/07/23 History insulin glargine 100 unit/mL 10 unit subcut HS 02/07/23 02/07/23 History subcutaneous solution (Lantus U-100 Insulin) levothyroxine 125 mcg tablet 125 mcg PO DAILY 02/07/23 02/07/23 History lorazepam 1 mg tablet 1 mg PO HS 02/07/23 02/07/23 History magnesium chloride 71.5 mg 143 mg PO DAILY 02/07/23 02/07/23 History (magnesium chloride) tablet,delayed release (Slow-Mag) magnesium hydroxide 400 mg/5 mL 30 ml PO DAILY PRN Constipation 02/07/23 02/07/23 History oral suspension (Milk of Magnesia) meclizine 12.5 mg tablet 12.5 mg PO Q8H PRN Vertigo 02/07/23 02/07/23 History pantoprazole 40 mg tablet,delayed 40 mg PO DAILY 02/07/23 02/07/23 History release sodium phosphates 19 gram-7 118 ml GA DAILY PRN Constipation 02/07/23 02/07/23 History gram/118 mL enema (Fleet Enema) spironolactone 50 mg tablet 50 mg PO BID 02/07/23 02/07/23 History tramadol 37.5 mg-acetaminophen 325 1 tab PO HS 02/07/23 02/07/23 History mg tablet tramadol 50 mg tablet 50 mg PO Q6H PRN Pain 02/07/23 02/07/23 History Patient History Medical History Bronchitis Chronic bronchitis Coronary artery spasm reason for Nitro Patch q12h follows with Dr. Samson Depression hx Diabetes mellitus, type 2 iddm Encounter for drug screening Gastroparesis GERD (gastroesophageal reflux disease) Grief reaction Heart disease History of melanoma Hypertension Hypothyroidism Interstitial lung disease Multiple lung nodules on CT Nonalcoholic fatty liver disease Obstructive sleep apnea syndrome Pneumonia hx Sleep apnea CPAP Vertigo Vertigo Surgical History History of appendectomy History of cardiac catheterization X3 (1994, 1999, 2006) History of cataract surgery bilateral History of colonoscopy History of dacryocystorhinostomy done monthly History of dilatation and curettage History of ERCP with stone removal History of laparoscopic cholecystectomy History of repair of rotator cuff right History of tonsillectomy S/P cholecystectomy S/P STEVE-BSO Status post biopsy of skin removal of melanoma Family History Mother Cardiac disorder Hypertension Heart disease Myocardial infarction Father Cardiac disorder Hypertension Heart disease Other Diabetes Ischemic heart disease Prostate cancer Denies family history of Ovarian cancer Breast cancer Colorectal cancer Social History Smoking Status: Never smoker Second Hand Exposure: No (); Do You Dip or Chew Tobacco: No; Hx Alcohol Use: No Hx Substance Use: No Preferred Language: Sammarinese Communication Ability: Effective Visual Impairment: No Limitations Hearing Ability: Normal Critical Power Install Technician Required: No Beliefs That Will Affect Care: Spiritual marital status: / Current Living Situation: Personal Care Facility Current Living Situation Comment: lives in [facility] current occupational status: retired Feels Safe at Home: Yes Childhood Exposure to Second-Hand Smoke: No Dental Care, Regularly: Yes Physical Activity Frequency: Daily Seatbelt Use: always Sunscreen Use: No Assistive Devices: Walker Review of Systems Review of Systems: All systems reviewed & are unremarkable except as noted in HPI & below Physical Exam Constitutional: + thin, cooperative and comfortable Eyes: PERRL, conjunctivae normal, anicteric sclerae ENMT: external ear and nose normal, oropharynx normal Respiratory: normal respiratory effort, lungs clear to auscultation (crackles on bases ) Cardiovascular: RRR, no murmur, no edema Gastrointestinal (Abdomen): normal bowel sounds, soft, nontender, no hepatosplenomegaly Skin: no rashes, warm and dry no jaundice Neurologic: Motor/Sensory: no asterixis Psychiatric: Orientation: alert, oriented to person, oriented to place and cooperative Lymphatic: no lymphedema Results & Data Vital Signs (Past 12 Hours) Vital Signs Temp Pulse Pulse Resp BP Pulse Ox O2 Del Method 02/11/23 11:18 37.0 C 76 18 146/63 H 98 Room Air 02/11/23 07:00 85 02/11/23 08:00 Room Air 02/11/23 07:24 36.4 C L 74 16 116/51 L 97 Room Air 02/11/23 04:00 36.7 C 82 20 138/66 96 Room Air
--- NOTE | 2023-02-11 16:20 | Anesthesiology Consultation ---
Date of Service February 11, 2023 Assessment & Plan Chart Review Chart Review: entry clerk initiated History Surgery Operation Date: 02/12/23 16:30 Proposed Procedures p Esophagogastroduodenoscopy Dr Quintana - Chris Arroyo MD Height/Weight Height: 5 ft 1 in Weight: 54.683 kg Allergies Allergy/AdvReac Type Severity Reaction Status Date / Time erythromycin base Allergy Severe eye Verified 02/07/23 12:24 ointment only - red and infected Iodinated Contrast Media Allergy Severe heart Verified 05/06/21 14:33 muscles tightened/heart spasms Penicillins Allergy Intermediate "wore out Verified 02/07/23 12:24 on me" and hives repaglinide Allergy Intermediate Hives Verified 02/07/23 12:24 Sulfa (Sulfonamide Allergy Unknown Hives Verified 05/06/21 14:33 Antibiotics) timolol Allergy Unknown eye drops Verified 02/07/23 12:24 - eye redness clonazepam AdvReac Severe increased Verified 05/06/21 14:33 anxiety Ypvavlr-TWV-CnX Reductase AdvReac Severe ELEVATED Verified 05/06/21 14:33 Inhibitor HEPATIC [Edageul-Ajp-Gys Reductase ENZYMES Inhibitor] enalapril AdvReac Intermediate COUGH Verified 02/07/23 12:24 Medications Home Medications Medication Instructions Recorded Confirmed Last Taken ketotifen fumarate 0.025 % (0.035 1 drp ophthalmic (eye) TID PRN Eye 05/16/19 02/07/23 05/20/ %) eye drops (Alaway) Irritation fluticasone furoate 100 1 inh inhalation DAILY #60 ea 12/24/20 02/07/23 01/09/21 mcg-vilanterol 25 mcg/dose inhalation powder (Breo Ellipta) famotidine 20 mg tablet 20 mg PO HS 04/16/21 02/07/23 Unknown bumetanide 2 mg tablet 2 mg PO DAILY #90 tabs 01/26/22 02/07/23 Unknown nitroglycerin 0.4 mg/hr 1 patch transdermal DAILY HEART 05/04/22 02/07/23 Unknown transdermal 24 hour patch MUSCLE SPASMS #30 ea acetaminophen 325 mg tablet 650 mg PO Q6H PRN Fever 02/07/23 02/07/23 Unknown bisacodyl 10 mg rectal suppository 10 mg AL DAILY PRN Constipation 02/07/23 02/07/23 Unknown (Dulcolax (bisacodyl)) cetylpyridinium chloride 1 tara mucous membrane DAILY PRN 02/07/23 02/07/23 Unknown Sore Throat colestipol 5 gram oral packet 5 g PO BID diarrhea 02/07/23 02/07/23 Unknown insulin glargine 100 unit/mL 10 unit subcut HS 02/07/23 02/07/23 Unknown subcutaneous solution (Lantus U-100 Insulin) levothyroxine 125 mcg tablet 125 mcg PO DAILY 02/07/23 02/07/23 Unknown lorazepam 1 mg tablet 1 mg PO HS 02/07/23 02/07/23 Unknown magnesium chloride 71.5 mg 143 mg PO DAILY 02/07/23 02/07/23 Unknown (magnesium chloride) tablet,delayed release (Slow-Mag) magnesium hydroxide 400 mg/5 mL 30 ml PO DAILY PRN Constipation 02/07/23 02/07/23 Unknown oral suspension (Milk of Magnesia) meclizine 12.5 mg tablet 12.5 mg PO Q8H PRN Vertigo 02/07/23 02/07/23 Unknown pantoprazole 40 mg tablet,delayed 40 mg PO DAILY 02/07/23 02/07/23 Unknown release sodium phosphates 19 gram-7 118 ml AL DAILY PRN Constipation 02/07/23 02/07/23 Unknown gram/118 mL enema (Fleet Enema) spironolactone 50 mg tablet 50 mg PO BID 02/07/23 02/07/23 Unknown tramadol 37.5 mg-acetaminophen 325 1 tab PO HS 02/07/23 02/07/23 Unknown mg tablet tramadol 50 mg tablet 50 mg PO Q6H PRN Pain 02/07/23 02/07/23 Unknown Active Medications Generic Name Dose Route Start Last Admin Trade Name Freq PRN Reason Stop Dose Admin Heparin Sodium (Porcine) 5,000 units 02/07/23 21:00 02/11/23 08:40 Heparin Sod 5,000 Unit/0.5 Ml Vial SQ 03/09/23 20:59 5,000 units Q12 IVY Administration Ceftriaxone Sodium 1,000 mg/ 50 mls @ 100 mls/hr 02/09/23 10:00 02/11/23 09:27 Dextrose IV 02/14/23 09:59 Infused Q24H IVY Infusion Protocol Insulin Aspart 0 units 02/08/23 12:00 02/11/23 12:49 Insulin Aspart Per Unit Charge SC 03/10/23 11:59 2 units ACHS IVY Administration Insulin Glargine 5 units 02/08/23 21:00 02/11/23 08:49 Lantus Per Unit Charge SC 03/10/23 20:59 5 units BID IVY Administration Lactulose 20 gm 02/10/23 21:00 02/11/23 08:41 Lactulose Syrup 20 Gm/30 Ml Udc PO 03/12/23 20:59 20 gm BID IVY Administration Levothyroxine Sodium 125 mcg 02/09/23 06:30 02/11/23 05:40 Levothyroxine Sodium 125 Mcg Tablet PO 03/11/23 06:29 125 mcg DAILYBB IVY Administration Magnesium Chloride 64 mg 02/08/23 21:00 02/11/23 08:49 Magnesium Chloride W/Calcium 64mg Delayed Rel Tab PO 03/10/23 20:59 64 mg BID IVY Administration Miscellaneous 1 each 02/08/23 15:15 02/10/23 21:09 Remove Nitro-Dur Patch N/A 03/10/23 15:14 1 each DAILY@2100 IVY Administration Nitroglycerin 1 patch 02/08/23 15:15 02/11/23 08:41 Nitroglycerin 0.4 Mg/Hr Patch TD 03/10/23 15:14 1 patch QAM IVY Administration Nystatin 5 ml 02/10/23 17:00 02/11/23 12:50 Nystatin Susp 500,000 U/5 Ml Udc PO 02/20/23 16:59 5 ml QID IVY Administration Pantoprazole Sodium 40 mg 02/08/23 15:15 02/11/23 08:41 Pantoprazole 40 Mg Tab PO 03/10/23 15:14 40 mg QAM IVY Administration Past Medical History Medical History Bronchitis Chronic bronchitis Coronary artery spasm reason for Nitro Patch q12h follows with Dr. Samson Depression hx Diabetes mellitus, type 2 iddm Encounter for drug screening Gastroparesis GERD (gastroesophageal reflux disease) Grief reaction Heart disease History of melanoma Hypertension Hypothyroidism Interstitial lung disease Multiple lung nodules on CT Nonalcoholic fatty liver disease Obstructive sleep apnea syndrome Pneumonia hx Sleep apnea CPAP Vertigo Vertigo Past Family History Family History Mother Cardiac disorder Hypertension Heart disease Myocardial infarction Father Cardiac disorder Hypertension Heart disease Other Diabetes Ischemic heart disease Prostate cancer Denies family history of Ovarian cancer Breast cancer Colorectal cancer Past Surgical History Surgical History History of appendectomy History of cardiac catheterization X3 (1994, 1999, 2006) History of cataract surgery bilateral History of colonoscopy History of dacryocystorhinostomy done monthly History of dilatation and curettage History of ERCP with stone removal History of laparoscopic cholecystectomy History of repair of rotator cuff right History of tonsillectomy S/P cholecystectomy S/P STEVE-BSO Status post biopsy of skin removal of melanoma Social History Smoking Status: Never smoker Do You Dip or Chew Tobacco: No Hx Alcohol Use: No Hx Substance Use: No substance use type: does not use Physical Exam Vital Signs Last Vital Signs Temp 98.6 F 02/11/23 11:18 Pulse 76 02/11/23 11:18 Resp 18 02/11/23 11:18 BP 146/63 H 02/11/23 11:18 Pulse Ox 98 02/11/23 11:18 O2 Del Method Room Air 02/11/23 11:18 Testing Laboratory Results 02/11/23 06:49 02/11/23 06:49 PT 13.6 Seconds (9.0-12.0) H 02/11/23 06:49 INR 1.3 (0.9-1.1) H 02/11/23 06:49 Urine Color Yellow 02/07/23 06:15 Urine Appearance Clear (Clear) 02/07/23 06:15 Urine pH 5.5 (4.5-7.5) 02/07/23 06:15 Ur Specific [place] 1.017 (1.000-1.030) 02/07/23 06:15 Urine Protein 1+ (Negative) H 02/07/23 06:15 Urine Glucose (UA) Negative (Negative) 02/07/23 06:15 Urine Ketones Trace (Negative) H 02/07/23 06:15 Urine Nitrite Negative (Negative) 02/07/23 06:15 Ur Leukocyte Esterase Trace (Negative) H 02/07/23 06:15 Urine WBC (Auto) 1-5 /hpf (0-5) 02/07/23 06:15 Urine RBC (Auto) 0-4 /hpf (0-4) 02/07/23 06:15 U Hyaline Cast (Auto) 1-5 /lpf (0-5) 02/07/23 06:15 U Epithel Cells (Auto) 5-10 /lpf (0-5) H 02/07/23 06:15 Urine Bacteria (Auto) 4+ (Negative) H 02/07/23 06:15 02/07/23 06:15 Urine Culture - Final Urine,Indwelling Cath Klebsiella pneumoniae 02/07/23 06:30 Aerobic Blood Culture - Preliminary Blood No growth in Aerobic bottle after 48 hours. Anaerobic Blood Culture - Preliminary No growth in Anaerobic bottle after 48 hours. 02/07/23 06:54 Aerobic Blood Culture - Preliminary Blood No growth in Aerobic bottle after 48 hours. Anaerobic Blood Culture - Final 02/11/23 02/11/23 11:35 07:23 POC Glucose 201 H 143 H Electrocardiogram Date: 02/07/23 Sinus tachycardia with Premature atrial complexes, rate 102 bpm Poor R wave progression, consider anterior [place] vs. lead placement vs. LVH Abnormal ECG When compared with ECG of 18-APR-2021 14:13, Premature atrial complexes are now Present Right bundle branch block is no longer Present Confirmed by Reza Samson ([id number]) on 02/07/2023 2:13:44 PM Chest X-Ray Date: 02/09/23 FINDINGS: There is no pneumothorax or pleural effusion. Cardiomediastinal silhouette is stable. Mild left basilar opacity persists. There is no consolidation within the right lung. There is no evidence for overt pulmonary edema. Chondroid lesion within the proximal left humerus is likely benign. IMPRESSION: Persistent left basilar opacity. This could reflect pneumonia or atelectasis. Radiographic follow-up to ensure resolution is recommended. Echocardiogram Date: 04/17/21 LV systolic function is normal The transmitral spectral Doppler flow pattern is normal for age LA is mildly dilated RV systolic pressure is normal
--- NOTE | 2023-02-11 16:54 | Ultrasound Report ---
ABDOMINAL ULTRASOUND, RIGHT UPPER QUADRANT HISTORY: Screening study due to patient with history of cirrhosis hcc screening. COMPARISON: CT 04/17/2021 FINDINGS: Pancreas: The pancreas is obscured by bowel gas. Liver: Cirrhotic morphology measuring 13.5 cm in length. Trace perihepatic ascites. No hepatic mass i dentified. Hepatopedal flow within the portal vein. Gallbladder: Surgically absent. CBD: 0.5 cm. Right kidney: Mild diffuse cortical thinning. No hydronephrosis. IMPRESSION: 1. Cirrhosis without hepatic mass identified. 2. Trace perihepatic ascites. 3. Cholecystectomy. ACT 112: Negative or not required by law. Electronically signed by: Sigifredo Garcia M.D. 02/11/2023 4:53 PM
--- NOTE | 2023-02-11 19:17 | Hospitalist Progress Note ---
Date of Service February 11, 2023 Assessment & Plan (1) Hepatic encephalopathy: Plan: resolved clinically. Acute HE likely due to UTI Cont lactulose but reduce to BID dosing (or even once daily); target 2-3 BMs/day at minimum. If she cannot tolerate lactulose then add (or substitute) rifaximin. (2) Acute kidney injury: Plan: Peak 2.1. had improved to 1. gave bumex yesterday - mil to 1.4 today. no diuretics today. repeat BMP tomorrow. (3) Chronic diastolic congestive heart failure: Plan: Compensated at this time. (4) Hypertension: (5) Controlled type 2 diabetes mellitus, with long-term current use of insulin: Plan: a1c 6.8% in 11/2022. cont lantus as is cont novolog (6) Hypothyroidism: Plan: TSH 1.5 in November 2022 Cont synthroid (7) DVT prophylaxis: Plan: heparin 5000 BID - hold for EGD tomorrow (8) GERD (gastroesophageal reflux disease): Plan: cont PPI (9) UTI (urinary tract infection): Plan: 2nd klebsiella stop rocephin cefdinir PO starting tomorrow (10) Pneumonia: Plan: question of LLL - as seen on serial cxr but are lung findings and crackles on exam due to ILD? (ILD listed as dx on her problem list) rocephin then cefdinir will cover lungs if any pneumonia is truly present (11) Coronary artery spasm: Plan: nitropatch daily (12) Hepatic cirrhosis: Plan: 2nd LEE now with #1 lactulose for #1 ultimately resume diuretics (13) Thrombocytopenia: Plan: 2nd to #12 serial CBC for stability (14) Pancytopenia: Plan: likely 2nd to LEE cirrhosis checked B12/folate -- wnl does have low Fe consider venofer prior to discharge (15) Irritation of oral cavity: Plan: thrush? other? started nystatin solution 5cc qid swish/swallow (16) Esophageal dysmotility: Plan: appreciate speech therapy eval video swallow completed today results noted including dysmotility, trace aspiration w/ thins, etc moist diet could consider increasing nitropatch aspiration precautions PPI etc discussed swallow eval results with pt & grand-daughter yesterday Plan dysphagia -- ongoing complaint of patient despite speech recs, treating for ?thrush, etc asked Amanda GRAF to see in consult they plan EGD tomorrow appreciate their assistance care d/w Ms Kaci Portillo today cont PT, OT dispo - ultimately back to [facility] lengthy discussion held with pt's son by phone this evening questions answered care plan reviewed Admission and Anticipated Discharge Date Admission Date: February 07, 2023 Subjective patient awake/alert sitting in chair did not eat well at breakfast - still with trouble swallowing this am she went back and forth this afternoon about the swallowing - first she said it was not good, then she said it was fine did state consistently that her mouth pain today was improved periods of confusion during the visit but did remember her son from [place] had arrived today also remembered Dr Arroyo visited with her today tele overnight wnl Review of Systems Review of Systems: cv - no chest pain pulm - no dyspnea GI - no abd pain neuro - tremors nearly resolved Physical Exam Physical Exam: gen - NAD, sitting in chair; looks better but still confused mouth - MMM - oral mucosa irritation improved neck - no JVD heart - RRR, s1 s2 lungs - minimal crackles L base; no wheeze abd - soft, BS+, NT ext - no edema, pulses 2+ b/l psych - awake, alert, more oriented today but still a bit confused neuro - no asterixis and tremors improved skin - scattered bruises on skin (arms, back, etc) unchanged Results & Data Results & Data Vital Signs (Past 12 Hours) Vital Signs Temp Pulse Pulse Resp BP Pulse Ox O2 Del Method 02/11/23 16:56 87 02/11/23 11:18 37.0 C 76 18 146/63 H 98 Room Air 02/11/23 08:00 Room Air 02/11/23 07:24 36.4 C L 74 16 116/51 L 97 Room Air Laboratory Results Laboratory Results - last 24 hr 02/10/23 02/11/23 02/11/23 20:18 06:49 06:49 WBC 5.48 RBC 3.18 L Hgb 9.9 L Hct 29.4 L MCV 92.5 MCH 31.1 MCHC 33.7 RDW Std Deviation 57.9 H RDW Coeff of [place] 17.2 H Plt Count 79 L MPV 11.2 PT INR Sodium 137 Potassium 3.8 Chloride 109 H Carbon Dioxide 21 Anion Gap 7 BUN 29 H Creatinine 1.42 H D Est Cr Clr Drug Dosing 21.1 Est GFR ( Amer) 38.4 Est GFR (Non-Af Amer) 33.1 BUN/Creatinine Ratio 20.4 H Glucose 139 H POC Glucose 199 H Calcium 9.7 Iron 36 TIBC 286 Unsaturated IBC 250 Transferrin % Sat 13 L Ferritin 27.8 Vitamin B12 Folate 02/11/23 02/11/23 02/11/23 06:49 06:49 07:23 WBC RBC Hgb Hct MCV MCH MCHC RDW Std Deviation RDW Coeff of [place] Plt Count MPV PT 13.6 H INR 1.3 H Sodium Potassium Chloride Carbon Dioxide Anion Gap BUN Creatinine Est Cr Clr Drug Dosing Est GFR ( Amer) Est GFR (Non-Af Amer) BUN/Creatinine Ratio Glucose POC Glucose 143 H Calcium Iron TIBC Unsaturated IBC Transferrin % Sat Ferritin Vitamin B12 930 H Folate 13.96 02/11/23 02/11/23 11:35 16:43 WBC RBC Hgb Hct MCV MCH MCHC RDW Std Deviation RDW Coeff of [place] Plt Count MPV PT INR Sodium Potassium Chloride Carbon Dioxide Anion Gap BUN Creatinine Est Cr Clr Drug Dosing Est GFR ( Amer) Est GFR (Non-Af Amer) BUN/Creatinine Ratio Glucose POC Glucose 201 H 129 H Calcium Iron TIBC Unsaturated IBC Transferrin % Sat Ferritin Vitamin B12 Folate PG Care Time/CCT Total # of Minutes Spent Total Time Spent with Patient: Total time spent is greater than 50% in coordination of care (as documented) at patient's floor/unit and/or counseling patient: Coding Level of Care Code 74717 SUB INP/OBS CARE 3/50MIN Diagnoses Hepatic encephalopathy K76.82 Acute kidney injury N17.9 Chronic diastolic congestive heart failure I50.32 Hypertension I10 Hypertension type: essential hypertension Controlled type 2 diabetes mellitus, with long-term current use of insulin E11.9; Z79.4 Diabetes mellitus complication status: without complication Hypothyroidism E03.9 Hypothyroidism type: unspecified DVT prophylaxis Z29.9 GERD (gastroesophageal reflux disease) K21.9 UTI (urinary tract infection) N39.0 Pneumonia J18.9 Coronary artery spasm I20.1 Hepatic cirrhosis K74.60; R18.8 Ascites presence: with ascites Hepatic cirrhosis type: unspecified hepatic cirrhosis Thrombocytopenia D69.6 Pancytopenia D61.818 Irritation of oral cavity K13.6 Esophageal dysmotility K22.4 (4) Hypertension Hypertension type: essential hypertension Qualified Code(s): I10 - Essential (primary) hypertension (5) Controlled type 2 diabetes mellitus, with long-term current use of insulin Diabetes mellitus complication status: without complication Qualified Code(s): E11.9 - Type 2 diabetes mellitus without complications; Z79.4 - intermodal truck driver (current) use of insulin (6) Hypothyroidism Hypothyroidism type: unspecified Qualified Code(s): E03.9 - Hypothyroidism, unspecified (12) Hepatic cirrhosis Ascites presence: with ascites Hepatic cirrhosis type: unspecified hepatic cirrhosis Qualified Code(s): K74.60 - Unspecified cirrhosis of liver; R18.8 - Other ascites
[2023-02-12] MEDS: LEVOTHYROXINE SODIUM 125 MCG TABLET PO SCH (05:38)
[2023-02-12 08:07] LABS: BUN Creatinine Ratio 28.8 (10-20); Calcium 9.4 mg/dl (8.6-10.3); Creatinine Clr Calc Pharmacy 23.9 ml/min; Est GFR (African American) 44.8 ml/min; Est GFR (Non-African American) 38.6 ml/min; Potassium 3.9 mmol/L (3.5-5.1)
--- NOTE | 2023-02-12 08:58 | Gastroenterology Progress Note ---
Date of Service February 12, 2023 Assessment & Plan (1) Dysphagia: Plan: Pt is a 87 yo female w hx of LEE cirrhosis, admitted w AMS (resolved) 2/2 hepatic encephalopathy, seen for pharyngeal dysphagia symptoms. - Keep NPO for EGD eval today - Protonix 40mg daily - Lactulose (titrate for goal 3-5 BMs daily) - Diet per Speech Therapy recs - Aspiration & GERD precautions - Pt has OP GI appt scheduled on 07/05/[address] Chris Arroyo - US abd obtained for HCC screening 01/2022 -> no hepatic mass, + trace perihepatic ascites, s/p cholecystectomy Admission and Anticipated Discharge Date Admission Date: February 07, 2023 Supervising Physician Co-Signing Physician Notes Attg add: NO evidence of obstructive dysphagia on EGD. Recs as above. She is at high risk for aspiration, but pt wishes to avoid PEG. Please consider palliative care consult to assist with EOL planning, while pt can participate in this discussion, given comorbidities and frailty. Subjective Pt denies abd pain, n/v. Had mashed potatoes + gravy for dinner last night and denies any trouble coughing or chocking. However used Biotene and started to choke on it. Review of Systems Review of Systems: All systems reviewed & are unremarkable except as noted in HPI & below Physical Exam Constitutional: + thin, cooperative and comfortable Eyes: PERRL, conjunctivae normal, anicteric sclerae ENMT: external ear and nose normal, oropharynx normal Respiratory: normal respiratory effort, lungs clear to auscultation (crackles on bases ) Cardiovascular: RRR, no murmur, no edema Gastrointestinal (Abdomen): normal bowel sounds, soft, nontender, no hepatosplenomegaly Skin: no rashes, warm and dry no jaundice Neurologic: Motor/Sensory: no asterixis Psychiatric: Orientation: alert, oriented to person, oriented to place and cooperative Lymphatic: no lymphedema Results & Data Vital Signs (Past 12 Hours) Vital Signs Temp Pulse Pulse Resp BP Pulse Ox O2 Del Method 02/12/23 07:35 36.8 C 68 18 120/64 96 Room Air 02/12/23 03:57 36.4 C L 74 18 102/55 L 97 Room Air 02/11/23 23:42 37.1 C 77 18 118/52 L 97 Room Air 02/11/23 23:40 75
[2023-02-12] MEDS ORDERED: cephALEXin 250 MG CAP PO SCH (09:00)
[2023-02-12] MEDS: INSULIN ASPART PER UNIT CHARGE SC SCH ×4 (09:17→20:32)
--- NOTE | 2023-02-12 09:24 | Anesthesiology Consultation ---
Date of Service February 12, 2023 Assessment & Plan Chart Review Chart Review: Acceptable Risk for Surgery and Patient NOT seen in Pre Admission Testing Consults Requested none ASA ASA4 Proposed Anesthesia Anesthesia Type: MAC Risk / Benefits Reviewed With: PT / POA / Parent / Guardian, Accepts Plan and Informed Consent Obtained History Surgery Operation Date: 02/12/23 16:30 Proposed Procedures p Esophagogastroduodenoscopy Dr Quintana - Chris Arroyo MD Height/Weight Height: 5 ft 1 in Weight: 56.2 kg Allergies Allergy/AdvReac Type Severity Reaction Status Date / Time erythromycin base Allergy Severe eye Verified 02/07/23 12:24 ointment only - red and infected Iodinated Contrast Media Allergy Severe heart Verified 05/06/21 14:33 muscles tightened/heart spasms Penicillins Allergy Intermediate "wore out Verified 02/07/23 12:24 on me" and hives repaglinide Allergy Intermediate Hives Verified 02/07/23 12:24 Sulfa (Sulfonamide Allergy Unknown Hives Verified 05/06/21 14:33 Antibiotics) timolol Allergy Unknown eye drops Verified 02/07/23 12:24 - eye redness clonazepam AdvReac Severe increased Verified 05/06/21 14:33 anxiety Yqvwdjr-STB-ZpR Reductase AdvReac Severe ELEVATED Verified 05/06/21 14:33 Inhibitor HEPATIC [Nfbuhxe-Htt-Ayl Reductase ENZYMES Inhibitor] enalapril AdvReac Intermediate COUGH Verified 02/07/23 12:24 Medications Home Medications Medication Instructions Recorded Confirmed Last Taken ketotifen fumarate 0.025 % (0.035 1 drp ophthalmic (eye) TID PRN Eye 05/16/19 02/07/23 01/09/21 %) eye drops ([place]) Irritation fluticasone furoate 100 1 inh inhalation DAILY #60 ea 12/24/20 02/07/23 01/09/21 mcg-vilanterol 25 mcg/dose inhalation powder (Breo Ellipta) famotidine 20 mg tablet 20 mg PO HS 04/16/21 02/07/23 Unknown bumetanide 2 mg tablet 2 mg PO DAILY #90 tabs 01/26/22 02/07/23 Unknown nitroglycerin 0.4 mg/hr 1 patch transdermal DAILY HEART 05/04/22 02/07/23 Unknown transdermal 24 hour patch MUSCLE SPASMS #30 ea acetaminophen 325 mg tablet 650 mg PO Q6H PRN Fever 02/07/23 02/07/23 Unknown bisacodyl 10 mg rectal suppository 10 mg NE DAILY PRN Constipation 02/07/23 02/07/23 Unknown (Dulcolax (bisacodyl)) cetylpyridinium chloride 1 tara mucous membrane DAILY PRN 02/07/23 02/07/23 Unknown Sore Throat colestipol 5 gram oral packet 5 g PO BID diarrhea 02/07/23 02/07/23 Unknown insulin glargine 100 unit/mL 10 unit subcut HS 02/07/23 02/07/23 Unknown subcutaneous solution (Lantus U-100 Insulin) levothyroxine 125 mcg tablet 125 mcg PO DAILY 02/07/23 02/07/23 Unknown lorazepam 1 mg tablet 1 mg PO HS 02/07/23 02/07/23 Unknown magnesium chloride 71.5 mg 143 mg PO DAILY 02/07/23 02/07/23 Unknown (magnesium chloride) tablet,delayed release (Slow-Mag) magnesium hydroxide 400 mg/5 mL 30 ml PO DAILY PRN Constipation 02/07/23 02/07/23 Unknown oral suspension (Milk of Magnesia) meclizine 12.5 mg tablet 12.5 mg PO Q8H PRN Vertigo 02/07/23 02/07/23 Unknown pantoprazole 40 mg tablet,delayed 40 mg PO DAILY 02/07/23 02/07/23 Unknown release sodium phosphates 19 gram-7 118 ml NE DAILY PRN Constipation 02/07/23 02/07/23 Unknown gram/118 mL enema (Fleet Enema) spironolactone 50 mg tablet 50 mg PO BID 02/07/23 02/07/23 Unknown tramadol 37.5 mg-acetaminophen 325 1 tab PO HS 02/07/23 02/07/23 Unknown mg tablet tramadol 50 mg tablet 50 mg PO Q6H PRN Pain 02/07/23 02/07/23 Unknown Active Medications Generic Name Dose Route Start Last Admin Trade Name Freq PRN Reason Stop Dose Admin Heparin Sodium (Porcine) 5,000 units 02/07/23 21:00 02/11/23 08:40 Heparin Sod 5,000 Unit/0.5 Ml Vial SQ 03/09/23 20:59 5,000 units Q12 IVY Administration Insulin Aspart 0 units 06/19/23 12:00 02/12/23 09:17 Insulin Aspart Per Unit Charge SC 03/10/23 11:59 Not Given ACHS [facility] Insulin Glargine 5 units 02/08/23 21:00 02/11/23 21:20 Lantus Per Unit Charge SC 03/10/23 20:59 5 units BID IVY Administration Lactulose 20 gm 02/10/23 21:00 02/11/23 21:15 Lactulose Syrup 20 Gm/30 Ml Udc PO 03/12/23 20:59 20 gm BID IVY Administration Levothyroxine Sodium 125 mcg 02/09/23 06:30 02/12/23 05:38 Levothyroxine Sodium 125 Mcg Tablet PO 03/11/23 06:29 125 mcg DAILYBB IVY Administration Magnesium Chloride 64 mg 02/08/23 21:00 02/11/23 21:16 Magnesium Chloride W/Calcium 64mg Delayed Rel Tab PO 03/10/23 20:59 64 mg BID IVY Administration Miscellaneous 1 each 02/08/23 15:15 02/11/23 21:16 Remove Nitro-Dur Patch N/A 03/10/23 15:14 1 each DAILY@2100 IVY Administration Nitroglycerin 1 patch 02/08/23 15:15 02/11/23 08:41 Nitroglycerin 0.4 Mg/Hr Patch TD 03/10/23 15:14 1 patch QAM IVY Administration Nystatin 5 ml 02/10/23 17:00 02/11/23 21:16 Nystatin Susp 500,000 U/5 Ml Udc PO 02/20/23 16:59 5 ml QID IVY Administration Pantoprazole Sodium 40 mg 02/08/23 15:15 02/11/23 08:41 Pantoprazole 40 Mg Tab PO 03/10/23 15:14 40 mg QAM IVY Administration NPO Date Last Intake of Fluids: 02/11/23 Time Last Intake of Fluids: 17:30 Last Intake of Solids Comment: unknown Past Medical History Medical History Bronchitis Chronic bronchitis Coronary artery spasm reason for Nitro Patch q12h follows with Dr. Samson Depression hx Diabetes mellitus, type 2 iddm Encounter for drug screening Gastroparesis GERD (gastroesophageal reflux disease) Grief reaction Heart disease History of melanoma Hypertension Hypothyroidism Interstitial lung disease Multiple lung nodules on CT Nonalcoholic fatty liver disease Obstructive sleep apnea syndrome Pneumonia hx Sleep apnea CPAP Vertigo Vertigo Exercise / Class Metabolic Activity II 4-5 Yardwork/Stairs/Walk up hill Past Family History Family History Mother Cardiac disorder Hypertension Heart disease Myocardial infarction Father Cardiac disorder Hypertension Heart disease Other Diabetes Ischemic heart disease Prostate cancer Denies family history of Ovarian cancer Breast cancer Colorectal cancer Past Surgical History Surgical History History of appendectomy History of cardiac catheterization X3 (1994, 1999, 2006) History of cataract surgery bilateral History of colonoscopy History of dacryocystorhinostomy done monthly History of dilatation and curettage History of ERCP with stone removal History of laparoscopic cholecystectomy History of repair of rotator cuff right History of tonsillectomy S/P cholecystectomy S/P STEVE-BSO Status post biopsy of skin removal of melanoma Past Anesthesia History No Hx of Anesthesia Complications and No Family Hx of Anesthesia Complications History of PONV No Hx of PONV and No Hx of Motion Sickness Social History Smoking Status: Never smoker Do You Dip or Chew Tobacco: No Hx Alcohol Use: No Hx Substance Use: No substance use type: does not use Physical Exam Vital Signs Last Vital Signs Temp 36.9 C 02/12/23 09:03 Pulse 74 02/12/23 09:18 Resp 16 02/12/23 09:03 BP 143/86 H 02/12/23 09:03 Pulse Ox 100 02/12/23 09:03 O2 Del Method Room Air 02/12/23 09:03 ENMT Mouth: no dentition abnormality Thyromental Distance: > or= 3.5 Finger Breadths Mallampati Class: II Neck normal visual inspection Respiratory normal respiratory effort Auscultation: lungs clear to auscultation bilaterally Cardiovascular Rate/Rhythm: regular rate and regular rhythm Psychiatric Orientation: alert Testing Laboratory Results 02/11/23 06:49 02/12/23 06:52 PT 13.6 Seconds (9.0-12.0) H 02/11/23 06:49 INR 1.3 (0.9-1.1) H 02/11/23 06:49 Urine Color Yellow 02/07/23 06:15 Urine Appearance Clear (Clear) 02/07/23 06:15 Urine pH 5.5 (4.5-7.5) 02/07/23 06:15 Ur Specific [place] 1.017 (1.000-1.030) 02/07/23 06:15 Urine Protein 1+ (Negative) H 02/07/23 06:15 Urine Glucose (UA) Negative (Negative) 02/07/23 06:15 Urine Ketones Trace (Negative) H 02/07/23 06:15 Urine Nitrite Negative (Negative) 02/07/23 06:15 Ur Leukocyte Esterase Trace (Negative) H 02/07/23 06:15 Urine WBC (Auto) 1-5 /hpf (0-5) 02/07/23 06:15 Urine RBC (Auto) 0-4 /hpf (0-4) 02/07/23 06:15 U Hyaline Cast (Auto) 1-5 /lpf (0-5) 02/07/23 06:15 U Epithel Cells (Auto) 5-10 /lpf (0-5) H 02/07/23 06:15 Urine Bacteria (Auto) 4+ (Negative) H 02/07/23 06:15 02/07/23 06:54 Aerobic Blood Culture - Final Blood No growth in Aerobic bottle after 5 days. Anaerobic Blood Culture - Final 02/07/23 06:30 Aerobic Blood Culture - Final Blood No growth in Aerobic bottle after 5 days. Anaerobic Blood Culture - Final No growth in Anaerobic bottle after 5 days. 02/07/23 06:15 Urine Culture - Final Urine,Indwelling Cath Klebsiella pneumoniae 02/12/23 07:35 POC Glucose 111 H Electrocardiogram Date: 02/07/23 Sinus tachycardia with Premature atrial complexes, rate 102 bpm Poor R wave progression, consider anterior RI vs. lead placement vs. LVH Abnormal ECG When compared with ECG of 18-APR-2021 14:13, Premature atrial complexes are now Present Right bundle branch block is no longer Present Confirmed by Reza Samson ([id number]) on 02/07/2023 2:13:44 PM Chest X-Ray Date: 02/09/23 FINDINGS: There is no pneumothorax or pleural effusion. Cardiomediastinal silhouette is stable. Mild left basilar opacity persists. There is no consolidation within the right lung. There is no evidence for overt pulmonary edema. Chondroid lesion within the proximal left humerus is likely benign. IMPRESSION: Persistent left basilar opacity. This could reflect pneumonia or atelectasis. Radiographic follow-up to ensure resolution is recommended. Echocardiogram Date: 04/17/21 LV systolic function is normal The transmitral spectral Doppler flow pattern is normal for age LA is mildly dilated RV systolic pressure is normal
--- NOTE | 2023-02-12 09:27 | History & Physical Bridge Note ---
Date of Service February 12, 2023 History & Physical Bridge Note I have examined the patient, reviewed the History & Physical and in the interval since the performance of the History & Physical I have noted the following changes of clinical significance: no changes noted
[2023-02-12] MEDS ORDERED: PROPOFOL IV EMULSION 10 MG/ML 20 ML VIAL IV ONE (09:57)
[2023-02-12] MEDS ORDERED: LIDOCAINE 2% 2 ML VIAL/AMP(20MG/ML) INFIL ONE (09:57)
--- NOTE | 2023-02-12 11:12 | Anesthesiology Progress Note ---
Date of Service February 12, 2023 Anesthesia Post Procedure Vital Signs Vital Signs: Temp Pulse Pulse Resp BP Pulse Ox O2 Del Method 02/12/23 11:10 64 16 150/54 H 98 Room Air 02/12/23 10:54 65 16 124/77 99 Room Air 02/12/23 10:39 64 16 105/38 L 99 Room Air 02/12/23 09:18 74 02/12/23 09:03 36.9 C 75 16 143/86 H 100 Room Air 02/12/23 07:35 36.8 C 68 18 120/64 96 Room Air 02/12/23 03:57 36.4 C L 74 18 102/55 L 97 Room Air 02/11/23 23:42 37.1 C 77 18 118/52 L 97 Room Air 02/11/23 23:40 75 02/11/23 19:48 36.7 C 82 18 141/56 H 96 Room Air 02/11/23 16:56 87 02/11/23 11:18 37.0 C 76 18 146/63 H 98 Room Air Transfer of Care Handoff Completed per policy Notes Mental Status: alert / awake / arousable Patient Amnestic to Procedure: Yes Nausea / Vomiting: adequately controlled Pain: adequately controlled Airway Patency, RR, SpO2: stable & adequate BP & HR: stable & adequate Hydration State: stable & adequate Anesthetic Complications: no major complications apparent
[2023-02-12] MEDS: LACTULOSE SYRUP 20 GM/30 ML UDC PO SCH ×2 (12:49→20:37)
[2023-02-12] MEDS: CEFDINIR 300 MG CAP PO SCH (12:50)
[2023-02-12] MEDS: PANTOprazole 40 MG TAB PO SCH (12:52)
[2023-02-12] MEDS: NITROGLYCERIN 0.4 MG/HR PATCH TD SCH (12:53)
--- NOTE | 2023-02-12 13:05 | GI REPORT ---
Patient Name: Ilana Mackay Procedure Date: 02/12/2023 10:07 AM Date of : 1935 Admit Type: Inpatient Age: 87 Gender: Female Attending MD: Crhis Arroyo MD, Procedure: Upper GI endoscopy Providers: Chris Arroyo MD Referring MD: Saleem Granados Indications: Dysphagia Medicines: See the Anesthesia note for documentation of the administered medications Complications: No immediate complications. Estimated Blood Loss: Estimated blood loss: none. Procedure: Pre-Anesthesia Assessment: - ASA Grade Assessment: IV - A patient with severe systemic disease that is a constant threat to life. After obtaining informed consent, the endoscope was passed under direct vision. Throughout the procedure, the patient's blood pressure, pulse, and oxygen saturations were monitored continuously. The Endoscope was introduced through the mouth, and advanced to the second part of duodenum. The upper GI endoscopy was accomplished without difficulty. The patient tolerated the procedure well. Findings: There was no web, and no evidence of Zenker's. There was single grade 1-2 varix without red osito signs in the distal esophagus. This was not banded due to ring, and due to pt's complaint of dysphagia. The esophagus was mildly tortuous. The GE junction was at 35 cm. There was a mild to moderate ring at the GE junction; this was not dilated due to presence of varices. There was evidence of severe portal gastropathy throughout the body, cardia, and fundus. The antrum and duodenum were normal. Impression: Her dysphagia is not likely to be secondary to esophageal obstruction. 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 Portal gastropathy. Recommendation: - Discharge patient to floor. - Resume diet per speech pathology recommendations; pt/family understand that pt has oropharyngeal dysphagia, and may remain at risk for aspiration. - Defer beta blockade for varices, portal gastropathy due to fall risk. Chris Arroyo M.D. Chris Arroyo MD 02/12/2023 1:04:27 PM This report has been signed electronically. Note Initiated On: 02/12/2023 10:07 AM Number of Addenda: 0 I attest to the content of the Intraoperative Record and orders documented therein, exceptions below {[id number]}
[2023-02-12] MEDS: LANTUS PER UNIT CHARGE SC SCH ×2 (13:17→20:38)
[2023-02-12] MEDS: MAGNESIUM CHLORIDE W/CALCIUM 64MG DELAYED REL TAB PO SCH ×2 (13:37→20:38)
[2023-02-12] MEDS: NYSTATIN SUSP 500,000 U/5 ML UDC PO SCH ×4 (13:37→20:38)
--- NOTE | 2023-02-12 19:31 | Hospitalist Progress Note ---
Date of Service February 12, 2023 Assessment & Plan (1) Hepatic encephalopathy: Plan: resolved. Acute HE likely was precipitated by her UTI Cont lactulose BID; target 2-3 BMs/day at minimum. If she cannot tolerate lactulose then add (or substitute) rifaximin. (2) Acute kidney injury: Plan: resolved. Peak 2.1. now 1.2. cont to hold diuretics today. repeat BMP am. (3) Chronic diastolic congestive heart failure: Plan: Compensated at this time. (4) Hypertension: Plan: controlled (5) Controlled type 2 diabetes mellitus, with long-term current use of insulin: Plan: a1c 6.8% in 11/2022. cont lantus as is cont novolog (6) Hypothyroidism: Plan: TSH 1.5 in November 2022 Cont synthroid (7) DVT prophylaxis: Plan: heparin 5000 BID - held for EGD, but also with extensive bruising in multiple locations thus, cont to hold (8) GERD (gastroesophageal reflux disease): Plan: cont PPI (9) UTI (urinary tract infection): Plan: 2nd klebsiella stopped rocephin change to cefdinir today complete 7 days of IV/PO abx (10) Pneumonia: Plan: question of LLL - as seen on serial cxr but are lung findings and crackles on exam due to ILD? (ILD listed as dx on her problem list) rocephin then cefdinir will cover lungs if any pneumonia is truly present (11) Coronary artery spasm: Plan: nitropatch daily (12) Hepatic cirrhosis: Plan: 2nd LEE now with #1 lactulose for #1 ultimately resume diuretics (13) Thrombocytopenia: Plan: 2nd to #12 serial CBC for stability (14) Pancytopenia: Plan: likely 2nd to LEE cirrhosis checked B12/folate -- wnl does have low Fe consider venofer prior to discharge (15) Irritation of oral cavity: Plan: thrush? other? started nystatin solution 5cc qid swish/swallow and mucosa looks normal today cont nystatin for a few more days (16) Esophageal dysmotility: Plan: appreciate speech therapy eval video swallow completed today results noted including dysmotility, trace aspiration w/ thins, etc moist diet could consider increasing nitropatch but defer since swallowing has improved last 48 hours aspiration precautions PPI etc (17) Esophageal varices: Plan: as seen on EGD today (18) Portal hypertensive gastropathy: Plan: as seen on EGD today (19) Dysphagia: Plan: s/p EGD today by Dr Arroyo nothing on scope to cause symptoms thus, dysphagia is likely due to dysmotility recent ?thrush may have contributed to oral phase dysphagia as well Plan dispo - back to [facility] tomorrow? remove hi in am son updated by phone last pm Admission and Anticipated Discharge Date Admission Date: February 07, 2023 Subjective tele stable overnight I saw patient post-EGD she denies any issues with swallowing today denies mouth pain passing gas - states she had no stool today but documentation from nurses suggests otherwise no new issues Review of Systems Review of Systems: gen - no fevers cv - no chest pain pulm - no dyspnea GI - no abd pain Physical Exam Physical Exam: gen - NAD, sitting in chair; looks good mouth - MMM - oral mucosa irritation resolved neck - no JVD heart - RRR, s1 s2 lungs - minimal crackles L base - unchanged; no wheeze abd - soft, BS+, NT, mildly distended today ext - no edema, pulses 2+ b/l psych - awake, alert, oriented - she could recall the events of the day today neuro - no asterixis and tremors resolved skin - scattered bruises on skin (arms, back, etc) unchanged Results & Data Results & Data Vital Signs (Past 12 Hours) Vital Signs Temp Pulse Pulse Resp BP Pulse Ox O2 Del Method 02/12/23 19:12 36.6 C 71 18 157/75 H 97 Room Air 02/12/23 17:35 74 02/12/23 15:39 36.7 C 72 18 133/59 L 100 Room Air 02/12/23 11:10 64 16 150/54 H 98 Room Air 02/12/23 10:54 65 16 124/77 99 Room Air 02/12/23 10:39 64 16 105/38 L 99 Room Air 02/12/23 09:18 74 02/12/23 09:03 36.9 C 75 16 143/86 H 100 Room Air 02/12/23 07:35 36.8 C 68 18 120/64 96 Room Air Laboratory Results Laboratory Results - last 24 hr 02/11/23 02/12/23 02/12/23 20:31 06:52 07:35 Sodium 138 Potassium 3.9 Chloride 110 H Carbon Dioxide 22 Anion Gap 6 BUN 36 H Creatinine 1.25 H Est Cr Clr Drug Dosing 23.9 Est GFR ( Amer) 44.8 Est GFR (Non-Af Amer) 38.6 BUN/Creatinine Ratio 28.8 H Glucose 98 POC Glucose 160 H 111 H Calcium 9.4 02/12/23 02/12/23 13:14 16:32 Sodium Potassium Chloride Carbon Dioxide Anion Gap BUN Creatinine Est Cr Clr Drug Dosing Est GFR ( Amer) Est GFR (Non-Af Amer) BUN/Creatinine Ratio Glucose POC Glucose 74 136 H Calcium Diagnostic Findings EGD - Findings: There was no web, and no evidence of Zenker's. There was single grade 1-2 varix without red osito signs in the distal esophagus. This was not banded due to ring, and due to pt's complaint of dysphagia. The esophagus was mildly tortuous. The GE junction was at 35 cm. There was a mild to moderate ring at the GE junction; this was not dilated due to presence of varices. There was evidence of severe portal gastropathy throughout the body, cardia, and fundus. The antrum and duodenum were normal. PG Care Time/CCT Total # of Minutes Spent Total Time Spent with Patient: Total time spent is greater than 50% in coordination of care (as documented) at patient's floor/unit and/or counseling patient: Coding Level of Care Code 20725 SUB INP/OBS CARE 2/35MIN Diagnoses Hepatic encephalopathy K76.82 Acute kidney injury N17.9 Chronic diastolic congestive heart failure I50.32 Hypertension I10 Hypertension type: essential hypertension Controlled type 2 diabetes mellitus, with long-term current use of insulin E11.9; Z79.4 Diabetes mellitus complication status: without complication Hypothyroidism E03.9 Hypothyroidism type: unspecified DVT prophylaxis Z29.9 GERD (gastroesophageal reflux disease) K21.9 UTI (urinary tract infection) N39.0 Pneumonia J18.9 Coronary artery spasm I20.1 Hepatic cirrhosis K74.60; R18.8 Ascites presence: with ascites Hepatic cirrhosis type: unspecified hepatic cirrhosis Thrombocytopenia D69.6 Pancytopenia D61.818 Irritation of oral cavity K13.6 Esophageal dysmotility K22.4 Esophageal varices I85.00 Portal hypertensive gastropathy K76.6; K31.89 Dysphagia R13.10 (4) Hypertension Hypertension type: essential hypertension Qualified Code(s): I10 - Essential (primary) hypertension (5) Controlled type 2 diabetes mellitus, with long-term current use of insulin Diabetes mellitus complication status: without complication Qualified Code(s): E11.9 - Type 2 diabetes mellitus without complications; Z79.4 - [facility] (current) use of insulin (6) Hypothyroidism Hypothyroidism type: unspecified Qualified Code(s): E03.9 - Hypothyroidism, unspecified (12) Hepatic cirrhosis Ascites presence: with ascites Hepatic cirrhosis type: unspecified hepatic cirrhosis Qualified Code(s): K74.60 - Unspecified cirrhosis of liver; R18.8 - Other ascites
[2023-02-13] MEDS: LEVOTHYROXINE SODIUM 125 MCG TABLET PO SCH (05:48)
[2023-02-13 06:45] LABS: Hematocrit (blood only) 27.8 % (37.0-47.0); Hemoglobin 9.2 g/dl (12.0-16.0); Mean Corpuscular Hemoglobin 31.1 pg (25.0-34.0); Mean Corpuscular Hgb Conc 33.1 g/dL (32.0-36.0); Mean Corpuscular Volume 93.9 fL (80.0-100.0); Mean Platelet Volume 11.3 fL (9.4-12.4); Platelet Count 69 K/uL (130-400); RDW Coefficient of Variation 17.4 % (11.5-14.5); Red Blood Count 2.96 M/uL (4.20-5.40); White Blood Count 4.43 K/ul (4.8-10.8)
[2023-02-13 07:04] LABS: BUN Creatinine Ratio 30.3 (10-20); Calcium 9.4 mg/dl (8.6-10.3); Creatinine Clr Calc Pharmacy 25.1 ml/min; Est GFR (African American) 47.5 ml/min; Magnesium 2.1 mg/dl (1.7-2.4)
[2023-02-13] MEDS: MAGNESIUM CHLORIDE W/CALCIUM 64MG DELAYED REL TAB PO SCH ×2 (08:27→21:31)
[2023-02-13] MEDS: CEFDINIR 300 MG CAP PO SCH (08:27)
[2023-02-13] MEDS: NITROGLYCERIN 0.4 MG/HR PATCH TD SCH (08:28)
[2023-02-13] MEDS: PANTOprazole 40 MG TAB PO SCH (08:28)
[2023-02-13] MEDS: NYSTATIN SUSP 500,000 U/5 ML UDC PO SCH ×4 (08:28→21:30)
[2023-02-13] MEDS: LACTULOSE SYRUP 20 GM/30 ML UDC PO SCH ×3 (08:28→21:30)
[2023-02-13] MEDS: INSULIN ASPART PER UNIT CHARGE SC SCH ×4 (08:58→20:56)
[2023-02-13] MEDS: LANTUS PER UNIT CHARGE SC SCH ×2 (08:59→21:32)
[2023-02-13] MEDS ORDERED: IRON SUCROSE 200 MG in 0.9 % SODIUM CHLORIDE 100 ML IV ONE (09:10)
[2023-02-13] MEDS ORDERED: BUMETANIDE 1 MG TAB PO ONE (11:33)
[2023-02-13] MEDS ORDERED: SPIRONOLACTONE 25 MG TAB PO ONE (11:33)
--- NOTE | 2023-02-13 11:35 | Hospitalist Progress Note ---
Date of Service February 13, 2023 Assessment & Plan (1) Hepatic encephalopathy: Plan: resolved. Acute HE likely was precipitated by her UTI Cont lactulose but increase back to TID dosing Target 2-3 BMs/day at minimum. If she cannot tolerate lactulose then add (or substitute) rifaximin. (2) Acute kidney injury: Plan: resolved. Peak 2.1. now 1.1. resume diuretics albeit at lower doses --> bumex 1mg, aldactone 25mg repeat BMP am. (3) Chronic diastolic congestive heart failure: Plan: Compensated at this time. (4) Hypertension: Plan: controlled (5) Controlled type 2 diabetes mellitus, with long-term current use of insulin: Plan: a1c 6.8% in 11/2022. cont lantus as is cont novolog (6) Hypothyroidism: Plan: TSH 1.5 in November 2022 Cont synthroid (7) DVT prophylaxis: Plan: heparin 5000 BID (8) GERD (gastroesophageal reflux disease): Plan: cont PPI (9) UTI (urinary tract infection): Plan: 2nd klebsiella stopped rocephin change to cefdinir today complete 7 days of IV/PO abx tomorrow is day 7 of Rx (10) Pneumonia: Plan: question of LLL - as seen on serial cxr but are lung findings and crackles on exam due to ILD? (ILD listed as dx on her problem list) rocephin then cefdinir will cover lungs if any pneumonia is truly present (11) Coronary artery spasm: Plan: nitropatch daily (12) Hepatic cirrhosis: Plan: 2nd LEE now with #1 lactulose for #1 ultimately resume diuretics needs f/u with [facility] - post discharge for ongoing Rx (13) Thrombocytopenia: Plan: 2nd to #12 stable serial CBC for stability (14) Pancytopenia: Plan: likely 2nd to LEE cirrhosis checked B12/folate -- wnl does have low Fe will give a dose of IV venofer today 200mg x 1 (15) Irritation of oral cavity: Plan: thrush? other? started nystatin solution 5cc qid swish/swallow and mucosa looks normal today and she has no further discomfort cont nystatin for a few more days (16) Esophageal dysmotility: Plan: appreciate speech therapy eval video swallow completed today results noted including dysmotility, trace aspiration w/ thins, etc moist diet could consider increasing nitropatch but defer since swallowing has improved last 48 hours aspiration precautions PPI etc (17) Esophageal varices: Plan: as seen on EGD 02/12 (18) Portal hypertensive gastropathy: Plan: as seen on EGD 02/12 (19) Dysphagia: Plan: s/p EGD 02/[address] Arroyo nothing on scope to cause symptoms thus, dysphagia is likely due to dysmotility recent ?thrush may have contributed to oral phase dysphagia as well Plan dispo - back to [facility] tomorrow? left message for son on his voicemail this evening bruises - due to low platelets? vit C def? consider vit C supplementation Admission and Anticipated Discharge Date Admission Date: February 07, 2023 Subjective tele overnight wnl hi removed this am - still no void 5-6 hours later did have BM overnight but that was only 1 BM in 24+ hours eating well no dysphagia no dyspnea no abd pain feels good Review of Systems Review of Systems: gen - no fevers cv - no cp, no orthopnea, no edema pulm - no dyspnea or JOSHI GI - no abd pain/nausea/emesis Physical Exam Physical Exam: gen - NAD, sitting in chair; looks very good today mouth - MMM - oral mucosa irritation resolved; no thrush plaques neck - no JVD heart - RRR, s1 s2, 2/6 systolic murmur LSB lungs - minimal crackles L base - unchanged; no wheeze abd - soft, BS+, NT, distension improved ext - no edema, pulses 2+ b/l psych - awake, alert, oriented neuro - no asterixis; no tremors skin - scattered bruises on skin (arms, back, etc) unchanged Results & Data Results & Data Vital Signs (Past 12 Hours) Vital Signs Temp Pulse Pulse Resp BP Pulse Ox O2 Del Method 02/13/23 09:06 73 02/13/23 07:44 36.6 C 67 16 119/47 L 98 Room Air 02/13/23 03:27 37 C 69 16 121/53 L 98 Room Air Laboratory Results Laboratory Results - last 24 hr 02/12/23 02/12/23 02/12/23 13:14 16:32 20:29 WBC RBC Hgb Hct MCV MCH MCHC RDW Std Deviation RDW Coeff of [facility] Plt Count MPV Sodium Potassium Chloride Carbon Dioxide Anion Gap BUN Creatinine Est Cr Clr Drug Dosing Est GFR ( Amer) Est GFR (Non-Af Amer) BUN/Creatinine Ratio Glucose POC Glucose 74 136 H 117 H Calcium Magnesium 02/13/23 02/13/23 02/13/23 05:42 05:42 07:24 WBC 4.43 L RBC 2.96 L Hgb 9.2 L Hct 27.8 L MCV 93.9 MCH 31.1 MCHC 33.1 RDW Std Deviation 59.0 H RDW Coeff of [facility] 17.4 H Plt Count 69 L MPV 11.3 Sodium 138 Potassium 4.0 Chloride 111 H Carbon Dioxide 20 L Anion Gap 7 BUN 36 H Creatinine 1.19 Est Cr Clr Drug Dosing 25.1 Est GFR ( Amer) 47.5 Est GFR (Non-Af Amer) 41.0 BUN/Creatinine Ratio 30.3 H Glucose 99 POC Glucose 93 Calcium 9.4 Magnesium 2.1 PG Care Time/CCT Total # of Minutes Spent Total Time Spent with Patient: Total time spent is greater than 50% in coordination of care (as documented) at patient's floor/unit and/or counseling patient: Coding Level of Care Code 81448 SUB INP/OBS CARE 235MIN Diagnoses Hepatic encephalopathy K76.82 Acute kidney injury N17.9 Chronic diastolic congestive heart failure I50.32 Hypertension I10 Hypertension type: essential hypertension Controlled type 2 diabetes mellitus, with long-term current use of insulin E11.9; Z79.4 Diabetes mellitus complication status: without complication Hypothyroidism E03.9 Hypothyroidism type: unspecified DVT prophylaxis Z29.9 GERD (gastroesophageal reflux disease) K21.9 UTI (urinary tract infection) N39.0 Pneumonia J18.9 Coronary artery spasm I20.1 Hepatic cirrhosis K74.60; R18.8 Ascites presence: with ascites Hepatic cirrhosis type: unspecified hepatic cirrhosis Thrombocytopenia D69.6 Pancytopenia D61.818 Irritation of oral cavity K13.6 Esophageal dysmotility K22.4 Esophageal varices I85.00 Portal hypertensive gastropathy K76.6; K31.89 Dysphagia R13.10 (4) Hypertension Hypertension type: essential hypertension Qualified Code(s): I10 - Essential (primary) hypertension (5) Controlled type 2 diabetes mellitus, with long-term current use of insulin Diabetes mellitus complication status: without complication Qualified Code(s): E11.9 - Type 2 diabetes mellitus without complications; Z79.4 - [facility] (current) use of insulin (6) Hypothyroidism Hypothyroidism type: unspecified Qualified Code(s): E03.9 - Hypothyroidism, unspecified (12) Hepatic cirrhosis Ascites presence: with ascites Hepatic cirrhosis type: unspecified hepatic cirrhosis Qualified Code(s): K74.60 - Unspecified cirrhosis of liver; R18.8 - Other ascites
[2023-02-13] MEDS ORDERED: HEPARIN SOD 5,000 UNIT/0.5 ML VIAL SQ STA (12:48)
[2023-02-13] MEDS ORDERED: ACETAMINOPHEN 500 MG TAB PO PRN (17:37)
[2023-02-13] MEDS: HEPARIN SOD 5,000 UNIT/0.5 ML VIAL SQ SCH (21:31)
[2023-02-14] MEDS: LEVOTHYROXINE SODIUM 125 MCG TABLET PO SCH (06:13)
[2023-02-14 07:14] LABS: Hematocrit (blood only) 27.5 % (37.0-47.0); Hemoglobin 9.1 g/dl (12.0-16.0); Mean Corpuscular Hgb Conc 33.1 g/dL (32.0-36.0); Mean Corpuscular Volume 93.5 fL (80.0-100.0); Mean Platelet Volume 11.9 fL (9.4-12.4); Platelet Count 76 K/uL (130-400); RDW Coefficient of Variation 17.6 % (11.5-14.5); Red Blood Count 2.94 M/uL (4.20-5.40); White Blood Count 3.74 K/ul (4.8-10.8)
[2023-02-14 07:23] LABS: BUN Creatinine Ratio 27.8 (10-20); Calcium 9.2 mg/dl (8.6-10.3); Creatinine Clr Calc Pharmacy 23.7 ml/min; Est GFR (African American) 44.4 ml/min; Est GFR (Non-African American) 38.3 ml/min; Potassium 3.9 mmol/L (3.5-5.1)
[2023-02-14] MEDS: INSULIN ASPART PER UNIT CHARGE SC SCH ×2 (08:42→12:28)
[2023-02-14] MEDS: LANTUS PER UNIT CHARGE SC SCH (09:02)
[2023-02-14] MEDS: MAGNESIUM CHLORIDE W/CALCIUM 64MG DELAYED REL TAB PO SCH (09:18)
[2023-02-14] MEDS: NITROGLYCERIN 0.4 MG/HR PATCH TD SCH (09:18)
[2023-02-14] MEDS: PANTOprazole 40 MG TAB PO SCH (09:18)
[2023-02-14] MEDS: NYSTATIN SUSP 500,000 U/5 ML UDC PO SCH (09:18)
[2023-02-14] MEDS: CEFDINIR 300 MG CAP PO SCH (09:19)
[2023-02-14] MEDS: HEPARIN SOD 5,000 UNIT/0.5 ML VIAL SQ SCH (09:19)
[2023-02-14] MEDS: LACTULOSE SYRUP 20 GM/30 ML UDC PO SCH (09:19)
[2023-02-14] MEDS ORDERED: POTASSIUM CHLORIDE PWD 20 MEQ PACK PO ONE (09:46)
[2023-02-14] MEDS ORDERED: BUMETANIDE 1 MG TAB PO ONE (09:46)
[2023-02-14] MEDS ORDERED: ASCORBIC ACID 500 MG TAB PO SCH (10:00)
[2023-02-14] MEDS ORDERED: IRON SUCROSE 200 MG in 0.9 % SODIUM CHLORIDE 100 ML IV ONE (10:15)
--- NOTE | 2023-02-14 13:38 | Discharge Summary ---
Date of Service date of admission - February 07, 2023 date of discharge - February 14, 2023 Admission HPI Per Admitting Provider 87-year-old female from [facility] with Ramos cirrhosis. She developed encephalopathy with delirium this morning and was sent to the ED for evaluation. Apparently she was given Ativan before she arrived in the ED. She has now unresponsive. She is obviously volume depleted. Ammonia level is 183. She appears to be suffering from hepatic encephalopathy. IV fluids have been ordered along with a lactulose enema to be given in the ED. Armstrong catheter will be placed and she will be admitted but kept n.p.o. due to her mental status. Head CT scan is negative. Creatinine is elevated to 2.1 consistent with acute kidney injury from volume depletion Principal Diagnosis 1. hepatic encephalopathy - resolved 2. urinary tract infection - resolved 3. 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 RAMOS cirrhosis 5. h/o coronary artery spasm 6. diabetes mellitus 7. iron deficiency s/p 2 infusions of IV venofer 8. possible thrush - resolved 9. portal gastropathy as seen on EGD 10. esophageal varices as seen on EGD 11. esophageal ring as seen on EGD 12. esophageal dysmotility - likely cause of dysphagia 13. CKD stage 4 14. possible interstitial lung disease 15. hypothyroidism 16. acute kidney injury - resolved Discharge Exam gen - NAD, sitting in chair; looks very good mouth - MMM - oral mucosa irritation resolved; no thrush neck - no JVD heart - RRR, s1 s2, 2/6 systolic murmur LSB lungs - minimal crackles L base - unchanged; no wheeze abd - soft, BS+, NT, distension improved ext - no edema, pulses 2+ b/l psych - awake, alert, oriented neuro - no asterixis; no tremors skin - scattered bruises on skin (arms, back, etc) unchanged Discharge Data Allergies Allergy/AdvReac Type Severity Reaction Status Date / Time erythromycin base Allergy Severe eye Verified 02/07/23 12:24 ointment only - red and infected Iodinated Contrast Media Allergy Severe heart Verified 05/06/21 14:33 muscles tightened/heart spasms Penicillins Allergy Intermediate "wore out Verified 02/07/23 12:24 on me" and hives repaglinide Allergy Intermediate Hives Verified 02/07/23 12:24 Sulfa (Sulfonamide Allergy Unknown Hives Verified 05/06/21 14:33 Antibiotics) timolol Allergy Unknown eye drops Verified 02/07/23 12:24 - eye redness clonazepam AdvReac Severe increased Verified 05/06/21 14:33 anxiety Fjacbfx-IAQ-UlM Reductase AdvReac Severe ELEVATED Verified 05/06/21 14:33 Inhibitor HEPATIC [Snwzjpo-Mwy-Igc Reductase ENZYMES Inhibitor] enalapril AdvReac Intermediate COUGH Verified 02/07/23 12:24 Consultations [facility] Gastroenterology Anesthesiology Speech Therapy PT, OT Procedures Performed Operation Date: 02/12/23 16:30 Actual Procedures Esophagogastroduodenoscopy - Chris Arroyo MD Findings: There was no web, and no evidence of Zenker's. There was single grade 1-2 varix without red osito signs in the distal esophagus. This was not banded due to ring, and due to pt's complaint of dysphagia. The esophagus was mildly tortuous. The GE junction was at 35 cm. There was a mild to moderate ring at the GE junction; this was not dilated due to presence of varices. There was evidence of severe portal gastropathy throughout the body, cardia, and fundus. The antrum and duodenum were normal. Ordered Studies Chest X-Ray 02/07/23 06:21 SINGLE VIEW CHEST CLINICAL HISTORY: Sepsis. FINDINGS: An AP, portable, semierect chest radiograph is compared to study dated 04/16/2021 and correlated with chest CT dated 12/01/2020. The heart is top normal for projection noting atherosclerotic calcification of the thoracic aorta. Chronic interstitial thickening is similar to previous. There are left basilar opacities. Scarring/atelectasis is noted at the right lung base. No large pleural effusion or pneumothorax is seen. The skeletal structures are osteopenic. The bony thorax is grossly intact. 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 IMPRESSION: Left basilar opacities could represent scarring/atelectasis versus pneumonia/aspiration pneumonitis. Clinical correlation will be required and radiographic follow-up to resolution is recommended. ACT 112: Negative or not required by law. Electronically signed by: Parag Adrian M.D. 02/07/2023 6:[address] 02/07/23 06:22 CT SCAN OF THE BRAIN WITHOUT IV CONTRAST CLINICAL HISTORY: Change in mental status. COMPARISON STUDY: CT of the brain dated 3 03/31/2018. TECHNIQUE: Unenhanced axial CT scan of the brain is performed from the vertex to the skull base. A dose lowering technique was utilized adhering to the principles of ALARA. CT DOSE: 625.80 mGy.cm FINDINGS: Brain parenchyma: There is age-related involutional change noting mild subcortical and periventricular microangiopathic disease. There is no hemorrhage, mass effect, or evidence of acute territorial ischemia by CT criteria. Corona-white matter differentiation is preserved. No extra-axial fluid collection is seen. Ventricles, sulci, cisterns: Prominent secondary to involutional change. Intracranial vasculature: There is atherosclerotic calcification of the cavernous carotid arteries. Calvarium: Unremarkable. Sinuses and mastoids: The paranasal sinuses are clear. The mastoid air cells are well pneumatized. Orbits: The bony orbits are grossly intact. There are bilateral ocular lens implants. IMPRESSION: There is no hemorrhage, mass effect, or evidence of acute territorial ischemia by CT criteria. ACT 112: Negative or not required by law. Electronically signed by: Parag Adrian M.D. 02/07/2023 6:53 AM Chest X-Ray 02/09/23 09:33 XR chest 1V portable CLINICAL HISTORY: ?pneumonia on previous cxr? COMPARISON STUDY: Chest CT December 01, 2020. Chest radiograph February 07, 2023. FINDINGS: There is no pneumothorax or pleural effusion. Cardiomediastinal silhouette is stable. Mild left basilar opacity persists. There is no consolidation within the right lung. There is no evidence for overt pulmonary edema. Chondroid lesion within the proximal left humerus is likely benign. IMPRESSION: Persistent left basilar opacity. This could reflect pneumonia or atelectasis. Radiographic follow-up to ensure resolution is recommended. ACT 112: Negative or not required by law. Electronically signed by: Jaydon Swanson M.D. 02/09/2023 11:05 AM Videofluoroscopic Swallow 02/10/23 10:30 MODIFIED BARIUM SWALLOW CLINICAL HISTORY: r/o aspiration COMPARISON STUDY: None. FLUOROSCOPY TIME: 2.14 minutes. Ka, r: 6.21 mGy. TECHNIQUE: A modified barium swallow was performed in conjunction with Speech Pathology. The patient ingested varying consistencies of barium containing material. Video fluoroscopy was performed. FINDINGS: Note was made of penetration with swallows of thin liquids by cup. Trace tracheal aspiration was noted with sequential thin liquids by straw. No aspiration was identified with the remainder of the consistencies. Moderate residuals were noted within the vallecula with several consistencies. Epiglottic inversion was normal. Laryngeal elevation was normal. There is suspected mild to moderate esophageal dysmotility, suboptimally assessed on this exam. IMPRESSION: 1. Trace tracheal aspiration with sequential thin liquids by straw. Penetration with swallows of thin liquids. No aspiration with remainder of the consistencies. 2. Mild residuals within the vallecula with several consistencies. 3. Mild to moderate esophageal dysmotility, suboptimally assessed on this exam. 4. Full recommendations by Speech pathology to follow. ACT 112: Negative or not required by law. Electronically signed by: Jaydon Swanson M.D. 02/10/2023 3:15 PM Abdomen Ultrasound 02/11/23 14:13 ABDOMINAL ULTRASOUND, RIGHT UPPER QUADRANT HISTORY: Screening study due to patient with history of cirrhosis hcc screening. COMPARISON: CT 04/17/2021 FINDINGS: Pancreas: The pancreas is obscured by bowel gas. Liver: Cirrhotic morphology measuring 13.5 cm in length. Trace perihepatic ascites. No hepatic mass identified. Hepatopedal flow within the portal vein. Gallbladder: Surgically absent. CBD: 0.5 cm. Right kidney: Mild diffuse cortical thinning. No hydronephrosis. IMPRESSION: 1. Cirrhosis without hepatic mass identified. 2. Trace perihepatic ascites. 3. Cholecystectomy. ACT 112: Negative or not required by law. Electronically signed by: Sigifredo Garcia M.D. 02/11/2023 4:53 PM Hospital Course (1) Hepatic encephalopathy: Clinically & biochemically resolved. Acute HE likely was precipitated by her UTI. Cont lactulose 20gm TID. Target 2-3 BMs/day at minimum. If she cannot tolerate lactulose then add (or substitute) rifaximin. (2) UTI (urinary tract infection): 2nd klebsiella Initially received IV rocephin followed by PO cefdinir Will complete 7 days of IV/PO abx in total (3) Acute kidney injury: resolved. Peak creatinine 2.1. Discharge creatinine 1.2. At discharge resumed diuretics --> bumex 2mg daily, aldactone 25mg daily. (4) Chronic diastolic congestive heart failure: Compensated during the hospitalization. (5) Hypertension: Controlled while here. She is on chronic nitropatch (for coronary artery spasm), bumex, and aldactone. (6) Controlled type 2 diabetes mellitus, with long-term current use of insulin: Hba1c 6.8% in 11/2022. cont lantus 10 units daily. BSGs were well-controlled while here. (7) Hypothyroidism: TSH 1.5 in November 2022 Cont synthroid (8) GERD (gastroesophageal reflux disease): cont PPI (9) Pneumonia: question of LLL - as seen on serial cxr but are lung findings and crackles on exam due to ILD? 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 This was treated with lactulose and confusion/tremors/asterixis resolved. During the stay her volume status was compensated. Resumed diuretics at discharge -- bumex 2mg daily, aldactone 25mg daily. needs f/u with [facility] - [facility] - for ongoing Rx. EGD was completed while here - see report. 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 stable count while here -- range was 70-100 throughout the stay. B12/folate/TSH were all wnl. (13) Pancytopenia: likely 2nd to RAMOS cirrhosis. checked B12/folate -- wnl. does have low iron - gave IV venofer x 2 doses while here. discharge hemoglobin was 9.1. most recent ferritin level was 27.8 on 02/11/23 consistent with iron deficiency. (14) Irritation of oral cavity: thrush? other? started nystatin solution 5cc qid swish/swallow and mucosa looked normal by time of discharge. she also reported her mouth discomfort was resolved. cont nystatin for a few more days post-discharge. (15) Esophageal dysmotility: seen by speech therapy while here. l video swallow test was completed --> this showed dysmotility, trace aspiration w/ thins. moist diet recommended by speech therapy. aspiration precautions advised. continue PPI. (16) Esophageal varices: as seen on EGD 02/12 - no banding done (17) Portal hypertensive gastropathy: as seen on EGD 02/12 - no active bleeding seen (18) Dysphagia: s/p EGD 02/[address] Arroyo nothing on scope to cause symptoms thus, dysphagia likely due to dysmotility recent ?thrush may have contributed to oral phase dysphagia as well swallowing was MUCH improved by time of discharge (19) Bruising: patient's INR while here was 1.3. platelets ranged 70-100. although both of the above could theoretically cause bruising the amount of bruises on her skin seemed out of proportion to her labs. (bruises on back, limbs, etc) vit C deficiency? recommended a 10-day course of oral vitamin C supplementation to be complete follow platelets and INR closely as outpatient. (20) Murmur: patient has a systolic murmur on physical exam. last echo was 03/2021 - this showed mild tricuspid regurgitation only. recommend repeat echo within the next few weeks to reassess valves. Total Time Total Time Spent Total Time Spent (In Minutes): 45 Discharge Plan Discharge Items Patient Disposition: Transfer [facility] Reason For Visit: HEPATIC ENCEPHALOPATHY Discharge Diagnosis: 1. hepatic encephalopathy - resolved 2. urinary tract infection - resolved 3. pancytopenia - 2nd cirrhosis 4. RAMOS cirrhosis 5. h/o coronary artery spasm 6. diabetes 7. iron deficiency s/p 2 infusions of IV venofer 8. possible thrush - resolved 9. portal gastropathy as seen on EGD 10. esophageal varices as seen on EGD 11. esophageal ring as seen on EGD 12. esophageal dysmotility 13. chronic kidney disease stage 4 14. possible interstitial lung disease 15. hypothyroidism Activity: Resume your previous activity Non-emergency contact: Primary Care Provider and Turntable Engineer Call non-emergency contact if: you have any medication questions Follow-up/Referrals: [facility] [Primary Care Provider] - Chris Arroyo MD [Physician] - (2-3 weeks - follow-up of RAMOS cirrhosis ) Diet: Carb Consistent or DM2 and Low Sodium (2gm) Diet Texture: Easy to Chew Addtl Attending Provider Instructions: 1. CBC, BMP, and magnesium level in 5 days for stability 2. repeat iron levels/iron panel including ferritin in 1-2 weeks; consider additional IV iron if still iron deficient 3. BSGs ac/hs 4. lactulose 20gm three times daily; target bowel movement goal - 2-3 BMs/day; if patient is not having that amount please notify biomedical engineering aide 5. f/u with Dr Arroyo or one of his partners at [facility] in 2-3 weeks for cirrhosis 6. echocardiogram next 2 weeks; dx - mitral regurgitation (murmur is loud suggesting MR is worsening) Pending Studies at Discharge: No Stand-Alone Forms: My [facility] Skilled Items Patient informed of condition?: Yes DNR: Yes Discharge Level of Care: Skilled Communicable Disease: No Discharge Prognosis: Stable Lines: None Urinary Catheter: No Medications and DC Order Prescriptions: New nystatin 100,000 unit/mL Suspension 5 ml PO QID 5 Days Qty: 100 0RF Rx Instructions: swish and spit ascorbic acid (vitamin C) [Vitamin C] 500 mg Tablet 500 mg PO QAM 10 Days Qty: 10 0RF lactulose 20 gram/30 mL Solution 20 g PO TID 30 Days Qty: 2700 11RF Continued bumetanide 2 mg tablet 2 mg PO DAILY Qty: 90 3RF nitroglycerin 0.4 mg/hr patch 24 hour 1 patch TD DAILY Qty: 30 11RF Breo Ellipta 100-25 mcg/dose blister with device 1 inh inhalation DAILY Qty: 60 5RF ketotifen fumarate [Alaway] 0.025 % (0.035 %) Drops 1 drp ophthalmic (eye) TID PRN (Reason: Eye Irritation) bisacodyl [Dulcolax (bisacodyl)] 10 mg Suppository 10 mg IN DAILY PRN (Reason: Constipation) Rx Instructions: Give on day 3, 3-11 shift if no bowel movement after Milk of Magnesia Fleet Enema 19-7 gram/118 mL Enema 118 ml IN DAILY PRN (Reason: Constipation) Rx Instructions: Only give on day four IF no bowel movement after Dulcolax on 7-3 shift cetylpyridinium chloride Lozenge 1 tara mucous membrane DAILY PRN (Reason: Sore Throat) insulin glargine [Lantus U-100 Insulin] 100 unit/mL solution 10 unit SUBCUT HS meclizine 12.5 mg Tablet 12.5 mg PO Q8H PRN (Reason: Vertigo) magnesium hydroxide [Milk of Magnesia] 400 mg/5 mL Suspension 30 ml PO DAILY PRN (Reason: Constipation) Rx Instructions: If no bowel movement for 3 days, start on 7-3 shift pantoprazole 40 mg tablet,delayed release (DR/EC) 40 mg PO DAILY levothyroxine 125 mcg tablet 125 mcg PO DAILY Slow-Mag 71.5 mg Tablet,Delayed Release (Dr/Ec) 143 mg PO DAILY famotidine 20 mg tablet 20 mg PO HS Changed acetaminophen 325 mg Tablet 500 mg PO Q6H PRN (Reason: Fever) Qty: 1 0RF Rx Instructions: max 2000mg in 24 hour period. spironolactone 50 mg Tablet 25 mg PO QAM Qty: 1 0RF Discontinued colestipol 5 gram packet 5 g PO BID Rx Instructions: Administer other meds 1 hour before or 4 hours after colestipol tramadol-acetaminophen 37.5-325 mg tablet 1 tab PO HS Rx Instructions: Do not exceed 3gm APAP/24hours tramadol 50 mg tablet 50 mg PO Q6H PRN (Reason: Pain) lorazepam 1 mg tablet 1 mg PO HS Discharge Orders: Discharge Order (Routine); Ordered 02/14/23 Ordered By: Saleem Shepherd Admission Data Admit Date/Time: 02/07/23 08:37 Attending Provider: Saleem Shepherd Admit Provider: [place] Primary Care Provider: [facility] Other Providers: Chris Arroyo ; Oc Jaimes ; Jonnie Edwards Other Interventions: Discharge Summary Assessment (RN) Last Done: 02/14/23 13:49 Coding Level of Care Code 29578 INP/OBS DISCH >30 MIN Diagnoses Hepatic encephalopathy K76.82 UTI (urinary tract infection) N39.0 Acute kidney injury N17.9 Chronic diastolic congestive heart failure I50.32 Hypertension I10 Hypertension type: essential hypertension Controlled type 2 diabetes mellitus, with long-term current use of insulin E11.9; Z79.4 Diabetes mellitus complication status: without complication Hypothyroidism E03.9 Hypothyroidism type: unspecified GERD (gastroesophageal reflux disease) K21.9 Pneumonia J18.9 Coronary artery spasm I20.1 Hepatic cirrhosis K74.60; R18.8 Ascites presence: with ascites Hepatic cirrhosis type: unspecified hepatic cirrhosis Thrombocytopenia D69.6 Pancytopenia D61.818 Irritation of oral cavity K13.6 Esophageal dysmotility K22.4 Esophageal varices I85.00 Portal hypertensive gastropathy K76.6; K31.89 Dysphagia R13.10 Bruising T14.8XXA Murmur R01.1
== END 2023-02-14 15:09 | DRG 441 ==
LOC: ED 05:55 → SUATTDRO 08:37 → 2W 08:37
DX: Z79.4 Long term (current) use of insulin; K75.81 Nonalcoholic steatohepatitis (NASH); N39.0 Urinary tract infection, site not specified; I25.10 Atherosclerotic heart disease of native coronary artery without angina pectoris; E78.5 Hyperlipidemia, unspecified; I85.00 Esophageal varices without bleeding; Z79.51 Long term (current) use of inhaled steroids; Z88.0 Allergy status to penicillin; Q39.4 Esophageal web; Z79.899 Other long term (current) drug therapy; N17.9 Acute kidney failure, unspecified; I85.10 Secondary esophageal varices without bleeding; D61.818 Other pancytopenia; K72.90 Hepatic failure, unspecified without coma; B96.1 Klebsiella pneumoniae [K. pneumoniae] as the cause of diseases classified elsewhere; I11.0 Hypertensive heart disease with heart failure; E03.9 Hypothyroidism, unspecified; Z91.041 Radiographic dye allergy status; I50.32 Chronic diastolic (congestive) heart failure; G47.33 Obstructive sleep apnea (adult) (pediatric); D69.6 Thrombocytopenia, unspecified; K31.89 Other diseases of stomach and duodenum; Z88.8 Allergy status to other drugs, medicaments and biological substances; Z79.890 Hormone replacement therapy; N18.4 Chronic kidney disease, stage 4 (severe); E72.20 Disorder of urea cycle metabolism, unspecified; E11.9 Type 2 diabetes mellitus without complications; E86.0 Dehydration; K21.9 Gastro-esophageal reflux disease without esophagitis; Z88.2 Allergy status to sulfonamides

== ENCOUNTER 2023-03-09 10:04 | Inpatient (IN) ==
--- NOTE | 2023-03-09 10:32 | Emergency Department Note ---
Impression & Plan Acute hepatic encephalopathy, Acute UTI, Non-ST elevation UT (NSTEMI), CKD (chronic kidney disease) ED Provider Note Provider: Oc Esquivel MD DATE OF SERVICE: 03/09/2023 CHIEF COMPLAINT: Confusion HISTORY OF PRESENT ILLNESS: Patient is a 88-year-old female history of Ramos cirrhosis, restrictive lung disease, and UTI currently on daptomycin presenting here today reportedly with increased confusion and altered mental status. Reports that she had an elevated ammonia of 94 yesterday. Is on lactulose at her facility. Reviewed his morning medications including her daptomycin which she is taking for UTI currently. Sent here for evaluation. No clear reported trauma. Patient is unable to give any history upon arrival. Occasionally calls out. Denies significant pain. Reports of a prior hand fracture from EMS as well. PAST MEDICAL HISTORY: As noted above MEDICATIONS: Reviewed medication listing from facility includes daptomycin as well as lactulose but did not take anything today SOCIAL HISTORY: [facility] at [facility] PHYSICAL EXAM: GENERAL: alert to loud verbal stimuli in the stretcher occasionally looking around and calling out but not oriented to person or events Head: normocephalic and atraumatic EYES: No injection, discharge or icterus. PERRL NECK: Trachea midline. Supple. ENT: Mucous membranes pink and moist. LUNGS: Airway patent. No retractions. Breath sounds clear with diminishment at the bases HEART: Regular rate and rhythm. No chest wall tenderness ABDOMEN: Soft moderately distended but nontender. SKIN: Acyanotic, warm, dry, without rashes EXTREMITIES: Without swelling, tenderness or deformity NEUROLOGICAL: No focal deficits moving all extremities. Seems mildly encephalopathic not answering questions. No clear facial droop. EK bpm sinus tachycardia. No clear acute ST segment elevation with some questionable inferior depression with a QTc of 429. CONTINUOUS CARDIAC MONITORING: was ordered and showed a heart rate of 100s bpm i n sinus tachycardia Patient's laboratory studies and imaging reviewed. Differential includes Infection, dehydration, metabolic abnormality/hepatic encephalopathy, hypo/hyperglycemia, electrolyte disturbance, anemia, hypoxia, cardiac sources, intracerebral event, toxicologic, neurologic, as well as other pathologies. IMPRESSION/MEDICAL DECISION MAKING: Reported recent UTI as well as history of cirrhosis with elevated ammonia may be at play. Presentation seems concerning for hepatic encephalopathy. Will send for CT scan but not having significant focal deficits at this time. Mildly hypoxic and x-ray will be obtained. Blood work sent. Fairly benign abdomen and doubt acute intra-abdominal pathology but is somewhat distended and believe likely some ascites from her cirrhosis. Normal hemoglobin. White blood cell count 10.5 within normal limits but toward the high end. Lactate mildly elevated. Ammonia significantly about 129 and likely the cause of her symptoms. Urinalysis from catheter with epithelial still appears infected. Expanded with ceftriaxone in discussion with pharmacy and daptomycin given today. Given her cirrhosis cautiously given some IV fluids to prevent fluid overload in the setting of her significant cirrhosis -approximately 750 also normal saline admin istered. Lactate just elevated. Troponin significantly was 736 and believe more of a demand situation as I do not see clear STEMI on imaging. Negative COVID. X-ray without clear evidence of pneumonia. Renal function at baseline from recent values around 2. Again receiving some gentle hydration. CT of the head report reviewed. Will bring into hospital and brother updated at bedside. DIAGNOSIS: Hepatic encephalopathy, acute UTI, CKD, NSTEMI DISPOSITION: Hospitalist will evaluate Past Med/Surg History Medical History Acute kidney injury Bronchitis Chronic bronchitis Chronic diastolic congestive heart failure Controlled type 2 diabetes mellitus, with long-term current use of insulin Coronary artery spasm reason for Nitro Patch q12h follows with Dr. Samson Depression hx Diabetes mellitus, type 2 iddm Elevated troponin level Encounter for drug screening Gastroparesis GERD (gastroesophageal reflux disease) Grief reaction Heart disease Hepatic cirrhosis Hepatic encephalopathy History of melanoma Hypertension Hypertension Hypothyroidism Hypothyroidism Interstitial lung disease Multiple lung nodules on CT Nonalcoholic fatty liver disease Obstructive sleep apnea syndrome Pancytopenia Pneumonia hx Sleep apnea CPAP Thrombocytopenia UTI (urinary tract infection) Vertigo Vertigo Surgical History History of appendectomy History of cardiac catheterization X3 (1994, 1999, 2006) History of cataract surgery bilateral History of colonoscopy History of dacryocystorhinostomy done monthly History of dilatation and curettage History of ERCP with stone removal History of laparoscopic cholecystectomy History of repair of rotator cuff right History of tonsillectomy S/P cholecystectomy S/P STEVE-BSO Status post biopsy of skin removal of melanoma Family History Mother Cardiac disorder Hypertension Heart disease Myocardial infarction Father Cardiac disorder Hypertension Heart disease Other Diabetes Ischemic heart disease Prostate cancer Denies family history of Ovarian cancer Breast cancer Colorectal cancer Social History Smoking Status: Never smoker Second Hand Exposure: No (); Do You Dip or Chew Tobacco: No; Hx Alcohol Use: No Hx Substance Use: No Preferred Language: Liberian Communication Ability: Impaired Communication Ability Comment: Impairment due to cognition Visual Impairment: No Limitations Hearing Ability: Normal Welder And Fitter Required: No Beliefs That Will Affect Care: None marital status: / Current Living Situation: [facility] Current Living Situation Comment: lives in [facility] current occupational status: retired Feels Safe at Home: Yes Childhood Exposure to Second-Hand Smoke: No Dental Care, Regularly: Yes Physical Activity Frequency: Daily Seatbelt Use: always Sunscreen Use: No Assistive Devices: Walker and Wheelchair Allergies Allergies Allergy/AdvReac Type Severity Reaction Status Date / Time erythromycin base Allergy Severe eye Verified 02/07/23 12:24 ointment only - red and infected Iodinated Contrast Media Allergy Severe heart Verified 05/06/21 14:33 muscles tightened/heart spasms Penicillins Allergy Intermediate "wore out Verified 02/07/23 12:24 on me" and hives repaglinide Allergy Intermediate Hives Verified 02/07/23 12:24 Sulfa (Sulfonamide Allergy Unknown Hives Verified 05/06/21 14:33 Antibiotics) timolol Allergy Unknown eye drops Verified 02/07/23 12:24 - eye redness clonazepam AdvReac Severe increased Verified 05/06/21 14:33 anxiety Qooxhma-SMA-VrA Reductase AdvReac Severe ELEVATED Verified 05/06/21 14:33 Inhibitor HEPATIC [Axjnsjq-Gpa-Jfg Reductase ENZYMES Inhibitor] enalapril AdvReac Intermediate COUGH Verified 02/07/23 12:24 Home Meds Home Medications Medication Instructions Recorded Confirmed ketotifen fumarate 0.025 % (0.035 1 drp ophthalmic (eye) TID PRN Eye 05/16/19 03/09/23 %) eye drops ([place]) Irritation famotidine 20 mg tablet 20 mg PO HS 04/16/21 03/09/23 bisacodyl 10 mg rectal suppository 10 mg NM DAILY PRN Constipation 02/07/23 03/09/23 (Dulcolax (bisacodyl)) insulin glargine 100 unit/mL 10 unit subcut HS 02/07/23 03/09/23 subcutaneous solution (Lantus U-100 Insulin) levothyroxine 125 mcg tablet 125 mcg PO DAILY 02/07/23 03/09/23 magnesium hydroxide 400 mg/5 mL 30 ml PO DAILY PRN Constipation 02/07/23 03/09/23 oral suspension (Milk of Magnesia) meclizine 12.5 mg tablet 12.5 mg PO Q8H PRN Vertigo 02/07/23 03/09/23 pantoprazole 40 mg tablet,delayed 40 mg PO DAILY 02/07/23 03/09/23 release Daptomycin Iv 4 mg IV DAILY 03/09/23 03/09/23 acetaminophen 500 mg tablet 500 mg PO Q6H PRN Mild Pain (Scale 03/09/23 03/09/23 (Tylenol Extra Strength) Score 1-4) ascorbic acid (vitamin C) 500 mg 500 mg PO DAILY 03/09/23 03/09/23 tablet (Vitamin C) diclofenac sodium 1 % topical gel 2 g topical QID 03/09/23 03/09/23 (Voltaren Arthritis Pain) fluticasone furoate 200 1 inh inhalation DAILY 03/09/23 03/09/23 mcg-vilanterol 25 mcg/dose inhalation powder (Breo Ellipta) magnesium oxide 400 mg PO DAILY 03/09/23 03/09/23 sodium chloride 0.9 % (flush) 10 ml IV DIRECTED 03/09/23 03/09/23 (Normal Saline Flush 0.9 % injection syringe) tramadol 37.5 mg-acetaminophen 325 1 tab PO QAM 03/09/23 03/09/23 mg tablet zolpidem 5 mg tablet 5 mg PO HS 03/09/23 03/09/23 Previous Rx's Medication Instructions Recorded bumetanide 2 mg tablet 2 mg PO DAILY #90 tabs 01/26/22 nitroglycerin 0.4 mg/hr 1 patch transdermal DAILY HEART 05/04/22 transdermal 24 hour patch MUSCLE SPASMS #30 ea lactulose 20 gram/30 mL oral 20 g (30 mL) PO TID 30 days #2,700 02/14/23 solution mL Results & Data (ED) Vital Signs Vital Signs - 24 hr 03/09/23 10:26 03/09/23 10:36 03/09/23 10:22 Temperature 37.0 C Temperature Source Oral Pulse Rate 111 H 108 H Pulse Rate [Apical] 109 H Pulse Rate from SpO2 Sensor Respiratory Rate 16 16 Blood Pressure 148/68 H Blood Pressure Mean 94 Pulse Oximetry 98 88 L Oxygen Delivery Method Room Air Room Air Oxygen Flow Rate 2 Sepsis Recent Fever Within 48 Hours No Sepsis New/Unexplained Change in Mental Status Yes Sepsis Action Taken by Nursing Physician Notified 03/09/23 10:51 03/09/23 11:00 03/09/23 11:00 Temperature Temperature Source Pulse Rate 107 H 108 H Pulse Rate [Apical] Pulse Rate from SpO2 Sensor Respiratory Rate 16 13 Blood Pressure 121/68 Blood Pressure Mean 85 Pulse Oximetry 98 Oxygen Delivery Method Nasal Cannula Oxygen Flow Rate 2 Sepsis Recent Fever Within 48 Hours Sepsis New/Unexplained Change in Mental Status Sepsis Action Taken by Nursing 03/09/23 11:38 03/09/23 11:39 03/09/23 11:39 Temperature Temperature Source Pulse Rate 115 H 116 H Pulse Rate [Apical] Pulse Rate from SpO2 Sensor 115 H 114 H Respiratory Rate 19 18 Blood Pressure 183/120 H Blood Pressure Mean 141 Pulse Oximetry 97 97 Oxygen Delivery Method Oxygen Flow Rate 2 2 Sepsis Recent Fever Within 48 Hours Sepsis New/Unexplained Change in Mental Status Sepsis Action Taken by Nursing 03/09/23 12:00 03/09/23 12:01 03/09/23 12:30 Temperature Temperature Source Pulse Rate 91 H 87 Pulse Rate [Apical] Pulse Rate from SpO2 Sensor 92 H 89 Respiratory Rate 12 12 Blood Pressure 125/45 L Blood Pressure Mean 71 Pulse Oximetry 99 99 Oxygen Delivery Method Oxygen Flow Rate 2 2 Sepsis Recent Fever Within 48 Hours Sepsis New/Unexplained Change in Mental Status Sepsis Action Taken by Nursing 03/09/23 12:30 03/09/23 13:00 03/09/23 13:00 Temperature Temperature Source Pulse Rate 88 98 H Pulse Rate [Apical] Pulse Rate from SpO2 Sensor 88 97 H Respiratory Rate 12 24 Blood Pressure 130/53 L Blood Pressure Mean 78 Pulse Oximetry 99 97 Oxygen Delivery Method Oxygen Flow Rate 2 Sepsis Recent Fever Within 48 Hours Sepsis New/Unexplained Change in Mental Status Sepsis Action Taken by Nursing Laboratory Data 03/09/23 10:10 03/09/23 10:10 Lab Results 03/09/23 03/09/23 03/09/23 Range/Units 10:10 10:10 10:10 WBC (4.8-10.8) K/ul RBC (4.20-5.40) M/uL Hgb (12.0-16.0) g/dl Hct (37.0-47.0) % MCV (80.0-100.0) fL MCH (25.0-34.0) pg MCHC (32.0-36.0) g/dL RDW Std Deviation (36.4-46.3) fL RDW Coeff of [place] (11.5-14.5) % Plt Count (130-400) K/uL MPV (9.4-12.4) fL Immature Gran % (Auto) % Neut % (Auto) % Lymph % (Auto) % [place]lier % (Auto) % Eos % (Auto) % Baso % (Auto) % Neut # (Auto) (1.40-6.50) K/uL Lymph # (Auto) (1.2-3.4) K/uL [place] # (Auto) (0.11-0.59) K/uL Eos # (Auto) (0-0.50) K/uL Baso # (Auto) (0-0.2) K/uL Immature Gran # (Auto) (0.01-0.20) K/uL PT 13.5 H (9.0-12.0) Seconds INR 1.2 H (0.9-1.1) Sodium 133 L (136-145) mmol/L Potassium 3.9 (3.5-5.1) mmol/L Chloride 95 L (98-107) mmol/L Carbon Dioxide 28 (21-32) mmol/L Anion Gap 10 (3-11) BUN 32 H (6-23) mg/dl Creatinine 2.08 H (0.6-1.2) mg/dl Est Cr Clr Drug Dosing 16.8 ml/min Est GFR ( Amer) 24.0 ml/min Est GFR (Non-Af Amer) 20.7 ml/min BUN/Creatinine Ratio 15.4 (10-20) Glucose 128 H (70-99(Fasting)) mg/dl Lactate 2.3 H* (0.4-2.0) mmol/L Calcium 9.1 (8.6-10.3) mg/dl Magnesium 1.9 (1.7-2.4) mg/dl Total Bilirubin 2.1 H (0.2-1.0) mg/dl AST 50 H (13-39) U/L ALT 31 (7-52) U/L Alkaline Phosphatase 194 H (34-104) U/L Ammonia (18-72) umol/L Total Creatine Kinase (26-192) U/L Troponin I High Sens 736.3 H* (0-14) pg/ml Total Protein 6.5 (6.0-8.3) gm/dl Albumin 2.9 L (3.4-5.0) gm/dl Globulin 3.6 (2.5-4.0) gm/dl Albumin/Globulin Ratio 0.8 L (0.9-2) Procalcitonin (0-0.5) ng/ml TSH (0.300-4.500) uIu/ml Urine Color Urine Appearance (Clear) Urine pH (4.5-7.5) Ur Specific [place] (1.000-1.030) Urine Protein (Negative) Urine Glucose (UA) (Negative) Urine Ketones (Negative) Urine Blood (Negative) Urine Nitrite (Negative) Urine Bilirubin (Negative) Urine Urobilinogen (Negative) Ur Leukocyte Esterase (Negative) Urine WBC (Auto) (0-5) /hpf Urine RBC (Auto) (0-4) /hpf U Hyaline Cast (Auto) (0-5) /lpf U Epithel Cells (Auto) (0-5) /lpf Urine Bacteria (Auto) (Negative) SARS-CoV-2, RNA, NAAT (NEGATIVE) 03/09/23 03/09/23 03/09/23 Range/Units 10:10 10:10 10:10 WBC 10.54 (4.8-10.8) K/ul RBC 3.92 L (4.20-5.40) M/uL Hgb 12.2 (12.0-16.0) g/dl Hct 35.6 L (37.0-47.0) % MCV 90.8 (80.0-100.0) fL MCH 31.1 (25.0-34.0) pg MCHC 34.3 (32.0-36.0) g/dL RDW Std Deviation 56.9 H (36.4-46.3) fL RDW Coeff of [place] 17.2 H (11.5-14.5) % Plt Count 124 L (130-400) K/uL MPV 11.4 (9.4-12.4) fL Immature Gran % (Auto) 0.5 % Neut % (Auto) 81.6 % Lymph % (Auto) 9.9 % Collier % (Auto) 7.6 % Eos % (Auto) 0.2 % Baso % (Auto) 0.2 % Neut # (Auto) 8.61 H (1.40-6.50) K/uL Lymph # (Auto) 1.04 L (1.2-3.4) K/uL Collier # (Auto) 0.80 H (0.11-0.59) K/uL Eos # (Auto) 0.02 (0-0.50) K/uL Baso # (Auto) 0.02 (0-0.2) K/uL Immature Gran # (Auto) 0.05 (0.01-0.20) K/uL PT (9.0-12.0) Seconds INR (0.9-1.1) Sodium (136-145) mmol/L Potassium (3.5-5.1) mmol/L Chloride (98-107) mmol/L Carbon Dioxide (21-32) mmol/L Anion Gap (3-11) BUN (6-23) mg/dl Creatinine (0.6-1.2) mg/dl Est Cr Clr Drug Dosing ml/min Est GFR ( Amer) ml/min Est GFR (Non-Af Amer) ml/min BUN/Creatinine Ratio (10-20) Glucose (70-99(Fasting)) mg/dl Lactate (0.4-2.0) mmol/L Calcium (8.6-10.3) mg/dl Magnesium (1.7-2.4) mg/dl Total Bilirubin (0.2-1.0) mg/dl AST (13-39) U/L ALT (7-52) U/L Alkaline Phosphatase (34-104) U/L Ammonia 129.0 H (18-72) umol/L Total Creatine Kinase (26-192) U/L Troponin I High Sens (0-14) pg/ml Total Protein (6.0-8.3) gm/dl Albumin (3.4-5.0) gm/dl Globulin (2.5-4.0) gm/dl Albumin/Globulin Ratio (0.9-2) Procalcitonin (0-0.5) ng/ml TSH 0.378 (0.300-4.500) uIu/ml Urine Color Urine Appearance (Clear) Urine pH (4.5-7.5) Ur Specific [place] (1.000-1.030) Urine Protein (Negative) Urine Glucose (UA) (Negative) Urine Ketones (Negative) Urine Blood (Negative) Urine Nitrite (Negative) Urine Bilirubin (Negative) Urine Urobilinogen (Negative) Ur Leukocyte Esterase (Negative) Urine WBC (Auto) (0-5) /hpf Urine RBC (Auto) (0-4) /hpf U Hyaline Cast (Auto) (0-5) /lpf U Epithel Cells (Auto) (0-5) /lpf Urine Bacteria (Auto) (Negative) SARS-CoV-2, RNA, NAAT (NEGATIVE) 03/09/23 03/09/23 03/09/23 Range/Units 10:10 10:10 10:10 WBC (4.8-10.8) K/ul RBC (4.20-5.40) M/uL Hgb (12.0-16.0) g/dl Hct (37.0-47.0) % MCV (80.0-100.0) fL MCH (25.0-34.0) pg MCHC (32.0-36.0) g/dL RDW Std Deviation (36.4-46.3) fL RDW Coeff of [place] (11.5-14.5) % Plt Count (130-400) K/uL MPV (9.4-12.4) fL Immature Gran % (Auto) % Neut % (Auto) % Lymph % (Auto) % [place] % (Auto) % Eos % (Auto) % Baso % (Auto) % Neut # (Auto) (1.40-6.50) K/uL Lymph # (Auto) (1.2-3.4) K/uL [place] # (Auto) (0.11-0.59) K/uL Eos # (Auto) (0-0.50) K/uL Baso # (Auto) (0-0.2) K/uL Immature Gran # (Auto) (0.01-0.20) K/uL PT (9.0-12.0) Seconds INR (0.9-1.1) Sodium (136-145) mmol/L Potassium (3.5-5.1) mmol/L Chloride (98-107) mmol/L Carbon Dioxide (21-32) mmol/L Anion Gap (3-11) BUN (6-23) mg/dl Creatinine (0.6-1.2) mg/dl Est Cr Clr Drug Dosing ml/min Est GFR ( Amer) ml/min Est GFR (Non-Af Amer) ml/min BUN/Creatinine Ratio (10-20) Glucose (70-99(Fasting)) mg/dl Lactate (0.4-2.0) mmol/L Calcium (8.6-10.3) mg/dl Magnesium (1.7-2.4) mg/dl Total Bilirubin (0.2-1.0) mg/dl AST (13-39) U/L ALT (7-52) U/L Alkaline Phosphatase (34-104) U/L Ammonia (18-72) umol/L Total Creatine Kinase (26-192) U/L Troponin I High Sens (0-14) pg/ml Total Protein (6.0-8.3) gm/dl Albumin (3.4-5.0) gm/dl Globulin (2.5-4.0) gm/dl Albumin/Globulin Ratio (0.9-2) Procalcitonin 0.12 (0-0.5) ng/ml TSH (0.300-4.500) uIu/ml Urine Color Yellow Urine Appearance Cloudy A (Clear) Urine pH 7.5 (4.5-7.5) Ur Specific [place] 1.011 (1.000-1.030) Urine Protein Negative (Negative) Urine Glucose (UA) Negative (Negative) Urine Ketones Negative (Negative) Urine Blood Negative (Negative) Urine Nitrite Negative (Negative) Urine Bilirubin Negative (Negative) Urine Urobilinogen Negative (Negative) Ur Leukocyte Esterase 2+ H (Negative) Urine WBC (Auto) >30 H (0-5) /hpf Urine RBC (Auto) 0-4 (0-4) /hpf U Hyaline Cast (Auto) 5-10 H (0-5) /lpf U Epithel Cells (Auto) >30 H (0-5) /lpf Urine Bacteria (Auto) 4+ H (Negative) SARS-CoV-2, RNA, NAAT NEGATIVE (NEGATIVE) 03/09/23 03/09/23 Range/Units 12:22 12:30 WBC (4.8-10.8) K/ul RBC (4.20-5.40) M/uL Hgb (12.0-16.0) g/dl Hct (37.0-47.0) % MCV (80.0-100.0) fL MCH (25.0-34.0) pg MCHC (32.0-36.0) g/dL RDW Std Deviation (36.4-46.3) fL RDW Coeff of [place] (11.5-14.5) % Plt Count (130-400) K/uL MPV (9.4-12.4) fL Immature Gran % (Auto) % Neut % (Auto) % Lymph % (Auto) % [place] % (Auto) % Eos % (Auto) % Baso % (Auto) % Neut # (Auto) (1.40-6.50) K/uL Lymph # (Auto) (1.2-3.4) K/uL [place] # (Auto) (0.11-0.59) K/uL Eos # (Auto) (0-0.50) K/uL Baso # (Auto) (0-0.2) K/uL Immature Gran # (Auto) (0.01-0.20) K/uL PT (9.0-12.0) Seconds INR (0.9-1.1) Sodium (136-145) mmol/L Potassium (3.5-5.1) mmol/L Chloride (98-107) mmol/L Carbon Dioxide (21-32) mmol/L Anion Gap (3-11) BUN (6-23) mg/dl Creatinine (0.6-1.2) mg/dl Est Cr Clr Drug Dosing ml/min Est GFR ( Amer) ml/min Est GFR (Non-Af Amer) ml/min BUN/Creatinine Ratio (10-20) Glucose (70-99(Fasting)) mg/dl Lactate 2.5 H* (0.4-2.0) mmol/L Calcium (8.6-10.3) mg/dl Magnesium (1.7-2.4) mg/dl Total Bilirubin (0.2-1.0) mg/dl AST (13-39) U/L ALT (7-52) U/L Alkaline Phosphatase (34-104) U/L Ammonia (18-72) umol/L Total Creatine Kinase 91 (26-192) U/L Troponin I High Sens 582.1 H* D (0-14) pg/ml Total Protein (6.0-8.3) gm/dl Albumin (3.4-5.0) gm/dl Globulin (2.5-4.0) gm/dl Albumin/Globulin Ratio (0.9-2) Procalcitonin (0-0.5) ng/ml TSH (0.300-4.500) uIu/ml Urine Color Urine Appearance (Clear) Urine pH (4.5-7.5) Ur Specific [place] (1.000-1.030) Urine Protein (Negative) Urine Glucose (UA) (Negative) Urine Ketones (Negative) Urine Blood (Negative) Urine Nitrite (Negative) Urine Bilirubin (Negative) Urine Urobilinogen (Negative) Ur Leukocyte Esterase (Negative) Urine WBC (Auto) (0-5) /hpf Urine RBC (Auto) (0-4) /hpf U Hyaline Cast (Auto) (0-5) /lpf U Epithel Cells (Auto) (0-5) /lpf Urine Bacteria (Auto) (Negative) SARS-CoV-2, RNA, NAAT (NEGATIVE) Administered Medications Olanzapine (Olanzapine 10 Mg/2.1 Ml Sdv) 2.5 mg IM Q4H PRN PRN Reason: Delrium at risk to self or others Stop: 04/08/23 15:29 Last Admin: 03/09/23 15:36 Dose: 2.5 mg Documented By: AM Discontinued Medications Ceftriaxone Sodium (Rocephin) 2,000 mg in 70 mls @ 140 mls/hr IV NOW STA Stop: 03/09/23 11:45 Last Infusion: 03/09/23 12:38 Dose: 0 mls/hr Documented By: Admin: 03/09/23 11:41 Dose: 140 mls/hr Documented By: LACHELLE Sodium Chloride (Nss) 500 mls @ 999 mls/hr IV .Q31M ONE Stop: 03/09/23 12:04 Last Infusion: 03/09/23 12:39 Dose: 0 mls/hr Documented By: Admin: 03/09/23 11:41 Dose: 999 mls/hr Documented By: LACHELLE Daptomycin 300 mg/ Syringe 6 mls @ 3 mls/min IV NOW ONE; Protocol Stop: 03/09/23 11:46 Last Admin: 03/09/23 12:38 Dose: 3 mls/min Documented By: LACHELLE Sodium Chloride (Nss) 250 mls @ 999 mls/hr IV .Q16M ONE Stop: 03/09/23 12:13 Last Infusion: 03/09/23 13:14 Dose: 0 mls/hr Documented By: Admin: 03/09/23 12:24 Dose: 999 mls/hr Documented By: MAXIMINO Lactated Ringer's (Lr) 1,000 mls @ 999 mls/hr IV .Q1H1M ONE Stop: 03/09/23 14:49 Last Admin: 03/09/23 16:19 Dose: 999 mls/hr Documented By: AM Lactulose (Lactulose 200gm/700ml Wtr Enema) 200 gm NM Q8H STA Stop: 03/09/23 11:55 Last Admin: 03/09/23 13:14 Dose: 200 gm Documented By: LACHELLE Imaging Data Radiologist's Impression: Head CT 03/09/23 10:13 CT SCAN OF THE BRAIN WITHOUT IV CONTRAST CLINICAL HISTORY: Change in mental status COMPARISON STUDY: CT of the brain dated 02/07/2023. TECHNIQUE: Unenhanced axial CT scan of the brain is performed from the vertex to the skull base. A dose lowering technique was utilized adhering to the principles of ALARA. The patient was scanned twice due to motion artifact. CT DOSE: 1250.21 mGy.cm FINDINGS: Brain parenchyma: There is age-related involutional change noting mild to moderate subcortical and periventricular microangiopathic disease. There is no hemorrhage, mass effect, or evidence of acute territorial ischemia by CT criteria. Corona-white matter differentiation is preserved. No extra-axial fluid collection is seen. Ventricles, sulci, cisterns: Prominent secondary to involutional change. Intracranial vasculature: There is atherosclerotic calcification of the cavernous carotid and vertebral arteries. Calvarium: Unremarkable. Sinuses and mastoids: The visualized paranasal sinuses are clear. The mastoid air cells are well pneumatized. Orbits: The bony orbits are grossly intact. There are bilateral ocular lens implants. IMPRESSION: There is no hemorrhage, mass effect, or evidence of acute territorial ischemia by CT criteria noting a motion compromised examination. ACT 112: Negative or not required by law. Electronically signed by: Parag Adrian M.D. 03/09/2023 12:10 PM Chest X-Ray 03/09/23 10:14 SINGLE VIEW CHEST CLINICAL HISTORY: Generalized weakness. FINDINGS: An AP, portable, supine chest radiograph is compared to study dated 02/09/2023 and correlated with chest CT dated 12/01/2020. The examination is degraded by portable technique and apical lordotic positioning. The cardiomediastinal silhouette is top normal for projection. Chronic interstitial thickening is similar to previous. Pulmonary nodules seen on prior chest CT scans are not well-visualized by x-ray. There is elevation of the right hemidiaphragm with bibasilar scarring/atelectasis. No airspace consolidation or large pleural effusion is identified. No pneumothorax is seen. The skeletal structures are osteopenic. The bony thorax is grossly intact. IMPRESSION: No acute cardiopulmonary abnormality. ACT 112: Negative or not required by law. Electronically signed by: Parag Adrian M.D. 03/09/2023 11:03 AM Hand X-Ray 03/09/23 10:30 XR hand RT min 3V routine CLINICAL HISTORY: hx fracture COMPARISON: Right hand radiographs December 27, 2022 and right thumb radiographs February 25, 2023. FINDINGS: Note is again made of a comminuted displaced intra-articular fracture within the base of the right first proximal phalanx. Alignment is unchanged since radiographs of February 25, 2023. There is callus formation. There is possible subtle periosteal thickening of the base of the right fifth metacarpal. This may reflect a healing fracture, as shown on radiographs of December 27, 2022. No additional fractures within the right hand are present. There is chondrocalcinosis within the wrist. No carpal bone fracture is identified. There is moderate radiocarpal joint space narrowing with osteophytosis. IMPRESSION: 1. No change in alignment of a displaced intra-articular fracture within the right first proximal phalanx since radiographs of February 25, 2023. 2. Possible healing fracture within the base of the right fifth metacarpal. 3. No acute fractures identified. ACT 112: Negative or not required by law. Electronically signed by: Jaydon Swanson M.D. 03/09/2023 11:15 AM Discharge Plan Visit Data Chief Complaint: Confusion Stated Complaint: CONFUSION ED Provider: Oc Esquivel Discharge Problem: Acute hepatic encephalopathy, Acute UTI, Non-ST elevation UT (NSTEMI), CKD (chronic kidney disease) Patient Disposition: Being Evaluated by Hospitalist Discharge Instructions Interventions: ED Discharge Assessment Last Done: 03/09/23 14:06
[2023-03-09 11:02] LABS: Appearance Urine Cloudy (Clear); Bacteria Urine Automated 4+ (Negative); Bilirubin Urine Negative (Negative); Blood Urine Negative (Negative); Color Urine Yellow; Epithelial Cell Urine Auto >30 /lpf (0-5); Glucose Urine UA Negative (Negative); Ketones Urine Negative (Negative); Leukocyte Esterase Urine 2+ (Negative); Nitrite Urine Negative (Negative); Protein Urine Negative (Negative); RBC Urine Automated 0-4 /hpf (0-4); Specific Gravity Urine 1.011 (1.000-1.030); Urobilinogen Urine Negative (Negative); WBC Urine Automated >30 /hpf (0-5); pH Urine 7.5 (4.5-7.5)
[2023-03-09 11:03] LABS: Basophils # (auto) 0.02 K/uL (0-0.2); Basophils % (auto) 0.2 %; Eosinophils # (auto) 0.02 K/uL (0-0.50); Eosinophils % (auto) 0.2 %; Hematocrit (blood only) 35.6 % (37.0-47.0); Hemoglobin 12.2 g/dl (12.0-16.0); Immature Granulocytes # (auto) 0.05 K/uL (0.01-0.20); Immature Granulocytes % (auto) 0.5 %; Lymphocytes # (auto) 1.04 K/uL (1.2-3.4); Lymphocytes % (auto) 9.9 %; Mean Corpuscular Hemoglobin 31.1 pg (25.0-34.0); Mean Corpuscular Hgb Conc 34.3 g/dL (32.0-36.0); Mean Corpuscular Volume 90.8 fL (80.0-100.0); Mean Platelet Volume 11.4 fL (9.4-12.4); Monocytes % (auto) 7.6 %; Neutrophils # (auto) 8.61 K/uL (1.40-6.50); Neutrophils % (auto) 81.6 %; Platelet Count 124 K/uL (130-400); RDW Coefficient of Variation 17.2 % (11.5-14.5); RDW Standard Deviation 56.9 fL (36.4-46.3); Red Blood Count 3.92 M/uL (4.20-5.40); White Blood Count 10.54 K/ul (4.8-10.8)
--- NOTE | 2023-03-09 11:04 | XRay Report ---
SINGLE VIEW CHEST CLINICAL HISTORY: Generalized weakness. FINDINGS: An AP, portable, supine chest radiograph is compared to study dated 02/09/2023 and correlate d with chest CT dated 12/01/2020. The examination is degraded by portable technique and apical lordoti c positioning. The cardiomediastinal silhouette is top normal for projection. Chronic interstitial th ickening is similar to previous. Pulmonary nodules seen on prior chest CT scans are not well-visualiz ed by x-ray. There is elevation of the right hemidiaphragm with bibasilar scarring/atelectasis. No ai rspace consolidation or large pleural effusion is identified. No pneumothorax is seen. The skeletal s tructures are osteopenic. The bony thorax is grossly intact. IMPRESSION: No acute cardiopulmonary abnormality. ACT 112: Negative or not required by law. Electronically signed by: Parag Adrian M.D. 03/09/2023 11:03 AM
[2023-03-09] MEDS ORDERED: cefTRIAXone SODIUM 2,000 MG/70 ML BAG IV STA (11:16)
--- NOTE | 2023-03-09 11:16 | XRay Report ---
XR hand RT min 3V routine CLINICAL HISTORY: hx fracture COMPARISON: Right hand radiographs December 27, 2022 and right thumb radiographs February 25, 2023. FINDINGS: Note is again made of a comminuted displaced intra-articular fracture within the base of t he right first proximal phalanx. Alignment is unchanged since radiographs of February 25, 2023. There is c allus formation. There is possible subtle periosteal thickening of the base of the right fifth metaca rpal. This may reflect a healing fracture, as shown on radiographs of December 27, 2022. No additional frac tures within the right hand are present. There is chondrocalcinosis within the wrist. No carpal bone fracture is identified. There is moderate radiocarpal joint space narrowing with osteophytosis. IMPRESSION: 1. No change in alignment of a displaced intra-articular fracture within the right first proximal pha lanx since radiographs of February 25, 2023. 2. Possible healing fracture within the base of the right fifth metacarpal. 3. No acute fractures identified. ACT 112: Negative or not required by law. Electronically signed by: Jaydon Swanson M.D. 03/09/2023 11:15 AM
[2023-03-09 11:23] LABS: Albumin Globulin Ratio 0.8 (0.9-2); Albumin Level 2.9 gm/dl (3.4-5.0); BUN Creatinine Ratio 15.4 (10-20); Bilirubin,Total 2.1 mg/dl (0.2-1.0); Calcium 9.1 mg/dl (8.6-10.3); Creatinine Clr Calc Pharmacy 16.8 ml/min; Est GFR (Non-African American) 20.7 ml/min; Globulin 3.6 gm/dl (2.5-4.0); Magnesium 1.9 mg/dl (1.7-2.4); Potassium 3.9 mmol/L (3.5-5.1); Total Protein 6.5 gm/dl (6.0-8.3)
[2023-03-09 11:29] LABS: INR 1.2 (0.9-1.1); Prothrombin Time 13.5 Seconds (9.0-12.0)
[2023-03-09 11:31] LABS: Troponin I High Sensitivity 736.3 pg/ml (0-14)
[2023-03-09] MEDS ORDERED: SODIUM CHLORIDE 0.9% 500 ML IV ONE (11:34)
[2023-03-09] MEDS ORDERED: DAPTOmycin 300 MG in SYRINGE 0 ML IV ONE (11:45)
[2023-03-09] MEDS ORDERED: LACTULOSE 200GM/700ML WTR ENEMA PR STA (11:54)
[2023-03-09] MEDS ORDERED: SODIUM CHLORIDE 0.9% 250 ML IV ONE (11:58)
--- NOTE | 2023-03-09 12:05 | History & Physical Report ---
Date of Service March 09, 2023 Assessment & Plan (1) Goals of care, counseling/discussion: Plan: Discussed with granddaughter in room and over the phone. Patient unable to contribute towards current discussion due to altered mental state. DNR/DNI consistent with [facility] paperwork and patient prior wishes. No escalation of care, no vasopressors. No NG tube at the current time but granddaughter will discuss family. (2) Acute hepatic encephalopathy: Plan: Suspect exacerbated from UTI Lactulose enema 200g TN q8h, transition to PO lactulose when patient able to take PO. Discussed NG tube but elected against this given patient goals of care at the current time. (3) Acute UTI: Plan: Urine culture with Enterococcus faecium on 03/03 Follow up repeat urine and blood cultures Daptomycin + ceftriaxone (4) Demand ischemia of myocardium: Plan: Troponin downtrending Given goals of care will hold off any further workup regarding this (5) CKD (chronic kidney disease): Plan: Stage IV, Cr at baseline 2.08 (6) Cirrhosis: Plan: US ascites Plan VTE Prophylaxis - given goals of care no chemical prophylaxis Diet - NPO Disposition - admit to PCU Admission and Anticipated Discharge Date Admission Date: March 09, 2023 History of Present Illness Chief Complaint: Altered mental state Primary Care Provider: [facility] Ilana Mackay is an 88 year old female with liver cirrhosis who presents to the ER via EMS from [facility] due to altered mental state. Unable to get any history from the patient. She was recently diagnosed with a urinary tract infection. She was started on daptomycin on March 06, 2023. Bumex was discontinued on March 06, 2023. On discussion with Dr Chou from [facility] - patient was progressively more confused 5 days ago prompting the urine analysis and culture. Progressively getting more encephalopathic and today not able to recognize anyone or take any oral intake, Discussed with her son and wished to honor her wishes to take her back to hospital if she was to get sick again. Allergies Allergy/AdvReac Type Severity Reaction Status Date / Time erythromycin base Allergy Severe eye Verified 02/07/23 12:24 ointment only - red and infected Iodinated Contrast Media Allergy Severe heart Verified 05/06/21 14:33 muscles tightened/heart spasms Penicillins Allergy Intermediate "wore out Verified 02/07/23 12:24 on me" and hives repaglinide Allergy Intermediate Hives Verified 02/07/23 12:24 Sulfa (Sulfonamide Allergy Unknown Hives Verified 05/06/21 14:33 Antibiotics) timolol Allergy Unknown eye drops Verified 02/07/23 12:24 - eye redness clonazepam AdvReac Severe increased Verified 05/06/21 14:33 anxiety [id number]-DTP-StB Reductase AdvReac Severe ELEVATED Verified 05/06/21 14:33 Inhibitor HEPATIC [Hmjrgxk-Buj-Bbd Reductase ENZYMES Inhibitor] enalapril AdvReac Intermediate COUGH Verified 02/07/23 12:24 Home Medications Medication Instructions Recorded Confirmed Type ketotifen fumarate 0.025 % (0.035 1 drp ophthalmic (eye) TID PRN Eye 05/16/19 History %) eye drops ([place]) Irritation famotidine 20 mg tablet 20 mg PO HS 04/16/21 03/09/23 History bumetanide 2 mg tablet 2 mg PO DAILY #90 tabs 01/26/22 03/09/23 Rx nitroglycerin 0.4 mg/hr 1 patch transdermal DAILY HEART 05/04/22 03/09/23 Rx transdermal 24 hour patch MUSCLE SPASMS #30 ea bisacodyl 10 mg rectal suppository 10 mg TN DAILY PRN Constipation 02/07/23 03/09/23 History (Dulcolax (bisacodyl)) insulin glargine 100 unit/mL 10 unit subcut HS 02/07/23 03/09/23 History subcutaneous solution (Lantus U-100 Insulin) levothyroxine 125 mcg tablet 125 mcg PO DAILY 02/07/23 03/09/23 History magnesium hydroxide 400 mg/5 mL 30 ml PO DAILY PRN Constipation 02/07/23 03/09/23 History oral suspension (Milk of Magnesia) meclizine 12.5 mg tablet 12.5 mg PO Q8H PRN Vertigo 02/07/23 03/09/23 History pantoprazole 40 mg tablet,delayed 40 mg PO DAILY 02/07/23 03/09/23 History release lactulose 20 gram/30 mL oral 20 g (30 mL) PO TID 30 days #2,700 02/14/23 03/09/23 Rx solution mL Daptomycin Iv 4 mg IV DAILY 03/09/23 03/09/23 History acetaminophen 500 mg tablet 500 mg PO Q6H PRN Mild Pain (Scale 03/09/23 03/09/23 History (Tylenol Extra Strength) Score 1-4) ascorbic acid (vitamin C) 500 mg 500 mg PO DAILY 03/09/23 03/09/23 History tablet (Vitamin C) diclofenac sodium 1 % topical gel 2 g topical QID 03/09/23 03/09/23 History (Voltaren Arthritis Pain) fluticasone furoate 200 1 inh inhalation DAILY 03/09/23 03/09/23 History mcg-vilanterol 25 mcg/dose inhalation powder (Breo Ellipta) magnesium oxide 400 mg PO DAILY 03/09/23 03/09/23 History sodium chloride 0.9 % (flush) 10 ml IV DIRECTED 03/09/23 03/09/23 History (Normal Saline Flush 0.9 % injection syringe) tramadol 37.5 mg-acetaminophen 325 1 tab PO QAM 03/09/23 03/09/23 History mg tablet zolpidem 5 mg tablet 5 mg PO HS 03/09/23 03/09/23 History Past Med/Surg History Medical History Acute kidney injury Bronchitis Chronic bronchitis Chronic diastolic congestive heart failure Controlled type 2 diabetes mellitus, with long-term current use of insulin Coronary artery spasm reason for Nitro Patch q12h follows with Dr. Samson Depression hx Diabetes mellitus, type 2 iddm Elevated troponin level Encounter for drug screening Gastroparesis GERD (gastroesophageal reflux disease) Grief reaction Heart disease Hepatic cirrhosis Hepatic encephalopathy History of melanoma Hypertension Hypertension Hypothyroidism Hypothyroidism Interstitial lung disease Multiple lung nodules on CT Nonalcoholic fatty liver disease Obstructive sleep apnea syndrome Pancytopenia Pneumonia hx Sleep apnea CPAP Thrombocytopenia UTI (urinary tract infection) Vertigo Vertigo Surgical History History of appendectomy History of cardiac catheterization X3 (1994, 1999, 2006) History of cataract surgery bilateral History of colonoscopy History of dacryocystorhinostomy done monthly History of dilatation and curettage History of ERCP with stone removal History of laparoscopic cholecystectomy History of repair of rotator cuff right History of tonsillectomy S/P cholecystectomy S/P STEVE-BSO Status post biopsy of skin removal of melanoma Family History Mother Cardiac disorder Hypertension Heart disease Myocardial infarction Father Cardiac disorder Hypertension Heart disease Other Diabetes Ischemic heart disease Prostate cancer Denies family history of Ovarian cancer Breast cancer Colorectal cancer Social History Smoking Status: Never smoker Second Hand Exposure: No (); Do You Dip or Chew Tobacco: No; Hx Alcohol Use: No Hx Substance Use: No Preferred Language: Mongolian Communication Ability: Impaired Communication Ability Comment: Impairment due to cognition Visual Impairment: No Limitations Hearing Ability: Normal Costume Director Required: No Beliefs That Will Affect Care: None marital status: / Current Living Situation: Correction Current Living Situation Comment: lives in [facility] current occupational status: retired Feels Safe at Home: Yes Childhood Exposure to Second-Hand Smoke: No Dental Care, Regularly: Yes Physical Activity Frequency: Daily Seatbelt Use: always Sunscreen Use: No Assistive Devices: Walker and Wheelchair Review of Systems Review of Systems: Unobtainable due to cognitive status Physical Exam Constitutional: + not well nourished and no acute distress Eyes: PERRL ENMT: Mouth: + dry oral mucous membranes Respiratory: normal respiratory effort; no respiratory distress Auscultation: lungs clear to auscultation bilaterally; no crackles and no wheezes Cardiovascular: Rate/Rhythm: regular rate and regular rhythm Extremities: normal capillary refill; no calf tenderness and no pedal edema Gastrointestinal (Abdomen): Inspection/Auscultation: + abdomen distended Percussion/Palpation: abdomen soft; abdomen nontender, no guarding and abdomen not rigid Skin: no rashes, warm and dry Neurologic: moves all extremities; + not awake Psychiatric: Orientation: + not alert (GCS 9, E2V2M5) and + not oriented x 3 Genitourinary: no CVA tenderness Results & Data Results & Data Vital Signs (Past 12 Hours) Vital Signs Temp Pulse Pulse Resp BP Pulse Ox O2 Del Method 03/09/23 11:00 108 H 13 03/09/23 11:00 121/68 03/09/23 10:51 107 H 16 98 Nasal Cannula 03/09/23 10:22 37.0 C 108 H 16 148/68 H 88 L Room Air 03/09/23 10:36 109 H 16 98 Room Air 03/09/23 10:26 111 H O2 Flow Rate 03/09/23 11:00 03/09/23 11:00 03/09/23 10:51 2 03/09/23 10:22 03/09/23 10:36 2 03/09/23 10:26 Laboratory Results Abnormal lab results 03/09/23 03/09/23 03/09/23 Range/Units 10:10 10:10 10:10 RBC (4.20-5.40) M/uL Hct (37.0-47.0) % RDW Std Deviation (36.4-46.3) fL RDW Coeff of [place] (11.5-14.5) % Plt Count (130-400) K/uL Neut # (Auto) (1.40-6.50) K/uL Lymph # (Auto) (1.2-3.4) K/uL [place] # (Auto) (0.11-0.59) K/uL PT 13.5 H (9.0-12.0) Seconds INR 1.2 H (0.9-1.1) Sodium 133 L (136-145) mmol/L Chloride 95 L (98-107) mmol/L BUN 32 H (6-23) mg/dl Creatinine 2.08 H (0.6-1.2) mg/dl Glucose 128 H (70-99(Fasting)) mg/dl Lactate 2.3 H* (0.4-2.0) mmol/L Total Bilirubin 2.1 H (0.2-1.0) mg/dl AST 50 H (13-39) U/L Alkaline Phosphatase 194 H (34-104) U/L Ammonia (18-72) umol/L Troponin I High Sens 736.3 H* (0-14) pg/ml Albumin 2.9 L (3.4-5.0) gm/dl Albumin/Globulin Ratio 0.8 L (0.9-2) Urine Appearance (Clear) Ur Leukocyte Esterase (Negative) Urine WBC (Auto) (0-5) /hpf U Hyaline Cast (Auto) (0-5) /lpf U Epithel Cells (Auto) (0-5) /lpf Urine Bacteria (Auto) (Negative) 03/09/23 03/09/23 03/09/23 Range/Units 10:10 10:10 10:10 RBC 3.92 L (4.20-5.40) M/uL Hct 35.6 L (37.0-47.0) % RDW Std Deviation 56.9 H (36.4-46.3) fL RDW Coeff of [place] 17.2 H (11.5-14.5) % Plt Count 124 L (130-400) K/uL Neut # (Auto) 8.61 H (1.40-6.50) K/uL Lymph # (Auto) 1.04 L (1.2-3.4) K/uL [place] # (Auto) 0.80 H (0.11-0.59) K/uL PT (9.0-12.0) Seconds INR (0.9-1.1) Sodium (136-145) mmol/L Chloride (98-107) mmol/L BUN (6-23) mg/dl Creatinine (0.6-1.2) mg/dl Glucose (70-99(Fasting)) mg/dl Lactate (0.4-2.0) mmol/L Total Bilirubin (0.2-1.0) mg/dl AST (13-39) U/L Alkaline Phosphatase (34-104) U/L Ammonia 129.0 H (18-72) umol/L Troponin I High Sens (0-14) pg/ml Albumin (3.4-5.0) gm/dl Albumin/Globulin Ratio (0.9-2) Urine Appearance Cloudy A (Clear) Ur Leukocyte Esterase 2+ H (Negative) Urine WBC (Auto) >30 H (0-5) /hpf U Hyaline Cast (Auto) 5-10 H (0-5) /lpf U Epithel Cells (Auto) >30 H (0-5) /lpf Urine Bacteria (Auto) 4+ H (Negative) Diagnostic Findings CT SCAN OF THE BRAIN WITHOUT IV CONTRAST CLINICAL HISTORY: Change in mental status COMPARISON STUDY: CT of the brain dated 02/07/2023. TECHNIQUE: Unenhanced axial CT scan of the brain is performed from the vertex to the skull base. A dose lowering technique was utilized adhering to the principles of ALARA. The patient was scanned twice due to motion artifact. CT DOSE: 1250.21 mGy.cm FINDINGS: Brain parenchyma: There is age-related involutional change noting mild to moderate subcortical and periventricular microangiopathic disease. There is no hemorrhage, mass effect, or evidence of acute territorial ischemia by CT criteria. Corona-white matter differentiation is preserved. No extra-axial fluid collection is seen. Ventricles, sulci, cisterns: Prominent secondary to involutional change. Intracranial vasculature: There is atherosclerotic calcification of the cav ernous carotid and vertebral arteries. Calvarium: Unremarkable. Sinuses and mastoids: The visualized paranasal sinuses are clear. The mastoid air cells are well pneumatized. Orbits: The bony orbits are grossly intact. There are bilateral ocular lens implants. IMPRESSION: There is no hemorrhage, mass effect, or evidence of acute territorial ischemia by CT criteria noting a motion compromised examination. SINGLE VIEW CHEST CLINICAL HISTORY: Generalized weakness. FINDINGS: An AP, portable, supine chest radiograph is compared to study dated 02/09/2023 and correlated with chest CT dated 12/01/2020. The examination is degraded by portable technique and apical lordotic positioning. The cardiomediastinal silhouette is top normal for projection. Chronic interstitial thickening is similar to previous. Pulmonary nodules seen on prior chest CT scans are not well-visualized by x-ray. There is elevation of the right hemidiaphragm with bibasilar scarring/atelectasis. No airspace consolidation or large pleural effusion is identified. No pneumothorax is seen. The skeletal structures are osteopenic. The bony thorax is grossly intact. IMPRESSION: No acute cardiopulmonary abnormality. XR hand RT min 3V routine CLINICAL HISTORY: hx fracture COMPARISON: Right hand radiographs December 27, 2022 and right thumb radiographs February 25, 2023. FINDINGS: Note is again made of a comminuted displaced intra-articular fracture within the base of the right first proximal phalanx. Alignment is unchanged since radiographs of February 25, 2023. There is callus formation. There is possible subtle periosteal thickening of the base of the right fifth metacarpal. This may reflect a healing fracture, as shown on radiographs of December 27, 2022. No additional fractures within the right hand are present. There is chondrocalcinosis within the wrist. No carpal bone fracture is identified. There is moderate radiocarpal joint space narrowing with osteophytosis. IMPRESSION: 1. No change in alignment of a displaced intra-articular fracture within the right first proximal phalanx since radiographs of February 25, 2023. 2. Possible healing fracture within the base of the right fifth metacarpal. 3. No acute fractures identified. Medications Administered ER Medications Given: Daptomycin 300mg IV Ceftriaxone 2000mg IV NSS 500ml bolus NSS 250ml bolus lactulose 200g TN ECG Rate (beats per minute): 111 Rhythm: sinus tachycardia Findings: no acute ischemic change Comparison ECG Date: from (February 07, 2023) Change: the following changes noted (PACs no longer present) Code Status & VTE Plan Code Status DNR/DNI VTE Prophylaxis Plan VTE Prophylaxis will be ordered: No PG Care Time/CCT Total # of Minutes Spent Total Time Spent with Patient: Total time spent is greater than 50% in coordination of care (as documented) at patient's floor/unit and/or counseling patient: Coding Level of Care Code 90126 INT INP/OBS CARE 3/75MIN Diagnoses Goals of care, counseling/discussion Z71.89 Acute hepatic encephalopathy K76.82 Acute UTI N39.0 Demand ischemia of myocardium I24.8 CKD (chronic kidney disease) N18.9 Cirrhosis K74.60
--- NOTE | 2023-03-09 12:11 | CT Scan Report ---
CT SCAN OF THE BRAIN WITHOUT IV CONTRAST CLINICAL HISTORY: Change in mental status COMPARISON STUDY: CT of the brain dated 02/07/2023. TECHNIQUE: Unenhanced axial CT scan of the brain is performed from the vertex to the skull base. A do se lowering technique was utilized adhering to the principles of ALARA. The patient was scanned twice due to motion artifact. CT DOSE: 1250.21 mGy.cm FINDINGS: Brain parenchyma: There is age-related involutional change noting mild to moderate subcortical and pe riventricular microangiopathic disease. There is no hemorrhage, mass effect, or evidence of acute ter ritorial ischemia by CT criteria. Corona-white matter differentiation is preserved. No extra-axial flui d collection is seen. Ventricles, sulci, cisterns: Prominent secondary to involutional change. Intracranial vasculature: There is atherosclerotic calcification of the cavernous carotid and vertebr al arteries. Calvarium: Unremarkable. Sinuses and mastoids: The visualized paranasal sinuses are clear. The mastoid air cells are well pneu matized. Orbits: The bony orbits are grossly intact. There are bilateral ocular lens implants. IMPRESSION: There is no hemorrhage, mass effect, or evidence of acute territorial ischemia by CT crit janis noting a motion compromised examination. ACT 112: Negative or not required by law. Electronically signed by: Parag Adrian M.D. 03/09/2023 12:10 PM
[2023-03-09 13:18] LABS: Troponin I High Sensitivity 582.1 pg/ml (0-14)
[2023-03-09] MEDS ORDERED: LACTATED RINGER'S 1,000 ML IV ONE (13:49)
--- NOTE | 2023-03-09 14:47 | Ultrasound Report ---
US abdomen ltd ascites CLINICAL HISTORY: ?worsening ascites from January, abdominal distension COMPARISON STUDY: CT of the abdomen and pelvis April 17, 2021. Abdominal ultrasound February 11, 2023. TECHNIQUE: Sonography of the abdomen and pelvis was performed to assess for ascites. FINDINGS: The liver is cirrhotic. Moderate ascites within the abdomen and pelvis is noted. This has s ignificantly increased since ultrasound of February 11, 2023. IMPRESSION: Moderate ascites, significantly increased since ultrasound of February 11, 2023. ACT 112: Negative or not required by law. Electronically signed by: Jaydon Swanson M.D. 03/09/2023 2:45 PM
[2023-03-09] MEDS ORDERED: CARBOHYDRATES FOR HYPOGLYCEMIA PO PRN (15:04)
[2023-03-09] MEDS ORDERED: GLUCOSE 10 TAB/TUBE PO PRN (15:04)
[2023-03-09] MEDS ORDERED: DEXTROSE 50% 50 ML SYRINGE IV PRN (15:04)
[2023-03-09] MEDS ORDERED: GLUCOSE 40% GEL 15 GM TUBE PO PRN (15:04)
[2023-03-09] MEDS ORDERED: GLUCAGON FOR INJ 1 MG VIAL SQ PRN (15:04)
[2023-03-09] MEDS ORDERED: OLANZapine 10 MG/2.1 ML SDV IM PRN (15:25)
--- NOTE | 2023-03-09 15:25 | Electrocardiogram Report ---
Test Reason : Blood Pressure : / mmHG Vent. Rate : 111 BPM Atrial Rate : 111 BPM P-R Int : 180 ms QRS Dur : 078 ms QT Int : 316 ms P-R-T Axes : 060 001 081 degrees QTc Int : 429 ms Sinus tachycardia Low voltage QRS Poor R wave progression, consider anterior WA vs. lead placement vs. LVH Abnormal ECG When compared with ECG of 07-FEB-2023 06:00, Premature atrial complexes are no longer Present ST now depressed in Lateral leads Confirmed by Reza Samson ([id number]) on 03/09/2023 3:24:41 PM Referred By: Confirmed By:Reza Samson
[2023-03-09] MEDS ORDERED: INSULIN ASPART PER UNIT CHARGE SC SCH (16:30)
[2023-03-09] MEDS: INSULIN ASPART PER UNIT CHARGE SC SCH (17:48)
[2023-03-09] MEDS ORDERED: FAMOTIDINE 20 MG TAB PO SCH (21:00)
[2023-03-09] MEDS: LACTULOSE 200GM/700ML WTR ENEMA PR SCH (21:13)
[2023-03-09] MEDS: FAMOTIDINE 20 MG in SYRINGE 3 ML IV SCH (23:16)
[2023-03-10] MEDS: INSULIN ASPART PER UNIT CHARGE SC SCH ×5 (00:18→20:28)
[2023-03-10] MEDS: LACTULOSE 200GM/700ML WTR ENEMA PR SCH (05:23)
[2023-03-10] MEDS: LEVOTHYROXINE SODIUM 125 MCG TABLET PO SCH (05:34)
[2023-03-10 06:38] LABS: Basophils # (auto) 0.01 K/uL (0-0.2); Basophils % (auto) 0.1 %; Eosinophils # (auto) 0.06 K/uL (0-0.50); Eosinophils % (auto) 0.7 %; Hematocrit (blood only) 38.7 % (37.0-47.0); Hemoglobin 13.1 g/dl (12.0-16.0); Immature Granulocytes # (auto) 0.03 K/uL (0.01-0.20); Immature Granulocytes % (auto) 0.3 %; Lymphocytes # (auto) 0.96 K/uL (1.2-3.4); Mean Corpuscular Hgb Conc 33.9 g/dL (32.0-36.0); Mean Corpuscular Volume 94.4 fL (80.0-100.0); Mean Platelet Volume 10.9 fL (9.4-12.4); Monocytes # (auto) 0.69 K/uL (0.11-0.59); Monocytes % (auto) 7.9 %; Neutrophils # (auto) 6.98 K/uL (1.40-6.50); Platelet Count 120 K/uL (130-400); RDW Coefficient of Variation 17.4 % (11.5-14.5); RDW Standard Deviation 60.8 fL (36.4-46.3); White Blood Count 8.73 K/ul (4.8-10.8)
[2023-03-10 06:49] LABS: INR 1.3 (0.9-1.1); Prothrombin Time 13.8 Seconds (9.0-12.0)
[2023-03-10 06:50] LABS: Albumin Globulin Ratio 0.7 (0.9-2); Albumin Level 2.6 gm/dl (3.4-5.0); Bilirubin,Total 1.6 mg/dl (0.2-1.0); Calcium 9.3 mg/dl (8.6-10.3); Creatinine Clr Calc Pharmacy 21.2 ml/min; Est GFR (African American) 31.8 ml/min; Est GFR (Non-African American) 27.4 ml/min; Potassium 3.8 mmol/L (3.5-5.1); Total Protein 6.6 gm/dl (6.0-8.3)
[2023-03-10] MEDS: FLUTICASONE/VILANTEROL 200/25MCG 14 PUFFS/INHALER INH SCH (09:30)
[2023-03-10] MEDS: PANTOprazole 40 MG TAB PO SCH (09:31)
[2023-03-10] MEDS: cefTRIAXone SODIUM 2,000 MG in DEXTROSE 5% 50 ML IV SCH (09:31)
[2023-03-10] MEDS: NITROGLYCERIN 0.4 MG/HR PATCH TD SCH (09:31)
[2023-03-10] MEDS ORDERED: Nursing to Pharmacy Communication SCH (10:00)
[2023-03-10] MEDS: LACTULOSE SYRUP 20 GM/30 ML UDC PO SCH ×2 (16:23→21:01)
[2023-03-10] MEDS ORDERED: ACETAMINOPHEN 325 MG TAB PO ONE (18:07)
[2023-03-10] MEDS: FAMOTIDINE 20 MG in SYRINGE 3 ML IV SCH (21:01)
--- NOTE | 2023-03-10 22:49 | Hospitalist Progress Note ---
Date of Service March 10, 2023 Assessment & Plan (1) Goals of care, counseling/discussion: Plan: Discussed with granddaughter in room and over the phone. Patient unable to contribute towards current discussion due to altered mental state. DNR/DNI consistent with [facility] paperwork and patient prior wishes. No escalation of care, no vasopressors. No NG tube at the current time but granddaughter will discuss family. Patient though is improved. (2) Acute hepatic encephalopathy: Plan: Given constipation, and hard stools, doubt this is from UTI. Transitioned to PO lactulose Appears improved. (3) Acute UTI: Plan: Urine culture with Enterococcus faecium on 03/03 Follow up repeat urine and blood cultures Daptomycin + ceftriaxone awaiting final cultures. (4) Demand ischemia of myocardium: Plan: Troponin downtrending Given goals of care will hold off any further workup regarding this (5) CKD (chronic kidney disease): Plan: Stage IV, Cr at baseline 2.08 (6) Cirrhosis: Plan: US ascites Plan VTE Prophylaxis - given goals of care no chemical prophylaxis Diet -resume diet Disposition - admit to PCU Admission and Anticipated Discharge Date Admission Date: March 09, 2023 Subjective 88 yo female reports feeling much better, She does not recall that she was confused but understands that that was the reason why she is her. She recognizes me from 2 years ago, and was happy to see me again. D/W nurse, reports patient had bard bowel movements, and is concerned that patient may not have been taking her lactulose at the nursing facility. Review of Systems Review of Systems: All systems reviewed & are unremarkable except as noted in HPI & below Physical Exam Physical Exam: Constitutional:no acute distress Eyes: PERRL Respiratory: normal respiratory effort; no respiratory distress Auscultation: lungs clear to auscultation bilaterally; no crackles and no wheezes Cardiovascular: Rate/Rhythm: regular rate and regular rhythm Extremities: normal capillary refill; no calf tenderness and no pedal edema Gastrointestinal (Abdomen): Inspection/Auscultation: + abdomen distended Percussion/Palpation: abdomen soft; abdomen nontender, no guarding and abdomen not rigid Skin: no rashes, warm and dry Neurologic: moves all extremities; awake Psychiatric: Orientation: oriented to place and person Genitourinary: no CVA tenderness Results & Data Results & Data Vital Signs (Past 12 Hours) Vital Signs Temp Pulse Pulse Resp BP Pulse Ox O2 Del Method 03/10/23 19:42 36.6 C 100 H 18 107/66 98 Room Air 03/10/23 18:14 93 H 03/10/23 11:09 36.5 C 101 H 18 109/62 96 Room Air PG Care Time/CCT Total # of Minutes Spent Total Time Spent with Patient: Total time spent is greater than 50% in coordination of care (as documented) at patient's floor/unit and/or counseling patient: Coding Level of Care Code 31479 SUB INP/OBS CARE 3/50MIN Diagnoses Goals of care, counseling/discussion Z71.89 Acute hepatic encephalopathy K76.82 Acute UTI N39.0 Demand ischemia of myocardium I24.8 CKD (chronic kidney disease) N18.9 Cirrhosis K74.60
[2023-03-11] MEDS: LEVOTHYROXINE SODIUM 125 MCG TABLET PO SCH (05:45)
[2023-03-11 07:15] LABS: Albumin Globulin Ratio 0.7 (0.9-2); Albumin Level 2.2 gm/dl (3.4-5.0); BUN Creatinine Ratio 19.4 (10-20); Calcium 8.6 mg/dl (8.6-10.3); Creatinine Clr Calc Pharmacy 19.9 ml/min; Est GFR (African American) 29.6 ml/min; Est GFR (Non-African American) 25.6 ml/min; Hematocrit (blood only) 31.5 % (37.0-47.0); Hemoglobin 10.3 g/dl (12.0-16.0); Mean Corpuscular Hemoglobin 31.4 pg (25.0-34.0); Mean Corpuscular Hgb Conc 32.7 g/dL (32.0-36.0); Mean Platelet Volume 11.6 fL (9.4-12.4); Platelet Count 81 K/uL (130-400); Potassium 3.2 mmol/L (3.5-5.1); RDW Coefficient of Variation 17.5 % (11.5-14.5); RDW Standard Deviation 62.2 fL (36.4-46.3); Red Blood Count 3.28 M/uL (4.20-5.40); Total Protein 5.2 gm/dl (6.0-8.3); White Blood Count 4.98 K/ul (4.8-10.8)
[2023-03-11 08:04] LABS: INR 1.3 (0.9-1.1); Prothrombin Time 14.1 Seconds (9.0-12.0)
[2023-03-11] MEDS ORDERED: POTASSIUM CHLORIDE 20 MEQ/15 ML UDC PO STA (08:08)
--- NOTE | 2023-03-11 08:12 | Hospitalist Progress Note ---
Date of Service March 11, 2023 Assessment & Plan (1) Goals of care, counseling/discussion: Plan: Discussed with granddaughter in room and over the phone. Patient unable to contribute towards current discussion due to altered mental state. DNR/DNI consistent with [facility] paperwork and patient prior wishes. No escalation of care, no vasopressors. No NG tube at the current time but granddaughter will discuss family. Patient is improved. (2) Acute hepatic encephalopathy: Plan: Given constipation, and hard stools, doubt this is from UTI. Transitioned to PO lactulose Appears improved. (3) Acute UTI: Plan: Urine culture with Enterococcus faecium on 03/03 Follow up repeat urine and blood cultures pansensitive Klebsiella we will de-escalate to ceftriaxone (4) Demand ischemia of myocardium: Plan: demand ischemia Type 2 OR Given goals of care will hold off any further workup regarding this (5) CKD (chronic kidney disease): Plan: Stage IV, Cr at baseline 2.08 (6) Cirrhosis: Plan: US 718 with moderate ascites seems to be nontender right now Plan VTE Prophylaxis - given goals of care no chemical prophylaxis Diet -resume diet Admission and Anticipated Discharge Date Admission Date: March 09, 2023 Subjective patient appears less confused is able to direct some of the conversation has a distended abdomen Physical Exam Physical Exam: patient awake she is oriented x2 to possibly 3 abdomen is slightly distended fluid wave firm but not tender neurologically is nonfocal no asterixis Results & Data Results & Data Vital Signs (Past 12 Hours) Vital Signs Temp Pulse Pulse Resp BP Pulse Ox O2 Del Method 03/11/23 07:24 98.2 F 75 18 147/69 H 96 Room Air 03/11/23 02:34 98.1 F 84 18 106/58 L 92 Room Air 03/11/23 02:24 85 03/10/23 23:24 97.9 F 96 H 18 130/71 95 Room Air Laboratory Results reviewed CBC reviewed chemistry PG Care Time/CCT Total # of Minutes Spent Total Time Spent with Patient: Total time spent is greater than 50% in coordination of care (as documented) at patient's floor/unit and/or counseling patient: Coding Level of Care Code 54677 SUB INP/OBS CARE 2/35MIN Diagnoses Goals of care, counseling/discussion Z71.89 Acute hepatic encephalopathy K76.82 Acute UTI N39.0 Demand ischemia of myocardium I24.8 CKD (chronic kidney disease) N18.9 Cirrhosis K74.60
[2023-03-11] MEDS: LACTULOSE SYRUP 20 GM/30 ML UDC PO SCH ×4 (08:13→21:30)
[2023-03-11] MEDS: FLUTICASONE/VILANTEROL 200/25MCG 14 PUFFS/INHALER INH SCH (08:13)
[2023-03-11] MEDS: NITROGLYCERIN 0.4 MG/HR PATCH TD SCH (08:13)
[2023-03-11] MEDS: PANTOprazole 40 MG TAB PO SCH (08:15)
[2023-03-11] MEDS: INSULIN ASPART PER UNIT CHARGE SC SCH ×4 (08:16→21:31)
[2023-03-11] MEDS: cefTRIAXone SODIUM 2,000 MG in DEXTROSE 5% 50 ML IV SCH (11:45)
[2023-03-11] MEDS ORDERED: DAPTOmycin 200 MG in SYRINGE 0 ML IV SCH (12:00)
[2023-03-11] MEDS ORDERED: POTASSIUM CHLORIDE 20 MEQ/15 ML UDC PO ONE (13:00)
[2023-03-11] MEDS ORDERED: FAMOTIDINE 20 MG TAB PO SCH (21:00)
[2023-03-12] MEDS: LEVOTHYROXINE SODIUM 125 MCG TABLET PO SCH (06:19)
--- NOTE | 2023-03-12 07:08 | Hospitalist Progress Note ---
Date of Service March 12, 2023 Assessment & Plan (1) Goals of care, counseling/discussion: Plan: Previous attending dscussed with granddaughter in room and over the phone. Patient unable to contribute towards current discussion memory issues . DNR/DNI consistent with [facility] paperwork and patient prior wishes. No escalation of care, No NG tube Patient is improved, now able to eat and drink and have casual conversation. (2) Acute hepatic encephalopathy: Plan: LEE and cirrhosis Transitioned to PO lactulose MELD score on presentation was 21 evoking a 19.6% 3 month mortality Appears improved. (3) Acute UTI: Plan: Urine culture with Enterococcus faecium on 03/03 Follow up repeat urine and blood cultures now show pansensitive Klebsiella we will de-escalate to ceftriaxone complete one week (4) Demand ischemia of myocardium: Plan: demand ischemia Type 2 UT , no acute ECG changes Given goals of care will hold off any further workup regarding this (5) CKD (chronic kidney disease): Plan: Stage IV, Cr at baseline 2.08 (6) Cirrhosis: Plan: US 718 with moderate ascites seems to be nontender right now Plan VTE Prophylaxis - given goals of care no chemical prophylaxis Diet -resume diet pt is stable for transfer to [facility] however given chronic non correctable issues with liver disease will be high readmission risk Admission and Anticipated Discharge Date Admission Date: March 09, 2023 Results & Data Results & Data Vital Signs (Past 12 Hours) Vital Signs Temp Pulse Pulse Resp BP Pulse Ox O2 Del Method 03/12/23 02:48 98.6 F 70 16 130/70 95 Room Air 03/11/23 22:30 75 03/11/23 23:00 98.2 F 75 18 121/72 95 Room Air 03/11/23 19:12 98.2 F 81 16 132/65 97 Room Air PG Care Time/CCT Total # of Minutes Spent Total Time Spent with Patient: Total time spent is greater than 50% in coordination of care (as documented) at patient's floor/unit and/or counseling patient: Coding Diagnoses Goals of care, counseling/discussion Z71.89 Acute hepatic encephalopathy K76.82 Acute UTI N39.0 Demand ischemia of myocardium I24.8 CKD (chronic kidney disease) N18.9 Cirrhosis K74.60
[2023-03-12 08:12] LABS: BUN Creatinine Ratio 19.5 (10-20); Calcium 8.8 mg/dl (8.6-10.3); Creatinine Clr Calc Pharmacy 19.8 ml/min; Est GFR (African American) 29.8 ml/min; Est GFR (Non-African American) 25.7 ml/min; Magnesium 1.8 mg/dl (1.7-2.4); Potassium 3.5 mmol/L (3.5-5.1)
[2023-03-12] MEDS: cefTRIAXone SODIUM 2,000 MG in DEXTROSE 5% 50 ML IV SCH (09:57)
[2023-03-12] MEDS: FLUTICASONE/VILANTEROL 200/25MCG 14 PUFFS/INHALER INH SCH (10:02)
[2023-03-12] MEDS: INSULIN ASPART PER UNIT CHARGE SC SCH ×2 (10:07→12:00)
[2023-03-12] MEDS: NITROGLYCERIN 0.4 MG/HR PATCH TD SCH (11:14)
[2023-03-12] MEDS: PANTOprazole 40 MG TAB PO SCH (11:15)
[2023-03-12] MEDS: LACTULOSE SYRUP 20 GM/30 ML UDC PO SCH ×2 (11:15→13:19)
--- NOTE | 2023-03-12 17:48 | Discharge Summary ---
Date of Service March 12, 2023 Admission HPI Per Admitting Provider Ilana Mackay is an 88 year old female with liver cirrhosis who presents to the ER via EMS from [facility] due to altered mental state. Unable to get any history from the patient. She was recently diagnosed with a urinary tract infection. She was started on daptomycin on March 06, 2023. Bumex was discontinued on March 06, 2023. On discussion with Dr Chou from [facility] - patient was progressively more confused 5 days ago prompting the urine analysis and culture. Progressively getting more encephalopathic and today not able to recognize anyone or take any oral intake, Discussed with her son and wished to honor her wishes to take her back to hospital if she was to get sick again. Principal Diagnosis hepatic encephalopathy Ramos with cirrhosis abdominal ascites Discharge Exam Patient awake alert and oriented. She does have abdominal ascites with some dullness and distention her abdomen is nontender Discharge Data Allergies Allergy/AdvReac Type Severity Reaction Status Date / Time erythromycin base Allergy Severe eye Verified 02/07/23 12:24 ointment only - red and infected Iodinated Contrast Media Allergy Severe heart Verified 05/06/21 14:33 muscles tightened/heart spasms Penicillins Allergy Intermediate "wore out Verified 02/07/23 12:24 on me" and hives repaglinide Allergy Intermediate Hives Verified 02/07/23 12:24 Sulfa (Sulfonamide Allergy Unknown Hives Verified 05/06/21 14:33 Antibiotics) timolol Allergy Unknown eye drops Verified 02/07/23 12:24 - eye redness clonazepam AdvReac Severe increased Verified 05/06/21 14:33 anxiety Qvfnsna-NVN-CrX Reductase AdvReac Severe ELEVATED Verified 05/06/21 14:33 Inhibitor HEPATIC [Ajtezwx-Xqw-Ssu Reductase ENZYMES Inhibitor] enalapril AdvReac Intermediate COUGH Verified 02/07/23 12:24 Consultations 03/09/23 11:57 ED Decision to Admit Stat Ordered Studies 03/09/23 10:13 CT head/brain wo con Stat 03/09/23 13:46 US abdomen ltd ascites Stat Hospital Course (1) Goals of care, counseling/discussion: Previous attending discussed with granddaughter in room and over the phone. Patient unable to contribute towards current discussion memory issues . DNR/DNI consistent with [facility] paperwork and patient prior wishes. No escalation of care, No NG tube Patient is improved, now able to eat and drink and have casual conversation. I spoke to the patient's son prior to discharge discussing her MELD score and her severity of illness. The patient's son voices an understanding he does work for [employer] in another state he however at this point time wishes to continue to support his mother's wish to have acute treatment for illness but supports her DNR status. We will readdress consideration of palliative care individually at each hospitalization (2) Acute hepatic encephalopathy: RAMOS and cirrhosis Transitioned to PO lactulose MELD score on presentation was 21 evoking a 19.6% 3 month mortality Stressed upon discharge the need for good bowel movements and lactulose therapy to avoid reaccumulation of ammonia and confusion (3) Acute UTI: Urine culture with Enterococcus faecium on 03/03 Follow up repeat urine and blood cultures now show pansensitive Klebsiella we will de-escalate to ceftriaxone did complete 3 days of therapy for noncomplicate d urinary tract infection (4) Demand ischemia of myocardium: demand ischemia Type 2 [place] , no acute ECG changes Given goals of care will hold off any further workup regarding this (5) CKD (chronic kidney disease): Stage IV, Cr at baseline 2.08 (6) Cirrhosis: US 03/09 with moderate ascites nontender at the time of discharge Plan pt is stable for transfer to center care however given chronic non correctable issues with liver disease will be high readmission risk Total Time Total Time Spent Total Time Spent (In Minutes): It required greater than 30 minutes to prepare this patient for discharge Discharge Plan Discharge Items Patient Disposition: Transfer Custodial Fac Reason For Visit: HEPATIC ENCEPHALOPATHY, UTI Discharge Diagnosis: Hepatic encephalopathy Ramos Cirrhosis Activity: Resume your previous activity Non-emergency contact: Primary Care Provider Call non-emergency contact if: your symptoms worsen Follow-up/Referrals: [facility] [Primary Care Provider] - Diet: Low Sodium (2gm) Addtl Attending Provider Instructions: please assure at least 2 or three bowel movements a day, if more reduce laculose dosing with provider supervision if less contact provider for dosing recommendations avoid tylenol products with liver disease Pending Studies at Discharge: No Stand-Alone Forms: My [facility] Skilled Items Patient informed of condition?: Yes DNR: Yes Discharge Level of Care: Skilled Communicable Disease: No Discharge Prognosis: Stable Lines: None Urinary Catheter: No Medications and DC Order Prescriptions: Continued nitroglycerin 0.4 mg/hr patch 24 hour 1 patch TD DAILY Qty: 30 11RF ketotifen fumarate [Alaway] 0.025 % (0.035 %) Drops 1 drp ophthalmic (eye) TID PRN (Reason: Eye Irritation) insulin glargine [Lantus U-100 Insulin] 100 unit/mL solution 10 unit SUBCUT HS meclizine 12.5 mg Tablet 12.5 mg PO Q8H PRN (Reason: Vertigo) pantoprazole 40 mg tablet,delayed release (DR/EC) 40 mg PO DAILY levothyroxine 125 mcg tablet 125 mcg PO DAILY lactulose 20 gram/30 mL Solution 20 g PO TID 30 Days Qty: 2700 11RF ascorbic acid (vitamin C) [Vitamin C] 500 mg Tablet 500 mg PO DAILY sodium chloride 0.9 % (flush) [Normal Saline Flush] Syringe 10 ml IV DIRECTED Rx Instructions: Every shift for 7 days,start 03/06/23 diclofenac sodium [Voltaren Arthritis Pain] 1 % Gel 2 g TOPICAL QID Rx Instructions: Foot joint pain fluticasone furoate-vilanterol [Breo Ellipta] 200-25 mcg/dose Blister With Device 1 inh INHALATION DAILY famotidine 20 mg tablet 20 mg PO HS Discontinued bumetanide 2 mg tablet 2 mg PO DAILY Qty: 90 3RF bisacodyl [Dulcolax (bisacodyl)] 10 mg Suppository 10 mg ME DAILY PRN (Reason: Constipation) Rx Instructions: Give on day 3, 3-11 shift if no bowel movement after Milk of Magnesia magnesium hydroxide [Milk of Magnesia] 400 mg/5 mL Suspension 30 ml PO DAILY PRN (Reason: Constipation) Rx Instructions: If no bowel movement for 3 days, start on 7-3 shift tramadol-acetaminophen 37.5-325 mg tablet 1 tab PO QAM acetaminophen [Tylenol Extra Strength] 500 mg Tablet 500 mg PO Q6H PRN (Reason: Mild Pain (Scale Score 1-4)) zolpidem 5 mg Tablet 5 mg PO HS magnesium oxide 400 mg magnesium Tablet 400 mg PO DAILY Daptomycin Iv 4 mg IV DAILY Rx Instructions: Give for days, start 03/06/23 Discharge Orders: Discharge Order (Routine); Ordered 03/12/23 Ordered By: Stuart Bah Admission Data Admit Date/Time: 03/09/23 13:25 Attending Provider: Stuart Bah Admit Provider: Saleem Decker [facility] Other Providers: Saleem Decker ; [facility] Other Interventions: Discharge Summary Assessment (RN) Last Done: 03/12/23 14:05 Coding Level of Care Code 05577 INP/OBS DISCH >30 MIN Diagnoses Goals of care, counseling/discussion Z71.89 Acute hepatic encephalopathy K76.82 Acute UTI N39.0 Demand ischemia of myocardium I24.8 CKD (chronic kidney disease) N18.9 Cirrhosis K74.60
== END 2023-03-12 14:51 | DRG 441 ==
LOC: ED 10:04 → SUATTDRO 13:25 → 2S 13:25